=== PATIENT | male | born 1960 | race Caucasian/White ===

== ENCOUNTER 2017-09-06 12:39 | Emergency (ER) | payer BC, OTHER ==
[2017-09-06 14:57] LABS: Absolute Monocytes 0.6 K/uL (0.1-1.3); Basophils % 0.8 % (0-1.3); Eosinophils % 6.2 % (0-4.4); Hematocrit 47.5 % (39.6-49.0); Lymphocytes % 33.1 % (15.3-44.8); MCH 32.1 pg (27.0-35.0); MCV 94.1 fL (80-100); MPV 7.7 fL (7.6-11.3); Monocytes % 9.6 % (3.3-12.3); RBC Red Blood Cell Count 5.04 M/uL (4.33-5.43)
[2017-09-06 15:31] LABS: Potassium 3.9 mEq/L (3.6-5.0)
--- NOTE | 2017-09-06 16:21 | EKG ---
Test Date: 2017-08-18 Test Time: 14:16:46 Campaign Advisor: TANIYA MEASUREMENT RESULTS: Intervals: Rate: 52 NH: 150 QRSD: 76 QT: 406 QTc: 377 [place]: P: 43 NH: 150 QRS: 6 T: 14 INTERPRETIVE STATEMENTS: Sinus bradycardia Otherwise normal ECG Compared to ECG 02/03/2012 08:52:04 No significant changes Electronically Signed On 09-06-17 16:19:57 CDT by Mohit Carmona
--- NOTE | 2017-09-06 16:49 | EDPHYS ---
Physician Documentation [facility] Name: Chandana Andujar Age: 56 yrs Sex: Male : 1960 Arrival Date: 09/06/2017 Time: 12:45 Bed 30 Private MD: Kenny Clancy ED Physician Dillon Junior HPI: 09/06 16:47 This 56 yrs old Male presents to ER via Ambulatory with complaints of Chest gs Pain, Breathing Difficulty. 16:47 The patient or guardian reports chest pain that is located primarily in the anterior gs chest wall. Onset: 1 week(s) ago. The pain does not radiate. Associated signs and symptoms: Pertinent positives: shortness of breath. The chest pain is described as dull. Duration: The patient or guardian reports multiple episodes, that are intermittent, that wax and wane, the episodes last approximately 5 minute(s). Modifying factors: The symptoms are alleviated by nothing. the symptoms are aggravated by nothing. Severity of pain: At its worst the pain was moderate in the emergency department the pain has resolved. The patient has experienced similar episodes in the past, several times. Historical: - Allergies: 12:56 No Known Allergies; hj - Home Meds: 12:56 Bystolic oral oral [Active]; Synthroid Oral once daily [Active]; hj - PMHx: 12:56 Hypertension; Hypothyroidism; hj - PSHx: 12:56 Knee surgery; Tonsillectomy; neck surgery; hj - Immunization history:: Pneumococcal vaccine is not up to date. - Social history:: Smoking status: Patient/guardian denies using tobacco, never smoked. ROS: 16:47 All other systems are negative. gs Exam: 16:47 Head/Face: Normocephalic, atraumatic. Eyes: Pupils equal round and reactive to light, gs extra-ocular motions intact. Lids and lashes normal. Conjunctiva and sclera are non-icteric and not injected. Cornea within normal limits. Periorbital areas with no swelling, redness, or edema. ENT: Nares patent. No nasal discharge, no septal abnormalities noted. Tympanic membranes are normal and external auditory canals are clear. Oropharynx with no redness, swelling, or masses, exudates, or evidence of obstruction, uvula midline. Mucous membranes moist. Neck: Trachea midline, no thyromegaly or masses palpated, and no cervical lymphadenopathy. Supple, full range of motion without nuchal rigidity, or vertebral point tenderness. No Meningismus. Chest/axilla: Normal chest wall appearance and motion. Nontender with no deformity. No lesions are appreciated. Cardiovascular: Regular rate and rhythm with a normal S1 and S2. No gallops, murmurs, or rubs. Normal PMI, no JVD. No pulse deficits. Respiratory: Lungs have equal breath sounds bilaterally, clear to auscultation and percussion. No rales, rhonchi or wheezes noted. No increased work of breathing, no retractions or nasal flaring. Abdomen/GI: Soft, non-tender, with normal bowel sounds. No distension or tympany. No guarding or rebound. No evidence of tenderness throughout. Back: No spinal tenderness. No costovertebral tenderness. Full range of motion. Skin: Warm, dry with normal turgor. Normal color with no rashes, no lesions, and no evidence of cellulitis. MS/ Extremity: Pulses equal, no cyanosis. Neurovascular intact. Full, normal range of motion. Neuro: Awake and alert, GCS 15, oriented to person, place, time, and situation. Cranial nerves II-XII grossly intact. Motor strength 5/5 in all extremities. Sensory grossly intact. Cerebellar exam normal. Normal gait. 16:47 Constitutional: The patient appears alert, awake. 16:47 ECG was reviewed by the Attending Physician. Vital Signs: 12:57 BP 140 / 91; Pulse 63; Resp 18; Temp 97.4(TE); Pulse Ox 99% on R/A; Weight 99.79 kg; Height 5 ft. 11 in. (180.34 cm); Pain 6/10; 14:04 BP 154 / 98; Pulse 56; Resp 17; Pulse Ox 98% on R/A; rk2 14:30 BP 134 / 92; Pulse 55; Resp 17; Pulse Ox 98% on R/A; rk2 15:33 BP 144 / 95; Pulse 55; Resp 17; Pulse Ox 98% on R/A; rk2 16:30 BP 141 / 95; Pulse 60; Resp 17; Pulse Ox 96% on R/A; rk2 12:57 Body Mass Index 30.68 (99.79 kg, 180.34 cm) MDM: 14:25 Patient medically screened. 16:47 Differential diagnosis: acute myocardial infarction, coronary artery disease chest wall gs pain. Data reviewed: vital signs, nurses notes, and as a result, I will discharge patient. 09/06 14:29 Order name: BNP; Complete Time: 15:42 09/06 14:29 Order name: Basic Metabolic Panel; Complete Time: 15:42 09/06 12:54 Order name: EKG; Complete Time: 12:54 09/06 14:29 Order name: CBC with Diff; Complete Time: 15:42 09/06 14:29 Order name: Troponin (emerg Dept Use Only); Complete Time: 15:42 09/06 14:29 Order name: XRAY Chest Pa And Lat (2 Views) 09/06 14:29 Order name: Cardiac monitoring; Complete Time: 14:49 09/06 14:29 Order name: EKG - Nurse/Tech; Complete Time: 14:48 09/06 14:29 Order name: IV Saline Lock; Complete Time: 14:48 09/06 14:29 Order name: Labs collected and sent; Complete Time: 14:48 09/06 14:29 Order name: O2 Per Protocol; Complete Time: 14:48 09/06 14:29 Order name: O2 Sat Monitoring; Complete Time: 14:48 09/06 14:29 Order name: Urine Dipstick-Ancillary (obtain specimen); Complete Time: 15:40 gs EC:47 Rate is 52 beats/min. Rhythm is regular. PA interval is normal. No Q waves. T waves are gs Normal. No ST changes noted. Clinical impression: Normal ECG. Interpreted by me. Administered Medications: No medications were administered Disposition: 09/06/17 16:49 Discharged to Home. Impression: Chest pain, unspecified. - Condition is Stable. - Discharge Instructions: Nonspecific Chest Pain, Managing Your High Blood Pressure. - Medication Reconciliation Form, Thank You Letter, Antibiotic Education, Prescription Opioid Use form. - Follow up: Kenny Clancy MD; When: 2 - 3 days; Reason: Re-evaluation by your physician. Follow up: Mohit Carmona MD; When: 2 - 3 days; Reason: Re-evaluation by your physician. Signatures: Dispatcher [facility] RN RN Dillon Gonzales MD MD gs Perla Mojica, RN RN rk2
--- NOTE | 2017-09-06 16:49 | ER ---
Nurse's Notes [facility] Name: Chandana Andujar Age: 56 yrs Sex: Male : 1960 Arrival Date: 09/06/2017 Time: 12:45 Bed 30 Private MD: Kenny Clancy Diagnosis: Chest pain, unspecified Presentation: 09/06 12:54 Presenting complaint: Patient states: i had chest pain that started last week, i was hj hort of breath, last Wednesday, i felt a sharp, stabbing pain; denies nausea and vomiting;. Transition of care: patient was not received from another setting of care. Onset of symptoms was September 06, 2017. Care prior to arrival: None. 12:54 Method Of Arrival: Ambulatory 12:54 Acuity: CHELO 3 hj Triage Assessment: 12:56 General: Appears in no apparent distress. uncomfortable, Behavior is calm, cooperative, hj appropriate for age. Pain: Complains of pain in chest. Cardiovascular: Capillary refill < 3 seconds Patient's skin is warm and dry. Historical: - Allergies: 12:56 No Known Allergies; hj - Home Meds: 12:56 Bystolic oral oral [Active]; Synthroid Oral once daily [Active]; hj - PMHx: 12:56 Hypertension; Hypothyroidism; hj - PSHx: 12:56 Knee surgery; Tonsillectomy; neck surgery; hj - Immunization history:: Pneumococcal vaccine is not up to date. - Social history:: Smoking status: Patient/guardian denies using tobacco, never smoked. Screenin:09 Abuse screen: Denies threats or abuse. Nutritional screening: No deficits noted. rk2 Tuberculosis screening: No symptoms or risk factors identified. Fall Risk None identified. Assessment: 12:56 Pain: Pain does not radiate. Pain began 2-3 days ago. hj 14:11 General: Appears in no apparent distress. well groomed, well developed, well nourished, rk2 Behavior is calm, cooperative. Neuro: Level of Consciousness is alert, obeys commands, Oriented to person, place, time, situation. Cardiovascular: Rhythm is sinus rhythm. Respiratory: Airway is patent Respiratory effort is even, unlabored, Respiratory pattern is regular, symmetrical. GI:. Derm: Skin is pink, warm \T\ dry. 15:15 Reassessment: Pt. resting in room, nobody \T\ bedside. Pt. appears to be in no obvious rk2 distress \T\ this time. Pt. voiced no needs. 16:29 Reassessment: Pt. resting in room \T\ this time... repositioned for comfort. Pt. appears rk2 to be in no obvious distress \T\ this time, voiced no other needs. 17:00 Reassessment: Reviewed DC instructions with pt... IV removed. Pt. able to ambulate out rk2 on his own without difficulty. Vital Signs: 12:57 BP 140 / 91; Pulse 63; Resp 18; Temp 97.4(TE); Pulse Ox 99% on R/A; Weight 99.79 kg; hj Height 5 ft. 11 in. (180.34 cm); Pain 6/10; 14:04 BP 154 / 98; Pulse 56; Resp 17; Pulse Ox 98% on R/A; rk2 14:30 BP 134 / 92; Pulse 55; Resp 17; Pulse Ox 98% on R/A; rk2 15:33 BP 144 / 95; Pulse 55; Resp 17; Pulse Ox 98% on R/A; rk2 16:30 BP 141 / 95; Pulse 60; Resp 17; Pulse Ox 96% on R/A; rk2 12:57 Body Mass Index 30.68 (99.79 kg, 180.34 cm) ED Course: 12:45 Patient arrived in ED. mr 12:45 Kenny Clancy MD is Private Physician. mr 12:55 Triage completed. hj 12:56 Arm band placed on right wrist. hj 12:56 Patient maintains SpO2 saturation greater than 95% on room air. hj 12:58 cardiac cath lab technologist on. Pulse ox on. NIBP on. hj 14:02 Perla Mojica, JUAN ALBERTO is Primary Nurse. rk2 14:05 Dillon Junior MD is Attending Physician. gs 14:09 Patient has correct armband on for positive identification. Placed in gown. Bed in low rk2 position. Call light in reach. 15:22 EKG done, by ED staff, reviewed by Dillon Junior MD. mh5 15:40 XRAY Chest Pa And Lat (2 Views) Sent. rk2 15:41 XRAY Chest Pa And Lat (2 Views) In Process Unspecified. EDMS 16:49 Kenny Clancy MD is Referral Physician. 16:49 Mohit Carmona MD is Referral Physician. 17:01 No provider procedures requiring assistance completed. IV discontinued. rk2 Administered Medications: No medications were administered Outcome: 16:49 Discharge ordered by MD. 17:01 Discharged to rk2 17:01 Discharged to home ambulatory. 17:01 Condition: good 17:01 Discharge instructions given to patient. 17:02 Patient left the ED. 2 Signatures: Dispatcher [employer] Gita Joseph Henry, RN RN Gita Wright [facility] Dillon Junior MD MD gs Kidder, Rhonda, RN RN rk2 Corrections: (The following items were deleted from the chart) 12:58 12:57 Pulse 63bpm; Resp 18bpm; Pulse Ox 99% RA; Temp 97.4F Temporal; 99.79 kg; Height 5 hj ft. 11 in.; BMI: 30.6; Pain 6/10; hj
[2017-09-06 17:07] VITALS: TEMP 97.4
[2017-09-06 17:11] VITALS: BP 141/95; O2SAT 96
--- NOTE | 2017-09-06 17:34 | RAD REPORT ---
EXAM DESCRIPTION: Mallory Choudhary (2 Views)09/06/2017 3:41 pm CLINICAL HISTORY: Cough COMPARISON: 2012 FINDINGS: The lungs appear clear of acute infiltrate. The heart is normal size IMPRESSION: No acute abnormalities displayed
== END 2017-09-06 17:02 | disposition home or self-care (01) ==
LOC: ER 12:39
DX: R07.9 Chest pain, unspecified (principal); I10 Essential (primary) hypertension; E03.9 Hypothyroidism, unspecified
CPT/HCPCS: 36415; 71046; 80048; 83880; 84484; 85025; 93005; 99285

== ENCOUNTER 2022-11-17 22:40 | Observation (INO) | payer OTHER ==
--- OUTSIDE RECORDS SUMMARY | 2022-11-17 22:46 | XMS REPORT | Continuity of Care Document ---
:1960 Author Organization [facility] t Address [address] [place] [address] [address] [place] [address] Care Team Providers Name Role Phone Marcy Clancy MD Primary Care Physician Abram Mendiola Attending Clinician Unavailable Kamryn Lozada Attending Clinician Unavailable Tiago Sullivan Attending Clinician Unavailable Aida Martinez Attending Clinician Provider, [facility] Attending Clinician Unavailable Unknown, Attending Attending Clinician Unavailable UNKNOWN, ATTENDING Attending Clinician Unavailable Physician, No Primary or Family Admitting Clinician Unavaila Kamryn Cast Admitting Clinician Unavailable Payers Payer Name Policy Type Policy Number Effective Date Expiration Date S ource Problems Condition Condition Condition Status Onset Resolution Last Treating Co mments Source Name Details Category Date Date Treatment Clinician Date 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 00:00: Hospit a 00 l Scalenus Scalenus Disease Active 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 00:00: Hospit a 00 l No known No known Disease Unive rs active active ity of problems problems [facility] Allergies, Adverse Reactions, Alerts Allergy Allergy Status Severity Reaction(s) Onset Inactive Treating Comm ents Source Name Type Date Date Clinician chicken FA Active [place] NAUSEA [facility] derived 4-10 Clear 00:00: [facility] No Known DA Active U [facility] Allergie 09-17 Clear s 00:00: Damian 00 [facility] NO KNOWN Drug Active Univers ALLERGIE Class ity of S [facility] Social History Social Habit Start Date Stop Date Quantity Comments Source Gender identity [facility] Exposure to Not sure [facility]-CoV-2 (event) [facility] Tobacco use and 2020 2020 Never used Universit y of exposure 00:00:00 00:00:00 [facility] History of Social 2019-02-03 2019-02-[address] function 00:00:00 00:00:00 Hospital Alcohol intake 2018-03-10 2018-03-10 Current [facility] 00:00:00 00:00:00 non-drinker of Hospital alcohol (finding) Sex Assigned At [birth year] [facility] 00:[facility]00 [facility] Smoking Status Start Date Stop Date Source Never smoker [facility] Medications Ordered Filled Start Stop Current Ordering Indication Dosage Frequency Signature Comments Components Source Medication Medication Date Date Medication? Clinician (SIG) Name Name methylPREDN Yes [id number] Take by Univers ISolone 11-11 mouth ity of (MEDROL, 00:00: SEE-INSTRU John Paul as JULISSA,) 4 mg 00 CTIONS. Medica l tablets follow Branch package directions methylPREDN Yes [id number] Take by Univers ISolone 11-11 mouth ity of (MEDROL, 00:00: SEE-INSTRU John Paul as JULISSA,) 4 mg 00 CTIONS. Medica l tablets follow Branch package directions methylPREDN Yes [id number] Take by Univers ISolone 11-11 mouth ity of (MEDROL, 00:00: SEE-INSTRU John Paul as JULISSA,) 4 mg 00 CTIONS. Medica l tablets follow Branch package directions amoxicillin 2020- No [id number] 1{tbl} Take 1 Univers -clavulanat 11-11 tablet by it y of e 875-125 00:00: 04:59 [place] 2 [place] mg per 00 :00 (two) Medical tablet times Branch daily for 7 days. promethazin 2020- No [id number] 10mL Take 10 mL Univers e-codeine 11-11 06-08 by mouth ity o f 6.25-10 00:00: 04:59 every 8 [place] mg/5 mL 00 :00 (eight) Medical syrup hours as Branch needed for Cough or Cold symptoms for up to 7 days. Indication s: acute pain amoxicillin 2020- No [id number] 1{tbl} Take 1 Univers -clavulanat 5- 06-08 tablet by it y of e 875-125 00:00: 04:59 [place] 2 [place] mg per 00 :00 (two) Medical tablet times Branch daily for 7 days. promethazin 2020- No 4647 10mL Take 10 mL Univers e-codeine 11-11-08 by mouth ity o f 6.25-10 00:00: 04:59 every 8 [place] mg/5 mL 00 :00 (eight) Medical syrup hours as Branch needed for Cough or Cold symptoms for up to 7 days. Indication s: acute pain amoxicillin 2020- No [id number] 1{tbl} Take 1 Univers -clavulanat - 06-08 tablet by it y of e 875-125 00:00: 04:59 [place] 2 [place] mg per 00 :00 (two) Medical tablet times Branch daily for 7 days. promethazin 2020- No 4647 10mL Take 10 mL Univers e-codeine 11-11-08 by mouth ity o f 6.25-10 00:00: 04:59 every 8 [place] mg/5 mL 00 :00 (eight) Medical syrup hours as Branch needed for Cough or Cold symptoms for up to 7 days. Indication s: acute pain metoprolol Yes 50mg Take 50 mg U nivers succinate 5-13 by mouth ity of XL 50 mg 24 00:00: daily. [place] hr tablet Medical Branch levothyroxi Yes 75ug Take 75 Uni vers ne 75 mcg 5-13 mcg by ity of tablet 00:00: mouth. [place] [facility] metoprolol Yes 50mg Take 50 mg U nivers succinate 5-13 by mouth ity of XL 50 mg 24 00:00: [place]. [place] hr tablet 00 [place] Branch levothyroxi Yes 75ug Take 75 Uni vers ne 75 mcg 5-13 mcg by ity of tablet 00:00: mouth. [place] [facility] Branch metoprolol Yes 50mg Take 50 mg U nivers succinate 5-13 by mouth ity of XL 50 mg 24 00:00: daily. [place] hr tablet [facility] Branch levothyroxi Yes 75ug Take 75 Uni vers ne 75 mcg 5-13 mcg by ity of tablet 00:00: mouth. [place] [facility] Branch acetaminoph Yes 1{tbl} Q4H Take 1 Me thodi en-codeine 7-[address] (TYLENOL 17:28: mouth Hospita WITH 26 every 4 l CODEINE #3) (four) 300-30 mg hours as per tablet needed for moderate pain. methylPREDN 2017- Yes 4mg Q.5D Take 4 mg M ethodi ISolone 7-[address] (MEDROL 17:28: (two) Hospita DOSEPAK) 4 26 times a l mg tablet day. follow package directions nebivolol 2018-0 Yes 10mg QD Take 10 mg Me thodi (BYSTOLIC) 7-[address] 10 MG 17:28: daily. Hospita tablet 26 l levothyroxi 0 Yes 100ug QD Take 100 M ethodi ne sodium 7-[address] (TIROSINT) 17:28: mouth Hospit a 100 mcg 26 daily. l capsule nebivolol Yes 10mg QD Take 10 mg Me thodi (BYSTOLIC) 7-[address] 10 MG 17:28: daily. Hospita tablet 26 l cyclobenzap 2018-0 Yes 10mg Q.[id number] Take 10 mg Methodi rine 7-11 [id number] mouth [address] (FLEXERIL) 17:28: 3D (three) Hosp eduardo 10 mg 26 times a l tablet day as needed for muscle spasms. acetaminoph Yes 1{tbl} Q4H Take 1 Me thodi en-codeine 7-[address] (TYLENOL 17:28: mouth Hospita WITH 26 every 4 l CODEINE #3) (four) 300-30 mg hours as per tablet needed for moderate pain. methylPREDN 2018-0 Yes 4mg Q.5D Take 4 mg M ethodi ISolone 7-[address] (MEDROL 17:28: (two) Hospita DOSEPAK) 4 26 times a l mg tablet day. follow package directions cyclobenzap 2018-0 Yes 10mg Q.[id number] Take 10 mg Methodi rine 7-[id number] mouth [address] (FLEXERIL) 17:28: 3D (three) Hosp eduardo 10 mg 26 times a l tablet day as needed for muscle spasms. acetaminoph 2018-0 Yes 1{tbl} Q4H Take 1 Me thodi en-codeine 7-[address] (TYLENOL 17:28: mouth Hospita WITH 26 every 4 l CODEINE #3) (four) 300-30 mg hours as per tablet needed for moderate pain. methylPREDN 2018-0 Yes 4mg Q.5D Take 4 mg M ethodi ISolone 7-[address] (MEDROL 17:28: (two) Hospita DOSEPAK) 4 26 times a l mg tablet day. follow package directions nebivolol 2018-0 Yes 10mg QD Take 10 mg Me thodi (BYSTOLIC) 7-[address] 10 MG 17:28: daily. Hospita tablet 26 l levothyroxi 2018-0 Yes 100ug QD Take 100 M ethodi ne sodium 7-[address] (TIROSINT) 17:28: mouth Hospit a 100 mcg 26 daily. l capsule levothyroxi 2018-0 Yes 100ug QD Take 100 M ethodi ne sodium 7-[address] (TIROSINT) 17:28: mouth Hospit a 100 mcg 26 daily. l capsule cyclobenzap 2018-0 Yes 10mg Q.37515624 Take 10 mg Methodi rine 7-[id number] mouth [address] (FLEXERIL) 17:28: 3D (three) Hosp eduardo 10 mg 26 times a l tablet day as needed for muscle spasms. acetaminoph 2018-0 Yes 1{tbl} Q4H Take 1 Me thodi en-codeine 7-[address] (TYLENOL 17:28: mouth Hospita WITH 26 every 4 l CODEINE #3) (four) 300-30 mg hours as per tablet needed for moderate pain. methylPREDN 2018-0 Yes 4mg Q.5D Take 4 mg M ethodi ISolone 7-[address] (MEDROL 17:28: (two) Hospita DOSEPAK) 4 26 times a l mg tablet day. follow package directions nebivolol Yes 10mg QD Take 10 mg Me thodi (BYSTOLIC) 7-[address] 10 MG 17:28: daily. Hospita tablet 26 l levothyroxi Yes 100ug QD Take 100 M ethodi ne sodium 7-[address] (TIROSINT) 17:28: mouth Hospit a 100 mcg 26 daily. l capsule cyclobenzap Yes 10mg Q.[id number] Take 10 mg Methodi rine 7-[id number] mouth [address] (FLEXERIL) 17:28: 3D (three) Hosp eduardo 10 mg 26 times a l tablet day as needed for muscle spasms. Vital Signs Vital Name Observation Time Observation Value Comments Source [facility]stolic blood 2020 17:11:00 142 [facility] 2020 17:11:00 100 mm[Hg] [facility] Heart rate 2020 17:10:00 84 /min [facility] Body temperature 2020 17:10:00 37.28 Annie [facility] Respiratory rate 2020 17:10:00 17 /min [facility] Body height 2020 17:10:00 180.3 cm [facility] Body weight 2020 17:10:00 98.884 kg [facility] BMI 2020 17:10:00 30.40 kg/m2 [facility] Oxygen saturation in 2020 17:10:00 98 /min [facility] Arterial blood by [facility] Pulse oximetry Branch Procedures Procedure Date / Time Performed Performing Clinician Anna philippe [id number] 2022-09-18 00:00:00 CHAAB.01 [facility] [id number] 2022-09-18 00:00:00 CHAAB.01 JOB Mensah [facility] [id number] 2022-09-18 00:00:00 CHAAB.01 [facility] [id number] 2022-09-18 00:00:00 CHAAB.01 [facility] [id number] 2022-09-18 00:00:00 CHAAB.01 [facility] [id number] 2022-09-18 00:00:00 CHAAB.01 [facility] [id number] 2022-09-18 00:00:00 CHAAB.01 [facility] [id number] 2022-09-18 00:00:00 CHAAB.01 [facility] [id number] 2022-09-18 00:00:00 CHAAB.01 [facility] [id number] 2022-09-18 00:00:00 CHAAB.01 [facility] [id number] 2022-09-18 00:00:00 CHAAB.01 [facility] XR CHEST 2 VW 2020 18:13:28 [facility] Plan of Care Planned Activity Planned Date Details Comments Source Future Scheduled 2022-09-16 COVID-19 VACCINE (#1) [facility] Test 22:04:45 [code = COVID-19 VACCINE (#1)] Future Scheduled 2022-09-16 COVID-19 VACCINE (#1) [facility] Test 22:04:45 [code = COVID-19 VACCINE (#1)] Future Scheduled 2022-09-16 Screening for [facility] Test 22:04:45 malignant neoplasm of colon (procedure) [code = 823850614] Future Scheduled 2022-09-16 SHINGLES VACCINES (1 Met [facility] Test 22:04:45 of 2) [code = SHINGLES VACCINES (1 of 2)] Future Scheduled 2022-09-16 INFLUENZA VACCINE [facility] Test 22:04:45 [code = INFLUENZA VACCINE] Future Scheduled 2022-09-16 COLONOSCOPY SCREENING [facility] Test 22:04:45 [code = COLONOSCOPY SCREENING] Future Scheduled 2022-09-16 SHINGLES VACCINES (1 Met [facility] Test 22:04:45 of 2) [code = SHINGLES VACCINES (1 of 2)] Future Scheduled 2022-09-16 INFLUENZA VACCINE Method [facility] Test 22:04:45 [code = INFLUENZA VACCINE] Future Scheduled 2022-09-16 COVID-19 VACCINE (#1) [facility] Test 22:04:45 [code = COVID-19 VACCINE (#1)] Future Scheduled 2022-09-16 COLONOSCOPY SCREENING [facility] Test 22:04:45 [code = COLONOSCOPY SCREENING] Future Scheduled 2022-09-16 SHINGLES VACCINES (1 Met [facility] Test 22:04:45 of 2) [code = SHINGLES VACCINES (1 of 2)] Future Scheduled 2022-09-16 INFLUENZA VACCINE [facility] Test 22:04:45 [code = INFLUENZA VACCINE] Future Scheduled 2022-09-16 COVID-19 VACCINE (#1) [facility] Test 22:04:45 [code = COVID-19 VACCINE (#1)] Future Scheduled 2022-09-16 COLONOSCOPY SCREENING [facility] Test 22:04:45 [code = COLONOSCOPY SCREENING] Future Scheduled 2022-09-16 SHINGLES VACCINES (1 Met [facility] Test 22:04:45 of 2) [code = SHINGLES VACCINES (1 of 2)] Future Scheduled 2022-09-16 INFLUENZA VACCINE Method [facility] Test 22:04:45 [code = INFLUENZA VACCINE] Encounters Start End Encounter Admission Attending Care Care Encounter Source Date/Time Date/Time Type Type Clinicians Facility Department ID 2022-09-30 2022-09-30 Outpatient Abram Gottlieb [facility] RADI [id number] [facility] 15:00:00 15:00:00 90 [facility] 2022-09-17 2022-09-22 Inpatient UR Kierra [facility] INTE [id number] [facility] 18:51:00 18:25:00 Isabel 99 [facility] 2020 2020 [facility] [id number] Univers 12:54:34 23:59:00 Encounter Aida Herbert [id number] itChelsea 4.2.7.2.686 [facility] [id number] [facility] 807 Branch 2020 2020 Urgent Provider, [facility] [id number] Univers 12:04:07 12:58:18 Care Unknown, [facility] [id number] ity [facility] 4.2.7.2.686 [facility] [phone] [address] Office Building One 2020 2020 Outpatient R UNKNOWN, [facility] [id number] Univers 12:20:00 12:20:00 ATTENDING ity [facility] 2020 2020 Telephone Provider, [facility] [id number] [facility] 00:00:00 00:00:[address] [facility] Urgent Health [id number] ity of [facility] [id number] [facility] [phone] [address] Building One Results Test Description Test Time Test Comments Results Result Sour e Comments - XR CHEST 2 V 2022-10-01 00:00:00 [facility] 1960 Sex: M FAX: Abram Mendiola MD Ridge: FRANKO St: DEP Name: CHANDANA ARGUELLES [facility] : 1960 Age/S: 61/M [address] [place] [address] Blvd Unit #: [id number] Loc: [place] [address] Phys: Abram Mendiola MD Acct: [id number] Dis Date: Status: DEP CLI PHONE #: [phone] Exam Date: 09/30/2022 1510 FAX #: [phone] Reason: ANGINA EXAMS: CPT CODE: [id number] XR CHEST 2 V 98116 PROCEDURE INFORMATION: Exam: XR Chest Exam date and time: 09/30/2022 2:53 PM Age: 61 years old Clinical indication: Atherosclerotic heart disease of tangirnaq coronary artery without angina pectoris TECHNIQUE: Imaging protocol: Radiologic exam of the chest. Views: 2 views. PA and Lateral COMPARISON: CR XR CHEST 1V 09/22/2022 6:01 AM FINDINGS: Tubes, catheters and devices: Plate and screws overlie the midline cervical thoracic spine. Surgical clips overlie the mediastinum. Lungs: Linear density identified within left lower lung. Possible atelectasis or scarring. The lungs appear otherwise clear. Improvement of lung opacities is demonstrated. Improved expansion of the lungs. Pleural spaces: Unremarkable. No pleural effusion. No pneumothorax. Heart/Mediastinum: Mediastinum and inez appear unremarkable. Diaphragm: Elevation of the left hemidiaphragm is demonstrated. Bones/joints: Sternotomy wires, hardware is demonstrated. IMPRESSION: Linear left lower chest pulmonary atelectasis or scarring. Mild left lung volume loss. Improvement. at 0820 Reported and signed by: Kristian Edge M.D. CC: Abram Mendiola MD Technologist: Arpita Elias RT(R) Trnscrd Date/Time/By: 10/01/2022 (819) : By: [email or web address] Orig Print D/T: S: 10/01/2022 (819) PAGE 1 Signed Report INFECTION CONTROL PROFILE 2022-09-24 13:12:00 Test Item Value Reference Range Interpretation Comme nts HEPATITIS C RNA BY HCV Not Detected IU/mL See_Comment No evidence of active HCV PCR-QUAL (test code = infect ion. [Automated HCVRNAPCR) message] The sy stem which generated this result transmitted ref erence range: (). The reference range was not u sed to interpret this result as normal/abnormal . 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 [facility] [id number] 13:16:00 Test Item Value Reference Range Interpretation Comments SURGICAL (test code = SR) R UN DATE: 09/22/22 [place] - LAB PAGE 1 RUN TIME: 1316 Specimen Inquiry RUN USER: INTERFACE P ATIENT: CHANDANA ARGUELLES LOC: FernandoCVN1 U #: [id number] AGE/SX: 61/M ROOM: [facility] RE09/17/22REG DR: Kamryn Lozada : [birth year] BED: 1 DIS: STATUS: ADM IN TLOC: SPEC #: [id number] RECD: 09/21/22 STATUS: CATHIE BRADFORD #: [id number] NIDHI: 09/18/22- SUBM DR: Kamryn Lozada MD ENTERED: 09/21/22 SP TYPE: SURGICAL OTHR DR: Krystal Elizabeth MD, Xiao H MD Quaddoura, Amer A MDORDERED: [id number], ANATOMIC SPEC COPIES TO: Krystal Elizabeth MD [address] [place] [address] Kamryn Lozada MD [address] [place] [address] Umu Gross MD [address] [place] [address] Mervat Mcdonald MD [address] [place] [address] PROCEDURES: [id number] (09/21/22) TISSUES: A. ATRIUM - LEFT ATRIAL APPENDAGE CLINICAL HISTORY SAME FINAL DIAGNOSIS Heart, left atrial appendage, submitted: Cardiac muscle with some degenerative changes andattached adipose, consistent with atrial appendage. CONTINUED ON NEXT PAGE R UN DATE: 09/22/22 [facility] PAGE 2 RUN TIME: 1316 Specimen Inquiry RUN USER: INTERFACE S MARIYA #: [id number] PATIENT: CHANDANA ARGUELLES #[id number] (Continued) GROSS DESCRIPTION Received in formalin labeled left atrial appendage is a 2 x 1 x 0.8 cm portion of musculartissue with some attached adipose (A). Technical [place] [address] Unless gross only, the diagnosis is based upon microscopic examination.Immunohistochemistr y: This test was developed and its performance characteristicsdetermined by this laboratory. It has not been approved nor does it need approvalby the [place] FDA. Appropriate positive and negative controls are reviewed and judgedto be acceptable. This laboratory is certified under the Clinical Laboratory ImprovementAmendments (CLIA-88) as qualified to perform high complexity clinical laboratory testing. CLINICAL INFORMATION CAD -- Signed SIGNATURE ON FILE Mikey Brar 09/22/22 1316 END OF REPORT BASIC METABOLIC [id number] 08:26:00 Test Item Value Reference Range Interpretation Comments SODIUM (test code = 137 mEq/L 134-147 N NA) POTASSIUM (test code 3.8 mEq/L 3.4-5.0 N = K) CHLORIDE (test code 98 mEq/L 100-108 L = CL) CARBON DIOXIDE (test 28 mEq/l 21-33 N code = CO2) ANION GAP (test code 15 0-20 N = GAP) GLUCOSE (test code = 142 mg/dL 70-110 H GLU) BLOOD UREA NITROGEN 13 mg/dL 7-18 (test code = BUN) GLOMERULAR 63.3 90-95 L The Glomerular FILTRATION RATE Filtration R ate is a (test code = GFR) calculated parameterbased on serum Creatinine, pat ient age and sex. GFR va luesless than 60 mL/min/ 1.73 square meters a re indicative ofCh ronic Kidney Disease. Values less than 15 mL/min/1.73squa re meters indicate Kidney failure. The calculation forGFR is based on the CKD-EPI (2020) calculat ion. This formulais race indifferent and is the recommended for nery for GFRby the [facility] on for Adults.The GFR will not calculate if th e sex is unknown or if thepatient's ag e is <18 years. 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 [facility] CBC W/AUTO [id number] 06:54:00 Test Item Value Reference Range Interpretation Comments WHITE BLOOD CELL (test code = 8.4 x10 3/uL 4.5-11.0 N WBC) RED BLOOD CELL (test code = 4.46 x10 6/uL 4.00-5.60 N RBC) HEMOGLOBIN (test code = HGB) 14.4 g/dL 12.5-16.9 N HEMATOCRIT (test code = HCT) 41.9 % 37.5-50.7 N MEAN CELL VOLUME (test code = 93.9 fL 81.0-99.0 N MCV) MEAN CELL HGB (test code = MCH) 32.3 pg 27.0-33.0 N MEAN CELL HGB CONCETRATION 34.4 g/dL 33.0-37.0 N (test code = MCHC) RED CELL DISTRIBUTION WIDTH CV 12.2 % 11.5-14.5 N (test code = RDW) RED CELL DISTRIBUTION WIDTH SD 42.5 fL 37.0-54.0 N (test code = RDW-SD) PLATELET COUNT (test code = 261 x10 3/uL 150-400 N PLT) MEAN PLATELET VOLUME (test code 9.8 fL 7.0-9.0 H = MPV) NEUTROPHIL % (test code = NT%) 61.9 % 56.0-77.0 N IMMATURE GRANULOCYTE % (test 0.4 % 0.0-2.0 N code = IG%) LYMPHOCYTE % (test code = LY%) 22.3 % 14.0-32.0 N MONOCYTE % (test code = MO%) 9.5 % 4.8-9.0 H EOSINOPHIL % (test code = EO%) 5.5 % 0.3-3.7 H BASOPHIL % (test code = BA%) 0.4 % 0.0-2.0 N NUCLEATED RBC % (test code = 0.0 % 0-0 N NRBC%) NEUTROPHIL # (test code = NT#) 5.20 x10 3/uL 2.0-7.6 N IMMATURE GRANULOCYTE # (test 0.03 x10 3/uL 0.00-0.03 N code = IG#) LYMPHOCYTE # (test code = LY#) 1.87 x10 3/uL 1.0-3.8 N MONOCYTE # (test code = MO#) 0.80 x10 3/uL 0.1-0.8 N EOSINOPHIL # (test code = EO#) 0.46 x10 3/uL 0.0-0.2 H BASOPHIL # (test code = BA#) 0.03 x10 3/uL 0.0-0.2 N NUCLEATED RBC # (test code = 0.00 x10 3/uL 0.0-0.1 N NRBC#) MANUAL DIFF REQUIRED (test code NO = MDIFF) - XR ABDOMEN 1V (KUB)2022-09-22 00:00:00 [facility] : 1960 Sex: M FAX: Kamryn Blair [phone] Ridge: St: ADM FAX: Krysta Kay y [phone] ----- Name: KINDRACHANDANA [facility] : 1960 Age/S: 61/M [address] [place] [address] Blvd Unit #: [id number] Loc: G.3360 [place] [address] Phys: Krysta Cordero Physic Acct: [id number] Dis Date: Status: ADM IN PHONE #: [phone] Exam Date: 09/22/2022 1151 FAX #: [phone] Reason: Constipation EXAMS: CPT CODE: [id number] XR ABDOMEN 1V (KUB) 38327 PROCEDURE INFORMATION: Exam: XR Abdomen Exam date and time: 09/22/2022 11:27 AM Age: 61 years old Clinical indication: Constipation TECHNIQUE: Imaging protocol: Radiologic exam of the abdomen. Views: Frontal supine view of the abdomen. 1 View. COMPARISON: CR XR CHEST 1V 09/22/2022 6:01 AM FINDINGS: Gastrointestinal tract: No evidence of significant constipation. Organs: No organomegaly. Bones/joints: No significant abnormality. IMPRESSION: No significant abnormality. at 1225 Reported and signed by: Anibal Feliz M.D. CC: Kamryn Lozada MD; Krysta Cordero Technologist: RT [place](Dirk) Trnscrd Date/Time/By: 09/22/2022 (6647) : By: [email or web address] Orig Print D/T: S: 09/22/2022 (8598) PAGE 1 Signed Report- DUP VEIN [id number] 00:00:00 [facility] : 1960 Sex: M Name: CHANDANA ARGUELLES [facility] : 1960 Age/S: 61 / M [address] [place] [address] Unit #: [id number] Loc: [place] [address] Phys: Krysta Cordero Physic Acct: [id number] Dis Date: Status: ADM IN PHONE #: [phone] Exam Date: 09/22/2022 1232 FAX #: [phone] Reason: BLE EXAMS: CPT CODE:[id number] DUP VEIN AZALEA 71618 PROCEDURE INFORMATION: Exam: US Duplex Lower Extremity Veins, Bilateral Exam date and time: 09/22/2022 12:14 PM Age: 61 years old Clinical indication: Screening exam; Post op cabg; Additional info: Ble TECHNIQUE: Imaging protocol: Real-time duplex ultrasound of the bilateral extremities with 2-D caldwell scale, color Doppler flow and spectral waveform analysis including responses to compression and other maneuvers (when performed) with image documentation. Complete exam focused on the lower extremity veins. COMPARISON: US DUP VEIN AZALEA 09/18/2022 6:15 AM FINDINGS: Right deep veins: Unremarkable. The common femoral, femoral, proximal profunda femoral and popliteal veins are pa tent without thrombus. Normal Doppler waveforms. Normal compressibility and/or augmentation response. Right superficial veins: Saphenofemoral junction is patent without thrombus. Left deep veins: Unremarkable. The common femoral, femoral, proximal profunda femoral and popliteal veins are patent without thrombus. Normal Doppler waveforms. Normal compressibility and/or augmentation response. Left superficial veins: Saphenofemoral junction is patent without thrombus. Soft tissues: Unremarkable. IMPRESSION: No evidence of deep vein thrombosis. at 1420 Reported and signed by: David Cuellar M.D. CC: Kamryn Lozada MD; Krysta Cordero Technologist: Angie Lei RDMS(AB)(OB) Trnscb Date/Time: 09/22/2022 (1419) ClaribelTDO Orig Print D/T: S: 09/22/2022 (1419) Probe: PAGE 1 Signed Report- XR CHEST 1 [id number] 00:00:00 [facility] : 1960 Sex: M FAX: Kamryn Blair [phone] Ridge: St: [facility] FAX: Joellen Burris [phone] ----- Name: CHANDANA ARGUELLES HCAHClear Damian : 1960 Age/S: 61/M [address] [place] [address] Unit #: [id number] Loc: G.[address] [place] [address] Phys: Brunilda Parks NP Acct: [id number] Dis Date: Status: ADM IN PHONE #: Exam Date: 09/22/2022 0602 FAX #: [phone] Reason: Cardiac Surgery Post Op EXAMS: CPT CODE: [id number] XR CHEST 1 V 54431 PROCEDURE INFORMATION: Exam: XR Chest Exam date and time: 09/22/2022 6:01 AM Age: 61 years old Clinical indication: Other: Cardiac surgery post op TECHNIQUE: Imaging protocol: Radiologic exam of the chest. Views: 1 view. COMPARISON: CR XR CHEST 1V 09/21/2022 5:31 AM FINDINGS: Lungs: Low lung volumes. Unchanged mild bibasilar airspace disease. Pleural spaces: No pleuraleffusion. No pneumothorax. Heart/Mediastinum: Unchanged cardiomediastinal silhouette. Bones/joints: Median sternotomy changes. Cervical spine fixation hardware in place. IMPRESSION: Unchanged mild bibasilar airspace disease. at 0815 Reported and signed by: Randolph Colón M.D. CC: Kamryn Lozada MD; Brunilda Burris NP Technologist: Nida Ann RT(R) Trnscrd Date/Time/By: 09/22/2022 (0815) : By: ClaribelAM01 Orig Print D/T: S: 09/22/2022 (6243) PAGE 1 Signed ReportGLUCOSE [id number] 21:02:00 Test Item Value Reference Range Interpretation Comments GLUCOSE BEDSIDE (test 130 MG/DL 70-110 H Perfor med by certified code = GLUBED) bliss press operator at [facility] GLUCOSE [id number] 16:49:00 Test Item Value Reference Range Interpretation Comments GLUCOSE BEDSIDE (test 131 MG/DL 70-110 H Perfor med by certified code = GLUBED) bliss press operator at [facility] GLUCOSE [id number] 13:32:00 Test Item Value Reference Range Interpretation Comments GLUCOSE BEDSIDE (test 175 MG/DL 70-110 H Perfor med by certified code = GLUBED) bliss press operator at [facility] GLUCOSE [id number] 08:14:00 Test Item Value Reference Range Interpretation Comments GLUCOSE BEDSIDE (test 181 MG/DL 70-110 H Perfor med by certified code = GLUBED) bliss press operator at [facility] BASIC METABOLIC [id number] 03:02:00 Test Item Value Reference Range Interpretation Comments SODIUM (test code = 135 mEq/L 134-147 N NA) POTASSIUM (test code 4.3 mEq/L 3.4-5.0 N = K) CHLORIDE (test code 100 mEq/L 100-108 N = CL) CARBON DIOXIDE (test 25 mEq/l 21-33 N code = CO2) ANION GAP (test code 14 0-20 N = GAP) GLUCOSE (test code = 190 mg/dL 70-110 H GLU) BLOOD UREA NITROGEN 10 mg/dL 7-18 N (test code = BUN) GLOMERULAR 69.7 90-95 L The Glomerular FILTRATION RATE Filtration R ate is a (test code = GFR) calculated parameterbased on serum Creatinine, pat ient age and sex. GFR va luesless than 60 mL/min/ 1.73 square meters a re indicative ofCh ronic Kidney Disease. Values less than 15 mL/min/1.73squa re meters indicate Kidney failure. The calculation forGFR is based on the CKD-EPI (2020) calculat ion. This formulais race indifferent and is the recommended for nery for GFRby the Natio nal Kidney Foundati on for Adults.The GFR will not calculate if th e sex is unknown or if thepatient's ag e is <18 years. CREATININE (test 1.2 mg/dL 0.6-1.3 N code = CREAT) CALCIUM (test code = 8.8 mg/dL 8.0-10.5 N CA) COMMENTS: POD #1HEPATIC FUNCTION [id number] 03:02:00 Test Item Value Reference Range Interpretation Comments TOTAL PROTEIN (test code = PROT) 6.7 g/dL 6.4-8.2 N ALBUMIN (test code = ALB) 4.00 g/dL 3.4-5.0 N BILIRUBIN TOTAL (test code = BILT) 0.70 mg/dL 0.0-1.0 N BILIRUBIN DIRECT (test code = 0.30 MG/DL 0.0-0.30 BILD) BILIRUBIN INDIRECT (test code = 0.40 MG/DL BILIND) SGOT/AST (test code = AST) 24 IUnit/L 15-37 N SGPT/ALT (test code = ALT) 9 IUnit/L 30-65 L ALKALINE PHOSPHATASE TOTAL (test 45 IUnit/L 20-125 N code = ALKP) COMMENTS: POD #[id number] 03:02:00 Test Item Value Reference Range Interpretation Comments MAGNESIUM (test code = MAG) 1.73 mg/dL 1.80-2.40 L COMMENTS: POD #1CBC W/AUTO [id number] 02:45:00 Test Item Value Reference Range Interpretation Comments WHITE BLOOD CELL (test code = 12.2 x10 3/uL 4.5-11.0 H WBC) RED BLOOD CELL (test code = 4.23 x10 6/uL 4.00-5.60 N RBC) HEMOGLOBIN (test code = HGB) 13.6 g/dL 12.5-16.9 N HEMATOCRIT (test code = HCT) 39.6 % 37.5-50.7 N MEAN CELL VOLUME (test code = 93.6 fL 81.0-99.0 N MCV) MEAN CELL HGB (test code = MCH) 32.2 pg 27.0-33.0 N MEAN CELL HGB CONCETRATION 34.3 g/dL 33.0-37.0 N (test code = MCHC) RED CELL DISTRIBUTION WIDTH CV 12.2 % 11.5-14.5 N (test code = RDW) RED CELL DISTRIBUTION WIDTH SD 42.2 fL 37.0-54.0 N (test code = RDW-SD) PLATELET COUNT (test code = 180 x10 3/uL 150-400 N PLT) MEAN PLATELET VOLUME (test code 9.4 fL 7.0-9.0 H = MPV) NEUTROPHIL % (test code = NT%) 70.8 % 56.0-77.0 N IMMATURE GRANULOCYTE % (test 0.2 % 0.0-2.0 N code = IG%) LYMPHOCYTE % (test code = LY%) 16.2 % 14.0-32.0 N MONOCYTE % (test code = MO%) 10.2 % 4.8-9.0 H EOSINOPHIL % (test code = EO%) 2.1 % 0.3-3.7 N BASOPHIL % (test code = BA%) 0.5 % 0.0-2.0 N NUCLEATED RBC % (test code = 0.0 % 0-0 N NRBC%) NEUTROPHIL # (test code = NT#) 8.63 x10 3/uL 2.0-7.6 H IMMATURE GRANULOCYTE # (test 0.03 x10 3/uL 0.00-0.03 N code = IG#) LYMPHOCYTE # (test code = LY#) 1.97 x10 3/uL 1.0-3.8 N MONOCYTE # (test code = MO#) 1.24 x10 3/uL 0.1-0.8 H EOSINOPHIL # (test code = EO#) 0.25 x10 3/uL 0.0-0.2 H BASOPHIL # (test code = BA#) 0.06 x10 3/uL 0.0-0.2 N NUCLEATED RBC # (test code = 0.00 x10 3/uL 0.0-0.1 N NRBC#) MANUAL DIFF REQUIRED (test code NO = MDIFF) - XR CHEST 1 [id number] 00:00:00 [facility] : 1960 Sex: M FAX: Kamryn Blair [phone] Ridge: St: ADM FAX: Joellen Burris [phone] ------ Name: CHANDANA ARGUELLES [facility] : 1960 Age/S: 61/M [address] [place] [address] Unit #: [id number] Loc: G.[address] [place] [address] 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 Views: 1 view. COMPARISON: CR XR CHEST 1V 09/20/2022 6:07 AM FINDINGS: Tubes, catheters and devices: Mediastinal and left thoracostomy drain have been removed. EKG and epicardial pacer leads overlie the chest. Lungs: Left basilar pulmonary opacities are unchanged. Increased opacity right lung base, oblique lateral margin, obscuring the hemidiaphragm. Pleural spaces:Residual small left apical pneumothorax with separation approximately 1.1 cm slightly diminished. Costophrenic angles are indistinct compatible with small pleural effusions. Heart/Mediastinum: The cardiomediastinal silhouette is stable. Bones/joints: Sternotomy wires are intact. IMPRESSION: 1. New right lower lobe atelectasis versus airspace disease. 2. Stable left basilar pleuroparenchymal disease.3. Small residual left pneumothorax, decreased following thoracostomy drain removal. 4. Stable postoperative cardiomediastinal silhouette. Electronically Signed by Alex Wild on 09/12 at 0851 Reported and signed by: Jeevan Wild M.D. CC: Kamryn Lozada MD; Brunilda Burris NP Technologist: RT Sugey(Dirk) Trnscrd Date/Time/By: 09/21/2022 (850) : By:Ro Orig Print D/T: S: 09/21/2022 (0852) PAGE 1 Signed ReportGLUCOSE [id number] 20:37:00 Test Item Value Reference Range Interpretation Comments GLUCOSE BEDSIDE (test 131 MG/DL 70-110 H Perfor med by certified code = GLUBED) bliss press operator at [facility] GLUCOSE [id number] 18:07:00 Test Item Value Reference Range Interpretation Comments GLUCOSE BEDSIDE (test 218 MG/DL 70-110 H Perfor med by certified code = GLUBED) bliss press operator at [facility] GLUCOSE [id number] 12:25:00 Test Item Value Reference Range Interpretation Comments GLUCOSE BEDSIDE (test 175 MG/DL 70-110 H Perfor med by certified code = GLUBED) bliss press operator at [facility] GLUCOSE [id number] 07:59:00 Test Item Value Reference Range Interpretation Comments GLUCOSE BEDSIDE (test 197 MG/DL 70-110 H Perfor med by certified code = GLUBED) bliss press operator at [facility] BASIC METABOLIC [id number] 02:44:00 Test Item Value Reference Range Interpretation Comments SODIUM (test code = 137 mEq/L 134-147 N NA) POTASSIUM (test code 4.6 mEq/L 3.4-5.0 N = K) CHLORIDE (test code 101 mEq/L 100-108 N = CL) CARBON DIOXIDE (test 29 mEq/l 21-33 N code = CO2) ANION GAP (test code 12 0-20 N = GAP) GLUCOSE (test code = 207 mg/dL 70-110 H GLU) BLOOD UREA NITROGEN 10 mg/dL 7-18 N (test code = BUN) GLOMERULAR 63.3 90-95 L The Glomerular FILTRATION RATE Filtration R ate is a (test code = GFR) calculated parameterbased on serum Creatinine, pat ient age and sex. GFR va luesless than 60 mL/min/ 1.73 square meters a re indicative ofCh ronic Kidney Disease. Values less than 15 mL/min/1.73squa re meters indicate Kidney failure. The calculation forGFR is based on the CKD-EPI (2020) calculat ion. This formulais race indifferent and is the recommended for nery for GFRby the Natio nal Kidney Foundati on for Adults.The GFR will not calculate if th e sex is unknown or if thepatient's ag e is <18 years. CREATININE (test 1.3 mg/dL 0.6-1.3 N code = CREAT) CALCIUM (test code = 8.8 mg/dL 8.0-10.5 N CA) COMMENTS: POD #1HEPATIC FUNCTION [id number] 02:44:00 Test Item Value Reference Range Interpretation Comments TOTAL PROTEIN (test code = PROT) 6.7 g/dL 6.4-8.2 N ALBUMIN (test code = ALB) 4.20 g/dL 3.4-5.0 N BILIRUBIN TOTAL (test code = BILT) 0.60 mg/dL 0.0-1.0 N BILIRUBIN DIRECT (test code = 0.20 MG/DL 0.0-0.30 N BILD) BILIRUBIN INDIRECT (test code = 0.40 MG/DL BILIND) SGOT/AST (test code = AST) 44 IUnit/L 15-37 H SGPT/ALT (test code = ALT) 11 IUnit/L 30-65 L ALKALINE PHOSPHATASE TOTAL (test 39 IUnit/L 20-125 N code = ALKP) COMMENTS: POD #[id number] 02:44:00 Test Item Value Reference Range Interpretation Comments MAGNESIUM (test code = MAG) 1.68 mg/dL 1.80-2.40 L COMMENTS: POD #1CBC W/AUTO [id number] 02:22:00 Test Item Value Reference Range Interpretation Comments WHITE BLOOD CELL (test code = 13.4 x10 3/uL 4.5-11.0 H WBC) RED BLOOD CELL (test code = 4.24 x10 6/uL 4.00-5.60 N RBC) HEMOGLOBIN (test code = HGB) 13.8 g/dL 12.5-16.9 N HEMATOCRIT (test code = HCT) 39.4 % 37.5-50.7 N MEAN CELL VOLUME (test code = 92.9 fL 81.0-99.0 N MCV) MEAN CELL HGB (test code = MCH) 32.5 pg 27.0-33.0 N MEAN CELL HGB CONCETRATION 35.0 g/dL 33.0-37.0 N (test code = MCHC) RED CELL DISTRIBUTION WIDTH CV 12.4 % 11.5-14.5 N (test code = RDW) RED CELL DISTRIBUTION WIDTH SD 42.3 fL 37.0-54.0 N (test code = RDW-SD) PLATELET COUNT (test code = 188 x10 3/uL 150-400 N PLT) MEAN PLATELET VOLUME (test code 9.7 fL 7.0-9.0 H = MPV) NEUTROPHIL % (test code = NT%) 70.0 % 56.0-77.0 N IMMATURE GRANULOCYTE % (test 0.4 % 0.0-2.0 N code = IG%) LYMPHOCYTE % (test code = LY%) 16.4 % 14.0-32.0 N MONOCYTE % (test code = MO%) 11.7 % 4.8-9.0 H EOSINOPHIL % (test code = EO%) 1.3 % 0.3-3.7 N BASOPHIL % (test code = BA%) 0.2 % 0.0-2.0 N NUCLEATED RBC % (test code = 0.0 % 0-0 N NRBC%) NEUTROPHIL # (test code = NT#) 9.37 x10 3/uL 2.0-7.6 H IMMATURE GRANULOCYTE # (test 0.06 x10 3/uL 0.00-0.03 H code = IG#) LYMPHOCYTE # (test code = LY#) 2.20 x10 3/uL 1.0-3.8 N MONOCYTE # (test code = MO#) 1.57 x10 3/uL 0.1-0.8 H EOSINOPHIL # (test code = EO#) 0.17 x10 3/uL 0.0-0.2 N BASOPHIL # (test code = BA#) 0.03 x10 3/uL 0.0-0.2 N NUCLEATED RBC # (test code = 0.00 x10 3/uL 0.0-0.1 N NRBC#) MANUAL DIFF REQUIRED (test code NO = MDIFF) - XR CHEST 1 [id number] 00:00:00 [facility] : 1960 Sex: M FAX: Kamryn Blair [phone] [place]: St: [facility] FAX: Joellen Burris [phone] ------ Name: KINDRA,CHANDANA [facility] : 1960 Age/S: 61/M [address] [place] [address] Unit #: [id number] Loc: G.2208 [place] [address] 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 Views: 1 view. COMPARISON: CR XR CHEST 1V 09/19/2022 6:03 AM FINDINGS: Tubes, catheters and devices: Removal of the right IJ central line. Stable left chest tube. Stable small left pneumothorax. Lungs: The bilateral lung opacities are grossly stable. Low lung volumes.Pleural spaces: See "Tubes, catheters and devices" finding. Heart/Mediastinum: The heart size is stable. Bones/joints: Stable. Partially imaged postoperative change in the cervical spine. Median sternotomy wires. IMPRESSION: 1. Grossly stable left lung opacities. Stable small left pneumothorax with stable left chest tube. 2. Removal of the right IJ central line. at 0833 Reported and signed by: Anuel Mariee M.D. CC: Kamryn Lozada MD; Brunilda Burris NP Technologist: Octavio Bran; RT Laura(R) Trnscrd Date/Time/By:09/20/2022 (0833) : By: ClaribelSW20 Orig Print D/T: S: 09/20/2022 (0833) PAGE 1 Signed ReportGLUCOSE BEDSIDE 2022-09-19 19:54:00 Test Item Value Reference Range Interpretation Comments GLUCOSE BEDSIDE (test 242 MG/DL 70-110 H Perfor med by certified code = GLUBED) bliss press operator at [facility] GLUCOSE [id number] 17:07:00 Test Item Value Reference Range Interpretation Comments GLUCOSE BEDSIDE (test 189 MG/DL 70-110 H Perfor med by certified code = GLUBED) bliss press operator at [facility] GLUCOSE [id number] 12:04:00 Test Item Value Reference Range Interpretation Comments GLUCOSE BEDSIDE (test 189 MG/DL 70-110 H Perfor med by certified code = GLUBED) bliss press operator at [facility] GLUCOSE [id number] 08:13:00 Test Item Value Reference Range Interpretation Comments GLUCOSE BEDSIDE (test 111 MG/DL 70-110 H Perfor med by certified code = GLUBED) bliss press operator at [facility] POC ARTERIAL BLOOD [id number] 04:48:00 Test Item Value Reference Range Interpretation Comments POC ARTERIAL BLOOD GAS PH (test 7.377 7.35-7.45 N code = POCPHA) POC ARTERIAL BLOOD GAS PCO2 (test 39.6 mmHg 35.0-45 N code = [id number]) POC TCO2 ARTERIAL (test code = 24.2 POCTCO2) POC ARTERIAL BLOOD GAS PO2 (test 75.3 mmHg 80-100.0 L code = UIJYQ6S) POC HCO3 ARTERIAL (test code = 23.1 MMOL/L 22.0-26.0 N [id number]) POC BASE EXCESS (test code = -1.9 MMOL/L -4.0-4.0 N POCBEA) POC O2 SATURATION (test code = 94.0 % 90-100 N POCO2S) ABG DELIVERY (test code = RACHID) HFNC ABG TEMPERATURE (test code = 100 F TEMPA) ABG SITE (test code = SITEA) Art Line BASIC METABOLIC [id number] 04:48:00 Test Item Value Reference Range Interpretation Comments SODIUM (test code = NA/ABG) 137 mmol/L 134-147 N POTASSIUM (test code = K/ABG) 4.9 mmol/L 3.4-5.0 N CHLORIDE (test code = CL/ABG) 102 mmol/L 100-108 N CREATININE ABG (test code = 1.1 mg/dL 0.8-1.3 CREAABG) POC IONIZED CALCIUM (test code = 1.11 MMOL/L 1.12-1.32 L POCCA) POC GLUCOSE (test code = POCGLU) 118 MG/DL 70-110 H HEMOGLOBIN [id number] 04:48:00 Test Item Value Reference Range Interpretation Comments HEMOGLOBIN ABG (test code = 11.9 G/DL 12.5-16.9 L HGB/ABG) [id number] 04:48:00 Test Item Value Reference Range Interpretation Comments HEMATOCRIT (test code = HCT/ABG) 35 % 37.5-50.7 L POC LACTIC [id number] 04:48:00 Test Item Value Reference Range Interpretation Comments POC LACTIC ACID (test code = 0.6 mmol/l 0.9-1.7 L POCLAC) BASIC METABOLIC [id number] 02:46:00 Test Item Value Reference Range Interpretation Comments SODIUM (test code = 138 mEq/L 134-147 N NA) POTASSIUM (test code 5.0 mEq/L 3.4-5.0 N = K) CHLORIDE (test code 105 mEq/L 100-108 N = CL) CARBON DIOXIDE (test 26 mEq/l 21-33 N code = CO2) ANION GAP (test code 12 0-20 N = GAP) GLUCOSE (test code = 156 mg/dL 70-110 H GLU) BLOOD UREA NITROGEN 12 mg/dL 7-18 N (test code = BUN) GLOMERULAR 69.7 90-95 L The Glomerular FILTRATION RATE Filtration R ate is a (test code = GFR) calculated parameterbased on serum Creatinine, pat ient age and sex. GFR va luesless than 60 mL/min/ 1.73 square meters a re indicative ofCh ronic Kidney Disease. Values less than 15 mL/min/1.73squa re meters indicate Kidney failure. The calculation forGFR is based on the CKD-EPI (2020) calculat ion. This formulais race indifferent and is the recommended for nery for GFRby the Natunc health Kidney Foundati on for Adults.The GFR will not calculate if th e sex is unknown or if thepatient's ag e is <18 years. CREATININE (test 1.2 mg/dL 0.6-1.3 N code = CREAT) CALCIUM (test code = 8.8 mg/dL 8.0-10.5 N CA) COMMENTS: POD #1HEPATIC FUNCTION [id number] 02:46:00 Test Item Value Reference Range Interpretation Comments TOTAL PROTEIN (test code = PROT) 6.0 g/dL 6.4-8.2 L ALBUMIN (test code = ALB) 4.20 g/dL 3.4-5.0 N BILIRUBIN TOTAL (test code = BILT) 0.50 mg/dL 0.0-1.0 N BILIRUBIN DIRECT (test code = 0.20 MG/DL 0.0-0.30 N BILD) SGOT/AST (test code = AST) 45 IUnit/L 15-37 H SGPT/ALT (test code = ALT) 13 IUnit/L 30-65 L ALKALINE PHOSPHATASE TOTAL (test 36 IUnit/L 20-125 N code = ALKP) BILIRUBIN INDIRECT (test code = 0.30 MG/DL BILIND) COMMENTS: POD #[id number] 02:46:00 Test Item Value Reference Range Interpretation Comments MAGNESIUM (test code = MAG) 1.74 mg/dL 1.80-2.40 L COMMENTS: POD #1CALCIUM [id number] 02:46:00 Test Item Value Reference Range Interpretation Comments CALCIUM IONIZED (test code = TEE) 1.13 MMOL/L 1.09-1.30 N COMMENTS: POD #1CBC W/AUTO [id number] 02:31:00 Test Item Value Reference Range Interpretation Comments WHITE BLOOD CELL (test code = 12.2 x10 3/uL 4.5-11.0 H WBC) RED BLOOD CELL (test code = 4.23 x10 6/uL 4.00-5.60 N RBC) HEMOGLOBIN (test code = HGB) 13.7 g/dL 12.5-16.9 N HEMATOCRIT (test code = HCT) 38.7 % 37.5-50.7 N MEAN CELL VOLUME (test code = 91.5 fL 81.0-99.0 N MCV) MEAN CELL HGB (test code = 32.4 pg 27.0-33.0 N MCH) MEAN CELL HGB CONCETRATION 35.4 g/dL 33.0-37.0 N (test code = MCHC) RED CELL DISTRIBUTION WIDTH CV 12.3 % 11.5-14.5 N (test code = RDW) RED CELL DISTRIBUTION WIDTH SD 40.9 fL 37.0-54.0 N (test code = RDW-SD) PLATELET COUNT (test code = 184 x10 3/uL 150-400 N PLT) MEAN PLATELET VOLUME (test 9.6 fL 7.0-9.0 H code = MPV) NEUTROPHIL % (test code = NT%) 84.8 % 56.0-77.0 H IMMATURE GRANULOCYTE % (test 0.2 % 0.0-2.0 N code = IG%) LYMPHOCYTE % (test code = LY%) 4.7 % 14.0-32.0 L MONOCYTE % (test code = MO%) 10.1 % 4.8-9.0 H EOSINOPHIL % (test code = EO%) 0.1 % 0.3-3.7 L BASOPHIL % (test code = BA%) 0.1 % 0.0-2.0 N NUCLEATED RBC % (test code = 0.0 % 0-0 N NRBC%) NEUTROPHIL # (test code = NT#) 10.39 x10 3/uL 2.0-7.6 H IMMATURE GRANULOCYTE # (test 0.02 x10 3/uL 0.00-0.03 N code = IG#) LYMPHOCYTE # (test code = LY#) 0.57 x10 3/uL 1.0-3.8 L MONOCYTE # (test code = MO#) 1.24 x10 3/uL 0.1-0.8 H EOSINOPHIL # (test code = EO#) 0.01 x10 3/uL 0.0-0.2 N BASOPHIL # (test code = BA#) 0.01 x10 3/uL 0.0-0.2 N NUCLEATED RBC # (test code = 0.00 x10 3/uL 0.0-0.1 N NRBC#) MANUAL DIFF REQUIRED (test NO code = MDIFF) - XR CHEST 1 [id number] 00:00:00 [facility] : 1960 Sex: M FAX: Kamryn Blair [phone] [place]: St: [facility] FAX: Joellen Burris [phone] ----- Name: CHANDANA ARGUELLES [facility] : 1960 Age/S: 61/M [address] [place] [address] Bl Unit #: [id number] Loc: G.2208 [place] [address] Phys: Brunilda Parks NP Acct: [id number] Dis Date: Status: ADM IN PHONE #: Exam Date: 09/19/2022 0604 FAX #: [phone] Reason: Cardiac Surgery Post Op EXAMS: CPT CODE: [id number] XR CHEST 1 V 36396 PROCEDURE INFORMATION: Exam: XR Chest Exam date and time: 09/19/2022 6:03 AM Age: 61 years old Clinical indication: Other: Cardiac surgery post op TECHNIQUE: Imaging protocol: Radiologic exam of the chest. Views: 1 view. COMPARISON: CR XR CHEST 1V 09/18/2022 3:37 PM FINDINGS: Tubes, catheters and devices: Plate and screws overlie the midline cervical spine. Left large bore chest tube is demonstrated. Surgical clips overlie the mediastinum. Right neck dialysis catheter tip is positioned over the SVC-atrial region. Lungs: Lung volumes are decreased. Moderate degree bilateral perihilar and basilar interstitial alveolar pulmonary edema versus infiltrates, pneumonia within the lungs. The pulmonary opacities are most prominent within the lower left lung. Progression of left-sided lower lung opacities is demonstrated. Pleural spaces: Unremarkable. No pleural effusion. No pneumothorax. Heart/Mediastinum: Cardiac silhouette appears mildly enlarged. Bones/joints: Sternotomy wires, hardware is demonstrated. IMPRESSION: 1. Mild enlarged cardiac silhouette. 2. Moderate pulmonary edema versus infiltrates, pneumonia. Electronically Signed by Alex Edge on 0 09/19/2022 at 0827 Reported and signed by: Kristian Edge M.D. CC: Kamryn Lozada MD;Brunilda Burris NP Technologist: Octavio Bran; RT Brandi(R) Trnscrd Date/Time/By: 09/19/2022 (826) : By: [email or web address] Orig Print D/T: S: 09/19/2022 (28) PAGE 1 Signed ReportGLUCOSE BEDSIDE 2022-09-18 23:24:00 Test Item Value Reference Range Interpretation Comments GLUCOSE BEDSIDE (test 122 MG/DL 70-[address] [facility] med by certified code = GLUBED) bliss press operator at [facility] POC ARTERIAL BLOOD [id number] 21:21:00 Test Item Value Reference Range Interpretation Comments POC ARTERIAL BLOOD GAS PH (test 7.356 7.35-7.45 N code = POCPHA) POC ARTERIAL BLOOD GAS PCO2 (test 45.9 mmHg 35.0-45 H code = [id number]) POC TCO2 ARTERIAL (test code = 26.9 POCTCO2) POC ARTERIAL BLOOD GAS PO2 (test 86.2 mmHg 80-100.0 N code = POZGC2S) POC HCO3 ARTERIAL (test code = 25.5 MMOL/L 22.0-26.0 N [id number]) POC BASE EXCESS (test code = 0.2 MMOL/L -4.0-4.0 N POCBEA) POC O2 SATURATION (test code = 95.7 % 90-100 N POCO2S) ABG DELIVERY (test code = RACHID) HFNC ABG TEMPERATURE (test code = 99.7 F TEMPA) ABG SITE (test code = SITEA) Art Line BASIC METABOLIC [id number] 21:21:00 Test Item Value Reference Range Interpretation Comments SODIUM (test code = NA/ABG) 141 mmol/L 134-147 N POTASSIUM (test code = K/ABG) 4.2 mmol/L 3.4-5.0 N CHLORIDE (test code = CL/ABG) 105 mmol/L 100-108 N CREATININE ABG (test code = 0.9 mg/dL 0.8-1.3 N CREAABG) POC IONIZED CALCIUM (test code = 1.26 MMOL/L 1.12-1.32 N POCCA) POC GLUCOSE (test code = POCGLU) 147 MG/DL 70-110 H HEMOGLOBIN [id number] 21:21:00 Test Item Value Reference Range Interpretation Comments HEMOGLOBIN ABG (test code = 13.5 G/DL 12.5-16.9 N HGB/ABG) [id number] 21:21:00 Test Item Value Reference Range Interpretation Comments HEMATOCRIT (test code = HCT/ABG) 40 % 37.5-50.7 N POC LACTIC [id number] 21:21:00 Test Item Value Reference Range Interpretation Comments POC LACTIC ACID (test code = 1.2 mmol/l 0.9-1.7 N POCLAC) POC ARTERIAL BLOOD [id number] 18:01:00 Test Item Value Reference Range Interpretation Comments POC ARTERIAL BLOOD GAS PH (test 7.369 7.35-7.45 N code = POCPHA) POC ARTERIAL BLOOD GAS PCO2 45.5 mmHg 35.0-45 H (test code = TNIYFY4R) POC TCO2 ARTERIAL (test code = 27.8 POCTCO2) POC ARTERIAL BLOOD GAS PO2 (test 78.1 mmHg 80-100.0 L code = BOHXE5S) POC HCO3 ARTERIAL (test code = 26.3 MMOL/L 22.0-26.0 H [id number]) POC BASE EXCESS (test code = 0.9 MMOL/L -4.0-4.0 N POCBEA) POC O2 SATURATION (test code = 95.2 % 90-100 N POCO2S) FIO2 (test code = FIO2A) 40 % PaO2/FiO2 (test code = [id number]) 195.25 mm/Hg ABG DELIVERY (test code = RACHID) CPAP ABG VENT MODE (test code = CPAP/PS MODEA) ABG PEEP (test code = PEEPA) 5 cmH2O ABG TEMPERATURE (test code = 97.8 F TEMPA) ABG SITE (test code = SITEA) Art Line BASIC METABOLIC [id number] 18:01:00 Test Item Value Reference Range Interpretation Comments SODIUM (test code = NA/ABG) 141 mmol/L 134-147 N POTASSIUM (test code = K/ABG) 4.0 mmol/L 3.4-5.0 N CHLORIDE (test code = CL/ABG) 105 mmol/L 100-108 N CREATININE ABG (test code = 1.0 mg/dL 0.8-1.3 N CREAABG) POC IONIZED CALCIUM (test code = 1.27 MMOL/L 1.12-1.32 N POCCA) POC GLUCOSE (test code = POCGLU) 151 MG/DL 70-110 H HEMOGLOBIN [id number] 18:01:00 Test Item Value Reference Range Interpretation Comments HEMOGLOBIN ABG (test code = 12.8 G/DL 12.5-16.9 N HGB/ABG) [id number] 18:01:00 Test Item Value Reference Range Interpretation Comments HEMATOCRIT (test code = HCT/ABG) 38 % 37.5-50.7 N POC ARTERIAL BLOOD [id number] 17:15:00 Test Item Value Reference Range Interpretation Comments POC ARTERIAL BLOOD GAS PH (test 7.337 7.35-7.45 L code = POCPHA) POC ARTERIAL BLOOD GAS PCO2 45.5 mmHg 35.0-45 H (test code = TSMWYF2D) POC TCO2 ARTERIAL (test code = 25.9 POCTCO2) POC ARTERIAL BLOOD GAS PO2 (test 83.6 mmHg 80-100.0 N code = DPFKD1T) POC HCO3 ARTERIAL (test code = 24.5 MMOL/L 22.0-26.0 N [id number]) POC BASE EXCESS (test code = -1.4 MMOL/L -4.0-4.0 N POCBEA) POC O2 SATURATION (test code = 95.6 % 90-100 N POCO2S) FIO2 (test code = FIO2A) 60 % PaO2/FiO2 (test code = [id number]) 139.33 mm/Hg ABG DELIVERY (test code = RACHID) CPAP ABG VENT MODE (test code = CPAP/PS MODEA) ABG PEEP (test code = PEEPA) 5 cmH2O ABG TEMPERATURE (test code = 98 F TEMPA) ABG SITE (test code = SITEA) Art Line BASIC METABOLIC [id number] 17:15:00 Test Item Value Reference Range Interpretation Comments SODIUM (test code = NA/ABG) 143 mmol/L 134-147 N POTASSIUM (test code = K/ABG) 3.7 mmol/L 3.4-5.0 N CHLORIDE (test code = CL/ABG) 107 mmol/L 100-108 N CREATININE ABG (test code = 1.0 mg/dL 0.8-1.3 CREAABG) POC IONIZED CALCIUM (test code = 1.29 MMOL/L 1.12-1.32 N POCCA) POC GLUCOSE (test code = POCGLU) 154 MG/DL 70-110 H HEMOGLOBIN [id number] 17:15:00 Test Item Value Reference Range Interpretation Comments HEMOGLOBIN ABG (test code = 12.6 G/DL 12.5-16.9 N HGB/ABG) [id number] 17:15:00 Test Item Value Reference Range Interpretation Comments HEMATOCRIT (test code = HCT/ABG) 37 % 37.5-50.7 L BASIC METABOLIC [id number] 16:38:00 Test Item Value Reference Range Interpretation Comments SODIUM (test code = 140 mEq/L 134-147 N NA) POTASSIUM (test code 4.2 mEq/L 3.4-5.0 N = K) CHLORIDE (test code 108 mEq/L 100-108 N = CL) CARBON DIOXIDE (test 24 mEq/l 21-33 N code = CO2) ANION GAP (test code 13 0-20 N = GAP) GLUCOSE (test code = 182 mg/dL 70-110 H GLU) BLOOD UREA NITROGEN 10 mg/dL 7-18 (test code = BUN) GLOMERULAR 86.7 90-95 L The Glomerular FILTRATION RATE Filtration R ate is a (test code = GFR) calculated parameterbased on serum Creatinine, pat ient age and sex. GFR va luesless than 60 mL/min/ 1.73 square meters a re indicative ofCh ronic Kidney Disease. Values less than 15 mL/min/1.73squa re meters indicate Kidney failure. The calculation forGFR is based on the CKD-EPI (2020) calculat ion. This formulais race indifferent and is the recommended for nery for GFRby the [facility] on for Adults.The GFR will not calculate if th e sex is unknown or if thepatient's ag e is <18 years. CREATININE (test 1.0 mg/dL 0.6-1.3 N code = CREAT) CALCIUM (test code = 9.7 mg/dL 8.0-10.5 N CA) COMMENTS: On [id number] 16:38:00 Test Item Value Reference Range Interpretation Comments MAGNESIUM (test code = MAG) 2.41 mg/dL 1.80-2.40 H COMMENTS: On arrivalPROTHROMBIN [id number] 16:26:00 Test Item Value Reference Range Interpretation Comments PROTHROMBIN TIME 16.8 SECONDS 9.3-12.9 H PATIENT (test code = PTP) INTERNATIONAL NORMAL 1.5 0.8-1.2 H TARGET INR BY RATIO (test code = INDICATIO N Indication INR) INR1. Prophylax is of venous thrombos is 2.0 - 3.0 (orthoped ic surgery), Proph ylaxis of venous throm bosis (other than hig h-risk surgery), Treat ment of Deep Vein Thrombosis/Pulm onary Embolism, Preve ntion of systemic emb olism - Tissue heart va lves, Acute Myocardia l Infarction (to prevent systemic emboli sm), Valvular heart disease, Atrial Fibrillation, Bileaflet mecha nical valve in aortic position.2. Mec hanical prosthetic valv es (high risk), 2. 5 - 3.5 Presence of Lup us Anticoagulant o r Antiphospholipi d Antibodies, Pre vention of systemic emb olism - Acute Myocardia l Infarction (to prevent recurrent infar ct). COMMENTS: On arrivalTHROMBOPLASTIN TIME [id number] 16:26:00 Test Item Value Reference Range Interpretation Comments THROMBOPLASTIN TIME 29.0 Seconds 25.0-39.5 N Therape utic Range: PARTIAL (test code = 50.4 - 88.3 Seconds PTT) Effective 09/27/2018 COMMENTS: On arrivalCBC W/AUTO [id number] 16:15:00 Test Item Value Reference Range Interpretation Comments WHITE BLOOD CELL (test code = 13.1 x10 3/uL 4.5-11.0 H WBC) RED BLOOD CELL (test code = 3.89 x10 6/uL 4.00-5.60 L RBC) HEMOGLOBIN (test code = HGB) 12.7 g/dL 12.5-16.9 HEMATOCRIT (test code = HCT) 35.7 % 37.5-50.7 L MEAN CELL VOLUME (test code = 91.8 fL 81.0-99.0 N MCV) MEAN CELL HGB (test code = 32.6 pg 27.0-33.0 N MCH) MEAN CELL HGB CONCETRATION 35.6 g/dL 33.0-37.0 N (test code = MCHC) RED CELL DISTRIBUTION WIDTH CV 12.0 % 11.5-14.5 N (test code = RDW) RED CELL DISTRIBUTION WIDTH SD 40.5 fL 37.0-54.0 N (test code = RDW-SD) PLATELET COUNT (test code = 138 x10 3/uL 150-400 L PLT) MEAN PLATELET VOLUME (test 9.5 fL 7.0-9.0 H code = MPV) NEUTROPHIL % (test code = NT%) 77.0 % 56.0-77.0 N IMMATURE GRANULOCYTE % (test 0.5 % 0.0-2.0 N code = IG%) LYMPHOCYTE % (test code = LY%) 13.8 % 14.0-32.0 L MONOCYTE % (test code = MO%) 6.8 % 4.8-9.0 N EOSINOPHIL % (test code = EO%) 1.7 % 0.3-3.7 N BASOPHIL % (test code = BA%) 0.2 % 0.0-2.0 N NUCLEATED RBC % (test code = 0.0 % 0-0 N NRBC%) NEUTROPHIL # (test code = NT#) 10.07 x10 3/uL 2.0-7.6 H IMMATURE GRANULOCYTE # (test 0.06 x10 3/uL 0.00-0.03 H code = IG#) LYMPHOCYTE # (test code = LY#) 1.80 x10 3/uL 1.0-3.8 N MONOCYTE # (test code = MO#) 0.89 x10 3/uL 0.1-0.8 H EOSINOPHIL # (test code = EO#) 0.22 x10 3/uL 0.0-0.2 H BASOPHIL # (test code = BA#) 0.03 x10 3/uL 0.0-0.2 N NUCLEATED RBC # (test code = 0.00 x10 3/uL 0.0-0.1 N NRBC#) MANUAL DIFF REQUIRED (test NO code = MDIFF) [facility] [id number] 15:43:00 Test Item Value Reference Range Interpretation Comments POC ARTERIAL BLOOD GAS PH (test 7.395 7.35-7.45 N code = POCPHA) POC ARTERIAL BLOOD GAS PCO2 41.4 mmHg 35.0-45 N (test code = [id number]) POC TCO2 ARTERIAL (test code = 27.0 POCTCO2) POC ARTERIAL BLOOD GAS PO2 (test 65.6 mmHg 80-100.0 L code = OOMUC9W) POC HCO3 ARTERIAL (test code = 25.7 MMOL/L 22.0-26.0 N [id number]) POC BASE EXCESS (test code = 0.5 MMOL/L -4.0-4.0 N POCBEA) POC O2 SATURATION (test code = 93.6 % 90-100 N POCO2S) FIO2 (test code = FIO2A) 50 % PaO2/FiO2 (test code = [id number]) 131.20 mm/Hg ABG DELIVERY (test code = RACHID) Adult Vent ABG VENT MODE (test code = AC MODEA) ABG VENT RESP RATE (test code = 14 /MIN RRA) ABG TIDAL VOLUME (test code = 500 ml TVA) ABG PEEP (test code = PEEPA) 5 cmH2O ABG TEMPERATURE (test code = 96.4 F TEMPA) ABG SITE (test code = SITEA) Art Line BASIC METABOLIC [id number] 15:43:00 Test Item Value Reference Range Interpretation Comments SODIUM (test code = NA/ABG) 140 mmol/L 134-147 N POTASSIUM (test code = K/ABG) 4.4 mmol/L 3.4-5.0 N CHLORIDE (test code = CL/ABG) 105 mmol/L 100-108 N CREATININE ABG (test code = 0.8 mg/dL 0.8-1.3 N CREAABG) POC IONIZED CALCIUM (test code = 1.34 MMOL/L 1.12-1.32 H POCCA) POC GLUCOSE (test code = POCGLU) 188 MG/DL 70-110 H HEMOGLOBIN [id number] 15:43:00 Test Item Value Reference Range Interpretation Comments HEMOGLOBIN ABG (test code = 11.7 G/DL 12.5-16.9 L HGB/ABG) [id number] 15:43:00 Test Item Value Reference Range Interpretation Comments HEMATOCRIT (test code = HCT/ABG) 35 % 37.5-50.7 L [id number] 15:10:00 Test Item Value Reference Range Interpretation Comments ACT-ISTAT (test code 125 SEC 74-137 N Perform ed by certified = ACTI) bliss press operator at [facility] POC ARTERIAL BLOOD [id number] 15:09:00 Test Item Value Reference Range Interpretation Comments POC ARTERIAL BLOOD GAS PH (test 7.371 7.35-7.45 N code = POCPHA) POC ARTERIAL BLOOD GAS PCO2 (test 43.4 mmHg 35.0-45 N code = QDWAYD7A) POC TCO2 ARTERIAL (test code = 26.5 POCTCO2) POC ARTERIAL BLOOD GAS PO2 (test 103.7 mmHg 80-100.0 H code = HWMDF0F) POC HCO3 ARTERIAL (test code = 25.1 MMOL/L 22.0-26.0 N [id number]) POC BASE EXCESS (test code = -0.3 MMOL/L -4.0-4.0 N POCBEA) POC O2 SATURATION (test code = 97.8 % 90-100 N POCO2S) BASIC METABOLIC [id number] 15:09:00 Test Item Value Reference Range Interpretation Comments SODIUM (test code = NA/ABG) 141 mmol/L 134-147 N POTASSIUM (test code = K/ABG) 4.3 mmol/L 3.4-5.0 N CHLORIDE (test code = CL/ABG) 105 mmol/L 100-108 N CREATININE ABG (test code = 1.0 mg/dL 0.8-1.3 N CREAABG) POC IONIZED CALCIUM (test code = 1.36 MMOL/L 1.12-1.32 H POCCA) POC GLUCOSE (test code = POCGLU) 208 MG/DL 70-110 H HEMOGLOBIN [id number] 15:09:00 Test Item Value Reference Range Interpretation Comments HEMOGLOBIN ABG (test code = HGB/ABG) 9.8 G/DL 12.5-16.9 L [id number] 15:09:00 Test Item Value Reference Range Interpretation Comments HEMATOCRIT (test code = HCT/ABG) 29 % 37.5-50.7 L POC LACTIC [id number] 15:09:00 Test Item Value Reference Range Interpretation Comments POC LACTIC ACID (test code = 1.8 mmol/l 0.9-1.7 H POCLAC) [id number] 14:31:00 Test Item Value Reference Range Interpretation Comments ACT-ISTAT (test code 636 SEC 74-137 H Perform ed by certified = ACTI) bliss press operator at [facility] POC ARTERIAL BLOOD [id number] 14:23:00 Test Item Value Reference Range Interpretation Comments POC ARTERIAL BLOOD GAS PH (test 7.406 7.35-7.45 N code = POCPHA) POC ARTERIAL BLOOD GAS PCO2 (test 44.0 mmHg 35.0-45 N code = ZLGUPY1S) POC TCO2 ARTERIAL (test code = 29.0 POCTCO2) POC ARTERIAL BLOOD GAS PO2 (test 391.1 mmHg 80-100.0 HH code = SJTBR5T) POC HCO3 ARTERIAL (test code = 27.7 MMOL/L 22.0-26.0 H FRRVXO4Y) POC BASE EXCESS (test code = 2.6 MMOL/L -4.0-4.0 N POCBEA) POC O2 SATURATION (test code = 100.0 % 90-100 N POCO2S) BASIC METABOLIC [id number] 14:23:00 Test Item Value Reference Range Interpretation Comments SODIUM (test code = NA/ABG) 135 mmol/L 134-147 N POTASSIUM (test code = K/ABG) 7.0 mmol/L 3.4-5.0 HH CHLORIDE (test code = CL/ABG) 100 mmol/L 100-108 N CREATININE ABG (test code = 1.0 mg/dL 0.8-1.3 N CREAABG) POC IONIZED CALCIUM (test code = 0.92 MMOL/L 1.12-1.32 L POCCA) POC GLUCOSE (test code = POCGLU) 197 MG/DL 70-110 H HEMOGLOBIN [id number] 14:23:00 Test Item Value Reference Range Interpretation Comments HEMOGLOBIN ABG (test code = 10.1 G/DL 12.5-16.9 L HGB/ABG) [id number] 14:23:00 Test Item Value Reference Range Interpretation Comments HEMATOCRIT (test code = HCT/ABG) 30 % 37.5-50.7 L POC LACTIC [id number] 14:23:00 Test Item Value Reference Range Interpretation Comments POC LACTIC ACID (test code = 1.2 mmol/l 0.9-1.7 N POCLAC) [id number] 14:08:00 Test Item Value Reference Range Interpretation Comments ACT-ISTAT (test code 732 SEC 74-137 H Perform ed by certified = ACTI) bliss press operator at [facility] POC ARTERIAL BLOOD [id number] 13:58:00 Test Item Value Reference Range Interpretation Comments POC ARTERIAL BLOOD GAS PH (test 7.417 7.35-7.45 N code = POCPHA) POC ARTERIAL BLOOD GAS PCO2 (test 41.1 mmHg 35.0-45 N code = QALMPR6T) POC TCO2 ARTERIAL (test code = 27.7 POCTCO2) POC ARTERIAL BLOOD GAS PO2 (test 421.1 mmHg 80-100.0 HH code = MGGDR4H) POC HCO3 ARTERIAL (test code = 26.4 MMOL/L 22.0-26.0 H HFNYLG5P) POC BASE EXCESS (test code = 1.7 MMOL/L -4.0-4.0 N POCBEA) POC O2 SATURATION (test code = 100.0 % 90-100 N POCO2S) BASIC METABOLIC [id number] 13:58:00 Test Item Value Reference Range Interpretation Comments SODIUM (test code = NA/ABG) 137 mmol/L 134-147 N POTASSIUM (test code = K/ABG) 6.7 mmol/L 3.4-5.0 HH CHLORIDE (test code = CL/ABG) 101 mmol/L 100-108 N CREATININE ABG (test code = 1.0 mg/dL 0.8-1.3 N CREAABG) POC IONIZED CALCIUM (test code = 0.97 MMOL/L 1.12-1.32 L POCCA) POC GLUCOSE (test code = POCGLU) 192 MG/DL 70-110 H HEMOGLOBIN [id number] 13:58:00 Test Item Value Reference Range Interpretation Comments HEMOGLOBIN ABG (test code = 10.4 G/DL 12.5-16.9 L HGB/ABG) [id number] 13:58:00 Test Item Value Reference Range Interpretation Comments HEMATOCRIT (test code = HCT/ABG) 31 % 37.5-50.7 L POC LACTIC [id number] 13:58:00 Test Item Value Reference Range Interpretation Comments POC LACTIC ACID (test code = 1.0 mmol/l 0.9-1.7 N POCLAC) [id number] 13:41:00 Test Item Value Reference Range Interpretation Comments ACT-ISTAT (test code 913 SEC 74-137 H Perform ed by certified = ACTI) bliss press operator at [facility] POC ARTERIAL BLOOD [id number] 13:33:00 Test Item Value Reference Range Interpretation Comments POC ARTERIAL BLOOD GAS PH (test 7.426 7.35-7.45 N code = POCPHA) POC ARTERIAL BLOOD GAS PCO2 (test 39.8 mmHg 35.0-45 N code = FBDHBW2W) POC TCO2 ARTERIAL (test code = 27.3 POCTCO2) POC ARTERIAL BLOOD GAS PO2 (test 497.6 mmHg 80-100.0 HH code = QOFJX8R) POC HCO3 ARTERIAL (test code = 26.1 MMOL/L 22.0-26.0 H NHMMDE1Z) POC BASE EXCESS (test code = 1.6 MMOL/L -4.0-4.0 N POCBEA) POC O2 SATURATION (test code = 100.0 % 90-100 N POCO2S) BASIC METABOLIC [id number] 13:33:00 Test Item Value Reference Range Interpretation Comments SODIUM (test code = NA/ABG) 138 mmol/L 134-147 N POTASSIUM (test code = K/ABG) 5.9 mmol/L 3.4-5.0 HH CHLORIDE (test code = CL/ABG) 101 mmol/L 100-108 N CREATININE ABG (test code = 1.0 mg/dL 0.8-1.3 CREAABG) POC IONIZED CALCIUM (test code = 0.95 MMOL/L 1.12-1.32 L POCCA) POC GLUCOSE (test code = POCGLU) 164 MG/DL 70-110 H HEMOGLOBIN [id number] 13:33:00 Test Item Value Reference Range Interpretation Comments HEMOGLOBIN ABG (test code = 10.3 G/DL 12.5-16.9 L HGB/ABG) [id number] 13:33:00 Test Item Value Reference Range Interpretation Comments HEMATOCRIT (test code = HCT/ABG) 30 % 37.5-50.7 L POC LACTIC [id number] 13:33:00 Test Item Value Reference Range Interpretation Comments POC LACTIC ACID (test code = 0.6 mmol/l 0.9-1.7 L POCLAC) [id number] 13:15:00 Test Item Value Reference Range Interpretation Comments ACT-ISTAT (test code 859 SEC 74-137 H Perform ed by certified = ACTI) bliss press operator at [facility] POC ARTERIAL BLOOD [id number] 13:08:00 Test Item Value Reference Range Interpretation Comments POC ARTERIAL BLOOD GAS PH (test 7.293 7.35-7.45 LL code = POCPHA) POC ARTERIAL BLOOD GAS PCO2 (test 47.3 mmHg 35.0-45 H code = BQBPHY8Q) POC TCO2 ARTERIAL (test code = 24.3 POCTCO2) POC ARTERIAL BLOOD GAS PO2 (test 186.0 mmHg 80-100.0 H code = FQHOB4Q) POC HCO3 ARTERIAL (test code = 22.9 MMOL/L 22.0-26.0 N RTGXSM1K) POC BASE EXCESS (test code = -3.8 MMOL/L -4.0-4.0 N POCBEA) POC O2 SATURATION (test code = 99.5 % 90-100 N POCO2S) BASIC METABOLIC [id number] 13:08:00 Test Item Value Reference Range Interpretation Comments SODIUM (test code = NA/ABG) 141 mmol/L 134-147 N POTASSIUM (test code = K/ABG) 3.7 mmol/L 3.4-5.0 N CHLORIDE (test code = CL/ABG) 108 mmol/L 100-108 N CREATININE ABG (test code = 0.8 mg/dL 0.8-1.3 N CREAABG) POC IONIZED CALCIUM (test code = 0.98 MMOL/L 1.12-1.32 L POCCA) POC GLUCOSE (test code = POCGLU) 157 MG/DL 70-110 H HEMOGLOBIN [id number] 13:08:00 Test Item Value Reference Range Interpretation Comments HEMOGLOBIN ABG (test code = 11.8 G/DL 12.5-16.9 L HGB/ABG) [id number] 13:08:00 Test Item Value Reference Range Interpretation Comments HEMATOCRIT (test code = HCT/ABG) 35 % 37.5-50.7 L POC LACTIC [id number] 13:08:00 Test Item Value Reference Range Interpretation Comments POC LACTIC ACID (test code = 0.6 mmol/l 0.9-1.7 L POCLAC) [id number] 12:24:00 Test Item Value Reference Range Interpretation Comments ACT-ISTAT (test code 131 SEC 74-137 N Perform ed by certified = ACTI) bliss press operator at [facility] POC ARTERIAL BLOOD [id number] 12:16:00 Test Item Value Reference Range Interpretation Comments POC ARTERIAL BLOOD GAS PH (test 7.375 7.35-7.45 N code = POCPHA) POC ARTERIAL BLOOD GAS PCO2 (test 42.5 mmHg 35.0-45 N code = GBTFEA6V) POC TCO2 ARTERIAL (test code = 26.2 POCTCO2) POC ARTERIAL BLOOD GAS PO2 (test 455.2 mmHg 80-100.0 HH code = ADFDL3L) POC HCO3 ARTERIAL (test code = 24.9 MMOL/L 22.0-26.0 N TGKMSN6T) POC BASE EXCESS (test code = -0.6 MMOL/L -4.0-4.0 N POCBEA) POC O2 SATURATION (test code = 100.0 % 90-100 N POCO2S) BASIC METABOLIC [id number] 12:16:00 Test Item Value Reference Range Interpretation Comments SODIUM (test code = NA/ABG) 141 mmol/L 134-147 N POTASSIUM (test code = K/ABG) 4.3 mmol/L 3.4-5.0 N CHLORIDE (test code = CL/ABG) 104 mmol/L 100-108 N CREATININE ABG (test code = 1.0 mg/dL 0.8-1.3 N CREAABG) POC IONIZED CALCIUM (test code = 1.09 MMOL/L 1.12-1.32 L POCCA) POC GLUCOSE (test code = POCGLU) 160 MG/DL 70-110 H HEMOGLOBIN [id number] 12:16:00 Test Item Value Reference Range Interpretation Comments HEMOGLOBIN ABG (test code = 16.3 G/DL 12.5-16.9 N HGB/ABG) [id number] 12:16:00 Test Item Value Reference Range Interpretation Comments HEMATOCRIT (test code = HCT/ABG) 48 % 37.5-50.7 N POC LACTIC [id number] 12:16:00 Test Item Value Reference Range Interpretation Comments POC LACTIC ACID (test code = 0.7 mmol/l 0.9-1.7 L POCLAC) BASIC METABOLIC [id number] 06:58:00 Test Item Value Reference Range Interpretation Comments SODIUM (test code = 139 mEq/L 134-147 N NA) POTASSIUM (test code 4.6 mEq/L 3.4-5.0 N = K) CHLORIDE (test code 105 mEq/L 100-108 N = CL) CARBON DIOXIDE (test 28 mEq/l 21-33 N code = CO2) ANION GAP (test code 11 0-20 N = GAP) GLUCOSE (test code = 180 mg/dL 70-110 H GLU) BLOOD UREA NITROGEN 16 mg/dL 7-18 N (test code = BUN) GLOMERULAR 63.3 90-95 L The Glomerular FILTRATION RATE Filtration R ate is a (test code = GFR) calculated parameterbased on serum Creatinine, pat ient age and sex. GFR va luesless than 60 mL/min/ 1.73 square meters a re indicative ofCh ronic Kidney Disease. Values less than 15 mL/min/1.73squa re meters indicate Kidney failure. The calculation forGFR is based on the CKD-EPI (2020) calculat ion. This formulais race indifferent and is the recommended for nery for GFRby the [facility] on for Adults.The GFR will not calculate if th e sex is unknown or if thepatient's ag e is <18 years. CREATININE (test 1.3 mg/dL 0.6-1.3 N code = CREAT) CALCIUM (test code = 9.1 mg/dL 8.0-10.5 N CA) [id number] 06:58:00 Test Item Value Reference Range Interpretation Comments MAGNESIUM (test code = MAG) 1.87 mg/dL 1.80-2.40 N CBC W/AUTO [id number] 06:47:00 Test Item Value Reference Range Interpretation Comments WHITE BLOOD CELL (test code = 7.4 x10 3/uL 4.5-11.0 N WBC) RED BLOOD CELL (test code = 5.27 x10 6/uL 4.00-5.60 N RBC) HEMOGLOBIN (test code = HGB) 17.0 g/dL 12.5-16.9 H HEMATOCRIT (test code = HCT) 47.4 % 37.5-50.7 N MEAN CELL VOLUME (test code = 89.9 fL 81.0-99.0 N MCV) MEAN CELL HGB (test code = MCH) 32.3 pg 27.0-33.0 N MEAN CELL HGB CONCETRATION 35.9 g/dL 33.0-37.0 N (test code = MCHC) RED CELL DISTRIBUTION WIDTH CV 11.9 % 11.5-14.5 N (test code = RDW) RED CELL DISTRIBUTION WIDTH SD 39.4 fL 37.0-54.0 N (test code = RDW-SD) PLATELET COUNT (test code = 265 x10 3/uL 150-400 N PLT) MEAN PLATELET VOLUME (test code 9.2 fL 7.0-9.0 H = MPV) NEUTROPHIL % (test code = NT%) 48.7 % 56.0-77.0 L IMMATURE GRANULOCYTE % (test 0.1 % 0.0-2.0 N code = IG%) LYMPHOCYTE % (test code = LY%) 34.2 % 14.0-32.0 H MONOCYTE % (test code = MO%) 7.7 % 4.8-9.0 N EOSINOPHIL % (test code = EO%) 8.2 % 0.3-3.7 H BASOPHIL % (test code = BA%) 1.1 % 0.0-2.0 N NUCLEATED RBC % (test code = 0.0 % 0-0 N NRBC%) NEUTROPHIL # (test code = NT#) 3.62 x10 3/uL 2.0-7.6 N IMMATURE GRANULOCYTE # (test 0.01 x10 3/uL 0.00-0.03 N code = IG#) LYMPHOCYTE # (test code = LY#) 2.54 x10 3/uL 1.0-3.8 N MONOCYTE # (test code = MO#) 0.57 x10 3/uL 0.1-0.8 N EOSINOPHIL # (test code = EO#) 0.61 x10 3/uL 0.0-0.2 H BASOPHIL # (test code = BA#) 0.08 x10 3/uL 0.0-0.2 N NUCLEATED RBC # (test code = 0.00 x10 3/uL 0.0-0.1 N NRBC#) MANUAL DIFF REQUIRED (test code NO = MDIFF) UA RFLX MICR CULT IF [id number] 02:50:00 Test Item Value Reference Range Interpretation Comments UA COLOR (test code = COLU) YELLOW YEL/STRAW UA APPEARANCE (test code = CLEAR CLEAR APPU) UA GLUCOSE DIPSTICK (test code 1+ NEGATIVE A = DGLUU) UA BILIRUBIN DIPSTICK (test NEGATIVE NEGATIVE code = BILU) UA KETONE DIPSTICK (test code NEGATIVE NEGATIVE = KETU) UA SPECIFIC GRAVITY (test code 1.017 1.005-1.030 N = SGU) UA BLOOD DIPSTICK (test code = NEGATIVE NEGATIVE FANNY) UA PH DIPSTICK (test code = 5.0 5.0-7.0 N LUZ) UA PROTEIN DIPSTICK (test code NEGATIVE NEGATIVE = PROU) UA UROBILINIOGEN DIPSTICK 0.2 mg/dL 0.2-1.0 (test code = URO) UA NITRITE DIPSTICK (test code NEGATIVE NEGATIVE = CHARO) UA LEUKOCYTE ESTERASE DIPSTICK NEGATIVE NEGATIVE (test code = LEUU) UA WBC (test code = WBCU) 0-3 WBC/HPF 0-3 UA RBC (test code = RBCU) 0-3 RBC/HPF 0-3 UA WBC NO REFLEX (test code = 0-3 WBC/HPF 0-3 WBCUCL) UA BACTERIA (test code = BACU) NONE SEEN /HPF NONE SEEN UA SQUAMOUS CELLS (test code = NONE SEEN /HPF NONE SEEN SQU) UA HYALINE CAST (test code = 0-2 /LPF NONE SEEN HYALU) UA MUCUS (test code = MUCU) TRACE /LPF NONE SEEN Indication for culture: RiskForSepsis-no oth srcSpecimen Description: CLEAN CATCH- XR CHEST 1 [id number] 00:00:00 [facility] [place] [place] CHAN[facility] [facility]ES : 1960 Sex: M FAX: Kamryn Blair [phone] [place]: St: ADM FAX: Joellen Burris [phone] ------ Name: CHANDANA ARGUELLES [facility] [place] : 1960 Age/S: 61/M [address] [place] [address] Unit #: [id number] Loc: G.2208 [place] [address] Phys: Brunilda Parks 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 Acct: [id number] Dis Date: Status: ADM IN PHONE #: Exam Date: 09/18/2022 1552 FAX #: [phone] Reason: Cardiac Surgery Post Op EXAMS: CPT CODE: [id number] XR CHEST 1 V [id number] PROCEDURE INFORMATION: Exam: XR Chest Exam date and time: 09/18/2022 3:37 PM Age: 61 years old Clinical indication: Screening exam; Other screening; Additional info: Cardiac surgery post op TECHNIQUE: Imaging protocol: Radiologic exam of the chest. Views: 1 view. COMPARISON: DX XR CHEST 2 V 09/18/2022 2:40 AM FINDINGS: Tubes, catheters and devices: An ET tube is present with the tip projected approximately 5.1 cm above the elisa. A right transjugular dialysis catheter isnoted with the tip projected over the superior vena cava just above the level of the azygous arch. Amediastinal drainage tube is noted projected over the left paramediastinal area. A left chest tube is present with the tip projected over the left lower hemithorax. No pneumothorax is identified. Lungs: See "Heart/Mediastinum" finding. Pleural spaces: See "Tubes, catheters and devices" finding. Heart/M ediastinum: The patient has taken a shallow inspiration precluding accurate assessment of the cardiac silhouette size. The pulmonary vascularity is within normal limits. Bones/joints: The patient has had an interval median sternotomy and CABG procedure. Patient has had an anterior cervical fusion of the lower cervical spine and cervicothoracic junction. IMPRESSION: 1. Interval CABG. 2. Hypoventilatory changes. Satisfactory line and tube placement. at 1640 Reported and signed by: Duyen Last M.D. CC: Kamryn Lozada MD; Brunilda Burris NP Technologist: RT Brandi(Dirk) Trnscrd Date/Time/By: 09/18/2022 (1640) : By: [email or web address] Orig Print D/T: S: 09/18/2022 (3765) PAGE 1 Signed Report- CT CHEST W/O [id number] 00:00:00 [facility] 1960 Sex: M Name: CHANDANA ARGUELLES [facility] : 1960 Age/S: 61 / M [address] [place] [address] Unit #: [id number] Loc: [place] [address] Phys: Brunilda Burris NP Acct: [id number] Dis Date: Status: ADM IN PHONE #: [phone] Exam Date: 09/18/2022 0242 FAX #: [phone] Reason: Cardiac Surgery Pre Op EXAMS: CPT CODE: [id number] CT CHEST W/O CONTRAST 94085 PROCEDURE INFORMATION: Exam: CT Chest Without Contrast; Diagnostic Exam date and time: 09/18/2022 2:37 AM Age: 61 years old Clinical indication: Screening exam; Pre-operative exam; Cardiovascular screening; Additional info: Cardiac surgery pre opTECHNIQUE: Imaging protocol: Diagnostic computed tomography of the chest without contrast. Radiationoptimization: All CT scans at this facility use at least one of these dose optimization techniques: automated exposure control; mA and/or kV adjustment per patient size (includes targeted exams where dose is matched to clinical indication); or iterative reconstruction. REPORTING DATA: Count of CT and Cardiac NM exams in prior 12 months: This patient has received 0 known CTs and 0 known cardiac nuclear medicine studies in the 12 months prior to the current study. COMPARISON: No relevant prior studiesavailable. FINDINGS: Lungs: Unremarkable. No consolidation. No masses. Pleural spaces: Unremarkable.No pneumothorax. No pleural effusion. Heart: Severe calcified coronary artery plaque diffusely. No cardiomegaly. No pericardial effusion. Lymph nodes: Unremarkable. No enlarged lymph nodes. Vasculature: No significant aortic root calcification.. No aortic aneurysm. Liver: No acute abnormality. Bones/joints: Unremarkable. No acute fracture. Soft tissues: Unremarkable. IMPRESSION: 1. No acute findings. 2. Severe diffuse coronary artery calcification. No significant aortic root calcified plaque given history. at 0408 Reported and signed by: Tristan Gill M.D. PAGE 1 Signed Report (CONTINUED) Name: [facility] 1960 Age/S: 61 / M [address] [place] [address] Unit #: [id number] Loc: [place] [address] Phys: Brunilda Burris NP Acct: [id number] Dis Date: Status: ADM IN PHONE #: [phone] Exam Date: 09/18/20222 FAX #: [phone] Reason: Cardiac Surgery Pre Op EXAMS: CPT CODE: [id number] CT CHEST W/O CONTRAST 70295 (Continued) CC: Kamryn Lozada MD; Brunilda Evans NP Technologist:RT Kenrick(R)(CT) CTDI: DLP: Trnscb Date/Time: 09/18/2022 (407) Ymaileth Rosales PrintD/T: S: 09/18/2022 (407) PAGE 2 Signed Report- XR CHEST 2 [id number] 00:00:00 [facility] : 1960 Sex: M FAX: Kamryn Blair [phone] [place]: St: [facility] FAX: Joellen Burris [phone] ------ Name: CHANDANA ARGUELLES [facility] [place] : 1960 Age/S: 61/M [address] [place] [address] Unit #: [id number] Loc: G.2208 [place] [address] 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 Views: 2 views. PA and Lateral COMPARISON: CT CHEST W/O CONTRAST 09/18/2022 2:37 AM FINDINGS: Lungs: Mild left basilar subsegmental atelectasis. Remainder of lungs appear radiographically clear. Pleural spaces: Unremarkable. No pleural effusion. No pneumothorax. Heart/M ediastinum: Contours within normal limits. Bones/joints: No acute osseous process. IMPRESSION: Mild left basilar subsegmental atelectasis. at 0529 Reported and signed by: Carmella Lopez M.D. CC: Kamryn Lozada MD; Brunilda Burris NP Technologist: RT Carlyle(Dirk) Trnscrd Date/Time/By: 09/18/2022 (528) : By: [email or web address] Orig Print D/T: S: 09/18/2022 (528) PAGE 1 Signed Report- DUP EXTRACRANIAL [id number] 00:00:00 [facility] : 1960 Sex: M Name: CHANDANA ARGUELLES [facility] : 1960 Age/S: 61 / M [address] [place] [address] Unit #: [id number] Loc: [place] [address] Phys: Brunilda Burris NP Acct: [id number] Dis Date: Status: ADMIN PHONE #: [phone] Exam Date: 09/18/2022813 FAX #: [phone] Reason: Cardiac Surgery Pre Op EXAMS: CPT CODE: [id number] DUP EXTRACRANIAL AZALEA 59666 PROCEDURE INFORMATION: Exam: US Duplex Bilateral Extracranial Arteries, Carotid Arteries Exam date and time: 09/18/2022 6:24 AM Age: 61 years old Clinical indication: Screening exam; Additional info: Cardiac surgery pre op TECHNIQUE: Imaging protocol: Real-time Duplex ultrasound scan of the bilateral carotid and vertebral arteries combining caldwell scale, color Doppler and spectral waveform analysis. Bilateral exam. Exam focused on the carotid arteries. COMPARISON: CT CHEST W/O CONTRAST 09/18/2022 2:37 AM FINDINGS: Extensive atherosclerotic plaques are present along both distal common carotid arteries, carotid bifurcations and proximal internal carotid arteries. Right common carotid artery: No occlusion or stenosis. Waveforms are normal. Right internal carotid artery: No occlusion or stenosis. Waveforms are normal. Right ICA/CCA ratio: Within normal limits. Right external carotid artery: No stenosis in the origin. Right vertebral artery: Antegrade flow. Left common carotid artery: No occlusion or stenosis. Waveforms are normal. Left internal carotid artery: No occlusion or stenosis. Waveforms are normal. Left ICA/CCA ratio: Within normal limits. Left external carotid artery: No stenosis in the origin. Left vertebral artery: Antegrade flow. IMPRESSION: No flow- limiting proximal internal carotid arterial stenosis. REFERENCES: SRU CRITERIA. Thedegree of internal carotid artery stenosis is based on criteria defined by the Society of Radiologists in Ultrasound (SRU). Normal is no stenosis. Mild is less than 50% stenosis. Moderate is 50-69% stenosis. Severe is greater than 69% stenosis to near occlusion. Near occlusion is a markedly narrowed lumen. Total occlusion is no detectable patent lumen. at 0904 Reported and signed by: Will Pérez M.D. PAGE 1 Signed Report (CONTINUED) Name: CHANDANA ARGUELLES [facility] : 1960 Age/S: 61 / M [address] [place] [address] Blvd Unit #: [id number] Loc: [place] [address] Phys: Brunilda Burris NP Acct: [id number] Dis Date: Status: ADM IN PHONE #: [phone] Exam Date: 09/18/2022 08 FAX #: [phone] Reason: Cardiac Surgery Pre Op EXAMS: CPT CODE: [id number] DUP EXTRACRANIAL [place]ALEA 06417 (Continued) CC: Kamryn Lozada MD; Brunilda Evans NP Technologist: Perfecto Leon [facility] Date/Time: 09/18/2022 (0904) [email or web address] Orig Print D/T: S: 09/18/2022 (0905) Probe: PAGE 2 Signed Report- DUP VEIN [id number] 00:00:00 [facility] : 1960 Sex: M Name: CHANDANA ARGUELLES [facility] : 1960 Age/S: 61 / M [address] [place] [address] Bl Unit #: [id number] Loc: [place] [address] Phys: Brunilda Burris 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 Acct: [id number] Dis Date: Status: ADMIN PHONE #: [phone] Exam Date: 09/18/2022813 FAX #: [phone] Reason: Cardiac Surgery Pre Op EXAMS: CPT CODE: [id number] DUP VEIN AZALEA 81612 PROCEDURE INFORMATION: Exam: US Duplex Lower Extremity Veins; Vein mapping Exam date and time: 09/18/2022 6:15 AM Age: 61 years old Clinical indication: Screening exam; Pre op; Additional info: Cardiac surgery pre op TECHNIQUE: Imaging protocol: Real-time duplex ultrasound of the extremities with 2-D caldwell scale, color Doppler flow and spectral waveform rocky lysis including responses to compression and other maneuvers (when performed) with image documentation. Complete exam focused on the bilateral lower extremity veins for vein mapping. COMPARISON: No relevant prior studies available. FINDINGS: Right superficial veins: Imaged portions of the greater saphenous vein are patent, normally compressible with no grayscale luminal echoes. Right greater saphenous vein-upper thigh: 2.8 mm Right greater saphenous vein-mid thigh: 1.9 mm Right greater saphenous vein-lower thigh: 1.8 mm Right greater saphenous vein-upper le.2 mm Right greater saphenous vein-mid le.0 mm Right greater saphenous vein-lower le.7 mm Left superficial veins: Imaged portions of the greater saphenous vein are patent, normally compressible with no grayscale luminal echoes. Left greater saphenous vein-upper thigh: 4.4 mm Left greater saphenous vein-mid thigh: 2.2 mm Left greater saphenous vein-lower thigh: 2.3 mm Left greater saphenous vein-upper le.4 mm Left greater saphe nous vein-mid le.8 mm Left greater saphenous vein-lower le.4 mm Soft tissues: Unremarkable. IMPRESSION: Greater saphenous vein is patent. Vein mapping as described. at 0959 Reported and signed by: Terrell Rosas M.D. PAGE1 Signed Report (CONTINUED) Name: CHANDANA ARGUELLES [facility] : 1960 Age/S: 61 / M [address] [place] [address] Blvd Unit #: [id number] Loc: [place] [address] Phys: Brunilda Burris NP Acct: [id number] Dis Date: Status: ADM IN PHONE #: [phone] Exam Date: 09/18/2022813 FAX #: [phone] Reason: Cardiac Surgery Pre Op EXAMS: CPT CODE: [id number] DUP VEIN AZALEA 69477 (Continued) CC: Kamryn Lozada MD; Brunilda Burris NP Technologist: Perfecto Leon Trnscb Date/Time: 09/18/2022 (958) [email or web address] Orig Print D/T: S: 09/18/2022 (958) Probe: PAGE 2 Signed ReportCOVID 19 Asymptomatic IH [id number] 22:19:00 Test Item Value Reference Range Interpretation Comments COVID 19 Asymptomatic Negative Negative A nega tive result is IH AG (test code = presumpti ve and should COVNONPUIAG) be confirmedwit h an FDA authorized mole cular assay, if neces graciela forpatient gaurav gement.A positive result does not rule out co-inf ections withother patho gens.This test detects bell th viable (live) and non-viable,SARS -CoV, and SARS-CoV-2. [place] t performance dep ends on theamount of vi john (antigen) in th e sample.This [place] t has not been FDA cleare d or approved; the t est hasbeen authori zed by FDA under an Em ergency Use Authorizati on(EUA) for use by labo ratories certified under the CLIA thatmeet the requirements to perform moderate, high or waivedcomplexit y tests. B-TYPE NATRIURETIC [id number] 21:48:00 Test Item Value Reference Range Interpretation Comments B-TYPE NATRIURETIC PEPTIDE (test 22.0 PG/ML 0-100 N code = BNP) HGBA1C%2022-09-17 21:31:00 Test Item Value Reference Range Interpretation Comments HGBA1C% (test code = HGBA1C%) 8.0 %A1C 4.8-6.0 H COMPREHENSIVE METABOLIC [id number] 21:30:00 Test Item Value Reference Range Interpretation Comments SODIUM (test code = 138 mEq/L 134-147 N NA) POTASSIUM (test code 3.9 mEq/L 3.4-5.0 N = K) CHLORIDE (test code 104 mEq/L 100-108 N = CL) CARBON DIOXIDE (test 25 mEq/l 21-33 N code = CO2) ANION GAP (test code 13 0-20 N = GAP) GLUCOSE (test code = 255 mg/dL 70-110 H GLU) BLOOD UREA NITROGEN 18 mg/dL 7-18 N (test code = BUN) GLOMERULAR 63.3 90-95 L The Glomerular FILTRATION RATE Filtration R ate is a (test code = GFR) calculated parameterbased on serum Creatinine, pat ient age and sex. GFR va luesless than 60 mL/min/ 1.73 square meters a re indicative ofCh ronic Kidney Disease. Values less than 15 mL/min/1.73squa re meters indicate Kidney failure. The calculation for GFR is based on the CK D-EPI (2020) calculat ion. This formulais race indifferent and is the recommended for nery for GFRby the Natio nal Kidney Foundati on for Adults.The GFR will not calculate if th e sex is unknown or if thepatient's ag e is <18 years. CREATININE (test 1.3 mg/dL 0.6-1.3 N code = CREAT) TOTAL PROTEIN (test 6.8 g/dL 6.4-8.2 N code = PROT) ALBUMIN (test code = 4.30 g/dL 3.4-5.0 N ALB) CALCIUM (test code = 8.8 mg/dL 8.0-10.5 N CA) BILIRUBIN TOTAL 0.40 mg/dL 0.0-1.0 N (test code = BILT) SGOT/AST (test code 17 IUnit/L 15-37 N = AST) SGPT/ALT (test code 13 IUnit/L 30-65 L = ALT) ALKALINE PHOSPHATASE 51 IUnit/L 20-125 N TOTAL (test code = ALKP) LIPID PROFILE (CORONARY RISK)2022-09-17 21:30:00 Test Item Value Reference Range Interpretation Comments TRIGLYCERIDES (test 169 mg/dL 40-150 H code = TRIG) CHOLESTEROL (test 124 mg/dL <200 code = CHOL) CHOLESTEROL/HDL 3.13 RATIO 3.43-4.97 L RISK ASSOCIA EDWINA WITH RATIO (test code = CHOL/HDL RATIOS: RISK CHOLHDL) MALE FEMALE1/2 AVERAGE 3.43 3.27AVERAG E 4.97 4.442X AVERAGE 9.55 7.053X AVERAGE 23.39 11.04 NOTE THAT THE REFERENCE VALUE IS RELATEDTO RISK LEVELS RECOMMENDED BY THE NATL.HEART, KAYLI G, AND BLOOD INST. HDL CHOLESTEROL 39.6 mg/dL 32-72 N (test code = HDL) LIPOPROTEIN LDL 59.0 mg/dL 0-100 N <100 OPTIMAL 100-129 (test code = LDL) NEAR OPTIM AL/ABOVE [id number] HIGH>QQ=246 BLANCHE Y HIGH*Guidelines provided by the National Choles terol EducationProgra m Adult Treatment Panel III PROTHROMBIN [id number] 21:21:00 Test Item Value Reference Range Interpretation Comments PROTHROMBIN TIME 12.5 SECONDS 9.3-12.9 N PATIENT (test code = PTP) INTERNATIONAL NORMAL 1.1 0.8-1.2 N TARGET INR BY RATIO (test code = INDICATIO N Indication INR) INR1. Prophylax is of venous thrombos is 2.0 - 3.0 (orthoped ic surgery), Proph ylaxis of venous throm bosis (other than hig h-risk surgery), Treat ment of Deep Vein Thrombosis/Pulm onary Embolism, Preve ntion of systemic emb olism - Tissue heart va lves, Acute Myocardia l Infarction (to prevent systemic emboli sm), Valvular heart disease, Atrial Fibrillation, Bileaflet mecha nical valve in aortic position.2. Mec hanical prosthetic valv es (high risk), 2. 5 - 3.5 Presence of Lup us Anticoagulant o r Antiphospholipi d Antibodies, Pre vention of systemic emb olism - Acute Myocardia l Infarction (to prevent recurrent infar ct). THROMBOPLASTIN TIME [id number] 21:21:00 Test Item Value Reference Range Interpretation Comments THROMBOPLASTIN TIME 25.1 Seconds 25.0-39.5 N Therape utic Range: PARTIAL (test code = 50.4 - 88.3 Seconds PTT) Effective 09/27/2018 CBC W/AUTO [id number] 21:11:00 Test Item Value Reference Range Interpretation Comments WHITE BLOOD CELL (test code = 7.1 x10 3/uL 4.5-11.0 N WBC) RED BLOOD CELL (test code = 5.00 x10 6/uL 4.00-5.60 N RBC) HEMOGLOBIN (test code = HGB) 16.1 g/dL 12.5-16.9 N HEMATOCRIT (test code = HCT) 45.3 % 37.5-50.7 N MEAN CELL VOLUME (test code = 90.6 fL 81.0-99.0 N MCV) MEAN CELL HGB (test code = MCH) 32.2 pg 27.0-33.0 N MEAN CELL HGB CONCETRATION 35.5 g/dL 33.0-37.0 N (test code = MCHC) RED CELL DISTRIBUTION WIDTH CV 12.1 % 11.5-14.5 N (test code = RDW) RED CELL DISTRIBUTION WIDTH SD 40.1 fL 37.0-54.0 N (test code = RDW-SD) PLATELET COUNT (test code = 230 x10 3/uL 150-400 N PLT) MEAN PLATELET VOLUME (test code 9.4 fL 7.0-9.0 H = MPV) NEUTROPHIL % (test code = NT%) 48.0 % 56.0-77.0 L IMMATURE GRANULOCYTE % (test 0.3 % 0.0-2.0 N code = IG%) LYMPHOCYTE % (test code = LY%) 34.9 % 14.0-32.0 H MONOCYTE % (test code = MO%) 7.6 % 4.8-9.0 N EOSINOPHIL % (test code = EO%) 8.2 % 0.3-3.7 H BASOPHIL % (test code = BA%) 1.0 % 0.0-2.0 N NUCLEATED RBC % (test code = 0.0 % 0-0 N NRBC%) NEUTROPHIL # (test code = NT#) 3.41 x10 3/uL 2.0-7.6 N IMMATURE GRANULOCYTE # (test 0.02 x10 3/uL 0.00-0.03 N code = IG#) LYMPHOCYTE # (test code = LY#) 2.48 x10 3/uL 1.0-3.8 N MONOCYTE # (test code = MO#) 0.54 x10 3/uL 0.1-0.8 N EOSINOPHIL # (test code = EO#) 0.58 x10 3/uL 0.0-0.2 H BASOPHIL # (test code = BA#) 0.07 x10 3/uL 0.0-0.2 N NUCLEATED RBC # (test code = 0.00 x10 3/uL 0.0-0.1 N NRBC#) MANUAL DIFF REQUIRED (test code NO = MDIFF) XR CHEST 2 [id number] 19:02:15 No acute cardiopulmonary process. Preliminary Report Dictated by Resident: Hudson Pineda MD., have reviewed this study and agree with theabove report.EXAM: XR CHEST 2 VW OSKAR RISON: None HISTORY: worsening cough and sob more than 1 week FINDINGS: Lungs: The lungs are well-expanded. Left lower lung small hyperattenuatingband, likely atelectasis. No pleural effusion or pneumothorax isidentified. Heart/Mediastinum: The cardiomediastinal silhouette is normal in sizeaccounting for technique. Bones: No osseous lesions are detected. The soft tissues appear normal [facility], Radiant Results Inft User - 2020 2:03 PM CDT EXAM: XR CHEST 2 VWCOMPARISON: NoneHISTORY: worsening cough and sob more than 1 week FINDINGS:Lungs:The lungs are well-expanded. Left lower lung small hyperattenuatingband, likely atelectasis. No pleural effusion or pneumothorax isidentified.Heart/Mediastinum: The cardiomediastinal silhouette is normal in sizeaccounting for technique.Bones: No osseous lesions are detected. The soft tissues appear nor malIMPRESSIONNo acute cardiopulmonary process.Preliminary Report Dictated by Resident: Apryl Persaud, Hudson Jones MD., have reviewed this study and agree with theabove report.[facility] Notes Date/Time Note Provider Source 2022-09-25 21:45:00-00:00 [id number] [place] [address] PATIENT NAME: CHANDANA ARGUELLES ADMIT DATE: 3 ACCOUNT NO: [id number] ROOM NO: G.3360 AGE: 61 REPORT TYPE: 360 - QUERY RESPONSE DOCUMENT SEX: M ADMITTING PHYSICIAN:Kamryn Lozada MD ATTENDING PHYSICIAN:Kamryn Lozada MD Provider Query QUERY TEXT: Condition General 360MD Query related questions should be directed to: Carole robledo [facility] Coding Query Help-line Based on your medical judgment and clinical yahaira cators below, please document the diagnosis for which you are evaluating, treating or monitoring for this pat ient (Pneumonia, Abnormal findings, Unspecified, or other more appropriate diagnosis. The patient's Clinical Indicators include: WBC (4.5 - 11.0 x10 3/uL) 7.4 7.1 Acute pulmonary insufficiency following thoracic surgery Status post CABG x 5 (ADKINS-LAD, Seq-D2, SVG-D1, SVG-OM, SVG-PDA) and ALAA Acute blood loss anemia Critical Care Progress Note 09/21/2022 (1) - XR CHEST 1 V 09/19/2022 (2) Lungs: Moderate degree bilateral perihilar and basilar interstitial alveolar pulmonary edema versus in filtrates, pneumonia within the lungs. IMPRESSION: Moderate pulmonary edema versus infiltrates, pne umonia. Cardiothoracic Surgery Prog 09/19/2022 (1) Recent Impressions: Moderate pulmonary edema versus infiltrates, pne umonia. Cardiology Progress Note 09/19/2022 (1) Recent Impressions: Moderate pulmonary edema versus infiltrates, pne umonia. Hospitalist Progress Note 09/19/2022 (1) Recent Impressions: Moderate pulmonary edema versus infiltrates, pne umonia. Options provided: -- Respond - Create new note now -- Dismiss - Not applicable / Not valid -- Dismiss - Clinically unable to determine / Un known -- Assign to another provider QUERY RESPONSE: Pulmonary edema No pneumonia Query created by: Kathy Guidry on 2022 1:16 AM Electronically Signed by Umu Gross MD on at 2145 PATIENT NAME: CHANDANA ARGUELLES 0799 2022-09-22 18:01:00-00:00 [id number] [place] [address] PATIENT NAME: CHANDANA ARGUELLES ADMIT DATE: ACCOUNT NO: [id number] ROOM NO: 3360 AGE: 61 REPORT TYPE: eECHOCARDIOGRAM REPORT SEX: M ADMITTING PHYSICIAN:Kamryn Lozada MD ATTENDING PHYSICIAN:Kamryn Lozada MD *[place] [address] Limited Transthoracic Echocardiogram Patient: Chandana Arguelles Study Date: 09/22/2022 BP: Location: [facility] URN: [id number] 0799 : 1960 Age: 61 Height: 71 in / 180.3 cm Gender: M Weight: 211 lb / 95.9 kg BMI/BSA: 29.5 kg/m 2 / 2.21 m 2 *Ordering Physician: * Krysta Cordero Physic *Interpreting Physician: * Krystal [place] MD *Regional Project Manager: * Solange Piage [facility] Indications: R/O EFFUSION. Study data: Transthoracic echocardiogram, limite d study. Limited 2D and limited spectral Doppler. Location: Bedside. Patient room number: 3360. Findings Left ventricle: The estimated ejection fraction is 50-54%. Pericardium: There is no pericardial effusion. Measurements Left ventricle Value 09/18/2022 Ref PAN, LAX 3.9 cm 4.7 4.2 - PATIENT NAME: CHANDANA ARGUELLES 0799 5.8 ESD, LAX 2.5 cm 3.3 2.5 - 4.0 ESD/bsa, LAX 1.1 cm/m 2 1.3 - 2.1 FS, LAX 35 % 29 25 - 43 PW, ED 1.2 cm 0.9 0.6 - 1.0 IVS/PW, ED 1 1.09 ------ EF 65 % 56 52 - 72 Ventricular septum Value 09/18/2022 Ref IVS, ED 1.3 cm 1.0 0.6 - 1.0 Left atrium Value 09/18/2022 Ref AP dim, ES 3.62 cm 3.80 3.00 - 4.00 Tricuspid valve Value 09/18/2022 Ref TR peak v 1.93 m/sec <=2.8 Peak RV-RA 15 mm Hg ------ grad, S Conclusions Summary: Left ventricle: The estimated ejection fraction is 50-54%. Prepared and electronically signed by Krystal [place] MD 09/22/2022 18:01 Electronically Signed by Krystal [place] MD on 0 09/22/22 at 1801 PATIENT NAME: CHANDANA ARGUELLES 0799 2022-09-22 16:11:00-00:00 [facility] Discharge Summary REPORT#:[id number] REPORT STATUS: Signed DATE:09/22/22 TIME: 1611 PATIENT: CHANDANA ARGUELLES UNIT #: [id number] ROOM/BED: [place] [address] : [birth year] AGE: 61 SEX: M ATTEND: Maryellen Lozada MD ADM AUTHOR: Krysta Cordero Physic * ALL edits or amendments must be made on the [employer]/computer document * General Information Discharge date: 09/22/22 Discharge diagnosis: Coronary artery disease, S/P CABG Hospital course: Very pleasant 61-year-old male with past medical history of hypertension, diabetes for 3 years on oral agents, chews tobacco, has a strong family history of premature coronary artery disease. He has bee n complaining of exertional chest tightness, had abnormal stress test and metzger d high calcium score (greater than 2000) was admitted to [facility] for elective left heart cath. Coronary angiogram showed se wong multivessel coronary artery disease and patient transferred to [facility] for cardiothoracic surgery evaluation. Patient is retired, lives with his , horacio law PLAN [facility] images uploaded in [employer] . Dr. Lozada explained to the patient and his the angiogram findings and recommended s urgical revascularization he explained the surgery, risks involved including risk of st roke, bleeding, infection, prolonged mechanical ventilation, renal dysfunct ion; STS score, benefits, complications and alternativ es. He acknowledged understanding and is willing to proceed Preok work up initiated Plan for CABBG today. Cardiology consulted 09/18/22 CABG x 5 (ADKINS-LAD, Seq-D2, SVG-D1, SVG-OM, SVG- PDA) ALAA EVH (RGSV) Posterior pericardiotomy 09/19/22 POD 1 Patient hemodynamically stable postoperatively, not requiring pressors or inotrope support Labs and chest x-ray reviewed-stable On 2l nasal cannula, wean off as tolerated to ke ep O2 sats > 92%] Encourage incentive spirometer use and deep leona thing Nitroglycerin drip at 5 mcg for 24 hours Keep both chest tubes and monitor outputs NSR, epicardial pacing wires on standby Cardiac diet Monitor renal function, CR 1.2, UOP 1650 overnig ht Strict I Os, daily weights Glycemic control with insulin drip, transition t o SSI Bowel regimen Pain controlled (pain level 2/10) PT/OT-ambulate in hallway DVT prophylaxis with SCDS, GI prophylaxis with P PI Continue supportive care in CVICU Plan of care discussed with Dr. Lozada 09/20 Doing very well today, alert and oriented, pain controlled Respiratory status stable on room air Discontinue chest tubes after ambulation Hemodynamically stable. We will discontinue paci ng wires before discharge No bowel movement yet, milk of magnesia and supp ository as needed Creatinine stable 1.3, good urine output Replace electrolytes Glycemic control. Long-acting insulin added PT/OT Transfer to intermediate care DC plan: Home with family 09/21 POD 3 AAOx3 Respiratory: on room Air 100% Encourage IS CXR reviewed Cardiac: remains sinus rhythm GI: awaiting BM, Suppository, Consider Enema tod ay. Continue Bowel regimen :No hopson- voiding well. UO: 2074 Continue PT/OT Disposition: home- Okay to floor today Patient seen and examined by Dr. Lozada. Plan o f care discussed with multidisciplinary team 09/22/22 POD 4 AAOx3 Respiratory: on room Air 100% Encourage IS CXR reviewed Cardiac: remains sinus rhythm, Pacing wires monisha jeannie today. Obtain echo GI: awaiting BM, Suppository, Enema today, + gas Continue Bowel regimen :No hopson- voiding well. UO: 317 Continue PT/OT Disposition: home DVT studies and echo today. Patient seen and examined by Dr. Lozada. Plan o f care discussed with multidisciplinary team Patient had bowel movement. Okay to dc home once echo completed and r/o effu norman Consultants: cardiology, cardiovascular surgery Med Rec Med Rec Discharge meds: Start taking the following new medications: CLOPIDOGREL (PLAVIX) 75 MG TAB 75 MILLIGRAM ORAL DAILY. Days = 30 Qty = 30 Refills = 1 FERROUS SULFATE (FEOSOL) 325 MG (65 MG IRON) TAB 325 MILLIGRAM ORAL DAILY. Days = 7 Qty = 7 No Refills AMIODARONE (PACERONE) 200 MG TAB 200 MILLIGRAM ORAL TWICE DAILY. Days = 21 Qty = 21 No Refills Instructions: Take 1 tab BID x 1 week, then 1 tab QD x 1 week ATORVASTATIN (LIPITOR) 40 MG TAB 40 MILLIGRAM ORAL 2100 Days = 30 Qty = 30 No Refills METOPROLOL TARTRATE (LOPRESSOR) 25 MG TAB 12.5 MILLIGRAM ORAL EVERY 12 HOURS. Days = 30 Qty = 60 No Refills ASPIRIN (ASPIRIN) 81 MG TAB.CHEW 81 MILLIGRAM ORAL DAILY. Days = 30 Qty = 30 No Refills DOCUSATE SODIUM (COLACE) 100 MG CAP 100 MILLIGRAM ORAL TWICE DAILY. Days = 20 Qty = 20 No Refills CLOPIDOGREL (PLAVIX) 75 MG TAB 75 MILLIGRAM ORAL DAILY. Days = 30 Qty = 30 No Refills AMIODARONE (PACERONE) 200 MG TAB 200 MILLIGRAM ORAL TWICE DAILY. Days = 14 Qty = 21 No Refills Instructions: Take 1 tab BID x 1 week, then 1 tab QD x 1week METOPROLOL TARTRATE (LOPRESSOR) 25 MG TAB 12.5 MILLIGRAM ORAL TWICE DAILY. Days = 30 Qty = 60 No Refills ATORVASTATIN (LIPITOR) 40 MG TAB 40 MILLIGRAM ORAL DAILY. Days = 30 Qty = 30 No Refills ASPIRIN EC (ECOTRIN) 81 MG TAB.EC 81 MILLIGRAM ORAL DAILY. Days = 30 Qty = 30 No Refills Discharge Instructions PCP )( Discharge to: Home/Self Care Discharge Instructions Additional Discharge Routines: Attending Follow- Up )( Diet: Cardiac Follow-up Appointments Attending Physician: Attending Physician: Kamryn Lozada MD Attending physician follow up timeframe: In 1-2 weeks Quality: Discharge Current Medications Current medication review: Current Medications Sig/Renee Start time Last Medication Dose Route Stop Time Status Admin Cefazolin Sodium 2 GM PREOP ONCALL 09/19 0500 C KD IV 09/19 235 Metoprolol Tartrate 6.25 MG ONCE ONE 09/19 0500 AC PO 09/19 0501 Vancomycin HCl 1,500 MG PREOP ONCALL 09/19 050 CKD Sodium Chloride 250 ML IV 09/19 235 Verapamil HCl 16.6 MG .Q24H ONE 09/19 0500 CKD Heparin Sodium 1,660 UNIT IV 09/20 0459 (Porcine) Sodium Bicarbonate 0.7 ML Nitroglycerin/ 8.3 MG Dextrose Lactated Ringer's 949.5 ML Sevoflurane 0 .STK-MED ONE 09/18 1253 DC INH Ephedrine Sulfate 0 .STK-MED ONE 09/18 1232 DC .ROUTE Albumin Human 100 ML .STK-MED ONE 09/18 1227 DC IV Papaverine HCl 0 .STK-MED ONE 09/18 1118 DC IV Cefazolin Sodium 0 .STK-MED ONE 09/18 1105 DC .ROUTE Albumin Human 100 ML .STK-MED ONE 09/18 1059 DC IV Heparin Sodium 0 .STK-MED ONE 09/18 1059 DC .ROUTE Sodium Chloride 100 ML .STK-MED ONE 09/18 1059 DC IV Lidocaine HCl 0 .STK-MED ONE 09/18 1058 DC IV Magnesium Sulfate 0 .STK-MED ONE 09/18 1058 DC IV Phenylephrine HCl 0 .STK-MED ONE 09/18 1058 DC .ROUTE Sodium Bicarbonate 0 .STK-MED ONE 09/18 1058 DC IV Dexamethasone Sodium 0 .STK-MED ONE 09/18 1049 DC Phosphate .ROUTE Esmolol HCl 0 .STK-MED ONE 09/18 104 DC IV Glycopyrrolate 0 .STK-MED ONE 09/18 104 DC .ROUTE Lidocaine HCl 0 .STK-MED ONE 09/18 104 DC .ROUTE Neostigmine 0 .K-MED ONE 09/18 104 DC Methylsulfate .ROUTE Ondansetron HCl 0 .STK-MED ONE 09/18 104 DC .ROUTE Rocuronium [place] 0 .STK-MED ONE 09/18 1049 D C IV Vasopressin 0 .STK-MED ONE 09/18 104 DC .ROUTE Fentanyl Citrate 0 .K-MED ONE 09/18 104 DC IV Midazolam HCl 0 .K-MED ONE 09/18 104 DC .ROUTE Propofol 20 ML .K-MED ONE 09/18 1048 DC IV Aminocaproic Acid 0 .K-MED ONE 09/18 1046 DC IV Epinephrine HCl 250 ML .K-MED ONE 09/18 104 DC IV Heparin Sodium 0 .K-MED ONE 09/18 104 DC .ROUTE Insulin Human Regular 100 ML .K-MED ONE 09/18 104 DC IV Nitroglycerin/ 250 ML .K-MED ONE 09/18 104 D C Dextrose IV Norepinephrine 250 ML .K-MED ONE 09/18 104 D C Bitartrate IV Protamine Sulfate 0 .K-MED ONE 09/18 104 DC IV Calcium Chloride 0 .K-MED ONE 09/18 1045 DC IV Magnesium Sulfate 0 .K-MED ONE 09/18 104 DC .ROUTE Ropivacaine 0 .K-MED ONE 09/18 104 DC .ROUTE Fentanyl Citrate 0 .K-MED ONE 09/18 104 DC .ROUTE Acetaminophen 1,000 MG PREOP ONCALL 09/18 0845 CKD PO 10/19 943 Gabapentin 200 MG PREOP ONCALL 09/18 0845 CKD PO 10/18 2358 Sodium Chloride 20 ML ASDIR 09/18 0845 AC IV 09/19 235 Metoprolol Tartrate 6.25 MG ONCE ONE 09/18 0500 DC PO 09/18 0501 Verapamil HCl 16.6 MG .Q24H ONE 09/18 0500 CKD Heparin Sodium 1,660 UNIT IV 09/19 045 (Porcine) Sodium Bicarbonate 0.7 ML Nitroglycerin/ 8.3 MG Dextrose Lactated Ringer's 949.5 ML Albuterol Sulfate 2.5 MG RTONCE ONE 09/185 DC NEB 09/18 445 Mupirocin 1 APPLIC BID 09/17 2100 AC 09/18 NASAL 09/22 0901 0925 I attest that the foregoing medication list in t he medical record is true, accurate, and complete to the best of my knowled ge. at 1613 at 1009 RPT #:[id number] END OF REPORT 2022-09-22 11:27:00-00:00 [facility] Hospitalist Progress Note REPORT#:[id number] REPORT STATUS: Signed DATE:09/22/22 TIME: 1127 PATIENT: CHADNANA ARGUELLES UNIT #: [id number] ROOM/BED: [place] [address] : 64 AGE: 61 SEX: M ATTEND: Maryellen Lozada MD ADM AUTHOR: Umu Gross MD * ALL edits or amendments must be made on the [employer]/computer document * Subjective Chief complaint: he feel well . he ambulate . no complaint post CABG Review of Systems GI: Reports: constipation. All systems rev neg: except as noted Objective General VS/I O: Vital Signs: Date Time Temp Pulse Resp B/P B/P Pulse O2 O2 F low FiO2 Mean Ox Delivery Rate 09/22 0756 96 Room air 09/23 727 36.7 91 15 153/83 106.3 97 Room air 09/22 424 36.9 74 16 126/85 98.5 92 Room air 09/21 2324 36.7 80 18 130/85 99.6 93 Room air 09/21 2100 Room air 09/21 2026 36.5 84 18 142/87 105.6 96 Room air 09/21 1911 81 25 127/81 99 91 09/21 1615 87 22 116/84 94.4 99 Room air 24 hour I O ending at 0700: 04/11 0700 04 1900 Intake Total 840 Output Total 1575 1600 Balance -1575 -760 Intake, Oral 840 Number 3 Bowel Movements Number Voids 1 Output, Urine 1575 1600 PATIENT WEIGHT: Weight (lb): 211 Weight (oz): 6.77 Weight (kg): 95.900 Medications: Active Meds + DC'd Last 24 Hrs Sodium Biphosphate/Sodium Phosphate (FLEET ENEMA ADULT) 1 ENEMA ONCE ONE RECTAL (DC) Ipratropium [place] (ATROVENT) 500 MCG RTQ2H PRN PRN INH Cyanocobalamin (Vitamin B-12 500 mcg tab) 500 MC G DAILY PO Ferrous Sulfate (FERROUS SULFATE) 325 MG DAILY P O Bisacodyl (DULCOLAX) 10 MG ONCE PRN RECTAL Magnesium Hydroxide (MILK OF MAGNESIA) 30 ML ONC E PRN PO Insulin Glargine (Lantus/Semglee) 10 UNIT DAILY SUBQ Atorvastatin Calcium (LIPITOR) 40 MG 2100 PO Insulin Human Lispro (HUMALOG) 0 AC HS SUBQ Dextrose/Water (DEXTROSE 10% IN WATER) 125 ML DIR PRN IV (CKD) Dextrose/Water (DEXTROSE 10% IN WATER) 250 ML DIR PRN IV (CKD) Glucagon (GLUCAGON) 1 MG ASDIR PRN IM Clopidogrel Bisulfate (Plavix) 75 MG DAILY PO Polyethylene Glycol (MIRALAX) 17 GM DAILY PO Pantoprazole (PROTONIX) 40 MG DAILY@0600 PO Docusate Sodium (COLACE) 100 MG BID PO Gabapentin (NEURONTIN) 200 MG BID PO Metoprolol Tartrate (LOPRESSOR) 12.5 MG Q12HR PO Sennosides (Senna Lax 8.6 MG TABLET) 17.2 MG BED TIME PO Aspirin (ASPIRIN) 81 MG DAILY PO Ipratropium [place] (ATROVENT) 500 MCG RTQ4H INH (DC) Acetaminophen (TYLENOL) 650 MG Q4H PRN PRN PO Acetaminophen (TYLENOL) 650 MG Q4H PRN PRN RECTA L Amiodarone HCl (CORDARONE) 200 MG TID PO Magnesium Sulfate (MAGNESIUM SULFATE 4GM/SWFI 10 0ML) 100 ML ASDIR PRN IV Magnesium Sulfate (MAGNESIUM SULFATE 2GM/SWFI 50 ML) 50 ML ASDIR PRN IV Magnesium Sulfate/Dextrose (MAGNESIUM SULFATE 1G M/D5W 100ML) 100 ML ASDIR PRN IV Morphine Sulfate (morphine SULFATE) 4 MG Q2H PRN PRN IV Ondansetron HCl (ZOFRAN) 4 MG Q6H PRN PRN IV Oxycodone HCl (ROXICODONE) 5 MG Q4H PRN PRN PO Oxycodone HCl (ROXICODONE) 10 MG Q4H PRN PRN PO Potassium Chloride (KCL 20MEQ/SWFI 100ML) 100 ML ASDIR PRN IV Sodium Chloride (SODIUM CHLORIDE 0.9%) 250 ML Q2 4H IV Acetaminophen (TYLENOL EXTRA STRENGTH) 1,000 MG PREOP ONCALL PO (CKD) Gabapentin (NEURONTIN) 200 MG PREOP ONCALL PO (C KD) Mupirocin (BACTROBAN 2% 22 GM OINTMENT) 1 APPLIC BID NASAL (DC) Physical Exam General appearance: alert, awake, oriented Head/Eyes: normal conjunctiva/sclera, normal eye lids/periorb. Cardiovascular: normal heart sounds, regular rat e rhythm Respiratory: aerating well, clear to auscultatio n Abdomen: non-tender, normal bowel sounds, soft, no distention Extremities: moves all, no calf tenderness, no e ana 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, oriented X 3, CNII-XII intact, normal speech, no motor deficits, no sensory deficits Skin: dry, intact Results Findings/Data: Laboratory Tests 09/22 09/22 09/21 09/21 0730 0524 2023 1617 Chemistry Sodium (134 - 147 mEq/L) 137 Potassium (3.4 - 5.0 mEq/L) 3.8 Chloride (100 - 108 mEq/L) 98 L Carbon Dioxide (21 - 33 mEq/l) 28 Anion Gap (0 - 20) 15 BUN (7 - 18 mg/dL) 13 Creatinine (0.6 - 1.3 mg/dL) 1.3 Glomerular Filtr Rate (90 - 95) 63.3 L Glucose (70 - 110 mg/dL) 142 H POC Glucose (70 - 110 MG/DL) 143 H 130 H 131 H Calcium (8.0 - 10.5 mg/dL) 9.0 Magnesium (1.80 - 2.40 mg/dL) 1.85 Laboratory Tests 09/22 0524 Hematology WBC (4.5 - 11.0 x10 3/uL) 8.4 RBC (4.00 - 5.60 x10 6/uL) 4.46 Hgb (12.5 - 16.9 g/dL) 14.4 Hct (37.5 - 50.7 %) 41.9 MCV (81.0 - 99.0 fL) 93.9 MCH (27.0 - 33.0 pg) 32.3 MCHC (33.0 - 37.0 g/dL) 34.4 RDW (11.5 - 14.5 %) 12.2 Plt Count (150 - 400 x10 3/uL) 261 MPV (7.0 - 9.0 fL) 9.8 H Neut % (Auto) (56.0 - 77.0 %) 61.9 Lymph % (Auto) (14.0 - 32.0 %) 22.3 Freestone % (Auto) (4.8 - 9.0 %) 9.5 H Eos % (Auto) (0.3 - 3.7 %) 5.5 H Baso % (Auto) (0.0 - 2.0 %) 0.4 Neut # (Auto) (2.0 - 7.6 x10 3/uL) 5.20 Lymph # (Auto) (1.0 - 3.8 x10 3/uL) 1.87 [place] # (Auto) (0.1 - 0.8 x10 3/uL) 0.80 Eos # (Auto) (0.0 - 0.2 x10 3/uL) 0.46 H Baso # (Auto) (0.0 - 0.2 x10 3/uL) 0.03 Abs Immat Gran (auto) (0.00 - 0.03 x10 3/uL) 0. 03 Add Manual Diff NO Immature Gran % (0.0 - 2.0 %) 0.4 Nucleated RBC % (0 - 0 %) 0.0 Nucleated RBCs # (Man) (0.0 - 0.1 x10 3/uL) 0.0 0 Radiology data: Recent Impressions: RADIOLOGY - XR CHEST 1 V 09/22 0602 Report Impression - Status: SIGNED Entered: 09/22/2022 0816 IMPRESSION: Unchanged mild bibasilar airspace disease. Impression By: Sebas - Randolph Colón M.D. Treatment Prophylaxis Treatment Prophylaxis Drain(s)/tube(s): Drain(s)/tube(s): chest, urinary catheter Diagnosis, Assessment Plan Consultants: cardiology, cardiovascular surgery Free Text DxA P Notes Free text DxA P notes: CAD with multiple vessels disease HTN DM CV surgeon consult cardiology consult CABG-- today HTN- monitor now DM-- sliding scale lipid panel 09/19-- post CABG -- he sit on the chair . he ambulate with PT -- no sob -- monitor in CV ICU -- case is discussed with nurse . 09/20- he sit on the chair -- chest tube in place -- may pull out today as CV surgeon -- continue PT/OT -- monitor in CVICU -- spoke to the nurse 09/21- he is doing well -- transfer out of ICU -- continue monitor in the hospital 09/22- he feel well no bowel movement he may go home today if he has bowel movement a s CV surgeon Quality: Gen Med Crit Care Current Medications Current medication review: Current Medications Sig/Renee Start time Last Medication Dose Route Stop Time Status Admin Cefazolin Sodium 2 GM PREOP ONCALL 09/19 0500 C KD IV 09/19 2358 Metoprolol Tartrate 6.25 MG ONCE ONE 09/19 0500 AC PO 09/19 0501 Vancomycin HCl 1,500 MG PREOP ONCALL 09/19 050 CKD Sodium Chloride 250 ML IV 09/19 2358 Verapamil HCl 16.6 MG .Q24H ONE 09/19 050 CKD Heparin Sodium 1,660 UNIT IV 09/20 0459 (Porcine) Sodium Bicarbonate 0.7 ML Nitroglycerin/ 8.3 MG Dextrose Lactated Ringer's 949.5 ML Sevoflurane 0 .STK-MED ONE 09/18 1253 DC INH Ephedrine Sulfate 0 .STK-MED ONE 09/18 1232 DC .ROUTE Albumin Human 100 ML .STK-MED ONE 09/18 1227 DC IV Papaverine HCl 0 .STK-MED ONE 09/18 1118 DC IV Cefazolin Sodium 0 .STK-MED ONE 09/18 1105 DC .ROUTE Albumin Human 100 ML .STK-MED ONE 09/18 1059 DC IV Heparin Sodium 0 .STK-MED ONE 09/18 1059 DC .ROUTE Sodium Chloride 100 ML .STK-MED ONE 09/18 1059 DC IV Lidocaine HCl 0 .STK-MED ONE 09/18 1058 DC IV Magnesium Sulfate 0 .STK-MED ONE 09/18 1058 DC IV Phenylephrine HCl 0 .STK-MED ONE 09/18 1058 DC .ROUTE Sodium Bicarbonate 0 .STK-MED ONE 09/18 1058 DC IV Dexamethasone Sodium 0 .STK-MED ONE 09/18 1049 DC Phosphate .ROUTE Esmolol HCl 0 .STK-MED ONE 09/18 1049 DC IV Glycopyrrolate 0 .STK-MED ONE 09/18 1049 DC .ROUTE Lidocaine HCl 0 .STK-MED ONE 09/18 1049 DC .ROUTE Neostigmine 0 .STK-MED ONE 09/18 1049 DC Methylsulfate .ROUTE Ondansetron HCl 0 .STK-MED ONE 09/18 1049 DC .ROUTE Rocuronium [place] 0 .STK-MED ONE 09/18 1049 DC IV Vasopressin 0 .STK-MED ONE 09/18 1049 DC .ROUTE Fentanyl Citrate 0 .STK-MED ONE 09/18 1048 DC IV Midazolam HCl 0 .STK-MED ONE 09/18 1048 DC .ROUTE Propofol 20 ML .STK-MED ONE 09/18 1048 DC IV Aminocaproic Acid 0 .STK-MED ONE 09/18 1046 DC IV Epinephrine HCl 250 ML .STK-MED ONE 09/18 1046 DC IV Heparin Sodium 0 .STK-MED ONE 09/18 1046 DC .ROUTE Insulin Human Regular 100 ML .STK-MED ONE 09/18 1046 DC IV Nitroglycerin/ 250 ML .STK-MED ONE 09/18 1046 D C Dextrose IV Norepinephrine 250 ML .STK-MED ONE 09/18 1046 D C Bitartrate IV Protamine Sulfate 0 .STK-MED ONE 09/18 1046 DC IV Calcium Chloride 0 .STK-MED ONE 09/18 1045 DC IV Magnesium Sulfate 0 .STK-MED ONE 09/18 1045 DC .ROUTE Ropivacaine 0 .STK-MED ONE 09/18 104 DC .ROUTE Fentanyl Citrate 0 .STK-MED ONE 09/18 104 DC .ROUTE Acetaminophen 1,000 MG PREOP ONCALL 09/18 0845 CKD PO 10/19 943 Gabapentin 200 MG PREOP ONCALL 09/18 944 CKD PO 10/18 2358 Sodium Chloride 20 ML ASDIR 09/18 0845 AC IV 09/19 2358 Metoprolol Tartrate 6.25 MG ONCE ONE 09/18 499 DC PO 09/18 050 Verapamil HCl 16.6 MG .Q24H ONE 09/18 499 CKD Heparin Sodium 1,660 UNIT IV 09/19 458 (Porcine) Sodium Bicarbonate 0.7 ML Nitroglycerin/ 8.3 MG Dextrose Lactated Ringer's 949.5 ML Albuterol Sulfate 2.5 MG RTONCE ONE 09/18 444 DC NEB 09/18 445 Mupirocin 1 APPLIC BID 09/17 2099 AC 09/18 NASAL 09/22 09 0925 I attest that the foregoing medication list in [facility] medical record is true, accurate, and complete to the best of my knowled ge. Electronically Signed by Umu Gross MD on 3 at 1707 RPT #:[id number] END OF REPORT 2022-09-22 09:49:00-00:00 [facility] Cardiology Progress Note REPORT#:[id number] REPORT STATUS: Signed DATE:09/22/22 TIME: 09 PATIENT: CHANDANA ARGUELLES UNIT #: [id number] ROOM/BED: [place] [address] : 64 AGE: 61 SEX: M ATTEND: Maryellen Lozada MD ADM AUTHOR: Lorraine Gallo CNP * ALL edits or amendments must be made on the [employer]/computer document * Subjective Patient reports: No: complaints. Objective General VS/I O: 24 hour I O ending at 0700: 09/22 0700 09/21 1900 Intake Total 840 Output Total 1575 1600 Balance -1575 -760 Intake, Oral 840 Number 3 Bowel Movements Number Voids 1 Output, Urine 1575 1600 Vital Signs: Date Time Temp Pulse Resp B/P B/P Pulse O2 O2 F low FiO2 Mean Ox Delivery Rate 09/22 0756 96 Room air 09/23 727 36.7 91 15 153/83 106.3 97 Room air 09/22 424 36.9 74 16 126/85 98.5 92 Room air 09/215 36.7 80 18 130/85 99.6 93 Room air 09/21 2100 Room air 09/21 2026 36.5 84 18 142/87 105.6 96 Room air 09/21 1911 81 25 127/81 99 91 09/21 1615 87 22 116/84 94.4 99 Room air 09/21 1049 79 20 95 09/21 1032 36.7 81 16 102/75 84.1 94 Room air 09/21 1015 79 16 136/88 105 94 09/21 0958 80 27 116/81 95 94 PATIENT WEIGHT: Weight (lb): 211 Weight (oz): 6.77 Weight (kg): 95.900 Medications: Active Meds + DC'd Last 24 Hrs Sodium Biphosphate/Sodium Phosphate (FLEET ENEMA ADULT) 1 ENEMA ONCE ONE RECTAL (DC) Ipratropium [place] (ATROVENT) 500 MCG RTQ2H PRN PRN INH Cyanocobalamin (Vitamin B-12 500 mcg tab) 500 MC G DAILY PO Ferrous Sulfate (FERROUS SULFATE) 325 MG DAILY P O Bisacodyl (DULCOLAX) 10 MG ONCE PRN RECTAL Magnesium Hydroxide (MILK OF MAGNESIA) 30 ML ONC E PRN PO Insulin Glargine (Lantus/Semglee) 10 UNIT DAILY SUBQ Atorvastatin Calcium (LIPITOR) 40 MG 2100 PO Insulin Human Lispro (HUMALOG) 0 AC HS SUBQ Dextrose/Water (DEXTROSE 10% IN WATER) 125 ML DIR PRN IV (CKD) Dextrose/Water (DEXTROSE 10% IN WATER) 250 ML DIR PRN IV (CKD) Glucagon (GLUCAGON) 1 MG ASDIR PRN IM Clopidogrel Bisulfate (Plavix) 75 MG DAILY PO Polyethylene Glycol (MIRALAX) 17 GM DAILY PO Pantoprazole (PROTONIX) 40 MG DAILY@0600 PO Docusate Sodium (COLACE) 100 MG BID PO Gabapentin (NEURONTIN) 200 MG BID PO Metoprolol Tartrate (LOPRESSOR) 12.5 MG Q12HR PO Sennosides (Senna Lax 8.6 MG TABLET) 17.2 MG BED TIME PO Aspirin (ASPIRIN) 81 MG DAILY PO Ipratropium [place] (ATROVENT) 500 MCG RTQ4H INH (DC) Acetaminophen (TYLENOL) 650 MG Q4H PRN PRN PO Acetaminophen (TYLENOL) 650 MG Q4H PRN PRN RECTA L Amiodarone HCl (CORDARONE) 200 MG TID PO Magnesium Sulfate (MAGNESIUM SULFATE 4GM/SWFI 10 0ML) 100 ML ASDIR PRN IV Magnesium Sulfate (MAGNESIUM SULFATE 2GM/SWFI 50 ML) 50 ML ASDIR PRN IV Magnesium Sulfate/Dextrose (MAGNESIUM SULFATE 1G M/D5W 100ML) 100 ML ASDIR PRN IV Morphine Sulfate (morphine SULFATE) 4 MG Q2H PRN PRN IV Ondansetron HCl (ZOFRAN) 4 MG Q6H PRN PRN IV Oxycodone HCl (ROXICODONE) 5 MG Q4H PRN PRN PO Oxycodone HCl (ROXICODONE) 10 MG Q4H PRN PRN PO Potassium Chloride (KCL 20MEQ/SWFI 100ML) 100 ML ASDIR PRN IV Sodium Chloride (SODIUM CHLORIDE 0.9%) 250 ML Q2 4H IV Acetaminophen (TYLENOL EXTRA STRENGTH) 1,000 MG PREOP ONCALL PO (CKD) Gabapentin (NEURONTIN) 200 MG PREOP ONCALL PO (C KD) Mupirocin (BACTROBAN 2% 22 GM OINTMENT) 1 APPLIC BID NASAL (DC) Physical Exam General appearance: alert, awake, oriented Neck: non-tender, no JVD Cardiovascular: CV assessment: regular rate and rhythm, BP puls es = bilaterally Respiratory: clear to auscultation, no distress Abdomen: soft, non-tender, normal bowel sounds Genitourinary: no flank pain, no urinary cathete r Lower extremity: LE assessment: normal capillary refill, no buster a Musculoskeletal: normal inspection 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, oriented X 3, normal speech Skin: dry, intact, normal color Psychiatry: normal affect, normal judgment/insig ht, normal mood, no hallucinations Results Findings/Data: Laboratory Tests 09/22 09/22 09/21 09/21 09/21 0730 0524 2024 1617 1108 Chemistry Sodium (134 - 147 mEq/L) 137 Potassium (3.4 - 5.0 mEq/L) 3.8 Chloride (100 - 108 mEq/L) 98 L Carbon Dioxide (21 - 33 mEq/l) 28 Anion Gap (0 - 20) 15 BUN (7 - 18 mg/dL) 13 Creatinine (0.6 - 1.3 mg/dL) 1.3 Glomerular Filtr Rate (90 - 95) 63.3 L Glucose (70 - 110 mg/dL) 142 H POC Glucose (70 - 110 MG/DL) 143 H 130 H 131 H 175 H Calcium (8.0 - 10.5 mg/dL) 9.0 Magnesium (1.80 - 2.40 mg/dL) 1.85 Laboratory Tests 09/22 0524 Hematology WBC (4.5 - 11.0 x10 3/uL) 8.4 RBC (4.00 - 5.60 x10 6/uL) 4.46 Hgb (12.5 - 16.9 g/dL) 14.4 Hct (37.5 - 50.7 %) 41.9 MCV (81.0 - 99.0 fL) 93.9 MCH (27.0 - 33.0 pg) 32.3 MCHC (33.0 - 37.0 g/dL) 34.4 RDW (11.5 - 14.5 %) 12.2 Plt Count (150 - 400 x10 3/uL) 261 MPV (7.0 - 9.0 fL) 9.8 H Neut % (Auto) (56.0 - 77.0 %) 61.9 Lymph % (Auto) (14.0 - 32.0 %) 22.3 [place] % (Auto) (4.8 - 9.0 %) 9.5 H Eos % (Auto) (0.3 - 3.7 %) 5.5 H Baso % (Auto) (0.0 - 2.0 %) 0.4 Neut # (Auto) (2.0 - 7.6 x10 3/uL) 5.20 Lymph # (Auto) (1.0 - 3.8 x10 3/uL) 1.87 [place] # (Auto) (0.1 - 0.8 x10 3/uL) 0.80 Eos # (Auto) (0.0 - 0.2 x10 3/uL) 0.46 H Baso # (Auto) (0.0 - 0.2 x10 3/uL) 0.03 Abs Immat Gran (auto) (0.00 - 0.03 x10 3/uL) 0. 03 Add Manual Diff NO Immature Gran % (0.0 - 2.0 %) 0.4 Nucleated RBC % (0 - 0 %) 0.0 Nucleated RBCs # (Man) (0.0 - 0.1 x10 3/uL) 0.0 0 Laboratory Tests 09/22 0524 Chemistry Magnesium (1.80 - 2.40 mg/dL) 1.85 Radiology data: Recent Impressions: RADIOLOGY - XR CHEST 1 V 09/22 601 Report Impression - Status: SIGNED Entered: 09/22/2022 0816 IMPRESSION: Unchanged mild bibasilar airspace disease. Impression By: Sebas - Randolph Colón M.D. Telemetry Interpretation: sinus rhythm Diagnosis, Assessment Plan Plan discussed with: patient, nurse Free Text DxA P Notes Free Text DxA P Notes: 61 YO male with PMHx of HTN, DM, strong family o f CAD. He has been having palpitation, went to see Dr. Cabrera, had abnormal stress test, followed by [facility] that showed multivessel CAD. 1. Multivessel CAD 09/19/22: s/p CABG x 5 (ADKINS-LAD, Seq-D2, SVG-D1, SVG-OM, SVG-PDA) DAPT, BB, statin 2. Hypertension stable blood pressure continue BB 3. Diabetes mellitus manage per IM Doing well ambulating without assistance at 1228 Electronically Signed by Krystal Elizabeth MD on at 2342 RPT #:[id number] END OF REPORT 2022-09-22 09:19:00-00:00 [facility] RE[facility]#:[id number] REPORT STATUS: Signed DATE:09/22/22 TIME: 918 PATIENT: CHANDANA ARGUELLES UNIT #: [id number] ROOM/BED: [place] [id number] : 64 AGE: 61 SEX: M ATTEND: Maryellen Lozada MD ADM AUTHOR: Krysta Cordero Physic * ALL edits or amendments must be made on the el PPT [employer]/computer document * General Post-op: day 4 Status post: 09/18/22 CABG x 5 (ADKINS-LAD, Seq-D2, SVG-D1, SVG-OM, SVG -PDA) ALAA EVH (RGSV) Posterior pericardiotomy Subjective Chief complaint: Abnormal stress test Severe CAD Follow up CABG Review of Systems Constitutional: Denies: fatigue, fever, generalized weakness. Skin: Denies: abrasion, bruising, diaphoresis. Allergy/Immun: Denies: allergic reaction, hives, itching. Eyes: Denies: redness, visual loss/blurred, diplopia. ENT: Denies: ear ringing, nasal congestion, throat sw elling. Respiratory: Denies: SEO (dyspnea on exertion), SOB, wheezing . Cardiovascular: Denies: chest pain, palpitations. GI: Denies: abdominal pain, nausea, vomiting. : Denies: dysuria, flank pain. Heme: Denies: bleeding, bruising. Endocrine: Denies: cold intolerance, polyphagia, weight gai n. Neuro: Denies: confusion, seizure, syncope. All systems rev neg: except as marked Objective General VS/I O Last Documented: Result Date Time Pulse Ox 96 09/22 0756 O2 Delivery Room air 09/22 0756 B/P 153/83 09/22 0728 B/P Mean 106.3 09/22 0728 Temp 98.1 09/22 0728 Pulse 91 09/22 0728 Resp 15 09/22 0728 FiO2 21 09/21 0850 O2 Flow Rate 2 09/21 0350 24 hour I O ending at 0700: 09/22 0700 09/21 1900 Intake Total 840 Output Total 1575 1600 Balance -1575 -760 Intake, Oral 840 Number 3 Bowel Movements Number Voids 1 Output, Urine 1575 1600 PATIENT WEIGHT: Weight (lb): 211 Weight (oz): 6.77 Weight (kg): 95.900 Physical Exam General appearance: alert, awake, oriented Wound/incision: Location: sternal Site condition: dressing clean dry, dressing in tact HEENT: anicteric, mucosal membranes moist, pupil s reactive to light Neck: full range of motion, non-tender Cardiovascular: normal heart sounds, regular rat e rhythm Respiratory: aerating well, clear to auscultatio n, symmetric expansion, no distress Abdomen: soft, non-tender Genitourinary: hopson, urine Extremities: dry, moves all, normal capillary re fill Musculoskeletal: full range of motion 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, oriented X 3 Skin: dry, intact Psychiatry: normal affect, normal mood Treatment Prophylaxis Treatment Prophylaxis Oxygen: nasal cannula Drain(s)/tube(s): Drain(s)/tube(s): chest, urinary catheter Quality: Trauma Gen Surg Current Medications Current medication review: Current Medications Sig/Renee Start time Last Medication Dose Route Stop Time Status Admin Cefazolin Sodium 2 GM PREOP ONCALL 09/19 499 C KD IV 09/19 2358 Metoprolol Tartrate 6.25 MG ONCE ONE 09/19 499 AC PO 09/19 500 Vancomycin HCl 1,500 MG PREOP ONCALL 09/19 499 CKD Sodium Chloride 250 ML IV 09/19 2358 Verapamil HCl 16.6 MG .Q24H ONE 09/19 499 CKD Heparin Sodium 1,660 UNIT IV 09/20 045 (Porcine) Sodium Bicarbonate 0.7 ML Nitroglycerin/ 8.3 MG Dextrose Lactated Ringer's 949.5 ML Sevoflurane 0 .STK-MED ONE 09/18 1253 DC INH Ephedrine Sulfate 0 .STK-MED ONE 09/18 1232 DC .ROUTE Albumin Human 100 ML .STK-MED ONE 09/18 1227 DC IV Papaverine HCl 0 .STK-MED ONE 09/18 1118 DC IV Cefazolin Sodium 0 .STK-MED ONE 09/18 1105 DC .ROUTE Albumin Human 100 ML .STK-MED ONE 09/18 1059 DC IV Heparin Sodium 0 .STK-MED ONE 09/18 1059 DC .ROUTE Sodium Chloride 100 ML .STK-MED ONE 09/18 1059 DC IV Lidocaine HCl 0 .STK-MED ONE 09/18 1058 DC IV Magnesium Sulfate 0 .STK-MED ONE 09/18 1058 DC IV Phenylephrine HCl 0 .STK-MED ONE 09/18 1058 DC .ROUTE Sodium Bicarbonate 0 .STK-MED ONE 09/18 1058 DC IV Dexamethasone Sodium 0 .STK-MED ONE 09/18 1049 DC Phosphate .ROUTE Esmolol HCl 0 .STK-MED ONE 09/18 1049 DC IV Glycopyrrolate 0 .STK-MED ONE 09/18 1049 DC .ROUTE Lidocaine HCl 0 .STK-MED ONE 09/18 1049 DC .ROUTE Neostigmine 0 .STK-MED ONE 09/18 1049 DC Methylsulfate .ROUTE Ondansetron HCl 0 .STK-MED ONE 09/18 104 DC .ROUTE Rocuronium [place] 0 .STK-MED ONE 09/18 1049 DC IV Vasopressin 0 .STK-MED ONE 09/18 104 DC .ROUTE Fentanyl Citrate 0 .STK-MED ONE 09/18 1048 DC IV Midazolam HCl 0 .STK-MED ONE 09/18 1048 DC .ROUTE Propofol 20 ML .STK-MED ONE 09/18 1048 DC IV Aminocaproic Acid 0 .STK-MED ONE 09/18 104 DC IV Epinephrine HCl 250 ML .STK-MED ONE 09/18 104 DC IV Heparin Sodium 0 .STK-MED ONE 09/18 104 DC .ROUTE Insulin Human Regular 100 ML .STK-MED ONE 09/18 104 DC IV Nitroglycerin/ 250 ML .STK-MED ONE 09/18 104 D C Dextrose IV Norepinephrine 250 ML .STK-MED ONE 09/18 104 D C Bitartrate IV Protamine Sulfate 0 .STK-MED ONE 09/18 104 DC IV Calcium Chloride 0 .STK-MED ONE 09/18 104 DC IV Magnesium Sulfate 0 .STK-MED ONE 09/18 104 DC .ROUTE Ropivacaine 0 .STK-MED ONE 09/18 104 DC .ROUTE Fentanyl Citrate 0 .STK-MED ONE 09/18 104 DC .ROUTE Acetaminophen 1,000 MG PREOP ONCALL 09/18 0945 CKD PO 10/18 0944 Gabapentin 200 MG PREOP ONCALL 09/18 0945 CKD PO 10/18 2359 Sodium Chloride 20 ML ASDIR 09/18 0945 AC IV 09/19 235 Metoprolol Tartrate 6.25 MG ONCE ONE 09/18 050 0 DC PO 09/18 0501 Verapamil HCl 16.6 MG .Q24H ONE 09/18 0500 CKD Heparin Sodium 1,660 UNIT IV 09/19 0459 (Porcine) Sodium Bicarbonate 0.7 ML Nitroglycerin/ 8.3 MG Dextrose Lactated Ringer's 949.5 ML Albuterol Sulfate 2.5 MG RTONCE ONE 09/18 0445 DC NEB 09/18 0446 Mupirocin 1 APPLIC BID 09/17 2100 AC 09/18 NASAL 09/22 0901 0925 I attest that the foregoing medication list in t medical record is true, accurate, and complete to the best of my knowled ge. Diagnosis, Assessment Plan Hospital course to date: Very pleasant 61-year-old male with past medical history of hypertension, diabetes for 3 years on oral agents, chews tobacco, has a strong family history of premature coronary artery disease. He has bee n complaining of exertional chest tightness, had abnormal stress test and metzger d high calcium score (greater than 2000) was admitted to [facility] yesterday for elective left heart cath. Coronary angiogram showed se judith multivessel coronary artery disease and patient transferred to [facility] for cardiothoracic surgery evaluation. Patient is retired, lives with his , indepen dent PLAN [facility] images uploaded in [employer] . Dr. Lozada explained to the patient and his the angiogram findings and recommended s urgical revascularization he explained the surgery, risks involved including risk of st roke, bleeding, infection, prolonged mechanical ventilation, renal dysfunct ion; STS score, benefits, complications and alternativ es. He acknowledged understanding and is willing to proceed Preok work up initiated Plan for CABBG today. Cardiology consulted 09/18/22 CABG x 5 (ADKINS-LAD, Seq-D2, SVG-D1, SVG-OM, SVG- PDA) ALAA EVH (RGSV) Posterior pericardiotomy 09/19/22 POD 1 Patient hemodynamically stable postoperatively, not requiring pressors or inotrope support Labs and chest x-ray reviewed-stable On 2l nasal cannula, wean off as tolerated to ke ep O2 sats > 92%] Encourage incentive spirometer use and deep leona thing Nitroglycerin drip at 5 mcg for 24 hours Keep both chest tubes and monitor outputs NSR, epicardial pacing wires on standby Cardiac diet Monitor renal function, CR 1.2, UOP 1650 overnig ht Strict I Os, daily weights Glycemic control with insulin drip, transition t o SSI Bowel regimen Pain controlled (pain level 2/10) PT/OT-ambulate in hallway DVT prophylaxis with SCDS, GI prophylaxis with P PI Continue supportive care in CVICU Plan of care discussed with Dr. Lozada 09/20 Doing very well today, alert and oriented, pain controlled Respiratory status stable on room air Discontinue chest tubes after ambulation Hemodynamically stable. We will discontinue paci ng wires before discharge No bowel movement yet, milk of magnesia and supp ository as needed Creatinine stable 1.3, good urine output Replace electrolytes Glycemic control. Long-acting insulin added PT/OT Transfer to intermediate care DC plan: Home with family 09/21 POD 3 AAOx3 Respiratory: on room Air 100% Encourage IS CXR reviewed Cardiac: remains sinus rhythm GI: awaiting BM, Suppository, Consider Enema tod ay. Continue Bowel regimen :No hopson- voiding well. UO: 2074 Continue PT/OT Disposition: home- Okay to floor today Patient seen and examined by Dr. Lozada. Plan o f care discussed with multidisciplinary team 09/22/22 POD 4 AAOx3 Respiratory: on room Air 100% Encourage IS CXR reviewed Cardiac: remains sinus rhythm, Pacing wires monisha jeannie today. Obtain echo GI: awaiting BM, Suppository, Enema today, + gas Continue Bowel regimen :No hopson- voiding well. UO: 3174 Continue PT/OT Disposition: home if + BM today. DVT studies and echo today. Patient seen and examined by Dr. Lozada. Plan o f care discussed with multidisciplinary team Consultants: cardiology, cardiovascular surgery at 0928 at 1428 RPT #:[id number] END OF REPORT 2022-09-21 13:52:00-00:00 [facility] Hospitalist Progress Note REPORT#:[id number] REPORT STATUS: Signed DATE:09/21/22 TIME: 1352 PATIENT: CHANDANA ARGUELLES UNIT #: [id number] ROOM/BED: [address] : 64 AGE: 61 SEX: M ATTEND: Maryellen Lozada MD ADM AUTHOR: Umu Gross MD * ALL edits or amendments must be made on the el PPT [employer]/computer document * Subjective Chief complaint: he is transferred out of CVICU. he ambulate . he feel well . post CABG Review of Systems All systems rev neg: except as noted Objective General VS/I O: Vital Signs: Date Time Temp Pulse Resp B/P B/P Pulse O2 O2 F low FiO2 Mean Ox Delivery Rate 09/21 1049 79 20 95 04 1032 36.7 81 16 102/75 84.1 94 Room air 09/21 1015 79 16 136/88 105 94 04/10 0958 80 27 116/81 95 94 04/10 0948 79 29 93 04/10 0905 81 26 93 04/10 0900 79 18 115/80 96 94 04/10 0850 94 Room air 21 09/21 0800 36.3 98 Room air 09/21 0800 75 18 119/74 92 92 04/10 0700 80 16 124/78 95 94 04/10 0623 81 16 117/80 94 94 04/10 0500 81 16 142/75 102 92 04/ 0400 85 53 145/100 118 90 04/ 0350 97 Nasal 2 cannula 09/21 0300 80 13 126/75 94 91 04/ 0222 84 22 139/85 107 92 04/ 0100 84 19 139/84 105 94 04/10 0000 82 21 137/85 106 91 09/20 2300 80 13 128/74 95 90 04 2200 85 16 117/78 90 91 04/ 2100 83 21 140/86 108 91 04 2000 37.1 09/20 2000 83 12 123/83 98 96 09/20 1956 94 Room air 09/20 1800 87 139/85 103 94 09/20 1700 85 134/88 103 90 Room air 09/20 1600 90 125/81 95 90 09/20 1500 85 140/85 103 93 Room air 09/20 1500 85 140/85 103 93 Room air 09/20 1400 87 144/48 80 91 24 hour I O ending at 0700: 09/21 0700 09/20 1900 Intake Total 810.00 Output Total 2075 1000 Balance -1265.00 -1000 Intake, IV 90.00 Intake, Oral 720 Number Voids 6 Output, Urine 5 1000 Patient 95.9 kg Weight Weight Standing scale Measurement Method PATIENT WEIGHT: Weight (lb): 211 Weight (oz): 6.77 Weight (kg): 95.900 Medications: Active Meds + DC'd Last 24 Hrs Ipratropium [place] (ATROVENT) 500 MCG RTQ2H PRN PRN INH Cyanocobalamin (Vitamin B-12 500 mcg tab) 500 MC G DAILY PO Ferrous Sulfate (FERROUS SULFATE) 325 MG DAILY P O Bisacodyl (DULCOLAX) 10 MG ONCE PRN RECTAL Magnesium Hydroxide (MILK OF MAGNESIA) 30 ML ONC E PRN PO Insulin Glargine (Lantus/Semglee) 10 UNIT DAILY SUBQ Atorvastatin Calcium (LIPITOR) 40 MG 2100 PO Insulin Human Lispro (HUMALOG) 0 AC HS SUBQ Dextrose/Water (DEXTROSE 10% IN WATER) 125 ML DIR PRN IV (CKD) Dextrose/Water (DEXTROSE 10% IN WATER) 250 ML DIR PRN IV (CKD) Glucagon (GLUCAGON) 1 MG ASDIR PRN IM Clopidogrel Bisulfate (Plavix) 75 MG DAILY PO Polyethylene Glycol (MIRALAX) 17 GM DAILY PO Pantoprazole (PROTONIX) 40 MG DAILY@0600 PO Docusate Sodium (COLACE) 100 MG BID PO Gabapentin (NEURONTIN) 200 MG BID PO Metoprolol Tartrate (LOPRESSOR) 12.5 MG Q12HR PO Sennosides (Senna Lax 8.6 MG TABLET) 17.2 MG BED TIME PO Aspirin (ASPIRIN) 81 MG DAILY PO Ipratropium [place] (ATROVENT) 500 MCG RTQ4H INH (DC) Acetaminophen (TYLENOL) 650 MG Q4H PRN PRN PO Acetaminophen (TYLENOL) 650 MG Q4H PRN PRN RECTA L Amiodarone HCl (CORDARONE) 200 MG TID PO Magnesium Sulfate (MAGNESIUM SULFATE 4GM/SWFI 10 0ML) 100 ML ASDIR PRN IV Magnesium Sulfate (MAGNESIUM SULFATE 2GM/SWFI 50 ML) 50 ML ASDIR PRN IV Magnesium Sulfate/Dextrose (MAGNESIUM SULFATE 1G M/D5W 100ML) 100 ML ASDIR PRN IV Morphine Sulfate (morphine SULFATE) 4 MG Q2H PRN PRN IV Ondansetron HCl (ZOFRAN) 4 MG Q6H PRN PRN IV Oxycodone HCl (ROXICODONE) 5 MG Q4H PRN PRN PO Oxycodone HCl (ROXICODONE) 10 MG Q4H PRN PRN PO Potassium Chloride (KCL 20MEQ/SWFI 100ML) 100 ML ASDIR PRN IV Sodium Chloride (SODIUM CHLORIDE 0.9%) 250 ML Q2 4H IV Acetaminophen (TYLENOL EXTRA STRENGTH) 1,000 MG PREOP ONCALL PO (CKD) Gabapentin (NEURONTIN) 200 MG PREOP ONCALL PO (C KD) Mupirocin (BACTROBAN 2% 22 GM OINTMENT) 1 APPLIC BID NASAL Physical Exam General appearance: alert, awake, oriented Head/Eyes: normal conjunctiva/sclera, normal eye lids/periorb. Cardiovascular: normal heart sounds, regular rat e rhythm Respiratory: aerating well, clear to auscultatio n Abdomen: non-tender, normal bowel sounds, soft, no distention Extremities: moves all, no calf tenderness, no e ana 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, oriented X 3, CNII-XII intact, normal speech, no motor deficits, no sensory deficits Skin: dry, intact Results Findings/Data: Laboratory Tests 09/21 09/21 09/21 09/20 09/20 1108 0802 [id number] 175 Chemistry Sodium (134 - 147 mEq/L) 135 Potassium (3.4 - 5.0 mEq/L) 4.3 Chloride (100 - 108 mEq/L) 100 Carbon Dioxide (21 - 33 mEq/l) 25 Anion Gap (0 - 20) 14 BUN (7 - 18 mg/dL) 10 Creatinine (0.6 - 1.3 mg/dL) 1.2 Glomerular Filtr Rate (90 - 95) 69.7 L Glucose (70 - 110 mg/dL) 190 H POC Glucose (70 - 110 MG/DL) 175 H 181 H 131 H 218 H Calcium (8.0 - 10.5 mg/dL) 8.8 Magnesium (1.80 - 2.40 mg/dL) 1.73 L Total Bilirubin (0.0 - 1.0 mg/dL) 0.70 Direct Bilirubin (0.0 - 0.30 MG/DL) 0.30 Indirect Bilirubin (MG/DL) 0.40 AST (15 - 37 IUnit/L) 24 ALT (30 - 65 IUnit/L) 9 L Total Alk Phosphatase (20 - 125 45 IUnit/L) Total Protein (6.4 - 8.2 g/dL) 6.7 Albumin (3.4 - 5.0 g/dL) 4.00 Laboratory Tests 09/21 0235 Hematology WBC (4.5 - 11.0 x10 3/uL) 12.2 H RBC (4.00 - 5.60 x10 6/uL) 4.23 Hgb (12.5 - 16.9 g/dL) 13.6 Hct (37.5 - 50.7 %) 39.6 MCV (81.0 - 99.0 fL) 93.6 MCH (27.0 - 33.0 pg) 32.2 MCHC (33.0 - 37.0 g/dL) 34.3 RDW (11.5 - 14.5 %) 12.2 Plt Count (150 - 400 x10 3/uL) 180 MPV (7.0 - 9.0 fL) 9.4 H Neut % (Auto) (56.0 - 77.0 %) 70.8 Lymph % (Auto) (14.0 - 32.0 %) 16.2 Freestone % (Auto) (4.8 - 9.0 %) 10.2 H Eos % (Auto) (0.3 - 3.7 %) 2.1 Baso % (Auto) (0.0 - 2.0 %) 0.5 Neut # (Auto) (2.0 - 7.6 x10 3/uL) 8.63 H Lymph # (Auto) (1.0 - 3.8 x10 3/uL) 1.97 [place] # (Auto) (0.1 - 0.8 x10 3/uL) 1.24 H Eos # (Auto) (0.0 - 0.2 x10 3/uL) 0.25 H Baso # (Auto) (0.0 - 0.2 x10 3/uL) 0.06 Abs Immat Gran (auto) (0.00 - 0.03 x10 3/uL) 0. 03 Add Manual Diff NO Immature Gran % (0.0 - 2.0 %) 0.2 Nucleated RBC % (0 - 0 %) 0.0 Nucleated RBCs # (Man) (0.0 - 0.1 x10 3/uL) 0.0 0 Radiology data: Recent Impressions: RADIOLOGY - XR CHEST 1 V 09/21 0706 Report Impression - Status: SIGNED Entered: 09/21/2022 0852 IMPRESSION: 1. New right lower lobe atelectasis versus airsp arslan disease. 2. Stable left basilar pleuroparenchymal disease . 3. Small residual left pneumothorax, decreased f ollowing thoracostomy drain removal. 4. Stable postoperative cardiomediastinal silhou ette. Impression By: Ro Wild M.D. Treatment Prophylaxis Treatment Prophylaxis Drain(s)/tube(s): Drain(s)/tube(s): chest, urinary catheter Diagnosis, Assessment Plan Consultants: cardiology, cardiovascular surgery Free Text DxA P Notes Free text DxA P notes: CAD with multiple vessels disease HTN DM CV surgeon consult cardiology consult CABG-- today HTN- monitor now DM-- sliding scale lipid panel 09/19-- post CABG -- he sit on the chair . he ambulate with PT -- no sob -- monitor in CV ICU -- case is discussed with nurse . 09/20- he sit on the chair -- chest tube in place -- may pull out today as CV surgeon -- continue PT/OT -- monitor in CVICU -- spoke to the nurse 09/21- he is doing well -- transfer out of ICU -- continue monitor in the hospital Quality: Gen Med Crit Care Current Medications Current medication review: Current Medications Sig/Renee Start time Last Medication Dose Route Stop Time Status Admin Cefazolin Sodium 2 GM PREOP ONCALL 09/19 0500 C KD IV 09/19 2358 Metoprolol Tartrate 6.25 MG ONCE ONE 09/19 0500 AC PO 09/19 0501 Vancomycin HCl 1,500 MG PREOP ONCALL 09/19 0500 CKD Sodium Chloride 250 ML IV 09/19 2358 Verapamil HCl 16.6 MG .Q24H ONE 09/19 0500 CKD Heparin Sodium 1,660 UNIT IV 09/20 0459 (Porcine) Sodium Bicarbonate 0.7 ML Nitroglycerin/ 8.3 MG Dextrose Lactated Ringer's 949.5 ML Sevoflurane 0 .STK-MED ONE 09/18 1253 DC INH Ephedrine Sulfate 0 .STK-MED ONE 09/18 1232 DC .ROUTE Albumin Human 100 ML .STK-MED ONE 09/18 1227 DC IV Papaverine HCl 0 .STK-MED ONE 09/18 1118 DC IV Cefazolin Sodium 0 .STK-MED ONE 09/18 1105 DC .ROUTE Albumin Human 100 ML .STK-MED ONE 09/18 1059 D C IV Heparin Sodium 0 .STK-MED ONE 09/18 1059 DC .ROUTE Sodium Chloride 100 ML .STK-MED ONE 09/18 1059 DC IV Lidocaine HCl 0 .STK-MED ONE 09/18 1058 DC IV Magnesium Sulfate 0 .STK-MED ONE 09/18 1058 DC IV Phenylephrine HCl 0 .STK-MED ONE 09/18 1058 DC .ROUTE Sodium Bicarbonate 0 .STK-MED ONE 09/18 1058 DC IV Dexamethasone Sodium 0 .STK-MED ONE 09/18 1049 DC Phosphate .ROUTE Esmolol HCl 0 .STK-MED ONE 09/18 1049 DC IV Glycopyrrolate 0 .STK-MED ONE 09/18 1049 DC .ROUTE Lidocaine HCl 0 .STK-MED ONE 09/18 1049 DC .ROUTE Neostigmine 0 .STK-MED ONE 09/18 1049 DC Methylsulfate .ROUTE Ondansetron HCl 0 .STK-MED ONE 09/18 1049 DC .ROUTE Rocuronium [place] 0 .STK-MED ONE 09/18 1049 DC IV Vasopressin 0 .STK-MED ONE 09/18 1049 DC .ROUTE Fentanyl Citrate 0 .STK-MED ONE 09/18 1048 DC IV Midazolam HCl 0 .STK-MED ONE 09/18 1048 DC .ROUTE Propofol 20 ML .STK-MED ONE 09/18 1048 DC IV Aminocaproic Acid 0 .STK-MED ONE 09/18 1046 DC IV Epinephrine HCl 250 ML .STK-MED ONE 09/18 1046 DC IV Heparin Sodium 0 .STK-MED ONE 09/18 1046 DC .ROUTE Insulin Human Regular 100 ML .STK-MED ONE 09/18 1046 DC IV Nitroglycerin/ 250 ML .STK-MED ONE 09/18 1046 D C Dextrose IV Norepinephrine 250 ML .STK-MED ONE 09/18 1046 D C Bitartrate IV Protamine Sulfate 0 .STK-MED ONE 09/18 1046 DC IV Calcium Chloride 0 .STK-MED ONE 09/18 1045 DC IV Magnesium Sulfate 0 .STK-MED ONE 09/18 1045 DC .ROUTE Ropivacaine 0 .STK-MED ONE 09/18 1045 DC .ROUTE Fentanyl Citrate 0 .STK-MED ONE 09/18 1041 DC .ROUTE Acetaminophen 1,000 MG PREOP ONCALL 09/18 0845 CKD PO 10/18 0844 Gabapentin 200 MG PREOP ONCALL 09/18 0845 CKD PO 10/18 2359 Sodium Chloride 20 ML ASDIR 09/18 0945 AC IV 09/19 235 Metoprolol Tartrate 6.25 MG ONCE ONE 09/18 0500 DC PO 09/18 0501 Verapamil HCl 16.6 MG .Q24H ONE 09/18 050 CKD Heparin Sodium 1,660 UNIT IV 09/19 045 (Porcine) Sodium Bicarbonate 0.7 ML Nitroglycerin/ 8.3 MG Dextrose Lactated Ringer's 949.5 ML Albuterol Sulfate 2.5 MG RTONCE ONE 09/18 0445 DC NEB 09/18 445 Mupirocin 1 APPLIC BID 09/17 2099 AC 09/18 NASAL 09/22 0901 0925 I attest that the foregoing medication list in [facility] medical record is true, accurate, and complete to the best of my knowled ge. Electronically Signed by Umu Gross MD on 3 at 1814 RPT #:[id number] END OF REPORT 2022-09-21 09:15:00-00:00 [facility] Cardiology Progress Note REPORT#:[id number] REPORT STATUS: Signed DATE:09/21/22 TIME: 914 PATIENT: CHANDANA ARGUELLES UNIT #: [id number] ROOM/BED: [place] [address] : 64 AGE: 61 SEX: M ATTEND: Maryellen Lozada MD ADM AUTHOR: Lorraine Gallo ADMISSIONS REPRESENTATIVE * ALL edits or amendments must be made on the [employer]/computer document * Subjective Patient reports: No: complaints. Objective General VS/I O: 24 hour I O ending at 0700: 09/21 0700 09/20 1900 Intake Total 810.00 Output Total 2075 1000 Balance -1265.00 -1000 Intake, IV 90.00 Intake, Oral 720 Number Voids 6 Output, Urine 2075 1000 Patient 95.9 kg Weight Weight Standing scale Measurement Method Vital Signs: Date Time Temp Pulse Resp B/P B/P Pulse O2 O2 F low FiO2 Mean Ox Delivery Rate 09/21 904 81 26 93 09/21 899 79 18 115/80 96 94 09/21 0850 94 Room air 21 04/10 0800 36.3 98 Room air 09/21 0800 75 18 119/74 92 92 04/ 0700 80 16 124/78 95 94 04/10 0623 81 16 117/80 94 94 04/ 0500 81 16 142/75 102 92 04/ 0400 85 53 145/100 118 90 04/ 0350 97 Nasal 2 cannula 09/21 0300 80 13 126/75 94 91 04/ 0222 84 22 139/85 107 92 04/ 0100 84 19 139/84 105 94 04/ 0000 82 21 137/85 106 91 04/ 2300 80 13 128/74 95 90 04/ 2200 85 16 117/78 90 91 04/ 2100 83 21 140/86 108 91 04 2000 37.1 09/21 1999 83 12 123/83 98 96 04 1956 94 Room air 04/ 1800 87 139/85 103 94 04/ 1700 85 134/88 103 90 Room air 04/ 1600 90 125/81 95 90 04/ 1500 85 140/85 103 93 Room air 04/ 1500 85 140/85 103 93 Room air 04/ 1400 87 144/48 80 91 04/ 1300 77 129/88 101 94 04/09 1200 81 133/88 103 92 04/09 1100 83 136/84 101 89 04/09 1000 80 111/80 90 89 / 0941 97 Room air PATIENT WEIGHT: Weight (lb): 211 Weight (oz): 6.77 Weight (kg): 95.900 Medications: Active Meds + DC'd Last 24 Hrs Ipratropium [place] (ATROVENT) 500 MCG RTQ2H PRN PRN INH Cyanocobalamin (Vitamin B-12 500 mcg tab) 500 MC G DAILY PO Ferrous Sulfate (FERROUS SULFATE) 325 MG DAILY P O Bisacodyl (DULCOLAX) 10 MG ONCE PRN RECTAL Magnesium Hydroxide (MILK OF MAGNESIA) 30 ML ONC E PRN PO Insulin Glargine (Lantus/Semglee) 10 UNIT DAILY SUBQ Atorvastatin Calcium (LIPITOR) 40 MG 2100 PO Insulin Human Lispro (HUMALOG) 0 AC HS SUBQ Dextrose/Water (DEXTROSE 10% IN WATER) 125 ML DIR PRN IV (CKD) Dextrose/Water (DEXTROSE 10% IN WATER) 250 ML DIR PRN IV (CKD) Glucagon (GLUCAGON) 1 MG ASDIR PRN IM Clopidogrel Bisulfate (Plavix) 75 MG DAILY PO Polyethylene Glycol (MIRALAX) 17 GM DAILY PO Pantoprazole (PROTONIX) 40 MG DAILY@0600 PO Docusate Sodium (COLACE) 100 MG BID PO Gabapentin (NEURONTIN) 200 MG BID PO Metoprolol Tartrate (LOPRESSOR) 12.5 MG Q12HR PO Sennosides (Senna Lax 8.6 MG TABLET) 17.2 MG BED TIME PO Aspirin (ASPIRIN) 81 MG DAILY PO Ipratropium [place] (ATROVENT) 500 MCG RTQ4H INH Acetaminophen (TYLENOL) 650 MG Q4H PRN PRN PO Acetaminophen (TYLENOL) 650 MG Q4H PRN PRN RECTA L Amiodarone HCl (CORDARONE) 200 MG TID PO Magnesium Sulfate (MAGNESIUM SULFATE 4GM/SWFI 10 0ML) 100 ML ASDIR PRN IV Magnesium Sulfate (MAGNESIUM SULFATE 2GM/SWFI 50 ML) 50 ML ASDIR PRN IV Magnesium Sulfate/Dextrose (MAGNESIUM SULFATE 1G M/D5W 100ML) 100 ML ASDIR PRN IV Morphine Sulfate (morphine SULFATE) 4 MG Q2H PRN PRN IV Ondansetron HCl (ZOFRAN) 4 MG Q6H PRN PRN IV Oxycodone HCl (ROXICODONE) 5 MG Q4H PRN PRN PO Oxycodone HCl (ROXICODONE) 10 MG Q4H PRN PRN PO Potassium Chloride (KCL 20MEQ/SWFI 100ML) 100 ML ASDIR PRN IV Sodium Chloride (SODIUM CHLORIDE 0.9%) 250 ML Q2 4H IV Acetaminophen (TYLENOL EXTRA STRENGTH) 1,000 MG PREOP ONCALL PO (CKD) Gabapentin (NEURONTIN) 200 MG PREOP ONCALL PO (C KD) Mupirocin (BACTROBAN 2% 22 GM OINTMENT) 1 APPLIC BID NASAL Physical Exam General appearance: alert, awake Neck: non-tender, no JVD Cardiovascular: CV assessment: regular rate and rhythm, BP puls es = bilaterally Respiratory: clear to auscultation, no distress Abdomen: soft, non-tender, normal bowel sounds Genitourinary: no flank pain, no urinary cathete r Lower extremity: LE assessment: normal capillary refill, no buster a Musculoskeletal: normal inspection 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, oriented X 3, normal speech Skin: dry, intact, normal color Psychiatry: normal affect, normal judgment/insig ht, normal mood, no hallucinations Results Findings/Data: Laboratory Tests 09/21 09/21 09/20 09/20 09/20 0802 0235 6 1757 1214 Chemistry Sodium (134 - 147 mEq/L) 135 Potassium (3.4 - 5.0 mEq/L) 4.3 Chloride (100 - 108 mEq/L) 100 Carbon Dioxide (21 - 33 mEq/l) 25 Anion Gap (0 - 20) 14 BUN (7 - 18 mg/dL) 10 Creatinine (0.6 - 1.3 mg/dL) 1.2 Glomerular Filtr Rate (90 - 95) 69.7 L Glucose (70 - 110 mg/dL) 190 H POC Glucose (70 - 110 MG/DL) 181 H 131 H 218 H 175 H Calcium (8.0 - 10.5 mg/dL) 8.8 Magnesium (1.80 - 2.40 mg/dL) 1.73 L Total Bilirubin (0.0 - 1.0 mg/dL) 0.70 Direct Bilirubin (0.0 - 0.30 MG/DL) 0.30 Indirect Bilirubin (MG/DL) 0.40 AST (15 - 37 IUnit/L) 24 ALT (30 - 65 IUnit/L) 9 L Total Alk Phosphatase (20 - 125 45 IUnit/L) Total Protein (6.4 - 8.2 g/dL) 6.7 Albumin (3.4 - 5.0 g/dL) 4.00 Laboratory Tests 09/21 0235 Hematology WBC (4.5 - 11.0 x10 3/uL) 12.2 H RBC (4.00 - 5.60 x10 6/uL) 4.23 Hgb (12.5 - 16.9 g/dL) 13.6 Hct (37.5 - 50.7 %) 39.6 MCV (81.0 - 99.0 fL) 93.6 MCH (27.0 - 33.0 pg) 32.2 MCHC (33.0 - 37.0 g/dL) 34.3 RDW (11.5 - 14.5 %) 12.2 Plt Count (150 - 400 x10 3/uL) 180 MPV (7.0 - 9.0 fL) 9.4 H Neut % (Auto) (56.0 - 77.0 %) 70.8 Lymph % (Auto) (14.0 - 32.0 %) 16.2 [place] % (Auto) (4.8 - 9.0 %) 10.2 H Eos % (Auto) (0.3 - 3.7 %) 2.1 Baso % (Auto) (0.0 - 2.0 %) 0.5 Neut # (Auto) (2.0 - 7.6 x10 3/uL) 8.63 H Lymph # (Auto) (1.0 - 3.8 x10 3/uL) 1.97 [place] # (Auto) (0.1 - 0.8 x10 3/uL) 1.24 H Eos # (Auto) (0.0 - 0.2 x10 3/uL) 0.25 H Baso # (Auto) (0.0 - 0.2 x10 3/uL) 0.06 Abs Immat Gran (auto) (0.00 - 0.03 x10 3/uL) 0. 03 Add Manual Diff NO Immature Gran % (0.0 - 2.0 %) 0.2 Nucleated RBC % (0 - 0 %) 0.0 Nucleated RBCs # (Man) (0.0 - 0.1 x10 3/uL) 0.0 0 Laboratory Tests 09/21 0235 Chemistry Magnesium (1.80 - 2.40 mg/dL) 1.73 L Radiology data: Recent Impressions: RADIOLOGY - XR CHEST 1 V 09/21 0706 Report Impression - Status: SIGNED Entered: 09/21/2022 0852 IMPRESSION: 1. New right lower lobe atelectasis versus airsp arslan disease. 2. Stable left basilar pleuroparenchymal disease . 3. Small residual left pneumothorax, decreased f ollowing thoracostomy drain removal. 4. Stable postoperative cardiomediastinal silhou ette. Impression By: Ro Wild M.D. Results: labs reviewed, vital signs reviewed, [facility] personally rev'd Telemetry Interpretation: sinus rhythm Diagnosis, Assessment Plan Plan discussed with: patient, spouse/partner, nu rse Free Text DxA P Notes Free Text DxA P Notes: 61 YO male with PMHx of HTN, DM, strong family o f CAD. He has been having palpitation, went to see Dr. Cabrera, had abnormal stress test, followed by [facility] that showed multivessel CAD. 1. Multivessel CAD 09/19/22: s/p CABG x 5 (ADKINS-LAD, Seq-D2, SVG-D1, SVG-OM, SVG-PDA) DAPT, BB, statin 2. Hypertension stable blood pressure continue BB 3. Diabetes mellitus manage per IM Doing well no pressors ambulating without assistance at 1643 Electronically Signed by Krystal Elizabeth MD on at 2342 RPT #:[id number] END OF REPORT 2022-09-21 08:45:00-00:00 [facility] Cardiothoracic Surgery Prog REPORT#:[id number] REPORT STATUS: Signed DATE:09/21/22 TIME: 0845 PATIENT: CHANDANA ARGUELLES UNIT #: [id number] ROOM/BED: [place] [id number] : [birth year] AGE: 61 SEX: M ATTEND: Maryellen Lozada MD ADM AUTHOR: Krysta Cordero Physic * ALL edits or amendments must be made on the [employer] Medical/computer document * General Post-op: day 3 Status post: 09/18/22 CABG x 5 (ADKINS-LAD, Seq-D2, SVG-D1, SVG-OM, SVG -PDA) ELIEZER JENKINS (RGSV) Posterior pericardiotomy Subjective Chief complaint: Abnormal stress test Severe CAD Follow up CABG Review of Systems Constitutional: Denies: fatigue, fever, generalized weakness. Skin: Denies: abrasion, bruising, diaphoresis. Allergy/Immun: Denies: allergic reaction, hives, itching. Eyes: Denies: redness, visual loss/blurred, diplopia. ENT: Denies: ear ringing, nasal congestion, throat sw elling. Respiratory: Denies: SEO (dyspnea on exertion), SOB, wheezing . Cardiovascular: Denies: chest pain, palpitations. GI: Denies: abdominal pain, nausea, vomiting. : Denies: dysuria, flank pain. Heme: Denies: bleeding, bruising. Endocrine: Denies: cold intolerance, polyphagia, weight gai n. Neuro: Denies: confusion, seizure, syncope. All systems rev neg: except as marked Objective General VS/I O Last Documented: Result Date Time Pulse Ox 94 09/21 622 B/P 117/80 09/21 622 B/P Mean 94 09/21 622 Pulse 81 09/21 622 Resp 16 09/21 622 O2 Delivery Nasal cannula 09/21 035 O2 Flow Rate 2 09/21 349 Temp 98.7 09/21 1999 FiO2 60 09/18 1540 24 hour I O ending at 0700: 09/21 0700 09/20 1900 Intake Total 810.00 Output Total 2075 1000 Balance -1265.00 -1000 Intake, IV 90.00 Intake, Oral 720 Number Voids 6 Output, Urine 2074 1000 Patient 95.9 kg Weight Weight Standing scale Measurement Method PATIENT WEIGHT: Weight (lb): 211 Weight (oz): 6.77 Weight (kg): 95.900 Physical Exam General appearance: alert, awake, oriented Wound/incision: Location: sternal Site condition: dressing clean dry, dressing in tact HEENT: anicteric, mucosal membranes moist, pupil s reactive to light Neck: full range of motion, non-tender Cardiovascular: normal heart sounds, regular rat e rhythm Respiratory: aerating well, clear to auscultatio n, symmetric expansion, no distress Abdomen: soft, non-tender Genitourinary: hopson, urine Extremities: dry, moves all, normal capillary re fill Musculoskeletal: full range of motion 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, oriented X 3 Skin: dry, intact Psychiatry: normal affect, normal mood Treatment Prophylaxis Treatment Prophylaxis Oxygen: nasal cannula Drain(s)/tube(s): Drain(s)/tube(s): chest, urinary catheter Quality: Trauma Gen Surg Current Medications Current medication review: Current Medications Sig/Renee Start time Last Medication Dose Route Stop Time Status Admin Cefazolin Sodium 2 GM PREOP ONCALL 09/19 499 C KD IV 09/19 2358 Metoprolol Tartrate 6.25 MG ONCE ONE 09/19 499 AC PO 09/19 500 Vancomycin HCl 1,500 MG PREOP ONCALL 09/19 499 CKD Sodium Chloride 250 ML IV 04/08 2359 Verapamil HCl 16.6 MG .Q24H ONE 09/19 0500 CKD Heparin Sodium 1,660 UNIT IV 09/20 0459 (Porcine) Sodium Bicarbonate 0.7 ML Nitroglycerin/ 8.3 MG Dextrose Lactated Ringer's 949.5 ML Sevoflurane 0 .STK-MED ONE 09/18 1253 DC INH Ephedrine Sulfate 0 .STK-MED ONE 09/18 1232 DC .ROUTE Albumin Human 100 ML .STK-MED ONE 09/18 1227 DC IV Papaverine HCl 0 .STK-MED ONE 09/18 1118 DC IV Cefazolin Sodium 0 .STK-MED ONE 09/18 1105 DC .ROUTE Albumin Human 100 ML .STK-MED ONE 09/18 1059 D C IV Heparin Sodium 0 .STK-MED ONE 09/18 1059 DC .ROUTE Sodium Chloride 100 ML .STK-MED ONE 09/18 1059 DC IV Lidocaine HCl 0 .STK-MED ONE 09/18 1058 DC IV Magnesium Sulfate 0 .STK-MED ONE 09/18 1058 DC IV Phenylephrine HCl 0 .STK-MED ONE 09/18 1058 DC .ROUTE Sodium Bicarbonate 0 .STK-MED ONE 09/18 1058 DC IV Dexamethasone Sodium 0 .STK-MED ONE 09/18 1049 DC Phosphate .ROUTE Esmolol HCl 0 .STK-MED ONE 09/18 1049 DC IV Glycopyrrolate 0 .STK-MED ONE 09/18 1049 DC .ROUTE Lidocaine HCl 0 .STK-MED ONE 09/18 1049 DC .ROUTE Neostigmine 0 .STK-MED ONE 09/18 1049 DC Methylsulfate .ROUTE Ondansetron HCl 0 .STK-MED ONE 09/18 1049 DC .ROUTE Rocuronium [place] 0 .STK-MED ONE 09/18 1049 DC IV Vasopressin 0 .STK-MED ONE 09/18 1049 DC .ROUTE Fentanyl Citrate 0 .STK-MED ONE 09/18 1048 DC IV Midazolam HCl 0 .STK-MED ONE 09/18 1048 DC .ROUTE Propofol 20 ML .STK-MED ONE 09/18 1048 DC IV Aminocaproic Acid 0 .STK-MED ONE 09/18 1046 DC IV Epinephrine HCl 250 ML .STK-MED ONE 09/18 1046 DC IV Heparin Sodium 0 .STK-MED ONE 09/18 104 DC .ROUTE Insulin Human Regular 100 ML .STK-MED ONE 09/18 1046 DC IV Nitroglycerin/ 250 ML .STK-MED ONE 09/18 1046 D C Dextrose IV Norepinephrine 250 ML .STK-MED ONE 09/18 1046 D C Bitartrate IV Protamine Sulfate 0 .STK-MED ONE 09/18 1046 DC IV Calcium Chloride 0 .STK-MED ONE 09/18 1045 DC IV Magnesium Sulfate 0 .STK-MED ONE 09/18 1045 DC .ROUTE Ropivacaine 0 .STK-MED ONE 09/18 104 DC .ROUTE Fentanyl Citrate 0 .STK-MED ONE 09/18 1041 DC .ROUTE Acetaminophen 1,000 MG PREOP ONCALL 09/18 944 CKD PO 10/18 0844 Gabapentin 200 MG PREOP ONCALL 09/18 0845 CKD PO 10/18 2359 Sodium Chloride 20 ML ASDIR 09/18 0945 AC IV 09/19 2359 Metoprolol Tartrate 6.25 MG ONCE ONE 09/18 0500 DC PO 09/18 0501 Verapamil HCl 16.6 MG .Q24H ONE 09/18 0500 CKD Heparin Sodium 1,660 UNIT IV 09/19 0459 (Porcine) Sodium Bicarbonate 0.7 ML Nitroglycerin/ 8.3 MG Dextrose Lactated Ringer's 949.5 ML Albuterol Sulfate 2.5 MG RTONCE ONE 09/18 0445 DC NEB 09/18 0446 Mupirocin 1 APPLIC BID 09/17 2100 AC 09/18 NASAL 09/22 0901 0925 I attest that the foregoing medication list in [facility] medical record is true, accurate, and complete to the best of my knowled ge. Diagnosis, Assessment Plan Hospital course to date: Very pleasant 61-year-old male with past medical history of hypertension, diabetes for 3 years on oral agents, chews tobacco, has a strong family history of premature coronary artery disease. He has bee n complaining of exertional chest tightness, had abnormal stress test and metzger d high calcium score (greater than 2000) was admitted to [facility] yesterday for elective left heart cath. Coronary angiogram showed se judith multivessel coronary artery disease and patient transferred to [facility] for cardiothoracic surgery evaluation. Patient is retired, lives with his , indepen dent PLAN [facility] images uploaded in [employer] . Dr. Lozada explained to the patient and his the angiogram findings and recommended s urgical revascularization he explained the surgery, risks involved including risk of st ro[facility], bleeding, infection, prolonged mechanical ventilation, renal dysfunct ion; STS score, benefits, complications and alternativ es. He acknowledged understanding and is willing to proceed Preok work up initiated Plan for CABBG today. Cardiology consulted 09/18/22 CABG x 5 (ADKINS-LAD, Seq-D2, SVG-D1, SVG-OM, SVG- PDA) ALAA EVH (RGSV) Posterior pericardiotomy 09/19/22 POD 1 Patient hemodynamically stable postoperatively, not requiring pressors or inotrope support Labs and chest x-ray reviewed-stable On 2l nasal cannula, wean off as tolerated to ke ep O2 sats > 92%] Encourage incentive spirometer use and deep leona thing Nitroglycerin drip at 5 mcg for 24 hours Keep both chest tubes and monitor outputs NSR, epicardial pacing wires on standby Cardiac diet Monitor renal function, CR 1.2, UOP 1650 overnig ht Strict I Os, daily weights Glycemic control with insulin drip, transition t o SSI Bowel regimen Pain controlled (pain level 07/24) PT/OT-ambulate in hallway DVT prophylaxis with SCDS, GI prophylaxis with P PI Continue supportive care in CVICU Plan of care discussed with Dr. Lozada 09/20 Doing very well today, alert and oriented, pain controlled Respiratory status stable on room air Discontinue chest tubes after ambulation Hemodynamically stable. We will discontinue paci ng wires before discharge No bowel movement yet, milk of magnesia and supp ository as needed Creatinine stable 1.3, good urine output Replace electrolytes Glycemic control. Long-acting insulin added PT/OT Transfer to intermediate care DC plan: Home with family 09/21 POD 3 AAOx3 Respiratory: on room Air 100% Encourage IS CXR reviewed Cardiac: remains sinus rhythm GI: awaiting BM, Suppository, Consider Enema tod ay. Continue Bowel regimen :No hopson- voiding well. UO: 2074 Continue PT/OT Disposition: home- Okay to floor today Patient seen and examined by Dr. Lozada. Plan o f care discussed with multidisciplinary team Consultants: cardiology, cardiovascular surgery Plan discussed with: patient, admitting physicia n at [phone] at [phone] [facility] #:[id number] END OF REPORT 2022-09-21 07:24:00-00:00 [facility] ([facility]) Critical Care Progress Note REPORT#:[id number] REPORT STATUS: Signed DATE:09/21/22 TIME: 723 PATIENT: CHANDANA ARGUELLES UNIT #: [id number] ROOM/BED: [place] [address] : [birth year] AGE: 61 SEX: M ATTEND: Maryellen Lozada MD ADM AUTHOR: Mervat Mcdonald MD * ALL edits or amendments must be made on the [employer] Medical/computer document * Subjective Chief complaint: Palpitations HPI: This is a 61 years old male with medical history significant for hypertension, diabetes mellitus, strong fa tammi history of CAD, who has been having increasing palpitations so he went to see his cardi ologist who ordered a stress test that came out abnormal. 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 The patient was admitted to our hospital for cardiovascular evaluation for possible CABG. Earlier today the patient un derwent CABG x 5 (ADKINS-LAD, Seq-D2, SVG-D1, SVG-OM, SVG-PDA) and ALAA. His intraoperative course was without significant ocurrence. He received 1.8 L of crystalloids, 700 cc o f autologous blood transfusion and 725 cc of Cell Saver. He arrived to CVICU intubated and ventilated and on no pressors. He was started on nitroglycerin drip s econdary to sequential graft. He will be weaned to be extubated per protocol. Comments: The patient offers no new complaints No SOB, on RA Chest x-ray shows stable small left pneumothorax Adequate urine output Still with no bowel movement Afebrile Review of Systems Free Text ROS Notes Free Text ROS Notes: 12 point Review of Systems was performed to the extent possible including discussion with the nursing staff and review of vital signs and all data. All systems negative other than pertinent negative/p ositive findings mentioned in the interval history section. Objective General VS/I O Last Documented: Result Date Time Pulse Ox 99 09/21 161 B/P 116/84 09/21 161 B/P Mean 94.4 09/21 1615 O2 Delivery Room air 09/21 161 Pulse 87 09/21 1615 Resp 22 09/21 1615 Temp 36.7 09/21 1032 FiO2 21 09/21 0850 O2 Flow Rate 2 09/21 0350 24 hour I O ending at 0700: 09/21 0700 09/20 1900 Intake Total 810.00 Output Total 2075 1000 Balance -1265.00 -1000 Intake, IV 90.00 Intake, Oral 720 Number Voids 6 Output, Urine 2074 1000 Patient 95.9 kg Weight Weight Standing scale Measurement Method PATIENT WEIGHT: Weight (lb): 211 Weight (oz): 6.77 Weight (kg): 95.900 Medications: Active Meds + DC'd Last 24 Hrs Ipratropium [place] (ATROVENT) 500 MCG RTQ2H PRN PRN INH Cyanocobalamin (Vitamin B-12 500 mcg tab) 500 MC G DAILY PO Ferrous Sulfate (FERROUS SULFATE) 325 MG DAILY P O Bisacodyl (DULCOLAX) 10 MG ONCE PRN RECTAL Magnesium Hydroxide (MILK OF MAGNESIA) 30 ML ONC E PRN PO Insulin Glargine (Lantus/Semglee) 10 UNIT DAILY SUBQ Atorvastatin Calcium (LIPITOR) 40 MG 2100 PO Insulin Human Lispro (HUMALOG) 0 AC HS SUBQ Dextrose/Water (DEXTROSE 10% IN WATER) 125 ML DIR PRN IV (CKD) Dextrose/Water (DEXTROSE 10% IN WATER) 250 ML DIR PRN IV (CKD) Glucagon (GLUCAGON) 1 MG ASDIR PRN IM Clopidogrel Bisulfate (Plavix) 75 MG DAILY PO Polyethylene Glycol (MIRALAX) 17 GM DAILY PO Pantoprazole (PROTONIX) 40 MG DAILY@0600 PO Docusate Sodium (COLACE) 100 MG BID PO Gabapentin (NEURONTIN) 200 MG BID PO Metoprolol Tartrate (LOPRESSOR) 12.5 MG Q12HR PO Sennosides (Senna Lax 8.6 MG TABLET) 17.2 MG BED TIME PO Aspirin (ASPIRIN) 81 MG DAILY PO Ipratropium [place] (ATROVENT) 500 MCG RTQ4H INH Acetaminophen (TYLENOL) 650 MG Q4H PRN PRN PO Acetaminophen (TYLENOL) 650 MG Q4H PRN PRN RECTA L Amiodarone HCl (CORDARONE) 200 MG TID PO Magnesium Sulfate (MAGNESIUM SULFATE 4GM/SWFI 10 0ML) 100 ML ASDIR PRN IV Magnesium Sulfate (MAGNESIUM SULFATE 2GM/SWFI 50 ML) 50 ML ASDIR PRN IV Magnesium Sulfate/Dextrose (MAGNESIUM SULFATE 1G M/D5W 100ML) 100 ML ASDIR PRN IV Morphine Sulfate (morphine SULFATE) 4 MG Q2H PRN PRN IV Ondansetron HCl (ZOFRAN) 4 MG Q6H PRN PRN IV Oxycodone HCl (ROXICODONE) 5 MG Q4H PRN PRN PO Oxycodone HCl (ROXICODONE) 10 MG Q4H PRN PRN PO Potassium Chloride (KCL 20MEQ/SWFI 100ML) 100 ML ASDIR PRN IV Sodium Chloride (SODIUM CHLORIDE 0.9%) 250 ML Q2 4H IV Acetaminophen (TYLENOL EXTRA STRENGTH) 1,000 MG PREOP ONCALL PO (CKD) Gabapentin (NEURONTIN) 200 MG PREOP ONCALL PO (C KD) Mupirocin (BACTROBAN 2% 22 GM OINTMENT) 1 APPLIC BID NASAL Results Findings/data: Laboratory Tests 09/21 09/20 09/20 09/20 09/20 0235 2026 1757 1214 0748 Chemistry Sodium (134 - 147 mEq/L) 135 Potassium (3.4 - 5.0 mEq/L) 4.3 Chloride (100 - 108 mEq/L) 100 Carbon Dioxide (21 - 33 mEq/l) 25 Anion Gap (0 - 20) 14 BUN (7 - 18 mg/dL) 10 Creatinine (0.6 - 1.3 mg/dL) 1.2 Glomerular Filtr Rate (90 - 95) 69.7 L Glucose (70 - 110 mg/dL) 190 H POC Glucose (70 - 110 MG/DL) 131 H 218 H 175 H 197 H Calcium (8.0 - 10.5 mg/dL) 8.8 Magnesium (1.80 - 2.40 mg/dL) 1.73 L Total Bilirubin (0.0 - 1.0 mg/dL) 0.70 Direct Bilirubin (0.0 - 0.30 MG/DL) 0.30 Indirect Bilirubin (MG/DL) 0.40 AST (15 - 37 IUnit/L) 24 ALT (30 - 65 IUnit/L) 9 L Total Alk Phosphatase (20 - 125 IUnit/L) 45 Total Protein (6.4 - 8.2 g/dL) 6.7 Albumin (3.4 - 5.0 g/dL) 4.00 Laboratory Tests 09/21 0235 Hematology WBC (4.5 - 11.0 x10 3/uL) 12.2 H RBC (4.00 - 5.60 x10 6/uL) 4.23 Hgb (12.5 - 16.9 g/dL) 13.6 Hct (37.5 - 50.7 %) 39.6 MCV (81.0 - 99.0 fL) 93.6 MCH (27.0 - 33.0 pg) 32.2 MCHC (33.0 - 37.0 g/dL) 34.3 RDW (11.5 - 14.5 %) 12.2 Plt Count (150 - 400 x10 3/uL) 180 MPV (7.0 - 9.0 fL) 9.4 H Neut % (Auto) (56.0 - 77.0 %) 70.8 Lymph % (Auto) (14.0 - 32.0 %) 16.2 [place] % (Auto) (4.8 - 9.0 %) 10.2 H Eos % (Auto) (0.3 - 3.7 %) 2.1 Baso % (Auto) (0.0 - 2.0 %) 0.5 Neut # (Auto) (2.0 - 7.6 x10 3/uL) 8.63 H Lymph # (Auto) (1.0 - 3.8 x10 3/uL) 1.97 [place] # (Auto) (0.1 - 0.8 x10 3/uL) 1.24 H Eos # (Auto) (0.0 - 0.2 x10 3/uL) 0.25 H Baso # (Auto) (0.0 - 0.2 x10 3/uL) 0.06 Abs Immat Gran (auto) (0.00 - 0.03 x10 3/uL) 0. 03 Add Manual Diff NO Immature Gran % (0.0 - 2.0 %) 0.2 Nucleated RBC % (0 - 0 %) 0.0 Nucleated RBCs # (Man) (0.0 - 0.1 x10 3/uL) 0.0 0 Laboratory Tests 09/21/22 0235: [Embedded Image Not Available] Microbiology: 09/18 942 NASAL: MSSA Surveillance Screen - ORD 09/18 942 NASAL: MRSA DNA Surveillance Screen - ORD Radiology data Recent Impressions: RADIOLOGY - XR CHEST 1 V 09/21 705 Report Impression - Status: SIGNED Entered: 09/21/2022 0852 IMPRESSION: 1. New right lower lobe atelectasis versus airsp arslan disease. 2. Stable left basilar pleuroparenchymal disease . 3. Small residual left pneumothorax, decreased f ollowing thoracostomy drain removal. 4. Stable postoperative cardiomediastinal silhou ette. Impression By: Ro Wild M.D. Free Text Obj Notes Free Text Obj Notes: GEN: Patient is calm and in no distress. NECK: Supple, no JVD or thrush. No adenopathy. LUNGS: Clear lungs, no wheezes, no rales or crac kles. CV: S1, S2 regular, no murmurs are heard. No S3 or rubs. GI: Abdomen is soft, not tender. Bowel sounds ar e present. EXT/Musc: No edema. No clubbing or cyanosis note d. Skin is warm. NEURO: Awake and oriented x 3. No focal findings . Diagnosis, Assessment Plan Free text A P: Acute pulmonary insufficiency following thoracic surgery Status post CABG x 5 (ADKINS-LAD, Seq-D2, SVG-D1, SVG-OM, SVG-PDA) and ALAA Acute blood loss anemia Diabetes mellitus History of hypertension Continue mechanical ventilation, vent settings r eviewed Titrate FiO2 to keep saturation more than 90%. Spontaneous breathing trial as soon as possible Wean to extubate Extubated to nasal cannula and doing well Keep off sedation Follow ABGs and CXRs Judicious pain control Nitroglycerin drip for 24 hours secondary to seq uential graft Aspirin and Plavix Atorvastatin Amiodarone Metoprolol Monitor chest tube output Monitor urine output and kidney function Monitor and replete electrolytes Perioperative antibiotics Cardiac diet with bowel regimen once extubated BG control with insulin gtt per protocol Out of bed to chair PT/OT VTE prophylaxis, SCDs and DAPT Stress ulcer prophylaxis, PPI Discussed with CV surgery and ICU team Critical care time 64 minutes 09/19 Titrate FiO2 to keep saturation more than 90%. Follow ABGs and CXRs Judicious pain control Off Nitroglycerin drip Aspirin and Plavix Atorvastatin Amiodarone Metoprolol Monitor chest tubes output DC lines per CV surgery Monitor urine output and kidney function Monitor and replete electrolytes Cardiac diet with bowel regime BG control with insulin gtt per protocol, transi tion to sliding scale insulin Out of bed to chair PT/OT VTE prophylaxis, SCDs and DAPT Stress ulcer prophylaxis, PPI Discussed with CV surgery and ICU team Critical care time 33 minutes 09/20 On room air Follow ABGs and CXRs Judicious pain control Off Nitroglycerin drip Aspirin and Plavix Atorvastatin Amiodarone Metoprolol DC chest tube per CV surgery Monitor urine output and kidney function Monitor and replete electrolytes Cardiac diet with bowel regime. Add milk of mag and MiraLAX. Might need a suppository or an enema if he does not respond. BG control with sliding scale insulin Out of bed to chair PT/OT VTE prophylaxis, SCDs and DAPT Stress ulcer prophylaxis, PPI Discussed with CV surgery and ICU team Critical care time 31 minutes 09/21 On room air Follow ABGs and CXRs Judicious pain control Off Nitroglycerin drip Aspirin and Plavix Atorvastatin Amiodarone Metoprolol Monitor urine output and kidney function Monitor and replete electrolytes Cardiac diet with bowel xochilt me. Needs an enema if still with no bowel movement. BG control with sliding scale insulin Out of bed to chair PT/OT VTE prophylaxis, SCDs and DAPT Stress ulcer prophylaxis, PPI Discussed with CV surgery and ICU team Can be transferred per CV surgery Consultants: cardiology, cardiovascular surgery at 1650 RPT #:[id number] END OF REPORT 2022-09-20 11:33:00-00:00 [facility] Hospitalist Progress Note REPORT#:[id number] REPORT STATUS: Signed DATE:09/20/22 TIME: 1133 PATIENT: CHANDANA ARGUELLES UNIT #: [id number] ROOM/BED: [place] [address] : 64 AGE: 61 SEX: M ATTEND: Maryellen Lozada MD ADM AUTHOR: Umu Gross MD * ALL edits or amendments must be made on the [employer]/computer document * Subjective Chief complaint: he sit on the chair . chest tube are in place . no sob post CABG Review of Systems All systems rev neg: except as noted Objective General VS/I O: Vital Signs: Date Time Temp Pulse Resp B/P B/P Pulse O2 O2 F low FiO2 Mean Ox Delivery Rate 09/20 0941 97 Room air 09/20 0600 93 121/84 96 09/20 0500 78 18 117/72 87 93 09/20 0400 75 21 128/76 93 93 09/20 0300 81 16 126/71 89 92 09/20 0200 82 22 130/79 96 92 09/20 0100 80 17 122/79 93 91 / 0000 80 19 127/82 97 91 04 2300 79 17 124/82 96 92 09/19 2200 78 133/82 99 93 / 2100 80 17 133/82 99 93 04/ 2000 36.9 04/ 2000 81 23 141/89 106 04/08 1943 93 Room air 09/19 1900 83 128/81 96 90 04/08 1800 36.7 85 153/58 89 94 / 1700 85 145/50 81 90 Room air / 1600 81 131/83 99 94 Nasal 2 cannula 09/19 1500 79 144/55 84 90 08 1400 80 110/67 81 93 Nasal 2 cannula 09/19 1300 79 133/85 101 88 04/08 1200 79 123/91 101 Nasal 2 cannula 24 hour I O ending at 0700: 09/20 0700 09/19 1900 Intake Total 800.00 Output Total 2615 1710 Balance -1815.00 -1710 Intake, IV 80.00 Intake, Oral 720 Number Voids 6 Output, Chest 190 210 Tube Drainage Output, Urine 2425 1500 Patient 96.3 kg 97.522 kg Weight Weight Standing scale Measurement Method PATIENT WEIGHT: Weight (lb): 212 Weight (oz): 4.88 Weight (kg): 96.300 Medications: Active Meds + DC'd Last 24 Hrs Ipratropium [place] (ATROVENT) 500 MCG RTQ2H PRN PRN INH Cyanocobalamin (Vitamin B-12 500 mcg tab) 500 MC G DAILY PO Ferrous Sulfate (FERROUS SULFATE) 325 MG DAILY P O Bisacodyl (DULCOLAX) 10 MG ONCE PRN RECTAL Magnesium Hydroxide (MILK OF MAGNESIA) 30 ML ONC E PRN PO Insulin Glargine (Lantus/Semglee) 10 UNIT DAILY SUBQ Atorvastatin Calcium (LIPITOR) 40 MG 2100 PO Insulin Human Lispro (HUMALOG) 0 AC HS SUBQ Dextrose/Water (DEXTROSE 10% IN WATER) 125 ML DIR PRN IV (CKD) Dextrose/Water (DEXTROSE 10% IN WATER) 250 ML DIR PRN IV (CKD) Glucagon (GLUCAGON) 1 MG ASDIR PRN IM Clopidogrel Bisulfate (Plavix) 75 MG DAILY PO Polyethylene Glycol (MIRALAX) 17 GM DAILY PO Pantoprazole (PROTONIX) 40 MG DAILY@0600 PO Cefazolin Sodium (KEFZOL OR ANCEF) 2 GM 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 IV (DC) Vancomycin HCl (VANCOMYCIN HCL) 1,500 MG PREOP O NCALL IV (DC) Sodium Chloride (SODIUM CHLORIDE 0.9%) 250 ML Verapamil HCl (ISOPTIN) 16.6 MG .Q24H ONE IV (D C) Heparin Sodium (Porcine) (HEPARIN SODIUM) 1,660 UNIT Sodium Bicarbonate (SODIUM BICARBONATE) 0.7 ML Nitroglycerin/Dextrose (NITROGLYCERIN 50MG/D5W 250ML) 8.3 MG Lactated Ringer's (LACTATED RINGERS) 949.5 ML Docusate Sodium (COLACE) 100 MG BID PO Gabapentin (NEURONTIN) 200 MG BID PO Insulin Human Lispro (HUMALOG) 0 AC HS SUBQ (DC) Metoprolol Tartrate (LOPRESSOR) 12.5 MG Q12HR PO Sennosides (Senna Lax 8.6 MG TABLET) 17.2 MG BED TIME PO Aspirin (ASPIRIN) 81 MG DAILY PO Dextrose/Water (DEXTROSE 10% IN WATER) 125 ML DIR PRN IV (DC) Dextrose/Water (DEXTROSE 10% IN WATER) 250 ML DIR PRN IV (DC) Glucagon (GLUCAGON) 1 MG ASDIR PRN IM (DC) Cefazolin Sodium (KEFZOL OR ANCEF) 6 GM ONCE ONE IV (DC) Sodium Chloride (SODIUM CHLORIDE 0.9%) 500 ML Ipratropium [place] (ATROVENT) 500 MCG RTQ4H INH Acetaminophen (TYLENOL) 650 MG Q4H PRN PRN PO Acetaminophen (TYLENOL) 650 MG Q4H PRN PRN RECTA L Albumin Human (ALBUMINAR 25%) 25 GM ASDIR PRN IV (DC) Amiodarone HCl (CORDARONE) 200 MG TID PO Calcium Chloride (CALCIUM CHLORIDE) 1 GM ASDIR P RN IV (DC) Dextrose/Water (DEXTROSE 10% IN WATER) 125 ML DIR PRN IV (DC) Dextrose/Water (DEXTROSE 10% IN WATER) 250 ML DIR PRN IV (DC) Epinephrine (ADRENALIN CHLORIDE) 4 MG ASDIR IV ( DC) Dextrose/Water (DEXTROSE 5% WATER) 246 ML Glucagon (GLUCAGON) 1 MG ASDIR PRN IM (DC) Insulin Human Regular (HumuLIN R) 100 UNIT ASDIR IV (DC) Sodium Chloride (SODIUM CHLORIDE 0.9%) 99 ML Magnesium Sulfate (MAGNESIUM SULFATE 4GM/SWFI 10 0ML) 100 ML ASDIR PRN IV Magnesium Sulfate (MAGNESIUM SULFATE 2GM/SWFI 50 ML) 50 ML ASDIR PRN IV Magnesium Sulfate/Dextrose (MAGNESIUM SULFATE 1G M/D5W 100ML) 100 ML ASDIR PRN IV Morphine Sulfate (morphine SULFATE) 4 MG Q2H PRN PRN IV Nitroglycerin/Dextrose (NITROGLYCERIN 50,000MCG/ D5W 250ML) 250 ML ASDIR IV (DC) Norepinephrine Bitartrate (NOREPINEPHRINE 8 MG/N S 250 ML) 250 ML TITRATE IV (DC) Ondansetron HCl (ZOFRAN) 4 MG Q6H PRN PRN IV Oxycodone HCl (ROXICODONE) 5 MG Q4H PRN PRN PO Oxycodone HCl (ROXICODONE) 10 MG Q4H PRN PRN PO Potassium Chloride (KCL 20MEQ/SWFI 100ML) 100 ML ASDIR PRN IV Sodium Bicarbonate (SODIUM BICARBONATE) 50 MEQ A SDIR PRN IV (DC) Sodium Chloride (SODIUM CHLORIDE 0.9%) 1,000 ML .Q20H IV (DC) Sodium Chloride (SODIUM CHLORIDE 0.9%) 250 ML Q2 4H IV Acetaminophen (TYLENOL EXTRA STRENGTH) 1,000 MG PREOP ONCALL PO (CKD) Gabapentin (NEURONTIN) 200 MG PREOP ONCALL PO ( CKD) Sodium Chloride (SODIUM CHLORIDE) 20 ML ASDIR IV (DC) Mupirocin (BACTROBAN 2% 22 GM OINTMENT) 1 APPLIC BID NASAL Physical Exam General appearance: alert, awake, oriented Head/Eyes: normal conjunctiva/sclera, normal eye lids/periorb. Cardiovascular: normal heart sounds, regular rat e rhythm Respiratory: aerating well, clear to auscultatio n Abdomen: non-tender, normal bowel sounds, soft, no distention Extremities: moves all, no calf tenderness, no e ana 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, oriented X 3, CNII-XII intact, normal speech, no motor deficits, no sensory deficits Skin: dry, intact Results Findings/Data: Laboratory Tests 09/20 09/20 09/19 09/19 09/19 0748 0205 1943 1656 1153 Chemistry Sodium (134 - 147 mEq/L) 137 Potassium (3.4 - 5.0 mEq/L) 4.6 Chloride (100 - 108 mEq/L) 101 Carbon Dioxide (21 - 33 mEq/l) 29 Anion Gap (0 - 20) 12 BUN (7 - 18 mg/dL) 10 Creatinine (0.6 - 1.3 mg/dL) 1.3 Glomerular Filtr Rate (90 - 95) 63.3 L Glucose (70 - 110 mg/dL) 207 H POC Glucose (70 - 110 MG/DL) 197 H 242 H 189 H 189 H Calcium (8.0 - 10.5 mg/dL) 8.8 Magnesium (1.80 - 2.40 mg/dL) 1.68 L Total Bilirubin (0.0 - 1.0 mg/dL) 0.60 Direct Bilirubin (0.0 - 0.30 MG/DL) 0.20 Indirect Bilirubin (MG/DL) 0.40 AST (15 - 37 IUnit/L) 44 H ALT (30 - 65 IUnit/L) 11 L Total Alk Phosphatase (20 - 125 IUnit/L) 39 Total Protein (6.4 - 8.2 g/dL) 6.7 Albumin (3.4 - 5.0 g/dL) 4.20 Laboratory Tests 09/20 0205 Hematology WBC (4.5 - 11.0 x10 3/uL) 13.4 H RBC (4.00 - 5.60 x10 6/uL) 4.24 Hgb (12.5 - 16.9 g/dL) 13.8 Hct (37.5 - 50.7 %) 39.4 MCV (81.0 - 99.0 fL) 92.9 MCH (27.0 - 33.0 pg) 32.5 MCHC (33.0 - 37.0 g/dL) 35.0 RDW (11.5 - 14.5 %) 12.4 Plt Count (150 - 400 x10 3/uL) 188 MPV (7.0 - 9.0 fL) 9.7 H Neut % (Auto) (56.0 - 77.0 %) 70.0 Lymph % (Auto) (14.0 - 32.0 %) 16.4 Freestone % (Auto) (4.8 - 9.0 %) 11.7 H Eos % (Auto) (0.3 - 3.7 %) 1.3 Baso % (Auto) (0.0 - 2.0 %) 0.2 Neut # (Auto) (2.0 - 7.6 x10 3/uL) 9.37 H Lymph # (Auto) (1.0 - 3.8 x10 3/uL) 2.20 [place] # (Auto) (0.1 - 0.8 x10 3/uL) 1.57 H Eos # (Auto) (0.0 - 0.2 x10 3/uL) 0.17 Baso # (Auto) (0.0 - 0.2 x10 3/uL) 0.03 Abs Immat Gran (auto) (0.00 - 0.03 x10 3/uL) 0. 06 H Add Manual Diff NO Immature Gran % (0.0 - 2.0 %) 0.4 Nucleated RBC % (0 - 0 %) 0.0 Nucleated RBCs # (Man) (0.0 - 0.1 x10 3/uL) 0.0 0 Radiology data: Recent Impressions: RADIOLOGY - XR CHEST 1 V 09/20 0705 Report Impression - Status: SIGNED Entered: 09/20/2022 0637 IMPRESSION: 1. Grossly stable left lung opacities. Stable sm all left pneumothorax with stable left chest tube. 2. Removal of the right IJ central line. Impression By: [email or web address] - Anuel Mariee M.D. Treatment Prophylaxis Treatment Prophylaxis Drain(s)/tube(s): Drain(s)/tube(s): chest, urinary catheter Diagnosis, Assessment Plan Consultants: cardiology, cardiovascular surgery Free Text DxA P Notes Free text DxA P notes: CAD with multiple vessels disease HTN DM CV surgeon consult cardiology consult CABG-- today HTN- monitor now DM-- sliding scale lipid panel 09/19-- post CABG -- he sit on the chair . he ambulate with PT -- no sob -- monitor in CV ICU -- case is discussed with nurse . 09/20- he sit on the chair -- chest tube in place -- may pull out today as CV surgeon -- continue PT/OT -- monitor in CVICU -- spoke to the nurse Quality: [facility] Crit Care Current Medications Current medication review: Current Medications Sig/Renee Start time Last Medication Dose Route Stop Time Status Admin Cefazolin Sodium 2 GM PREOP ONCALL 09/19 050 CKD IV 09/19 2358 Metoprolol Tartrate 6.25 MG ONCE ONE 09/19 499 AC PO 09/19 050 Vancomycin HCl 1,500 MG PREOP ONCALL 09/19 499 CKD Sodium Chloride 250 ML IV 09/19 2358 Verapamil HCl 16.6 MG .Q24H ONE 09/19 050 CKD Heparin Sodium 1,660 UNIT IV 09/20 0459 (Porcine) Sodium Bicarbonate 0.7 ML Nitroglycerin/ 8.3 MG Dextrose Lactated Ringer's 949.5 ML Sevoflurane 0 .STK-MED ONE 09/18 1253 DC INH Ephedrine Sulfate 0 .STK-MED ONE 09/18 1232 DC .ROUTE Albumin Human 100 ML .STK-MED ONE 09/18 1227 DC IV Papaverine HCl 0 .STK-MED ONE 09/18 1118 DC IV Cefazolin Sodium 0 .STK-MED ONE 09/18 1105 DC .ROUTE Albumin Human 100 ML .STK-MED ONE 09/18 1059 DC IV Heparin Sodium 0 .STK-MED ONE 09/18 1059 DC .ROUTE Sodium Chloride 100 ML .STK-MED ONE 09/18 1059 DC IV Lidocaine HCl 0 .STK-MED ONE 09/18 1058 DC IV Magnesium Sulfate 0 .STK-MED ONE 09/18 1058 DC IV Phenylephrine HCl 0 .STK-MED ONE 09/18 1058 DC .ROUTE Sodium Bicarbonate 0 .STK-MED ONE 09/18 1058 DC IV Dexamethasone Sodium 0 .STK-MED ONE 09/18 1049 DC Phosphate .ROUTE Esmolol HCl 0 .STK-MED ONE 09/18 1049 DC IV Glycopyrrolate 0 .STK-MED ONE 09/18 104 DC .ROUTE Lidocaine HCl 0 .STK-MED ONE 09/18 104 DC .ROUTE Neostigmine 0 .K-MED ONE 09/18 1049 DC Methylsulfate .ROUTE Ondansetron HCl 0 .STK-MED ONE 09/18 104 DC .ROUTE Rocuronium [place] 0 .STK-MED ONE 09/18 104 DC IV Vasopressin 0 .STK-MED ONE 09/18 104 DC .ROUTE Fentanyl Citrate 0 .K-MED ONE 09/18 104 DC IV Midazolam HCl 0 .K-MED ONE 09/18 104 DC .ROUTE Propofol 20 ML .K-MED ONE 09/18 1048 DC IV Aminocaproic Acid 0 .K-MED ONE 09/18 1046 DC IV Epinephrine HCl 250 ML .K-MED ONE 09/18 104 DC IV Heparin Sodium 0 .STK-MED ONE 09/18 104 DC .ROUTE Insulin Human Regular 100 ML .STK-MED ONE 09/18 1046 DC IV Nitroglycerin/ 250 ML .STK-MED ONE 09/18 104 DC Dextrose IV Norepinephrine 250 ML .K-MED ONE 09/18 1046 D C Bitartrate IV Protamine Sulfate 0 .K-MED ONE 09/18 1046 DC IV Calcium Chloride 0 .K-MED ONE 09/18 1045 DC IV Magnesium Sulfate 0 .K-MED ONE 09/18 104 DC .ROUTE Ropivacaine 0 .STK-MED ONE 09/18 104 DC .ROUTE Fentanyl Citrate 0 .STK-MED ONE 09/18 1041 DC .ROUTE Acetaminophen 1,000 MG PREOP ONCALL 09/18 0845 CKD PO 10/19 943 Gabapentin 200 MG PREOP ONCALL 09/18 0845 CKD PO 10/18 2358 Sodium Chloride 20 ML ASDIR 09/18 0845 AC IV 09/19 235 Metoprolol Tartrate 6.25 MG ONCE ONE 09/18 0500 DC PO 09/18 0501 Verapamil HCl 16.6 MG .Q24H ONE 09/18 0500 CKD Heparin Sodium 1,660 UNIT IV 04/08 0459 (Porcine) Sodium Bicarbonate 0.7 ML Nitroglycerin/ 8.3 MG Dextrose Lactated Ringer's 949.5 ML Albuterol Sulfate 2.5 MG RTONCE ONE 09/18 444 DC NEB 09/18 445 Mupirocin 1 APPLIC BID 09/17 2099 AC 09/18 NASAL 09/22 0901 0925 I attest that the foregoing medication list in t he medical record is true, accurate, and complete to the best of my knowled ge. Electronically Signed by Umu Gross MD on 3 at 1348 RPT #:[id number] END OF REPORT 2022-09-20 10:32:00-00:00 [facility]L [facility] Cardiology Progress Note REPORT#:[id number] REPORT STATUS: Signed DATE:09/20/22 TIME: 1032 PATIENT: CHANDANA ARGUELLES UNIT #: [id number] ROOM/BED: [place] [address] : 64 AGE: 61 SEX: M ATTEND: Maryellen Lozada MD ADM AUTHOR: Lobito Ngo MD * ALL edits or amendments must be made on the [employer]/computer document * Subjective Chief complaint: Palpitation HPI: 61 YO male with PMHx of HTN, DM, strong family o f CAD. He has been having palpitation, went to see Dr. Cabrera, had abnormal stress test, followed by [facility] that showed multivessel CAD. [facility]. Objective General VS/I O: 24 hour I O ending at 0700: 09/20 0700 09/19 1900 Intake Total 800.00 Output Total 2615 1710 Balance -1815.00 -1710 Intake, IV 80.00 Intake, Oral 720 Number Voids 6 Output, Chest 190 210 Tube Drainage Output, Urine 2425 1500 Patient 96.3 kg 97.522 kg Weight Weight Standing scale Measurement Method Vital Signs: Date Time Temp Pulse Resp B/P B/P Pulse O2 O2 F low FiO2 Mean Ox Delivery Rate 09/20 0841 97 Room air 09/20 599 93 121/84 96 09/20 0500 78 18 117/72 87 93 04/09 0400 75 21 128/76 93 93 04/ 0300 81 16 126/71 89 92 04/ 0200 82 22 130/79 96 92 04/ 0100 80 17 122/79 93 91 04/ 0000 80 19 127/82 97 91 04/08 2300 79 17 124/82 96 92 04/08 2200 78 133/82 99 93 04/08 2100 80 17 133/82 99 93 04/08 2000 36.9 04/08 2000 81 23 141/89 106 04/08 1943 93 Room air 04/08 1900 83 128/81 96 90 04/08 1800 36.7 85 153/58 89 94 04/08 1700 85 145/50 81 90 Room air 04/08 1600 81 131/83 99 94 Nasal 2 cannula 04/08 1500 79 144/55 84 90 04/08 1400 80 110/67 81 93 Nasal 2 cannula 04/08 1300 79 133/85 101 88 04/08 1200 79 123/91 101 Nasal 2 cannula 04/08 1100 84 134/82 99 95 Nasal 2 cannula PATIENT WEIGHT: Weight (lb): 212 Weight (oz): 4.88 Weight (kg): 96.300 Medications: Active Meds + DC'd Last 24 Hrs Ipratropium [place] (ATROVENT) 500 MCG RTQ2H PRN PRN INH Cyanocobalamin (Vitamin B-12 500 mcg tab) 500 MC G DAILY PO Ferrous Sulfate (FERROUS SULFATE) 325 MG DAILY P O Bisacodyl (DULCOLAX) 10 MG ONCE PRN RECTAL Magnesium Hydroxide (MILK OF MAGNESIA) 30 ML ONC E PRN PO Insulin Glargine (Lantus/Semglee) 10 UNIT DAILY SUBQ Atorvastatin Calcium (LIPITOR) 40 MG 2100 PO Insulin Human Lispro (HUMALOG) 0 AC HS SUBQ Dextrose/Water (DEXTROSE 10% IN WATER) 125 ML DIR PRN IV (CKD) Dextrose/Water (DEXTROSE 10% IN WATER) 250 ML DIR PRN IV (CKD) Glucagon (GLUCAGON) 1 MG ASDIR PRN IM Clopidogrel Bisulfate (Plavix) 75 MG DAILY PO Polyethylene Glycol (MIRALAX) 17 GM DAILY PO Pantoprazole (PROTONIX) 40 MG DAILY@0600 PO Cefazolin Sodium (KEFZOL OR ANCEF) 2 GM 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 IV (DC) Vancomycin HCl (VANCOMYCIN HCL) 1,500 MG PREOP O NCALL IV (DC) Sodium Chloride (SODIUM CHLORIDE 0.9%) 250 ML Verapamil HCl (ISOPTIN) 16.6 MG .Q24H ONE IV (DC ) Heparin Sodium (Porcine) (HEPARIN SODIUM) 1,660 UNIT Sodium Bicarbonate (SODIUM BICARBONATE) 0.7 ML Nitroglycerin/Dextrose (NITROGLYCERIN 50MG/D5W 250ML) 8.3 MG Lactated Ringer's (LACTATED RINGERS) 949.5 ML Docusate Sodium (COLACE) 100 MG BID PO Gabapentin (NEURONTIN) 200 MG BID PO Insulin Human Lispro (HUMALOG) 0 AC HS SUBQ (DC) Metoprolol Tartrate (LOPRESSOR) 12.5 MG Q12HR PO Sennosides (Senna Lax 8.6 MG TABLET) 17.2 MG BED TIME PO Aspirin (ASPIRIN) 81 MG DAILY PO Dextrose/Water (DEXTROSE 10% IN WATER) 125 ML DIR PRN IV (DC) Dextrose/Water (DEXTROSE 10% IN WATER) 250 ML DIR PRN IV (DC) Glucagon (GLUCAGON) 1 MG ASDIR PRN IM (DC) Cefazolin Sodium (KEFZOL OR ANCEF) 6 GM ONCE ONE IV (DC) Sodium Chloride (SODIUM CHLORIDE 0.9%) 500 ML Ipratropium [place] (ATROVENT) 500 MCG RTQ4H INH Acetaminophen (TYLENOL) 650 MG Q4H PRN PRN PO Acetaminophen (TYLENOL) 650 MG Q4H PRN PRN RECTA L Albumin Human (ALBUMINAR 25%) 25 GM ASDIR PRN IV (DC) Amiodarone HCl (CORDARONE) 200 MG TID PO Calcium Chloride (CALCIUM CHLORIDE) 1 GM ASDIR P RN IV (DC) Dextrose/Water (DEXTROSE 10% IN WATER) 125 ML DIR PRN IV (DC) Dextrose/Water (DEXTROSE 10% IN WATER) 250 ML DIR PRN IV (DC) Epinephrine (ADRENALIN CHLORIDE) 4 MG ASDIR IV ( DC) Dextrose/Water (DEXTROSE 5% WATER) 246 ML Glucagon (GLUCAGON) 1 MG ASDIR PRN IM (DC) Insulin Human Regular (HumuLIN R) 100 UNIT ASDIR IV (DC) Sodium Chloride (SODIUM CHLORIDE 0.9%) 99 ML Magnesium Sulfate (MAGNESIUM SULFATE 4GM/SWFI 10 0ML) 100 ML ASDIR PRN IV Magnesium Sulfate (MAGNESIUM SULFATE 2GM/SWFI 50 ML) 50 ML ASDIR PRN IV Magnesium Sulfate/Dextrose (MAGNESIUM SULFATE 1G M/D5W 100ML) 100 ML ASDIR PRN IV Morphine Sulfate (morphine SULFATE) 4 MG Q2H PRN PRN IV Nitroglycerin/Dextrose (NITROGLYCERIN 50,000MCG/ D5W 250ML) 250 ML ASDIR IV (DC) Norepinephrine Bitartrate (NOREPINEPHRINE 8 MG/N S 250 ML) 250 ML TITRATE IV (DC) Ondansetron HCl (ZOFRAN) 4 MG Q6H PRN PRN IV Oxycodone HCl (ROXICODONE) 5 MG Q4H PRN PRN PO Oxycodone HCl (ROXICODONE) 10 MG Q4H PRN PRN PO Potassium Chloride (KCL 20MEQ/SWFI 100ML) 100 ML ASDIR PRN IV Sodium Bicarbonate (SODIUM BICARBONATE) 50 MEQ A SDIR PRN IV (DC) Sodium Chloride (SODIUM CHLORIDE 0.9%) 1,000 ML .Q20H IV (DC) Sodium Chloride (SODIUM CHLORIDE 0.9%) 250 ML Q2 4H IV Acetaminophen (TYLENOL EXTRA STRENGTH) 1,000 MG PREOP ONCALL PO (CKD) Gabapentin (NEURONTIN) 200 MG PREOP ONCALL PO (C KD) Sodium Chloride (SODIUM CHLORIDE) 20 ML ASDIR IV (DC) Mupirocin (BACTROBAN 2% 22 GM OINTMENT) 1 APPLIC BID NASAL Physical Exam General appearance: alert, awake Neck: non-tender, no JVD Cardiovascular: CV assessment: regular rate and rhythm, BP puls es = bilaterally Respiratory: clear to auscultation, no distress Abdomen: soft, non-tender, normal bowel sounds Genitourinary: no flank pain, no urinary cathete r Lower extremity: LE assessment: normal capillary refill, no buster a Musculoskeletal: normal inspection 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, oriented X 3, normal speech Skin: dry, intact, normal color Psychiatry: normal affect, normal judgment/insig ht, normal mood, no hallucinations Results Findings/Data: Laboratory Tests 09/20 09/20 09/19 09/19 09/19 0748 0205 1943 1656 1153 Chemistry Sodium (134 - 147 mEq/L) 137 Potassium (3.4 - 5.0 mEq/L) 4.6 Chloride (100 - 108 mEq/L) 101 Carbon Dioxide (21 - 33 mEq/l) 29 Anion Gap (0 - 20) 12 BUN (7 - 18 mg/dL) 10 Creatinine (0.6 - 1.3 mg/dL) 1.3 Glomerular Filtr Rate (90 - 95) 63.3 L Glucose (70 - 110 mg/dL) 207 H POC Glucose (70 - 110 MG/DL) 197 H 242 H 189 H 189 H Calcium (8.0 - 10.5 mg/dL) 8.8 Magnesium (1.80 - 2.40 mg/dL) 1.68 L Total Bilirubin (0.0 - 1.0 mg/dL) 0.60 Direct Bilirubin (0.0 - 0.30 MG/DL) 0.20 Indirect Bilirubin (MG/DL) 0.40 AST (15 - 37 IUnit/L) 44 H ALT (30 - 65 IUnit/L) 11 L Total Alk Phosphatase (20 - 125 39 IUnit/L) Total Protein (6.4 - 8.2 g/dL) 6.7 Albumin (3.4 - 5.0 g/dL) 4.20 Laboratory Tests 09/20 0205 Hematology WBC (4.5 - 11.0 x10 3/uL) 13.4 H RBC (4.00 - 5.60 x10 6/uL) 4.24 Hgb (12.5 - 16.9 g/dL) 13.8 Hct (37.5 - 50.7 %) 39.4 MCV (81.0 - 99.0 fL) 92.9 MCH (27.0 - 33.0 pg) 32.5 MCHC (33.0 - 37.0 g/dL) 35.0 RDW (11.5 - 14.5 %) 12.4 Plt Count (150 - 400 x10 3/uL) 188 MPV (7.0 - 9.0 fL) 9.7 H Neut % (Auto) (56.0 - 77.0 %) 70.0 Lymph % (Auto) (14.0 - 32.0 %) 16.4 Freestone % (Auto) (4.8 - 9.0 %) 11.7 H Eos % (Auto) (0.3 - 3.7 %) 1.3 Baso % (Auto) (0.0 - 2.0 %) 0.2 Neut # (Auto) (2.0 - 7.6 x10 3/uL) 9.37 H Lymph # (Auto) (1.0 - 3.8 x10 3/uL) 2.20 [place] # (Auto) (0.1 - 0.8 x10 3/uL) 1.57 H Eos # (Auto) (0.0 - 0.2 x10 3/uL) 0.17 Baso # (Auto) (0.0 - 0.2 x10 3/uL) 0.03 Abs Immat Gran (auto) (0.00 - 0.03 x10 3/uL) 0. 06 H Add Manual Diff NO Immature Gran % (0.0 - 2.0 %) 0.4 Nucleated RBC % (0 - 0 %) 0.0 Nucleated RBCs # (Man) (0.0 - 0.1 x10 3/uL) 0.0 0 Laboratory Tests 09/20 0205 Chemistry Magnesium (1.80 - 2.40 mg/dL) 1.68 L Radiology data: Recent Impressions: RADIOLOGY - XR CHEST 1 V 09/20 07 Report Impression - Status: SIGNED Entered: 09/20/2022 0875 IMPRESSION: 1. Grossly stable left lung opacities. Stable sm all left pneumothorax with stable left chest tube. 2. Removal of the right IJ central line. Impression By: [email or web address] - Anuel Mariee M.D. Diagnosis, Assessment Plan Free Text DxA P Notes Free Text DxA P Notes: 61 YO male with PMHx of HTN, DM, strong family o f CAD. He has been having palpitation, went to see Dr. Cabrera, had abnormal stress test, followed by [facility] that showed multivessel CAD. [facility]. 1. Multivessel CAD CABG today 2. Hypertension resume BP meds 3. Diabetes mellitus manage per IM 09/19 post cabg pt doing well sitting in chair vitals are stable discussed with pt an d nurse 09/20 stable sitting in chair pain better stable hemodynamics chest tubes still in place discussed with icu nurs e discussed with family continue current care Electronically Signed by Lobito Ngo MD on 03/06 at 1035 RPT #:[id number] END OF REPORT 2022-09-20 09:25:00-00:00 HCACL [facility] Cardiothoracic Surgery Prog REPORT#:[id number] REPORT STATUS: Signed DATE:09/20/22 TIME: 924 PATIENT: CHANDANA ARGUELLES UNIT #: [id number] ROOM/BED: 3360-1 : 64 AGE: 61 SEX: M ATTEND: Maryellen Lozada MD ADM AUTHOR: Brunilda Burris * ALL edits or amendments must be made on the [employer]/computer document * General Post-op: day 2 Status post: 09/18/22 CABG x 5 (ADKINS-LAD, Seq-D2, SVG-D1, SVG-OM, SVG- PDA) ALAA EVH (RGSV) Posterior pericardiotomy Subjective Chief complaint: Abnormal stress test Severe CAD Follow up CABG Review of Systems Constitutional: Denies: fatigue, fever, generalized weakness. Skin: Denies: abrasion, bruising, diaphoresis. Allergy/Immun: Denies: allergic reaction, hives, itching. Eyes: Denies: redness, visual loss/blurred, diplopia. ENT: Denies: ear ringing, nasal congestion, throat sw elling. Respiratory: Denies: SEO (dyspnea on exertion), SOB, wheezing . Cardiovascular: Denies: chest pain, palpitations. GI: Denies: abdominal pain, nausea, vomiting. : Denies: dysuria, flank pain. Heme: Denies: bleeding, bruising. Endocrine: Denies: cold intolerance, polyphagia, weight gai n. Neuro: Denies: confusion, seizure, syncope. All systems rev neg: except as marked Objective General VS/I O Last Documented: Result Date Time B/P 121/84 09/20 599 B/P Mean 96 09/20 0600 Pulse 93 09/20 0600 Pulse Ox 93 09/20 0500 Resp 18 09/20 0500 Temp 98.4 09/20 1999 O2 Delivery Room air 09/19 194 O2 Flow Rate 2 09/19 1600 FiO2 60 09/18 1540 24 hour I O ending at 0700: 09/20 0700 09/19 1900 Intake Total 800.00 Output Total 2615 1710 Balance -1815.00 -1710 Intake, IV 80.00 Intake, Oral 720 Number Voids 6 Output, Chest 190 210 Tube Drainage Output, Urine 2425 1500 Patient 212 lb 215 lb Weight Weight Standing scale Measurement Method PATIENT WEIGHT: Weight (lb): 212 Weight (oz): 4.88 Weight (kg): 96.300 Physical Exam General appearance: alert, oriented, mental stat us normal, no respiratory distress Wound/incision: Location: sternal Site condition: dressing clean dry, dressing in tact HEENT: anicteric, mucosal membranes moist, pupil s reactive to light Neck: full range of motion, non-tender Cardiovascular: normal heart sounds, regular rat e rhythm Respiratory: aerating well, clear to auscultatio n, symmetric expansion, no distress Abdomen: soft, non-tender Genitourinary: hopson, urine Extremities: dry, moves all, normal capillary re fill Musculoskeletal: full range of motion 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, oriented X 3 Skin: dry, intact Psychiatry: normal affect, normal mood Current Medications Medications: Active Meds + DC'd Last 24 Hrs Ipratropium [place] (ATROVENT) 500 MCG RTQ2H PRN PRN INH Cyanocobalamin (Vitamin B-12 500 mcg tab) 500 MC G DAILY PO Ferrous Sulfate (FERROUS SULFATE) 325 MG DAILY P O Bisacodyl (DULCOLAX) 10 MG ONCE PRN RECTAL Magnesium Hydroxide (MILK OF MAGNESIA) 30 ML ONC E PRN PO Atorvastatin Calcium (LIPITOR) 40 MG 2100 PO Insulin Human Lispro (HUMALOG) 0 AC HS SUBQ Dextrose/Water (DEXTROSE 10% IN WATER) 125 ML DIR PRN IV (CKD) Dextrose/Water (DEXTROSE 10% IN WATER) 250 ML DIR PRN IV (CKD) Glucagon (GLUCAGON) 1 MG ASDIR PRN IM Clopidogrel Bisulfate (Plavix) 75 MG DAILY PO Polyethylene Glycol (MIRALAX) 17 GM DAILY PO Pantoprazole (PROTONIX) 40 MG DAILY@0600 PO Cefazolin Sodium (KEFZOL OR ANCEF) 2 GM 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 IV (DC) Vancomycin HCl (VANCOMYCIN HCL) 1,500 MG PREOP O NCALL IV (DC) Sodium Chloride (SODIUM CHLORIDE 0.9%) 250 ML Verapamil HCl (ISOPTIN) 16.6 MG .Q24H ONE IV (DC ) Heparin Sodium (Porcine) (HEPARIN SODIUM) 1,660 UNIT Sodium Bicarbonate (SODIUM BICARBONATE) 0.7 ML Nitroglycerin/Dextrose (NITROGLYCERIN 50MG/D5W 250ML) 8.3 MG Lactated Ringer's (LACTATED RINGERS) 949.5 ML Docusate Sodium (COLACE) 100 MG BID PO Gabapentin (NEURONTIN) 200 MG BID PO Insulin Human Lispro (HUMALOG) 0 AC HS SUBQ (DC) Metoprolol Tartrate (LOPRESSOR) 12.5 MG Q12HR PO Sennosides (Senna Lax 8.6 MG TABLET) 17.2 MG BED TIME PO Aspirin (ASPIRIN) 81 MG DAILY PO Dextrose/Water (DEXTROSE 10% IN WATER) 125 ML DIR PRN IV (DC) Dextrose/Water (DEXTROSE 10% IN WATER) 250 ML DIR PRN IV (DC) Glucagon (GLUCAGON) 1 MG ASDIR PRN IM (DC) Cefazolin Sodium (KEFZOL OR ANCEF) 6 GM ONCE ONE IV (DC) Sodium Chloride (SODIUM CHLORIDE 0.9%) 500 ML Ipratropium [place] (ATROVENT) 500 MCG RTQ4H INH Acetaminophen (TYLENOL) 650 MG Q4H PRN PRN PO Acetaminophen (TYLENOL) 650 MG Q4H PRN PRN RECTA L Albumin Human (ALBUMINAR 25%) 25 GM ASDIR PRN IV (DC) Amiodarone HCl (CORDARONE) 200 MG TID PO Calcium Chloride (CALCIUM CHLORIDE) 1 GM ASDIR P RN IV (DC) Dextrose/Water (DEXTROSE 10% IN WATER) 125 ML DIR PRN IV (DC) Dextrose/Water (DEXTROSE 10% IN WATER) 250 ML DIR PRN IV (DC) Epinephrine (ADRENALIN CHLORIDE) 4 MG ASDIR IV ( DC) Dextrose/Water (DEXTROSE 5% WATER) 246 ML Glucagon (GLUCAGON) 1 MG ASDIR PRN IM (DC) Insulin Human Regular (HumuLIN R) 100 UNIT ASDIR IV (DC) Sodium Chloride (SODIUM CHLORIDE 0.9%) 99 ML Magnesium Sulfate (MAGNESIUM SULFATE 4GM/SWFI 10 0ML) 100 ML ASDIR PRN IV Magnesium Sulfate (MAGNESIUM SULFATE 2GM/SWFI 50 ML) 50 ML ASDIR PRN IV Magnesium Sulfate/Dextrose (MAGNESIUM SULFATE 1G M/D5W 100ML) 100 ML ASDIR PRN IV Morphine Sulfate (morphine SULFATE) 4 MG Q2H PRN PRN IV Nitroglycerin/Dextrose (NITROGLYCERIN 50,000MCG/ D5W 250ML) 250 ML ASDIR IV (DC) Norepinephrine Bitartrate (NOREPINEPHRINE 8 MG/N S 250 ML) 250 ML TITRATE IV (DC) Ondansetron HCl (ZOFRAN) 4 MG Q6H PRN PRN IV Oxycodone HCl (ROXICODONE) 5 MG Q4H PRN PRN PO Oxycodone HCl (ROXICODONE) 10 MG Q4H PRN PRN PO Potassium Chloride (KCL 20MEQ/SWFI 100ML) 100 ML ASDIR PRN IV Sodium Bicarbonate (SODIUM BICARBONATE) 50 MEQ A SDIR PRN IV (DC) Sodium Chloride (SODIUM CHLORIDE 0.9%) 1,000 ML .Q20H IV (DC) Sodium Chloride (SODIUM CHLORIDE 0.9%) 250 ML Q2 4H IV Acetaminophen (TYLENOL EXTRA STRENGTH) 1,000 MG PREOP ONCALL PO (CKD) Gabapentin (NEURONTIN) 200 MG PREOP ONCALL PO (C KD) Sodium Chloride (SODIUM CHLORIDE) 20 ML ASDIR IV (DC) Mupirocin (BACTROBAN 2% 22 GM OINTMENT) 1 APPLIC BID NASAL Results Findings/Data: Laboratory Tests 09/20 09/20 09/19 09/19 09/19 0748 0205 1943 1656 1153 Chemistry Sodium (134 - 147 mEq/L) 137 Potassium (3.4 - 5.0 mEq/L) 4.6 Chloride (100 - 108 mEq/L) 101 Carbon Dioxide (21 - 33 mEq/l) 29 Anion Gap (0 - 20) 12 BUN (7 - 18 mg/dL) 10 Creatinine (0.6 - 1.3 mg/dL) 1.3 Glomerular Filtr Rate (90 - 95) 63.3 L Glucose (70 - 110 mg/dL) 207 H POC Glucose (70 - 110 MG/DL) 197 H 242 H 189 H 189 H Calcium (8.0 - 10.5 mg/dL) 8.8 Magnesium (1.80 - 2.40 mg/dL) 1.68 L Total Bilirubin (0.0 - 1.0 mg/dL) 0.60 Direct Bilirubin (0.0 - 0.30 MG/DL) 0.20 Indirect Bilirubin (MG/DL) 0.40 AST (15 - 37 IUnit/L) 44 H ALT (30 - 65 IUnit/L) 11 L Total Alk Phosphatase (20 - 125 IUnit/L) 39 Total Protein (6.4 - 8.2 g/dL) 6.7 Albumin (3.4 - 5.0 g/dL) 4.20 Laboratory Tests 09/20 0205 Hematology WBC (4.5 - 11.0 x10 3/uL) 13.4 H RBC (4.00 - 5.60 x10 6/uL) 4.24 Hgb (12.5 - 16.9 g/dL) 13.8 Hct (37.5 - 50.7 %) 39.4 MCV (81.0 - 99.0 fL) 92.9 MCH (27.0 - 33.0 pg) 32.5 MCHC (33.0 - 37.0 g/dL) 35.0 RDW (11.5 - 14.5 %) 12.4 Plt Count (150 - 400 x10 3/uL) 188 MPV (7.0 - 9.0 fL) 9.7 H Neut % (Auto) (56.0 - 77.0 %) 70.0 Lymph % (Auto) (14.0 - 32.0 %) 16.4 [place] % (Auto) (4.8 - 9.0 %) 11.7 H Eos % (Auto) (0.3 - 3.7 %) 1.3 Baso % (Auto) (0.0 - 2.0 %) 0.2 Neut # (Auto) (2.0 - 7.6 x10 3/uL) 9.37 H Lymph # (Auto) (1.0 - 3.8 x10 3/uL) 2.20 [place] # (Auto) (0.1 - 0.8 x10 3/uL) 1.57 H Eos # (Auto) (0.0 - 0.2 x10 3/uL) 0.17 Baso # (Auto) (0.0 - 0.2 x10 3/uL) 0.03 Abs Immat Gran (auto) (0.00 - 0.03 x10 3/uL) 0. 06 H Add Manual Diff NO Immature Gran % (0.0 - 2.0 %) 0.4 Nucleated RBC % (0 - 0 %) 0.0 Nucleated RBCs # (Man) (0.0 - 0.1 x10 3/uL) 0.0 0 Radiology data: Recent Impressions: RADIOLOGY - XR CHEST 1 V 09/20 704 Report Impression - Status: SIGNED Entered: 09/20/2022 0833 IMPRESSION: 1. Grossly stable left lung opacities. Stable sm all left pneumothorax with stable left chest tube. 2. Removal of the right IJ central line. Impression By: [email or web address] - Anuel Mariee M.D. Treatment Prophylaxis Treatment Prophylaxis Oxygen: nasal cannula Drain(s)/tube(s): Drain(s)/tube(s): chest, urinary catheter Quality: Trauma Gen Surg Current Medications Current medication review: Current Medications Sig/Renee Start time Last Medication Dose Route Stop Time Status Admin Cefazolin Sodium 2 GM PREOP ONCALL 09/19 050 CKD IV 09/19 2358 Metoprolol Tartrate 6.25 MG ONCE ONE 09/19 050 AC PO 09/19 050 Vancomycin HCl 1,500 MG PREOP ONCALL 09/19 499 CKD Sodium Chloride 250 ML IV 09/19 2358 Verapamil HCl 16.6 MG .Q24H ONE 09/19 050 CKD Heparin Sodium 1,660 UNIT IV 09/20 045 (Porcine) Sodium Bicarbonate 0.7 ML Nitroglycerin/ 8.3 MG Dextrose Lactated Ringer's 949.5 ML Sevoflurane 0 .STK-MED ONE 09/18 1253 DC INH Ephedrine Sulfate 0 .STK-MED ONE 09/18 1232 DC .ROUTE Albumin Human 100 ML .STK-MED ONE 09/18 1227 DC IV Papaverine HCl 0 .STK-MED ONE 09/18 1118 DC IV Cefazolin Sodium 0 .STK-MED ONE 09/18 1105 DC .ROUTE Albumin Human 100 ML .STK-MED ONE 09/18 1059 DC IV Heparin Sodium 0 .STK-MED ONE 09/18 1059 DC .ROUTE Sodium Chloride 100 ML .STK-MED ONE 09/18 1059 DC IV Lidocaine HCl 0 .STK-MED ONE 09/18 1058 DC IV Magnesium Sulfate 0 .STK-MED ONE 09/18 1058 DC IV Phenylephrine HCl 0 .STK-MED ONE 09/18 1058 DC .ROUTE Sodium Bicarbonate 0 .STK-MED ONE 09/18 1058 DC IV Dexamethasone Sodium 0 .STK-MED ONE 09/18 1049 DC Phosphate .ROUTE Esmolol HCl 0 .K-MED ONE 09/18 1049 DC IV Glycopyrrolate 0 .K-MED ONE 09/18 104 DC .ROUTE Lidocaine HCl 0 .K-MED ONE 09/18 104 DC .ROUTE Neostigmine 0 .K-MED ONE 09/18 1049 DC Methylsulfate .ROUTE Ondansetron HCl 0 .K-MED ONE 09/18 104 DC .ROUTE Rocuronium [place] 0 .K-MED ONE 09/18 104 DC IV Vasopressin 0 .K-MED ONE 09/18 104 DC .ROUTE Fentanyl Citrate 0 .K-MED ONE 09/18 1048 DC IV Midazolam HCl 0 .[facility] [facility] 09/18 104 DC .ROUTE Propofol 20 ML .[facility] 09/18 1048 DC IV Aminocaproic Acid 0 .[facility] 09/18 1046 DC IV Epinephrine HCl 250 ML .[facility] 09/18 104 DC IV Heparin Sodium 0 .[facility] 09/18 104 DC .ROUTE Insulin Human Regular 100 ML .[facility] 09/18 104 DC IV Nitroglycerin/ 250 ML .[facility] 09/18 104 D C Dextrose IV Norepinephrine 250 ML .[facility] 09/18 104 D C Bitartrate IV Protamine Sulfate 0 .[facility] 09/18 1046 DC IV Calcium Chloride 0 .[facility] 09/18 1045 DC IV Magnesium Sulfate 0 .[facility] 09/18 104 DC .ROUTE Ropivacaine 0 .[facility] 09/18 1045 DC .ROUTE Fentanyl Citrate 0 .[facility] 09/18 104 DC .ROUTE Acetaminophen 1,000 MG PREOP ONCALL 09/18 0845 CKD PO 10/19 943 Gabapentin 200 MG PREOP ONCALL 09/18 0845 CKD PO 10/18 2358 Sodium Chloride 20 ML ASDIR 09/18 0845 AC IV 09/19 2358 Metoprolol Tartrate 6.25 MG ONCE ONE 09/18 0500 DC PO 09/18 050 Verapamil HCl 16.6 MG .Q24H ONE 09/18 0500 CKD Heparin Sodium 1,660 UNIT IV 09/19 045 (Porcine) Sodium Bicarbonate 0.7 ML Nitroglycerin/ 8.3 MG Dextrose Lactated Ringer's 949.5 ML Albuterol Sulfate 2.5 MG RTONCE ONE 09/185 DC NEB 09/18 445 Mupirocin 1 APPLIC BID 09/17 2100 AC 09/18 NASAL 09/22 0901 0900 I attest that the foregoing medication list in [facility] medical record is true, accurate, and complete to the best of my knowled ge. Diagnosis, Assessment Plan Hospital course to date: Very pleasant 61-year-old male with past medical history of hypertension, diabetes for 3 years on oral agents, chews tobacco, has a strong family history of premature coronary artery disease. He has bee n complaining of exertional chest tightness, had abnormal stress test and metzger d high calcium score (greater than 2000) was admitted to [facility] yesterday for elective left heart cath. Coronary angiogram showed se judith multivessel coronary artery disease and patient transferred to [facility] for cardiothoracic surgery evaluation. Patient is retired, lives with his , indepen dent PLAN [facility] images uploaded in [employer] . Dr. Lozada explained to the patient and his the angiogram findings and recommended s urgical revascularization he explained the surgery, risks involved including risk of st roke, bleeding, infection, prolonged mechanical ventilation, renal dysfunct ion; STS score, benefits, complications and alternativ es. He acknowledged understanding and is willing to proceed Preok work up initiated Plan for CABBG today. Cardiology consulted 09/18/22 CABG x 5 (ADKINS-LAD, Seq-D2, SVG-D1, SVG-OM, SVG- PDA) ALAA EVH (RGSV) Posterior pericardiotomy 09/19/22 POD 1 Patient hemodynamically stable postoperatively, not requiring pressors or inotrope support Labs and chest x-ray reviewed-stable On 2l nasal cannula, wean off as tolerated to ke ep O2 sats > 92%] Encourage incentive spirometer use and deep leona thing Nitroglycerin drip at 5 mcg for 24 hours Keep both chest tubes and monitor outputs NSR, epicardial pacing wires on standby Cardiac diet Monitor renal function, CR 1.2, UOP 1650 overnig ht Strict I Os, daily weights Glycemic control with insulin drip, transition t o SSI Bowel regimen Pain controlled (pain level 2/10) PT/OT-ambulate in hallway DVT prophylaxis with SCDS, GI prophylaxis with P PI Continue supportive care in CVICU Plan of care discussed with Dr. Lozada 09/20 Doing very well today, alert and oriented, pain controlled Respiratory status stable on room air Discontinue chest tubes after ambulation Hemodynamically stable. We will discontinue paci ng wires before discharge No bowel movement yet, milk of magnesia and supp ository as needed Creatinine stable 1.3, good urine output Replace electrolytes Glycemic control. Long-acting insulin added PT/OT Transfer to intermediate care DC plan: Home with family Consultants: cardiology, cardiovascular surgery at 2204 at 1428 RPT #:[id number] END OF REPORT 2022-09-20 07:34:00-00:00 [facility]) Critical Care Progress Note REPORT#:[id number] REPORT STATUS: Signed DATE:09/20/22 TIME: 733 PATIENT: CHANDANA ARGUELLES UNIT #: [id number] ROOM/BED: [place] [address] : 64 AGE: 61 SEX: M ATTEND: Maryellen Lozada MD ADM AUTHOR: Mervat Mcdonald MD * ALL edits or amendments must be made on the [employer]/computer document * Subjective Chief complaint: Palpitations HPI: This is a 61 years old male with medical history significant for hypertension, diabetes mellitus, strong [facility] history of CAD, who has been having increasing palpitations so he went to see his cardi ologist who ordered a stress test that came out abnormal. 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 The patient was admitted to our hospital for cardiovascular evaluation for possible CABG. Earlier today the patient un derwent CABG x 5 (ADKINS-LAD, Seq-D2, SVG-D1, SVG-OM, SVG-PDA) and ALAA. His intraoperative course was without significant ocurrence. He received 1.8 L of crystalloids, 700 cc o f autologous blood transfusion and 725 cc of Cell Saver. He arrived to CVICU intubated and ventilated and on no pressors. He was started on nitroglycerin drip s econdary to sequential graft. He will be weaned to be extubated per protocol. Comments: The patient offers no new complaints No SOB, on nasal cannula Minimum chest tube output Chest x-ray shows stable small left pneumothorax Adequate urine output Still with no bowel movement Afebrile Review of Systems Free Text ROS Notes Free Text ROS Notes: 12 point Review of Systems was performed to the extent possible including discussion with the nursing staff and review of vital signs and all data. All systems negative other than pertinent negative/p ositive findings mentioned in the interval history section. Objective General VS/I O Last Documented: Result Date Time Pulse Ox 97 09/20 940 O2 Delivery Room air 09/20 940 B/P 121/84 09/20 599 B/P Mean 96 09/20 599 Pulse 93 09/20 599 Resp 18 09/20 0500 Temp 36.9 09/20 1999 O2 Flow Rate 2 09/19 1600 FiO2 60 09/18 1540 24 hour I O ending at 0700: 09/20 0700 09/19 1900 Intake Total 800.00 Output Total 2615 1710 Balance -1815.00 -1710 Intake, IV 80.00 Intake, Oral 720 Number Voids 6 Output, Chest 190 210 Tube Drainage Output, Urine 2425 1500 Patient 96.3 kg 97.522 kg Weight Weight Standing scale Measurement Method PATIENT WEIGHT: Weight (lb): 212 Weight (oz): 4.88 Weight (kg): 96.300 Medications: Active Meds + DC'd Last 24 Hrs Ipratropium [place] (ATROVENT) 500 MCG RTQ2H PRN PRN INH Cyanocobalamin (Vitamin B-12 500 mcg tab) 500 MC G DAILY PO Ferrous Sulfate (FERROUS SULFATE) 325 MG DAILY P O Bisacodyl (DULCOLAX) 10 MG ONCE PRN RECTAL Magnesium Hydroxide (MILK OF MAGNESIA) 30 ML ONC E PRN PO Atorvastatin Calcium (LIPITOR) 40 MG 2100 PO Insulin Human Lispro (HUMALOG) 0 AC HS SUBQ Dextrose/Water (DEXTROSE 10% IN WATER) 125 ML DIR PRN IV (CKD) Dextrose/Water (DEXTROSE 10% IN WATER) 250 ML DIR PRN IV (CKD) Glucagon (GLUCAGON) 1 MG ASDIR PRN IM Clopidogrel Bisulfate (Plavix) 75 MG DAILY PO Polyethylene Glycol (MIRALAX) 17 GM DAILY PO Pantoprazole (PROTONIX) 40 MG DAILY@0600 PO Cefazolin Sodium (KEFZOL OR ANCEF) 2 GM 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 IV (DC) Vancomycin HCl (VANCOMYCIN HCL) 1,500 MG PREOP O NCALL IV (DC) Sodium Chloride (SODIUM CHLORIDE 0.9%) 250 ML Verapamil HCl (ISOPTIN) 16.6 MG .Q24H ONE IV (DC ) Heparin Sodium (Porcine) (HEPARIN SODIUM) 1,66 0 UNIT Sodium Bicarbonate (SODIUM BICARBONATE) 0.7 ML Nitroglycerin/Dextrose (NITROGLYCERIN 50MG/D5W 250ML) 8.3 MG Lactated Ringer's (LACTATED RINGERS) 949.5 ML Docusate Sodium (COLACE) 100 MG BID PO Gabapentin (NEURONTIN) 200 MG BID PO Insulin Human Lispro (HUMALOG) 0 AC HS SUBQ (DC) Metoprolol Tartrate (LOPRESSOR) 12.5 MG Q12HR PO Sennosides (Senna Lax 8.6 MG TABLET) 17.2 MG BED TIME PO Aspirin (ASPIRIN) 81 MG DAILY PO Dextrose/Water (DEXTROSE 10% IN WATER) 125 ML DIR PRN IV (DC) Dextrose/Water (DEXTROSE 10% IN WATER) 250 ML DIR PRN IV (DC) Glucagon (GLUCAGON) 1 MG ASDIR PRN IM (DC) Cefazolin Sodium (KEFZOL OR ANCEF) 6 GM ONCE ONE IV (DC) Sodium Chloride (SODIUM CHLORIDE 0.9%) 500 ML Ipratropium [place] (ATROVENT) 500 MCG RTQ4H INH Acetaminophen (TYLENOL) 650 MG Q4H PRN PRN PO Acetaminophen (TYLENOL) 650 MG Q4H PRN PRN RECTA L Albumin Human (ALBUMINAR 25%) 25 GM ASDIR PRN IV (DC) Amiodarone HCl (CORDARONE) 200 MG TID PO Calcium Chloride (CALCIUM CHLORIDE) 1 GM ASDIR P RN IV (DC) Dextrose/Water (DEXTROSE 10% IN WATER) 125 ML DIR PRN IV (DC) Dextrose/Water (DEXTROSE 10% IN WATER) 250 ML DIR PRN IV (DC) Epinephrine (ADRENALIN CHLORIDE) 4 MG ASDIR IV ( DC) Dextrose/Water (DEXTROSE 5% WATER) 246 ML Glucagon (GLUCAGON) 1 MG ASDIR PRN IM (DC) Insulin Human Regular (HumuLIN R) 100 UNIT ASDIR IV (DC) Sodium Chloride (SODIUM CHLORIDE 0.9%) 99 ML Magnesium Sulfate (MAGNESIUM SULFATE 4GM/SWFI 10 0ML) 100 ML ASDIR PRN IV Magnesium Sulfate (MAGNESIUM SULFATE 2GM/SWFI 50 ML) 50 ML ASDIR PRN IV Magnesium Sulfate/Dextrose (MAGNESIUM SULFATE 1G M/D5W 100ML) 100 ML ASDIR PRN IV Morphine Sulfate (morphine SULFATE) 4 MG Q2H PRN PRN IV Nitroglycerin/Dextrose (NITROGLYCERIN 50,000MCG/ D5W 250ML) 250 ML ASDIR IV (DC) Norepinephrine Bitartrate (NOREPINEPHRINE 8 MG/N S 250 ML) 250 ML TITRATE IV (DC) Ondansetron HCl (ZOFRAN) 4 MG Q6H PRN PRN IV Oxycodone HCl (ROXICODONE) 5 MG Q4H PRN PRN PO Oxycodone HCl (ROXICODONE) 10 MG Q4H PRN PRN PO Potassium Chloride (KCL 20MEQ/SWFI 100ML) 100 ML ASDIR PRN IV Sodium Bicarbonate (SODIUM BICARBONATE) 50 MEQ A SDIR PRN IV (DC) Sodium Chloride (SODIUM CHLORIDE 0.9%) 1,000 ML .Q20H IV (DC) Sodium Chloride (SODIUM CHLORIDE 0.9%) 250 ML Q2 4H IV Acetaminophen (TYLENOL EXTRA STRENGTH) 1,000 MG PREOP ONCALL PO (CKD) Gabapentin (NEURONTIN) 200 MG PREOP ONCALL PO (C KD) Sodium Chloride (SODIUM CHLORIDE) 20 ML ASDIR IV (DC) Mupirocin (BACTROBAN 2% 22 GM OINTMENT) 1 APPLIC BID NASAL Results Findings/data: Laboratory Tests 09/20 09/19 09/19 09/19 09/19 0205 1943 1656 1153 0801 Chemistry Sodium (134 - 147 mEq/L) 137 Potassium (3.4 - 5.0 mEq/L) 4.6 Chloride (100 - 108 mEq/L) 101 Carbon Dioxide (21 - 33 mEq/l) 29 Anion Gap (0 - 20) 12 BUN (7 - 18 mg/dL) 10 Creatinine (0.6 - 1.3 mg/dL) 1.3 Glomerular Filtr Rate (90 - 95) 63.3 L Glucose (70 - 110 mg/dL) 207 H POC Glucose (70 - 110 MG/DL) 242 H 189 H 189 H 111 H Calcium (8.0 - 10.5 mg/dL) 8.8 Magnesium (1.80 - 2.40 mg/dL) 1.68 L Total Bilirubin (0.0 - 1.0 mg/dL) 0.60 Direct Bilirubin (0.0 - 0.30 MG/DL) 0.20 Indirect Bilirubin (MG/DL) 0.40 AST (15 - 37 IUnit/L) 44 H ALT (30 - 65 IUnit/L) 11 L Total Alk Phosphatase (20 - 125 IUnit/L) 39 Total Protein (6.4 - 8.2 g/dL) 6.7 Albumin (3.4 - 5.0 g/dL) 4.20 Laboratory Tests 09/20 0205 Hematology WBC (4.5 - 11.0 x10 3/uL) 13.4 H RBC (4.00 - 5.60 x10 6/uL) 4.24 Hgb (12.5 - 16.9 g/dL) 13.8 Hct (37.5 - 50.7 %) 39.4 MCV (81.0 - 99.0 fL) 92.9 MCH (27.0 - 33.0 pg) 32.5 MCHC (33.0 - 37.0 g/dL) 35.0 RDW (11.5 - 14.5 %) 12.4 Plt Count (150 - 400 x10 3/uL) 188 MPV (7.0 - 9.0 fL) 9.7 H Neut % (Auto) (56.0 - 77.0 %) 70.0 Lymph % (Auto) (14.0 - 32.0 %) 16.4 [place] % (Auto) (4.8 - 9.0 %) 11.7 H Eos % (Auto) (0.3 - 3.7 %) 1.3 Baso % (Auto) (0.0 - 2.0 %) 0.2 Neut # (Auto) (2.0 - 7.6 x10 3/uL) 9.37 H Lymph # (Auto) (1.0 - 3.8 x10 3/uL) 2.20 [place] # (Auto) (0.1 - 0.8 x10 3/uL) 1.57 H Eos # (Auto) (0.0 - 0.2 x10 3/uL) 0.17 Baso # (Auto) (0.0 - 0.2 x10 3/uL) 0.03 Abs Immat Gran (auto) (0.00 - 0.03 x10 3/uL) 0. 06 H Add Manual Diff NO Immature Gran % (0.0 - 2.0 %) 0.4 Nucleated RBC % (0 - 0 %) 0.0 Nucleated RBCs # (Man) (0.0 - 0.1 x10 3/uL) 0.0 0 Laboratory Tests 09/20/22 0205: [Embedded Image Not Available] Microbiology: 09/18 942 NASAL: MSSA Surveillance Screen - ORD 09/18 942 NASAL: MRSA DNA Surveillance Screen - ORD 09/17 2144 NASAL: MSSA Surveillance Screen - COM P 09/17 2144 NASAL: MRSA DNA Surveillance Screen - COMP Radiology data Recent Impressions: RADIOLOGY - XR CHEST 1 V 09/20 704 Report Impression - Status: SIGNED Entered: 09/20/2022 0833 IMPRESSION: 1. Grossly stable left lung opacities. Stable sm all left pneumothorax with stable left chest tube. 2. Removal of the right IJ central line. Impression By: ClaribelSWJennifer - Anuel Mariee M.D. Free Text Obj Notes Free Text Obj Notes: GEN: Patient is calm and in no distress. NECK: Supple, no JVD or thrush. No adenopathy. LUNGS: Clear lungs, no wheezes, no rales or crac kles. CV: S1, S2 regular, no murmurs are heard. No S3 or rubs. GI: Abdomen is soft, not tender. Bowel sounds ar e present. EXT/Musc: No edema. No clubbing or cyanosis note d. Skin is warm. NEURO: Awake and oriented x 3. No focal findings . Treatment Prophylaxis Treatment Prophylaxis Drain(s)/tube(s): Drain(s)/tube(s): chest, urinary catheter Diagnosis, Assessment Plan Free text A P: Acute pulmonary insufficiency following thoracic surgery Status post CABG x 5 (ADKINS-LAD, Seq-D2, SVG-D1, SVG-OM, SVG-PDA) and ALAA Acute blood loss anemia Diabetes mellitus History of hypertension Continue mechanical ventilation, vent settings r eviewed Titrate FiO2 to keep saturation more than 90%. Spontaneous breathing trial as soon as possible Wean to extubate Extubated to nasal cannula and doing well Keep off sedation Follow ABGs and CXRs Judicious pain control Nitroglycerin drip for 24 hours secondary to seq uential graft Aspirin and Plavix Atorvastatin Amiodarone Metoprolol Monitor chest tube output Monitor urine output and kidney function Monitor and replete electrolytes Perioperative antibiotics Cardiac diet with bowel regimen once extubated BG control with insulin gtt per protocol Out of bed to chair PT/OT VTE prophylaxis, SCDs and DAPT Stress ulcer prophylaxis, PPI Discussed with CV surgery and ICU team Critical care time 64 minutes 09/19 Titrate FiO2 to keep saturation more than 90%. Follow ABGs and CXRs Judicious pain control Off Nitroglycerin drip Aspirin and Plavix Atorvastatin Amiodarone Metoprolol Monitor chest tubes output DC lines per CV surgery Monitor urine output and kidney function Monitor and replete electrolytes Cardiac diet with bowel regime BG control with insulin gtt per protocol, transi tion to sliding scale insulin Out of bed to chair PT/OT VTE prophylaxis, SCDs and DAPT Stress ulcer prophylaxis, PPI Discussed with CV surgery and ICU team Critical care time 33 minutes 09/20 On room air Follow ABGs and CXRs Judicious pain control Off Nitroglycerin drip Aspirin and Plavix Atorvastatin Amiodarone Metoprolol DC chest tube per CV surgery Monitor urine output and kidney function Monitor and replete electrolytes Cardiac diet with bowel regime. Add milk of mag and MiraLAX. Might need a suppository or an enema if he does not respond. BG control with sliding scale insulin Out of bed to chair PT/OT VTE prophylaxis, SCDs and DAPT Stress ulcer prophylaxis, PPI Discussed with CV surgery and ICU team Critical care time 31 minutes Consultants: cardiology, cardiovascular surgery at 1506 RPT #:[id number] END OF REPORT 2022-09-20 05:38:00-00:00 [id number] [place] [address] PATIENT NAME: CHANDANA ARGUELLES ADMIT DATE: ACCOUNT NO: [id number] [place] [facility] [place] 61 REPORT TYPE: eELECTROCARDIOGRAM REPORT SEX: M ADMITTING PHYSICIAN:Kamryn Lozada MD ATTENDING PHYSICIAN:Kamryn Lozada MD Order: [id number] Test Reason : S/P CAB X 5 Test Date/Time Stamp: [place] Sep 20 2022 05:38:46 Blood Pressure : / mmHG Vent. Rate : 077 BPM Atrial Rate : 077 BPM P-R Int : 142 ms QRS Dur : 076 ms QT Int : 362 ms P-R-T Axes : 049 -16 013 degree s QTc Int : 409 ms Normal sinus rhythm Inferior infarct (cited on or before 18-SEP-2022 ) Abnormal ECG Confirmed by MARCY ROSADO MD ([id number]) on 10:49:20 AM Referred By: Isabel Lozada Confirmed by:MARCY CARRANZA MD at 1049 PATIENT NAME: CHANDANA ARGUELLES 0799 2022-09-19 15:24:00-00:00 [facility] Hospitalist Progress Note REPORT#:[id number] REPORT STATUS: Signed DATE:09/19/22 TIME: 1524 PATIENT: CHANDANA ARGUELLES UNIT #: [id number] ROOM/BED: [place] [address] : 64 AGE: 61 SEX: M ATTEND: Maryellen Lozada MD ADM AUTHOR: Umu Gross MD * ALL edits or amendments must be made on the [employer]/computer document * Subjective Chief complaint: he sit on the chair . chest tube are in place . no sob post CABG Review of Systems All systems rev neg: except as noted Objective General VS/I O: Vital Signs: Date Time Temp Pulse Resp B/P B/P Pulse O2 O2 Flow FiO2 Mean Ox Delivery Rate 09/19 910 94 Nasal 4 cannula 09/20 799 Nasal 2 cannula 09/19 699 37.4 77 14 121/62 81 93 04/08 0600 37.8 78 15 113/65 81 04/08 0500 81 118/73 88 04/08 0400 37.7 76 16 123/77 92 93 04/08 0300 37.9 79 13 113/63 79 94 04/08 0200 38.0 80 16 110/68 82 94 04/08 0100 38.1 85 15 105/65 78 95 04/08 0000 38.0 77 15 117/73 87 97 04/07 2300 38.0 76 18 106/63 77 97 04/07 2200 37.9 81 15 114/67 82 97 04/ 2100 37.7 72 17 106/66 79 96 04/ 2002 95 Nasal 4 cannula 09/18 2000 37.6 66 14 103/59 73 98 09/18 1910 High flow 5 nasal cannula 09/18 1900 37.3 66 105/56 72 95 Ventilator 04/ 1800 66 109/58 75 95 Ventilator 09/18 1700 36.1 52 113/60 77 98 Ventilator 09/18 1600 54 113/58 76 99 Ventilator 09/18 1540 95 Ventilator 60 / 1540 69 95 50 04/07 1540 80 20 106/58 99 24 hour I O ending at 0700: 09/19 0700 09/18 1900 Intake Total 3342.00 31.40 Output Total 2070 825 Balance 1272.00 -793.60 Intake, IV 1642.00 31.40 Intake, Oral 1700 Output, Chest 420 150 Tube Drainage Output, Urine 1650 675 Patient 97.6 kg Weight Weight Standing scale Measurement Method PATIENT WEIGHT: Weight (lb): 215 Weight (oz): 2.74 Weight (kg): 97.522 Medications: Active Meds + DC'd Last 24 Hrs Ipratropium [place] (ATROVENT) 500 MCG RTQ2H PRN PRN INH Cyanocobalamin (Vitamin B-12 500 mcg tab) 500 MC G DAILY PO Ferrous Sulfate (FERROUS SULFATE) 325 MG DAILY P O Bisacodyl (DULCOLAX) 10 MG ONCE PRN RECTAL Magnesium Hydroxide (MILK OF MAGNESIA) 30 ML ONC E PRN PO Atorvastatin Calcium (LIPITOR) 40 MG 2100 PO Insulin Human Lispro (HUMALOG) 0 AC HS SUBQ Dextrose/Water (DEXTROSE 10% IN WATER) 125 ML DIR PRN IV (CKD) Dextrose/Water (DEXTROSE 10% IN WATER) 250 ML DIR PRN IV (CKD) Glucagon (GLUCAGON) 1 MG ASDIR PRN IM Clopidogrel Bisulfate (Plavix) 75 MG DAILY PO Polyethylene Glycol (MIRALAX) 17 GM DAILY PO Pantoprazole (PROTONIX) 40 MG DAILY@0600 PO Cefazolin Sodium (KEFZOL OR ANCEF) 2 GM 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 IV (CKD) Metoprolol Tartrate (LOPRESSOR) 6.25 MG ONCE ONE PO (DC) Vancomycin HCl (VANCOMYCIN HCL) 1,500 MG PREOP O NCALL IV (CKD) Sodium Chloride (SODIUM CHLORIDE 0.9%) 250 ML Verapamil HCl (ISOPTIN) 16.6 MG .Q24H ONE IV (CK D) Heparin Sodium (Porcine) (HEPARIN SODIUM) 1,660 UNIT Sodium Bicarbonate (SODIUM BICARBONATE) 0.7 ML Nitroglycerin/Dextrose (NITROGLYCERIN 50MG/D5W 250ML) 8.3 MG Lactated Ringer's (LACTATED RINGERS) 949.5 ML Calcium Gluconate/Sodium Chloride (Calcium Gluco saadia 1 GM/NS 50 mL) 50 ML ONCE ONE IV (DC) Docusate Sodium (COLACE) 100 MG BID PO Gabapentin (NEURONTIN) 200 MG BID PO Insulin Human Lispro (HUMALOG) 0 AC HS SUBQ (DC) Metoprolol Tartrate (LOPRESSOR) 12.5 MG Q12HR PO Sennosides (Senna Lax 8.6 MG TABLET) 17.2 MG BED TIME PO Aspirin (ASPIRIN) 81 MG DAILY PO Dextrose/Water (DEXTROSE 10% IN WATER) 125 ML DIR PRN IV (DC) Dextrose/Water (DEXTROSE 10% IN WATER) 250 ML DIR PRN IV (DC) Glucagon (GLUCAGON) 1 MG ASDIR PRN IM (DC) Cefazolin Sodium (KEFZOL OR ANCEF) 6 GM ONCE ONE IV (DC) Sodium Chloride (SODIUM CHLORIDE 0.9%) 500 ML Ipratropium [place] (ATROVENT) 500 MCG RTQ4H INH Acetaminophen (TYLENOL) 650 MG Q4H PRN PRN PO Acetaminophen (TYLENOL) 650 MG Q4H PRN PRN RECTA L Albumin Human (ALBUMINAR 25%) 25 GM ASDIR PRN IV (DC) Amiodarone HCl (CORDARONE) 200 MG TID PO Calcium Chloride (CALCIUM CHLORIDE) 1 GM ASDIR P RN IV (DC) Chlorhexidine Gluconate (PERIDEX) 15 ML Q2H MM ( DC) Dextrose/Water (DEXTROSE 10% IN WATER) 125 ML DIR PRN IV (DC) Dextrose/Water (DEXTROSE 10% IN WATER) 250 ML DIR PRN IV (DC) Epinephrine (ADRENALIN CHLORIDE) 4 MG ASDIR IV ( DC) Dextrose/Water (DEXTROSE 5% WATER) 246 ML Glucagon (GLUCAGON) 1 MG ASDIR PRN IM (DC) Insulin Human Regular (HumuLIN R) 100 UNIT ASDIR IV (DC) Sodium Chloride (SODIUM CHLORIDE 0.9%) 99 ML Magnesium Sulfate (MAGNESIUM SULFATE 4GM/SWFI 10 0ML) 100 ML ASDIR PRN IV Magnesium Sulfate (MAGNESIUM SULFATE 2GM/SWFI 50 ML) 50 ML ASDIR PRN IV Magnesium Sulfate/Dextrose (MAGNESIUM SULFATE 1G M/D5W 100ML) 100 ML ASDIR PRN IV Morphine Sulfate (morphine SULFATE) 4 MG Q2H PRN PRN IV Nitroglycerin/Dextrose (NITROGLYCERIN 50,000MCG/ D5W 250ML) 250 ML ASDIR IV (DC) Norepinephrine Bitartrate (NOREPINEPHRINE 8 MG/N S 250 ML) 250 ML TITRATE IV (DC) Ondansetron HCl (ZOFRAN) 4 MG Q6H PRN PRN IV Oxycodone HCl (ROXICODONE) 5 MG Q4H PRN PRN PO Oxycodone HCl (ROXICODONE) 10 MG Q4H PRN PRN PO Potassium Chloride (KCL 20MEQ/SWFI 100ML) 100 ML ASDIR PRN IV Sodium Bicarbonate (SODIUM BICARBONATE) 50 MEQ A SDIR PRN IV (DC) Sodium Chloride (SODIUM CHLORIDE 0.9%) 1,000 ML .Q20H IV (DC) Sodium Chloride (SODIUM CHLORIDE 0.9%) 250 ML Q2 4H IV Acetaminophen (TYLENOL EXTRA STRENGTH) 1,000 MG PREOP ONCALL PO (CKD) Gabapentin (NEURONTIN) 200 MG PREOP ONCALL PO (C KD) Sodium Chloride (SODIUM CHLORIDE) 20 ML ASDIR IV Verapamil HCl (ISOPTIN) 16.6 MG .Q24H ONE IV (D C) Heparin Sodium (Porcine) (HEPARIN SODIUM) 1,660 UNIT Sodium Bicarbonate (SODIUM BICARBONATE) 0.7 ML Nitroglycerin/Dextrose (NITROGLYCERIN 50MG/D5W 250ML) 8.3 MG Lactated Ringer's (LACTATED RINGERS) 949.5 ML Mupirocin (BACTROBAN 2% 22 GM OINTMENT) 1 APPLIC BID NASAL Physical Exam General appearance: alert, awake, oriented Head/Eyes: normal conjunctiva/sclera, normal eye lids/periorb. Cardiovascular: normal heart sounds, regular rat e rhythm Respiratory: aerating well, clear to auscultatio n Abdomen: non-tender, normal bowel sounds, soft, no distention Extremities: moves all, no calf tenderness, no e ana 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, oriented X 3, CNII-XII intact, normal speech, no motor deficits, no sensory deficits Skin: dry, intact Results Findings/Data: Laboratory Tests 09/19 09/18 0440 2045 Blood Gas Puncture Site Art Line Art Line O2 Saturation (90 - 100 %) 94.0 95.7 ABG pH (7.35 - 7.45) 7.377 7.356 ABG pCO2 (35.0 - 45 mmHg) 39.6 45.9 H ABG pO2 (80 - 100.0 mmHg) 75.3 L 86.2 ABG HCO3 (22.0 - 26.0 MMOL/L) 23.1 25.5 ABG Total CO2 24.2 26.9 ABG Base Excess (-4.0 - 4.0 MMOL/L) -1.9 0.2 ABG Hematocrit (37.5 - 50.7 %) 35 L 40 ABG Hemoglobin (12.5 - 16.9 G/DL) 11.9 L 13.5 Sodium (134 - 147 mmol/L) 137 141 Potassium (3.4 - 5.0 mmol/L) 4.9 4.2 Chloride (100 - 108 mmol/L) 102 105 Ionized Calcium (1.12 - 1.32 MMOL/L) 1.11 L 1.2 6 Lactic Acid (0.9 - 1.7 mmol/l) 0.6 L 1.2 Temperature (F) 100 99.7 O2 Delivery Device [facility] Laboratory Tests 09/19 09/19 09/19 09/19 09/19 1656 1153 0801 0440 0205 Chemistry Sodium (134 - 147 mEq/L) 138 Potassium (3.4 - 5.0 mEq/L) 5.0 Chloride (100 - 108 mEq/L) 105 Carbon Dioxide (21 - 33 mEq/l) 26 Anion Gap (0 - 20) 12 BUN (7 - 18 mg/dL) 12 Creatinine (0.6 - 1.3 mg/dL) 1.2 POC Creatinine (0.8 - 1.3 mg/dL) 1.1 Glomerular Filtr Rate (90 - 95) 69.7 L Glucose (70 - 110 mg/dL) 156 H POC Glucose (70 - 110 MG/DL) 189 H 189 H 111 H POC Glucose (mg/dL) (70 - 110 MG/DL) 118 H Calcium (8.0 - 10.5 mg/dL) 8.8 Ionized Calcium Abelardo (1.09 - 1.30 1.13 MMOL/L) Magnesium (1.80 - 2.40 mg/dL) 1.74 L Total Bilirubin (0.0 - 1.0 mg/dL) 0.50 Direct Bilirubin (0.0 - 0.30 MG/DL) 0.20 Indirect Bilirubin (MG/DL) 0.30 AST (15 - 37 IUnit/L) 45 H ALT (30 - 65 IUnit/L) 13 L Total Alk Phosphatase (20 - 125 36 IUnit/L) Total Protein (6.4 - 8.2 g/dL) 6.0 L Albumin (3.4 - 5.0 g/dL) 4.20 09/18 09/18 2313 2045 Chemistry POC Creatinine (0.8 - 1.3 mg/dL) 0.9 POC Glucose (70 - 110 MG/DL) 122 H POC Glucose (mg/dL) (70 - 110 MG/DL) 147 H Laboratory Tests 09/19 0205 Hematology WBC (4.5 - 11.0 x10 3/uL) 12.2 H RBC (4.00 - 5.60 x10 6/uL) 4.23 Hgb (12.5 - 16.9 g/dL) 13.7 Hct (37.5 - 50.7 %) 38.7 MCV (81.0 - 99.0 fL) 91.5 MCH (27.0 - 33.0 pg) 32.4 MCHC (33.0 - 37.0 g/dL) 35.4 RDW (11.5 - 14.5 %) 12.3 Plt Count (150 - 400 x10 3/uL) 184 MPV (7.0 - 9.0 fL) 9.6 H Neut % (Auto) (56.0 - 77.0 %) 84.8 H Lymph % (Auto) (14.0 - 32.0 %) 4.7 L Freestone % (Auto) (4.8 - 9.0 %) 10.1 H Eos % (Auto) (0.3 - 3.7 %) 0.1 L Baso % (Auto) (0.0 - 2.0 %) 0.1 Neut # (Auto) (2.0 - 7.6 x10 3/uL) 10.39 H Lymph # (Auto) (1.0 - 3.8 x10 3/uL) 0.57 L Freestone # (Auto) (0.1 - 0.8 x10 3/uL) 1.24 H Eos # (Auto) (0.0 - 0.2 x10 3/uL) 0.01 Baso # (Auto) (0.0 - 0.2 x10 3/uL) 0.01 Abs Immat Gran (auto) (0.00 - 0.03 x10 3/uL) 0. 02 Add Manual Diff NO Immature Gran % (0.0 - 2.0 %) 0.2 Nucleated RBC % (0 - 0 %) 0.0 Nucleated RBCs # (Man) (0.0 - 0.1 x10 3/uL) 0.0 0 Radiology data: Recent Impressions: RADIOLOGY - XR CHEST 1 V 09/19 0604 Report Impression - Status: SIGNED Entered: 09/19/2022 0828 IMPRESSION: 1. Mild enlarged cardiac silhouette. 2. Moderate pulmonary edema versus infiltrates, pneumonia. Impression By: [email or web address] - Kristian Edge M.D. Treatment Prophylaxis Treatment Prophylaxis Drain(s)/tube(s): Drain(s)/tube(s): chest, urinary catheter Diagnosis, Assessment Plan Consultants: cardiology, cardiovascular surgery Free Text DxA P Notes Free text DxA P notes: CAD with multiple vessels disease HTN DM CV surgeon consult cardiology consult CABG-- today HTN- monitor now DM-- sliding scale lipid panel 8-- post CABG -- he sit on the chair . he ambulate with PT -- no sob -- monitor in CV ICU -- case is discussed with nurse . Quality: Gen Med Crit Care Current Medications Current medication review: Current Medications Sig/Renee Start time Last Medication Dose Route Stop Time Status Admin Cefazolin Sodium 2 GM PREOP ONCALL 09/19 0500 C KD IV 09/19 2358 Metoprolol Tartrate 6.25 MG ONCE ONE 09/19 050 0 AC PO 09/19 0501 Vancomycin HCl 1,500 MG PREOP ONCALL 09/19 050 CKD Sodium Chloride 250 ML IV 09/19 2358 Verapamil HCl 16.6 MG .Q24H ONE 09/19 050 CKD Heparin Sodium 1,660 UNIT IV 09/20 0459 (Porcine) Sodium Bicarbonate 0.7 ML Nitroglycerin/ 8.3 MG Dextrose Lactated Ringer's 949.5 ML Sevoflurane 0 .STK-MED ONE 09/18 1253 DC INH Ephedrine Sulfate 0 .STK-MED ONE 09/18 1232 DC .ROUTE Albumin Human 100 ML .STK-MED ONE 09/18 1227 DC IV Papaverine HCl 0 .STK-MED ONE 09/18 1118 DC IV Cefazolin Sodium 0 .STK-MED ONE 09/18 1105 DC .ROUTE Albumin Human 100 ML .STK-MED ONE 09/18 1059 DC IV Heparin Sodium 0 .STK-MED ONE 09/18 1059 DC .ROUTE Sodium Chloride 100 ML .STK-MED ONE 09/18 1059 DC IV Lidocaine HCl 0 .STK-MED ONE 09/18 1058 DC IV Magnesium Sulfate 0 .STK-MED ONE 09/18 1058 DC IV Phenylephrine HCl 0 .STK-MED ONE 09/18 1058 DC .ROUTE Sodium Bicarbonate 0 .STK-MED ONE 09/18 1058 DC IV Dexamethasone Sodium 0 .STK-MED ONE 09/18 1049 DC Phosphate .ROUTE Esmolol HCl 0 .STK-MED ONE 09/18 1049 DC IV Glycopyrrolate 0 .STK-MED ONE 09/18 1049 DC .ROUTE Lidocaine HCl 0 .STK-MED ONE 09/18 1049 DC .ROUTE Neostigmine 0 .STK-MED ONE 09/18 1049 DC Methylsulfate .ROUTE Ondansetron HCl 0 .STK-MED ONE 09/18 1049 DC .ROUTE Rocuronium [place] 0 .STK-MED ONE 09/18 1049 DC IV Vasopressin 0 .STK-MED ONE 09/18 1049 DC .ROUTE Fentanyl Citrate 0 .STK-MED ONE 09/18 1048 DC IV Midazolam HCl 0 .STK-MED ONE 09/18 1048 DC .ROUTE Propofol 20 ML .STK-MED ONE 09/18 1048 DC IV Aminocaproic Acid 0 .STK-MED ONE 09/18 1046 DC IV Epinephrine HCl 250 ML .STK-MED ONE 09/18 104 DC IV Heparin Sodium 0 .STK-MED ONE 09/18 104 DC .ROUTE Insulin Human Regular 100 ML .STK-MED ONE 09/18 104 DC IV Nitroglycerin/ 250 ML .STK-MED ONE 09/18 1046 D C Dextrose IV Norepinephrine 250 ML .STK-MED ONE 09/18 104 D C Bitartrate IV Protamine Sulfate 0 .STK-MED ONE 09/18 104 DC IV Calcium Chloride 0 .STK-MED ONE 09/18 1045 DC IV Magnesium Sulfate 0 .STK-MED ONE 09/18 104 DC .ROUTE Ropivacaine 0 .STK-MED ONE 09/18 104 DC .ROUTE Fentanyl Citrate 0 .STK-MED ONE 09/18 104 DC .ROUTE Acetaminophen 1,000 MG PREOP ONCALL 09/18 0945 CKD PO 10/18 0944 Gabapentin 200 MG PREOP ONCALL 09/18 0945 CKD PO 10/18 2359 Sodium Chloride 20 ML ASDIR 09/18 0945 AC IV 09/19 2359 Metoprolol Tartrate 6.25 MG ONCE ONE 09/18 0500 DC PO 09/18 0501 Verapamil HCl 16.6 MG .Q24H ONE 09/18 0500 CKD Heparin Sodium 1,660 UNIT IV 09/19 0459 (Porcine) Sodium Bicarbonate 0.7 ML Nitroglycerin/ 8.3 MG Dextrose Lactated Ringer's 949.5 ML Albuterol Sulfate 2.5 MG RTONCE ONE 09/18 0445 DC NEB 09/18 0446 Mupirocin 1 APPLIC BID 09/17 2100 AC 09/18 NASAL 09/22 0901 0925 I attest that the foregoing medication list in t he medical record is true, accurate, and complete to the best of my knowled ge. Electronically Signed by Umu Gross MD on 3 at [address] [facility] #:[id number] END OF REPORT 2022-09-19 10:54:00-00:00 [facility]L [facility] Card[facility] Progress Note REPORT#:[id number] REPORT STATUS: Signed DATE:09/19/22 TIME: 1054 PATIENT: CHANDANA ARGUELLES UNIT #: [id number] ROOM/BED: [place] [address] : 64 AGE: 61 SEX: M ATTEND: Maryellen Lozada MD ADM AUTHOR: Lobito Ngo MD * ALL edits or amendments must be made on the [employer]/computer document * Subjective HPI: 61 YO male with PMHx of HTN, DM, strong family o f CAD. He has been having palpitation, went to see Dr. Cabrera, had abnormal stress test, followed by [facility] that showed multivessel CAD. [facility] Objective General VS/I O: 24 hour I O ending at 0700: 09/19 0700 09/18 1900 Intake Total 3342.00 31.40 Output Total 2070 825 Balance 1272.00 -793.60 Intake, IV 1642.00 31.40 Intake, Oral 1700 Output, Chest 420 150 Tube Drainage Output, Urine 1650 675 Patient 97.6 kg Weight Weight Standing scale Measurement Method Vital Signs: Date Time Temp Pulse Resp B/P B/P Pulse O2 O2 F low FiO2 Mean Ox Delivery Rate 09/19 0911 94 Nasal 4 cannula 09/19 0700 37.4 77 14 121/62 81 93 09/19 0600 37.8 78 15 113/65 81 04/08 0500 81 118/73 88 /08 0400 37.7 76 16 123/77 92 93 /08 0300 37.9 79 13 113/63 79 94 /08 0200 38.0 80 16 110/68 82 94 04/08 0100 38.1 85 15 105/65 78 95 04/08 0000 38.0 77 15 117/73 87 97 / 2300 38.0 76 18 106/63 77 97 09/18 2200 37.9 81 15 114/67 82 97 09/18 2100 37.7 72 17 106/66 79 96 09/18 2002 95 Nasal 4 cannula 09/19 1999 37.6 66 14 103/59 73 98 09/18 1910 High flow 5 nasal cannula 09/18 1900 37.3 66 105/56 72 95 Ventilator 09/18 1800 66 109/58 75 95 Ventilator 09/18 1700 36.1 52 113/60 77 98 Ventilator 09/18 1600 54 113/58 76 99 Ventilator 09/18 1540 95 Ventilator 60 09/18 1540 69 95 50 09/18 1540 80 20 106/58 99 04 1200 56 148/52 84 100 09/18 1100 55 167/55 92 100 PATIENT WEIGHT: Weight (lb): 215 Weight (oz): 2.74 Weight (kg): 97.600 Medications: Active Meds + DC'd Last 24 Hrs Ipratropium [place] (ATROVENT) 500 MCG RTQ2H NC N PRN INH Cyanocobalamin (Vitamin B-12 500 mcg tab) 500 MC G DAILY PO Ferrous Sulfate (FERROUS SULFATE) 325 MG DAILY P O Bisacodyl (DULCOLAX) 10 MG ONCE PRN RECTAL Magnesium Hydroxide (MILK OF MAGNESIA) 30 ML ONC E PRN PO Atorvastatin Calcium (LIPITOR) 40 MG 2100 PO Clopidogrel Bisulfate (Plavix) 75 MG DAILY PO Polyethylene Glycol (MIRALAX) 17 GM DAILY PO Pantoprazole (PROTONIX) 40 MG DAILY@0600 PO Cefazolin Sodium (KEFZOL OR ANCEF) 2 GM 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 IV (CKD) Metoprolol Tartrate (LOPRESSOR) 6.25 MG ONCE ONE PO (DC) Vancomycin HCl (VANCOMYCIN HCL) 1,500 MG PREOP O NCALL IV (CKD) Sodium Chloride (SODIUM CHLORIDE 0.9%) 250 ML Verapamil HCl (ISOPTIN) 16.6 MG .Q24H ONE IV (CK D) Heparin Sodium (Porcine) (HEPARIN SODIUM) 1,660 UNIT Sodium Bicarbonate (SODIUM BICARBONATE) 0.7 ML Nitroglycerin/Dextrose (NITROGLYCERIN 50MG/D5W 250ML) 8.3 MG Lactated Ringer's (LACTATED RINGERS) 949.5 ML Calcium Gluconate/Sodium Chloride (Calcium Gluco saadia 1 GM/NS 50 mL) 50 ML ONCE ONE IV (DC) Docusate Sodium (COLACE) 100 MG BID PO Gabapentin (NEURONTIN) 200 MG BID PO Insulin Human Lispro (HUMALOG) 0 AC HS SUBQ Metoprolol Tartrate (LOPRESSOR) 12.5 MG Q12HR PO Sennosides (Senna Lax 8.6 MG TABLET) 17.2 MG BED TIME PO Aspirin (ASPIRIN) 81 MG DAILY PO Dextrose/Water (DEXTROSE 10% IN WATER) 125 ML DIR PRN IV (CKD) Dextrose/Water (DEXTROSE 10% IN WATER) 250 ML DIR PRN IV (CKD) Glucagon (GLUCAGON) 1 MG ASDIR PRN IM Cefazolin Sodium (KEFZOL OR ANCEF) 6 GM ONCE ONE IV (CKD) Sodium Chloride (SODIUM CHLORIDE 0.9%) 500 ML Ipratropium [place] (ATROVENT) 500 MCG RTQ4H INH Acetaminophen (TYLENOL) 650 MG Q4H PRN PRN PO Acetaminophen (TYLENOL) 650 MG Q4H PRN PRN RECTA L Albumin Human (ALBUMINAR 25%) 25 GM ASDIR PRN IV Amiodarone HCl (CORDARONE) 200 MG TID PO Calcium Chloride (CALCIUM CHLORIDE) 1 GM ASDIR P RN IV Chlorhexidine Gluconate (PERIDEX) 15 ML Q2H MM ( DC) Dextrose/Water (DEXTROSE 10% IN WATER) 125 ML DIR PRN IV (CKD) Dextrose/Water (DEXTROSE 10% IN WATER) 250 ML DIR PRN IV (CKD) Epinephrine (ADRENALIN CHLORIDE) 4 MG ASDIR IV Dextrose/Water (DEXTROSE 5% WATER) 246 ML Glucagon (GLUCAGON) 1 MG ASDIR PRN IM Insulin Human Regular (HumuLIN R) 100 UNIT ASDIR IV (CKD) Sodium Chloride (SODIUM CHLORIDE 0.9%) 99 ML Magnesium Sulfate (MAGNESIUM SULFATE 4GM/SWFI 10 0ML) 100 ML ASDIR PRN IV Magnesium Sulfate (MAGNESIUM SULFATE 2GM/SWFI 50 ML) 50 ML ASDIR PRN IV Magnesium Sulfate/Dextrose (MAGNESIUM SULFATE 1G M/D5W 100ML) 100 ML ASDIR PRN IV Morphine Sulfate (morphine SULFATE) 4 MG Q2H PRN PRN IV Nitroglycerin/Dextrose (NITROGLYCERIN 50,000MCG/ D5W 250ML) 250 ML ASDIR IV Norepinephrine Bitartrate (NOREPINEPHRINE 8 MG/N S 250 ML) 250 ML TITRATE IV Ondansetron HCl (ZOFRAN) 4 MG Q6H PRN PRN IV Oxycodone HCl (ROXICODONE) 5 MG Q4H PRN PRN PO Oxycodone HCl (ROXICODONE) 10 MG Q4H PRN PRN PO Potassium Chloride (KCL 20MEQ/SWFI 100ML) 100 ML ASDIR PRN IV Sodium Bicarbonate (SODIUM BICARBONATE) 50 MEQ A SDIR PRN IV Sodium Chloride (SODIUM CHLORIDE 0.9%) 1,000 ML .Q20H IV Sodium Chloride (SODIUM CHLORIDE 0.9%) 250 ML Q2 4H IV Glycopyrrolate (GLYCOPYRROLATE) 0 .STK-MED ONE . ROUTE (DC) Neostigmine Methylsulfate (PROSTIGMIN) 0 .STK-ME D ONE .ROUTE (DC) Sevoflurane (ULTANE) 0 .STK-MED ONE INH (DC) Ephedrine Sulfate (ePHEDrine sulfate) 0 .STK-MED ONE .ROUTE (DC) Albumin Human (ALBUMINAR-25%) 100 ML .STK-MED ON E IV (DC) Papaverine HCl (PAPAVERINE HCL) 0 .STK-MED ONE I V (DC) Cefazolin Sodium (KEFZOL OR ANCEF) 0 .STK-MED O NE .ROUTE (DC) Albumin Human (ALBUMINAR-25%) 100 ML .STK-MED ON E IV (DC) Heparin Sodium (HEPARIN SODIUM) 0 .STK-MED ONE . ROUTE (DC) Sodium Chloride (SODIUM CHLORIDE 0.9%) 100 ML .S TK-MED ONE IV (DC) Lidocaine HCl (XYLOCAINE IV) 0 .STK-MED ONE IV ( DC) Magnesium Sulfate (MAGNESIUM SULFATE) 0 .STK-MED ONE IV (DC) Phenylephrine HCl (ALIZE-SYNEPHRINE 10MG/ML AMP) 0 .STK-MED ONE .ROUTE (DC ) Sodium Bicarbonate (SODIUM BICARBONATE) 0 .STK-M ED ONE IV (DC) Acetaminophen (TYLENOL EXTRA STRENGTH) 1,000 MG PREOP ONCALL PO (CKD) Gabapentin (NEURONTIN) 200 MG PREOP ONCALL PO (C KD) Sodium Chloride (SODIUM CHLORIDE) 20 ML ASDIR IV Verapamil HCl (ISOPTIN) 16.6 MG .Q24H ONE IV (DC ) Heparin Sodium (Porcine) (HEPARIN SODIUM) 1,660 UNIT Sodium Bicarbonate (SODIUM BICARBONATE) 0.7 ML Nitroglycerin/Dextrose (NITROGLYCERIN 50MG/D5W 250ML) 8.3 MG Lactated Ringer's (LACTATED RINGERS) 949.5 ML Mupirocin (BACTROBAN 2% 22 GM OINTMENT) 1 APPLIC BID NASAL Physical Exam General appearance: awake Neck: non-tender, no JVD Cardiovascular: CV assessment: regular rate and rhythm, BP puls es = bilaterally Respiratory: clear to auscultation, no distress Abdomen: soft, non-tender, normal bowel sounds Genitourinary: no flank pain, no urinary cathete r Lower extremity: LE assessment: normal capillary refill, no buster a Musculoskeletal: normal inspection 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, oriented X 3, normal speech Skin: dry, intact, normal color Psychiatry: normal affect, normal judgment/insig ht, normal mood, no hallucinations Results Findings/Data: Laboratory Tests 09/19 09/18 09/18 09/18 0440 2045 1754 1707 Blood Gas Puncture Site Art Line Art Line Art Line Art Li ne O2 Saturation (90 - 100 %) 94.0 95.7 95.2 95.6 ABG pH (7.35 - 7.45) 7.377 7.356 7.369 7.337 L ABG pCO2 (35.0 - 45 mmHg) 39.6 45.9 H 45.5 H 45 .5 H ABG pO2 (80 - 100.0 mmHg) 75.3 L 86.2 78.1 L 83 .6 ABG PO2/FiO2 Ratio (mm/Hg) 195.25 139.33 ABG HCO3 (22.0 - 26.0 MMOL/L) 23.1 25.5 26.3 H 24.5 ABG Total CO2 24.2 26.9 27.8 25.9 ABG Base Excess (-4.0 - 4.0 MMOL/L) -1.9 0.2 0 .9 -1.4 ABG Hematocrit (37.5 - 50.7 %) 35 L 40 38 37 L ABG Hemoglobin (12.5 - 16.9 G/DL) 11.9 L 13.5 1 2.8 12.6 Sodium (134 - 147 mmol/L) 137 141 141 143 Potassium (3.4 - 5.0 mmol/L) 4.9 4.2 4.0 3.7 Chloride (100 - 108 mmol/L) 102 105 105 107 Ionized Calcium (1.12 - 1.32 MMOL/L) 1.11 L 1.2 6 1.27 1.29 Lactic Acid (0.9 - 1.7 mmol/l) 0.6 L 1.2 Temperature (F) 100 99.7 97.8 98 O2 Delivery Device HFNC HFNC CPAP CPAP Vent Mode CPAP/PS CPAP/PS FiO2 (%) 40 60 PEEP (cmH2O) 5 5 09/18 09/18 09/18 09/18 1541 1505 1419 1354 Blood Gas Puncture Site Art Line O2 Saturation (90 - 100 %) 93.6 97.8 100.0 100. 0 ABG pH (7.35 - 7.45) 7.395 7.371 7.406 7.417 ABG pCO2 (35.0 - 45 mmHg) 41.4 43.4 44.0 41.1 ABG pO2 (80 - 100.0 mmHg) 65.6 L 103.7 H 391.1 *H 421.1 *H ABG PO2/FiO2 Ratio (mm/Hg) 131.20 ABG HCO3 (22.0 - 26.0 MMOL/L) 25.7 25.1 27.7 H 26.4 H ABG Total CO2 27.0 26.5 29.0 27.7 ABG Base Excess (-4.0 - 4.0 MMOL/L) 0.5 -0.3 2. 6 1.7 ABG Hematocrit (37.5 - 50.7 %) 35 L 29 L 30 L 3 1 L ABG Hemoglobin (12.5 - 16.9 G/DL) 11.7 L 9.8 L 10.1 L 10.4 L Sodium (134 - 147 mmol/L) 140 141 135 137 Potassium (3.4 - 5.0 mmol/L) 4.4 4.3 7.0 *H 6. 7 *H Chloride (100 - 108 mmol/L) 105 105 100 101 Ionized Calcium (1.12 - 1.32 MMOL/L) 1.34 H 1.3 6 H 0.92 L 0.97 L Lactic Acid (0.9 - 1.7 mmol/l) 1.8 H 1.2 1.0 Temperature (F) 96.4 O2 Delivery Device Adult Vent Vent Mode AC Vent Rate (/MIN) 14 FiO2 (%) 50 Tidal Volume (ml) 500 PEEP (cmH2O) 5 04/07 04/07 04/07 1331 1303 1212 Blood Gas O2 Saturation (90 - 100 %) 100.0 99.5 100.0 ABG pH (7.35 - 7.45) 7.426 7.293 *L 7.375 ABG pCO2 (35.0 - 45 mmHg) 39.8 47.3 H 42.5 ABG pO2 (80 - 100.0 mmHg) 497.6 *H 186.0 H 455. 2 *H ABG HCO3 (22.0 - 26.0 MMOL/L) 26.1 H 22.9 24.9 ABG Total CO2 27.3 24.3 26.2 ABG Base Excess (-4.0 - 4.0 MMOL/L) 1.6 -3.8 -0 .6 ABG Hematocrit (37.5 - 50.7 %) 30 L 35 L 48 ABG Hemoglobin (12.5 - 16.9 G/DL) 10.3 L 11.8 L 16.3 Sodium (134 - 147 mmol/L) 138 141 141 Potassium (3.4 - 5.0 mmol/L) 5.9 *H 3.7 4.3 Chloride (100 - 108 mmol/L) 101 108 104 Ionized Calcium (1.12 - 1.32 MMOL/L) 0.95 L 0. 98 L 1.09 L Lactic Acid (0.9 - 1.7 mmol/l) 0.6 L 0.6 L 0.7 L Laboratory Tests 09/19 09/19 09/19 09/18 09/18 0801 0440 0205 2313 2045 Chemistry Sodium (134 - 147 mEq/L) 138 Potassium (3.4 - 5.0 mEq/L) 5.0 Chloride (100 - 108 mEq/L) 105 Carbon Dioxide (21 - 33 mEq/l) 26 Anion Gap (0 - 20) 12 BUN (7 - 18 mg/dL) 12 Creatinine (0.6 - 1.3 mg/dL) 1.2 POC Creatinine (0.8 - 1.3 mg/dL) 1.1 0.9 Glomerular Filtr Rate (90 - 95) 69.7 L Glucose (70 - 110 mg/dL) 156 H POC Glucose (70 - 110 MG/DL) 111 H 122 H POC Glucose (mg/dL) (70 - 110 MG/DL) 118 H 147 H Calcium (8.0 - 10.5 mg/dL) 8.8 Ionized Calcium Abelardo (1.09 - 1.30 MMOL/L) 1.13 Magnesium (1.80 - 2.40 mg/dL) 1.74 L Total Bilirubin (0.0 - 1.0 mg/dL) 0.50 Direct Bilirubin (0.0 - 0.30 MG/DL) 0.20 Indirect Bilirubin (MG/DL) 0.30 AST (15 - 37 IUnit/L) 45 H ALT (30 - 65 IUnit/L) 13 L Total Alk Phosphatase (20 - 125 IUnit/L) 36 Total Protein (6.4 - 8.2 g/dL) 6.0 L Albumin (3.4 - 5.0 g/dL) 4.20 09/18 09/18 09/18 09/18 09/18 1754 1707 1541 1538 1505 Chemistry Sodium (134 - 147 mEq/L) 140 Potassium (3.4 - 5.0 mEq/L) 4.2 Chloride (100 - 108 mEq/L) 108 Carbon Dioxide (21 - 33 mEq/l) 24 Anion Gap (0 - 20) 13 BUN (7 - 18 mg/dL) 10 Creatinine (0.6 - 1.3 mg/dL) 1.0 POC Creatinine (0.8 - 1.3 mg/dL) 1.0 1.0 0.8 1. 0 Glomerular Filtr Rate (90 - 95) 86.7 L Glucose (70 - 110 mg/dL) 182 H POC Glucose (mg/dL) (70 - 110 MG/DL) 151 H 154 H 188 H 208 H Calcium (8.0 - 10.5 mg/dL) 9.7 Magnesium (1.80 - 2.40 mg/dL) 2.41 H 09/18 09/18 09/18 09/18 09/18 1419 1354 1331 1303 1212 Chemistry POC Creatinine (0.8 - 1.3 mg/dL) 1.0 1.0 1.0 0. 8 1.0 POC Glucose (mg/dL) (70 - 110 MG/DL) 197 H 192 H 164 H 157 H 160 H Laboratory Tests 09/18 09/18 09/18 09/18 09/18 1538 1506 1420 1356 1328 Coagulation INR (0.8 - 1.2) 1.5 H PTT (Georgie) (25.0 - 39.5 Seconds) 29.0 PT Patient/Control Mix (9.3 - 12.9 16.8 H SECONDS) Activated Coag Time (74 - 137 SEC) 125 636 H 73 2 H 913 H 09/18 09/18 1302 1214 Coagulation Activated Coag Time (74 - 137 SEC) 859 H 131 Laboratory Tests 09/19 09/18 0205 1538 Hematology WBC (4.5 - 11.0 x10 3/uL) 12.2 H 13.1 H RBC (4.00 - 5.60 x10 6/uL) 4.23 3.89 L Hgb (12.5 - 16.9 g/dL) 13.7 12.7 Hct (37.5 - 50.7 %) 38.7 35.7 L MCV (81.0 - 99.0 fL) 91.5 91.8 MCH (27.0 - 33.0 pg) 32.4 32.6 MCHC (33.0 - 37.0 g/dL) 35.4 35.6 RDW (11.5 - 14.5 %) 12.3 12.0 Plt Count (150 - 400 x10 3/uL) 184 138 L MPV (7.0 - 9.0 fL) 9.6 H 9.5 H Neut % (Auto) (56.0 - 77.0 %) 84.8 H 77.0 Lymph % (Auto) (14.0 - 32.0 %) 4.7 L 13.8 L [place] % (Auto) (4.8 - 9.0 %) 10.1 H 6.8 Eos % (Auto) (0.3 - 3.7 %) 0.1 L 1.7 Baso % (Auto) (0.0 - 2.0 %) 0.1 0.2 Neut # (Auto) (2.0 - 7.6 x10 3/uL) 10.39 H 10.0 7 H Lymph # (Auto) (1.0 - 3.8 x10 3/uL) 0.57 L 1.80 [place] # (Auto) (0.1 - 0.8 x10 3/uL) 1.24 H 0.89 H Eos # (Auto) (0.0 - 0.2 x10 3/uL) 0.01 0.22 H Baso # (Auto) (0.0 - 0.2 x10 3/uL) 0.01 0.03 Abs Immat Gran (auto) (0.00 - 0.03 x10 3/uL) 0. 02 0.06 H Add Manual Diff NO NO Immature Gran % (0.0 - 2.0 %) 0.2 0.5 Nucleated RBC % (0 - 0 %) 0.0 0.0 Nucleated RBCs # (Man) (0.0 - 0.1 x10 3/uL) 0.0 0 0.00 Laboratory Tests 09/19 09/18 0205 1538 Chemistry Magnesium (1.80 - 2.40 mg/dL) 1.74 L 2.41 H Radiology data: Recent Impressions: RADIOLOGY - XR CHEST 1 V 09/18 1558 Report Impression - Status: SIGNED Entered: 09/18/2022 1641 IMPRESSION: 1. Interval CABG. 2. Hypoventilatory changes. Satisfactory line an d tube placement. Impression By: [email or web address] - Susan Pope. RADIOLOGY - XR CHEST 1 V 09/19 0604 Report Impression - Status: SIGNED Entered: 09/19/2022 0828 IMPRESSION: 1. Mild enlarged cardiac silhouette. 2. Moderate pulmonary edema versus infiltrates, pneumonia. Impression By: [email or web address] - Kristian Edge M.D. Diagnosis, Assessment Plan Free Text DxA P Notes Free Text DxA P Notes: 61 YO male with PMHx of HTN, DM, strong family o f CAD. He has been having palpitation, went to see Dr. Cabrera, had abnormal stress test, followed by [facility] that showed multivessel CAD. [facility] 1. Multivessel CAD CABG today 2. Hypertension resume BP meds 3. Diabetes mellitus manage per IM 09/19 post cabg pt doing well sitting in chair vitals are stable discussed with pt an d nurse Electronically Signed by Lobito Ngo MD on 02/03 at 1056 RPT #:[id number] END OF REPORT 2022-09-19 09:24:00-00:00 [facility] ([facility] Cardiothoracic Surgery Prog REPORT#:[id number] REPORT STATUS: Signed DATE:09/19/22 TIME: 923 PATIENT: CHANDANA ARGUELLES UNIT #: [id number] ROOM/BED: [place] [address] : 64 AGE: 61 SEX: M ATTEND: Maryellen Lozada MD ADM AUTHOR: Brunilda Burris * ALL edits or amendments must be made on the [employer]/computer document * General Post-op: day 1 Status post: 09/18/22 CABG x 5 (ADKINS-LAD, Seq-D2, SVG-D1, SVG-OM, SVG- PDA) ALAA EVH (RGSV) Posterior pericardiotomy Subjective Chief complaint: Abnormal stress test Severe CAD Follow up CABG Review of Systems Constitutional: Denies: fatigue, fever, generalized weakness. Skin: Denies: abrasion, bruising, diaphoresis. Allergy/Immun: Denies: allergic reaction, hives, itching. Eyes: Denies: redness, visual loss/blurred, diplopia. ENT: Denies: ear ringing, nasal congestion, throat sw elling. Respiratory: Denies: SEO (dyspnea on exertion), SOB, wheezing . Cardiovascular: Denies: chest pain, palpitations. GI: Denies: abdominal pain, nausea, vomiting. : Denies: dysuria, flank pain. Heme: Denies: bleeding, bruising. Endocrine: Denies: cold intolerance, polyphagia, weight gai n. Neuro: Denies: confusion, seizure, syncope. All systems rev neg: except as marked Objective General VS/I O Last Documented: Result Date Time Pulse Ox 94 09/19 910 O2 Delivery Nasal cannula 09/19 910 O2 Flow Rate 4 09/19 910 B/P 121/62 09/19 699 B/P Mean 81 09/19 699 Temp 99.3 09/19 699 Pulse 77 09/19 699 Resp 14 09/19 699 FiO2 60 09/18 1540 24 hour I O ending at 0700: 09/19 0600 09/18 1900 Intake Total 3342.00 31.40 Output Total 2070 825 Balance 1272.00 -793.60 Intake, IV 1642.00 31.40 Intake, Oral 1700 Output, Chest 420 150 Tube Drainage Output, Urine 1650 675 Patient 215 lb Weight Weight Standing scale Measurement Method PATIENT WEIGHT: Weight (lb): 215 Weight (oz): 2.74 Weight (kg): 97.600 Dietitian Nutrition assessment The data set between the solid lines has been im ported from the dietitian's assessment. BMI Calculated: 30.0 Nutrition related diagnosis: Nutrition diagnosis details: Nutrition problem: Nutrition etiology: Nutrition signs and symptoms: Nutrition prescription: Dietitian name: Assessment completed: Physical Exam General appearance: alert, awake, oriented Wound/incision: Location: sternal Site condition: dressing clean dry, dressing in tact HEENT: anicteric, mucosal membranes moist, pupil s reactive to light Neck: full range of motion, non-tender Cardiovascular: normal heart sounds, regular rat e rhythm Respiratory: aerating well, clear to auscultatio n, symmetric expansion, no distress Abdomen: soft, non-tender Genitourinary: hopson, urine Extremities: dry, moves all, normal capillary re fill Musculoskeletal: full range of motion 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, oriented X 3 Skin: dry, intact Psychiatry: normal affect, normal mood Current Medications Medications: Active Meds + DC'd Last 24 Hrs Ipratropium [place] (ATROVENT) 500 MCG RTQ2H PRN PRN INH Cyanocobalamin (Vitamin B-12 500 mcg tab) 500 MC G DAILY PO Ferrous Sulfate (FERROUS SULFATE) 325 MG DAILY P O Bisacodyl (DULCOLAX) 10 MG ONCE PRN RECTAL Magnesium Hydroxide (MILK OF MAGNESIA) 30 ML ONC E PRN PO Atorvastatin Calcium (LIPITOR) 40 MG 2100 PO Clopidogrel Bisulfate (Plavix) 75 MG DAILY PO Polyethylene Glycol (MIRALAX) 17 GM DAILY PO Pantoprazole (PROTONIX) 40 MG DAILY@0600 PO Cefazolin Sodium (KEFZOL OR ANCEF) 2 GM 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 IV (CKD) Metoprolol Tartrate (LOPRESSOR) 6.25 MG ONCE ONE PO (DC) Vancomycin HCl (VANCOMYCIN HCL) 1,500 MG PREOP O NCALL IV (CKD) Sodium Chloride (SODIUM CHLORIDE 0.9%) 250 ML Verapamil HCl (ISOPTIN) 16.6 MG .Q24H ONE IV (CK D) Heparin Sodium (Porcine) (HEPARIN SODIUM) 1,660 UNIT Sodium Bicarbonate (SODIUM BICARBONATE) 0.7 ML Nitroglycerin/Dextrose (NITROGLYCERIN 50MG/D5W 250ML) 8.3 MG Lactated Ringer's (LACTATED RINGERS) 949.5 ML Calcium Gluconate/Sodium Chloride (Calcium Gluco saadia 1 GM/NS 50 mL) 50 ML ONCE ONE IV (DC) Docusate Sodium (COLACE) 100 MG BID PO Gabapentin (NEURONTIN) 200 MG BID PO Insulin Human Lispro (HUMALOG) 0 AC HS SUBQ Metoprolol Tartrate (LOPRESSOR) 12.5 MG Q12HR PO Sennosides (Senna Lax 8.6 MG TABLET) 17.2 MG BED TIME PO Aspirin (ASPIRIN) 81 MG DAILY PO Dextrose/Water (DEXTROSE 10% IN WATER) 125 ML DIR PRN IV (CKD) Dextrose/Water (DEXTROSE 10% IN WATER) 250 ML DIR PRN IV (CKD) Glucagon (GLUCAGON) 1 MG ASDIR PRN IM Cefazolin Sodium (KEFZOL OR ANCEF) 6 GM ONCE ONE IV (CKD) Sodium Chloride (SODIUM CHLORIDE 0.9%) 500 ML Ipratropium [place] (ATROVENT) 500 MCG RTQ4H INH Acetaminophen (TYLENOL) 650 MG Q4H PRN PRN PO Acetaminophen (TYLENOL) 650 MG Q4H PRN PRN RECTA L Albumin Human (ALBUMINAR 25%) 25 GM ASDIR PRN I V Amiodarone HCl (CORDARONE) 200 MG TID PO Calcium Chloride (CALCIUM CHLORIDE) 1 GM ASDIR P RN IV Chlorhexidine Gluconate (PERIDEX) 15 ML Q2H MM ( DC) Dextrose/Water (DEXTROSE 10% IN WATER) 125 ML DIR PRN IV (CKD) Dextrose/Water (DEXTROSE 10% IN WATER) 250 ML DIR PRN IV (CKD) Epinephrine (ADRENALIN CHLORIDE) 4 MG ASDIR IV Dextrose/Water (DEXTROSE 5% WATER) 246 ML Glucagon (GLUCAGON) 1 MG ASDIR PRN IM Insulin Human Regular (HumuLIN R) 100 UNIT ASDIR IV (CKD) Sodium Chloride (SODIUM CHLORIDE 0.9%) 99 ML Magnesium Sulfate (MAGNESIUM SULFATE 4GM/SWFI 10 0ML) 100 ML ASDIR PRN IV Magnesium Sulfate (MAGNESIUM SULFATE 2GM/SWFI 50 ML) 50 ML ASDIR PRN IV Magnesium Sulfate/Dextrose (MAGNESIUM SULFATE 1G M/D5W 100ML) 100 ML ASDIR PRN IV Morphine Sulfate (morphine SULFATE) 4 MG Q2H PRN PRN IV Nitroglycerin/Dextrose (NITROGLYCERIN 50,000MCG/ D5W 250ML) 250 ML ASDIR IV Norepinephrine Bitartrate (NOREPINEPHRINE 8 MG/N S 250 ML) 250 ML TITRATE IV Ondansetron HCl (ZOFRAN) 4 MG Q6H PRN PRN IV Oxycodone HCl (ROXICODONE) 5 MG Q4H PRN PRN PO Oxycodone HCl (ROXICODONE) 10 MG Q4H PRN PRN PO Potassium Chloride (KCL 20MEQ/SWFI 100ML) 100 ML ASDIR PRN IV Sodium Bicarbonate (SODIUM BICARBONATE) 50 MEQ A SDIR PRN IV Sodium Chloride (SODIUM CHLORIDE 0.9%) 1,000 ML .Q20H IV Sodium Chloride (SODIUM CHLORIDE 0.9%) 250 ML Q2 4H IV Glycopyrrolate (GLYCOPYRROLATE) 0 .STK-MED ONE . ROUTE (DC) Neostigmine Methylsulfate (PROSTIGMIN) 0 .STK-ME D ONE .ROUTE (DC) Sevoflurane (ULTANE) 0 .STK-MED ONE INH (DC) Ephedrine Sulfate (ePHEDrine sulfate) 0 .STK-MED ONE .ROUTE (DC) Albumin Human (ALBUMINAR-25%) 100 ML .STK-MED ON E IV (DC) Papaverine HCl (PAPAVERINE HCL) 0 .STK-MED ONE I V (DC) Cefazolin Sodium (KEFZOL OR ANCEF) 0 .STK-MED ON E .ROUTE (DC) Albumin Human (ALBUMINAR-25%) 100 ML .STK-MED ON E IV (DC) Heparin Sodium (HEPARIN SODIUM) 0 .STK-MED ONE . ROUTE (DC) Sodium Chloride (SODIUM CHLORIDE 0.9%) 100 ML .S TK-MED ONE IV (DC) Lidocaine HCl (XYLOCAINE IV) 0 .STK-MED ONE IV ( DC) Magnesium Sulfate (MAGNESIUM SULFATE) 0 .STK-MED ONE IV (DC) Phenylephrine HCl (ALIZE-SYNEPHRINE 10MG/ML AMP) 0 .STK-MED ONE .ROUTE (DC ) Sodium Bicarbonate (SODIUM BICARBONATE) 0 .STK-M ED ONE IV (DC) Dexamethasone Sodium Phosphate (DECADRON) 0 .STK -MED ONE .ROUTE (DC) Esmolol HCl (BREVIBLOC) 0 .STK-MED ONE IV (DC) Glycopyrrolate (GLYCOPYRROLATE) 0 .STK-MED ONE . ROUTE (DC) Lidocaine HCl (XYLOCAINE) 0 .STK-MED ONE .ROUTE (DC) Neostigmine Methylsulfate (PROSTIGMIN) 0 .STK-ME D ONE .ROUTE (DC) Ondansetron HCl (ZOFRAN) 0 .STK-MED ONE .ROUTE ( DC) Rocuronium [place] (ZEMURON) 0 .STK-MED ONE IV ( DC) Vasopressin (VASOSTRICT) 0 .STK-MED ONE .ROUTE ( DC) Fentanyl Citrate (SUBLIMAZE) 0 .STK-MED ONE IV ( DC) Midazolam HCl (VERSED) 0 .STK-MED ONE .ROUTE (DC ) Propofol (DIPRIVAN 200MG/20ML INJECTION) 20 ML . STK-MED ONE IV (DC) Aminocaproic Acid (AMICAR) 0 .STK-MED ONE IV (D C) Epinephrine HCl (EPINEPHrine 4 mg/D5W 250 mL) 25 0 ML .STK-MED ONE IV (DC ) Heparin Sodium (HEPARIN SODIUM) 0 .STK-MED ONE . ROUTE (DC) Insulin Human Regular (HumuLIN R 100 UNITS/NS 10 0ML) 100 ML .STK-MED ONE IV (DC) Nitroglycerin/Dextrose (NITROGLYCERIN 50,000MCG/ D5W 250ML) 250 ML .STK-MED ONE IV (DC) Norepinephrine Bitartrate (NOREPINEPHRINE 8 MG/N S 250 ML) 250 ML .STK-MED ONE IV (DC) Protamine Sulfate (PROTAMINE SULFATE) 0 .STK-MED ONE IV (DC) Calcium Chloride (CALCIUM CHLORIDE) 0 .STK-MED O NE IV (DC) Magnesium Sulfate (MAGNESIUM SULFATE) 0 .STK-MED ONE .ROUTE (DC) Ropivacaine (NAROPIN 0.5% 150 MG/30mL) 0 .STK-ME D ONE .ROUTE (DC) Fentanyl Citrate (SUBLIMAZE) 0 .STK-MED ONE .ROU TE (DC) Acetaminophen (TYLENOL EXTRA STRENGTH) 1,000 MG PREOP ONCALL PO (CKD) Gabapentin (NEURONTIN) 200 MG PREOP ONCALL PO (C KD) Sodium Chloride (SODIUM CHLORIDE) 20 ML ASDIR IV Verapamil HCl (ISOPTIN) 16.6 MG .Q24H ONE IV (DC ) Heparin Sodium (Porcine) (HEPARIN SODIUM) 1,660 UNIT Sodium Bicarbonate (SODIUM BICARBONATE) 0.7 ML Nitroglycerin/Dextrose (NITROGLYCERIN 50MG/D5W 250ML) 8.3 MG Lactated Ringer's (LACTATED RINGERS) 949.5 ML Mupirocin (BACTROBAN 2% 22 GM OINTMENT) 1 APPLIC BID NASAL Results Findings/Data: Laboratory Tests 09/19 09/18 09/18 09/18 0440 6666 9847 1707 Blood Gas Puncture Site Art Line Art Line Art Line Art L ine O2 Saturation (90 - 100 %) 94.0 95.7 95.2 95.6 ABG pH (7.35 - 7.45) 7.377 7.356 7.369 7.337 L ABG pCO2 (35.0 - 45 mmHg) 39.6 45.9 H 45.5 H 45 .5 H ABG pO2 (80 - 100.0 mmHg) 75.3 L 86.2 78.1 L 83 .6 ABG PO2/FiO2 Ratio (mm/Hg) 195.25 139.33 ABG HCO3 (22.0 - 26.0 MMOL/L) 23.1 25.5 26.3 H 24.5 ABG Total CO2 24.2 26.9 27.8 25.9 ABG Base Excess (-4.0 - 4.0 MMOL/L) -1.9 0.2 0. 9 -1.4 ABG Hematocrit (37.5 - 50.7 %) 35 L 40 38 37 L ABG Hemoglobin (12.5 - 16.9 G/DL) 11.9 L 13.5 1 2.8 12.6 Sodium (134 - 147 mmol/L) 137 141 141 143 Potassium (3.4 - 5.0 mmol/L) 4.9 4.2 4.0 3.7 Chloride (100 - 108 mmol/L) 102 105 105 107 Ionized Calcium (1.12 - 1.32 MMOL/L) 1.11 L 1.2 6 1.27 1.29 Lactic Acid (0.9 - 1.7 mmol/l) 0.6 L 1.2 Temperature (F) 100 99.7 97.8 98 O2 Delivery Device HFNC HFNC CPAP CPAP Vent Mode CPAP/PS CPAP/PS FiO2 (%) 40 60 PEEP (cmH2O) 5 5 09/18 09/18 09/18 09/18 1541 1505 1419 1354 Blood Gas Puncture Site Art Line O2 Saturation (90 - 100 %) 93.6 97.8 100.0 100. 0 ABG pH (7.35 - 7.45) 7.395 7.371 7.406 7.417 ABG pCO2 (35.0 - 45 mmHg) 41.4 43.4 44.0 41.1 ABG pO2 (80 - 100.0 mmHg) 65.6 L 103.7 H 391.1 *H 421.1 *H ABG PO2/FiO2 Ratio (mm/Hg) 131.20 ABG HCO3 (22.0 - 26.0 MMOL/L) 25.7 25.1 27.7 H 26.4 H ABG Total CO2 27.0 26.5 29.0 27.7 ABG Base Excess (-4.0 - 4.0 MMOL/L) 0.5 -0.3 2. 6 1.7 ABG Hematocrit (37.5 - 50.7 %) 35 L 29 L 30 L 3 1 L ABG Hemoglobin (12.5 - 16.9 G/DL) 11.7 L 9.8 L 10.1 L 10.4 L Sodium (134 - 147 mmol/L) 140 141 135 137 Potassium (3.4 - 5.0 mmol/L) 4.4 4.3 7.0 *H 6.7 *H Chloride (100 - 108 mmol/L) 105 105 100 101 Ionized Calcium (1.12 - 1.32 MMOL/L) 1.34 H 1.3 6 H 0.92 L 0.97 L Lactic Acid (0.9 - 1.7 mmol/l) 1.8 H 1.2 1.0 Temperature (F) 96.4 O2 Delivery Device Adult Vent Vent Mode AC Vent Rate (/MIN) 14 FiO2 (%) 50 Tidal Volume (ml) 500 PEEP (cmH2O) 5 09/18 09/18 09/18 1331 1303 1212 Blood Gas O2 Saturation (90 - 100 %) 100.0 99.5 100.0 ABG pH (7.35 - 7.45) 7.426 7.293 *L 7.375 ABG pCO2 (35.0 - 45 mmHg) 39.8 47.3 H 42.5 ABG pO2 (80 - 100.0 mmHg) 497.6 *H 186.0 H 455. 2 *H ABG HCO3 (22.0 - 26.0 MMOL/L) 26.1 H 22.9 24.9 ABG Total CO2 27.3 24.3 26.2 ABG Base Excess (-4.0 - 4.0 MMOL/L) 1.6 -3.8 -0 .6 ABG Hematocrit (37.5 - 50.7 %) 30 L 35 L 48 ABG Hemoglobin (12.5 - 16.9 G/DL) 10.3 L 11.8 L 16.3 Sodium (134 - 147 mmol/L) 138 141 141 Potassium (3.4 - 5.0 mmol/L) 5.9 *H 3.7 4.3 Chloride (100 - 108 mmol/L) 101 108 104 Ionized Calcium (1.12 - 1.32 MMOL/L) 0.95 L 0.9 8 L 1.09 L Lactic Acid (0.9 - 1.7 mmol/l) 0.6 L 0.6 L 0.7 L Laboratory Tests 09/19 09/19 09/19 09/18 09/18 0801 0440 0205 2313 2045 Chemistry Sodium (134 - 147 mEq/L) 138 Potassium (3.4 - 5.0 mEq/L) 5.0 Chloride (100 - 108 mEq/L) 105 Carbon Dioxide (21 - 33 mEq/l) 26 Anion Gap (0 - 20) 12 BUN (7 - 18 mg/dL) 12 Creatinine (0.6 - 1.3 mg/dL) 1.2 POC Creatinine (0.8 - 1.3 mg/dL) 1.1 0.9 Glomerular Filtr Rate (90 - 95) 69.7 L Glucose (70 - 110 mg/dL) 156 H POC Glucose (70 - 110 MG/DL) 111 H 122 H POC Glucose (mg/dL) (70 - 110 MG/DL) 118 H 147 H Calcium (8.0 - 10.5 mg/dL) 8.8 Ionized Calcium Abelardo (1.09 - 1.30 1.13 MMOL/L) Magnesium (1.80 - 2.40 mg/dL) 1.74 L Total Bilirubin (0.0 - 1.0 mg/dL) 0.50 Direct Bilirubin (0.0 - 0.30 MG/DL) 0.20 Indirect Bilirubin (MG/DL) 0.30 AST (15 - 37 IUnit/L) 45 H ALT (30 - 65 IUnit/L) 13 L Total Alk Phosphatase (20 - 125 36 IUnit/L) Total Protein (6.4 - 8.2 g/dL) 6.0 L Albumin (3.4 - 5.0 g/dL) 4.20 09/18 09/18 09/18 09/18 09/18 1754 1707 1541 1538 1505 Chemistry Sodium (134 - 147 mEq/L) 140 Potassium (3.4 - 5.0 mEq/L) 4.2 Chloride (100 - 108 mEq/L) 108 Carbon Dioxide (21 - 33 mEq/l) 24 Anion Gap (0 - 20) 13 BUN (7 - 18 mg/dL) 10 Creatinine (0.6 - 1.3 mg/dL) 1.0 POC Creatinine (0.8 - 1.3 mg/dL) 1.0 1.0 0.8 1. 0 Glomerular Filtr Rate (90 - 95) 86.7 L Glucose (70 - 110 mg/dL) 182 H POC Glucose (mg/dL) (70 - 110 MG/DL) 151 H 154 H 188 H 208 H Calcium (8.0 - 10.5 mg/dL) 9.7 Magnesium (1.80 - 2.40 mg/dL) 2.41 H 09/18 09/18 09/18 09/18 09/18 1419 1354 1331 1303 1212 Chemistry POC Creatinine (0.8 - 1.3 mg/dL) 1.0 1.0 1.0 0. 8 1.0 POC Glucose (mg/dL) (70 - 110 MG/DL) 197 H 192 H 164 H 157 H 160 H Laboratory Tests 09/18 09/18 09/18 09/18 1538 1506 1420 1356 Coagulation INR (0.8 - 1.2) 1.5 H PTT (Cocke) (25.0 - 39.5 Seconds) 29.0 PT Patient/Control Mix (9.3 - 12.9 SECONDS) 16 .8 H Activated Coag Time (74 - 137 SEC) 125 636 H 73 2 H 09/18 09/18 09/18 1328 1302 1214 Coagulation Activated Coag Time (74 - 137 SEC) 913 H 859 H 131 Laboratory Tests 09/19 09/18 0205 1538 Hematology WBC (4.5 - 11.0 x10 3/uL) 12.2 H 13.1 H RBC (4.00 - 5.60 x10 6/uL) 4.23 3.89 L Hgb (12.5 - 16.9 g/dL) 13.7 12.7 Hct (37.5 - 50.7 %) 38.7 35.7 L MCV (81.0 - 99.0 fL) 91.5 91.8 MCH (27.0 - 33.0 pg) 32.4 32.6 MCHC (33.0 - 37.0 g/dL) 35.4 35.6 RDW (11.5 - 14.5 %) 12.3 12.0 Plt Count (150 - 400 x10 3/uL) 184 138 L MPV (7.0 - 9.0 fL) 9.6 H 9.5 H Neut % (Auto) (56.0 - 77.0 %) 84.8 H 77.0 Lymph % (Auto) (14.0 - 32.0 %) 4.7 L 13.8 L [place] % (Auto) (4.8 - 9.0 %) 10.1 H 6.8 Eos % (Auto) (0.3 - 3.7 %) 0.1 L 1.7 Baso % (Auto) (0.0 - 2.0 %) 0.1 0.2 Neut # (Auto) (2.0 - 7.6 x10 3/uL) 10.39 H 10.0 7 H Lymph # (Auto) (1.0 - 3.8 x10 3/uL) 0.57 L 1.80 [place] # (Auto) (0.1 - 0.8 x10 3/uL) 1.24 H 0.89 H Eos # (Auto) (0.0 - 0.2 x10 3/uL) 0.01 0.22 H Baso # (Auto) (0.0 - 0.2 x10 3/uL) 0.01 0.03 Abs Immat Gran (auto) (0.00 - 0.03 x10 3/uL) 0. 02 0.06 H Add Manual Diff NO NO Immature Gran % (0.0 - 2.0 %) 0.2 0.5 Nucleated RBC % (0 - 0 %) 0.0 0.0 Nucleated RBCs # (Man) (0.0 - 0.1 x10 3/uL) 0.0 0 0.00 Radiology data: Recent Impressions: RADIOLOGY - XR CHEST 1 V 09/18 1558 Report Impression - Status: SIGNED Entered: 09/18/2022 1641 IMPRESSION: 1. Interval CABG. 2. Hypoventilatory changes. Satisfactory line an d tube placement. Impression By: [email or web address] - Susan Pope. RADIOLOGY - XR CHEST 1 V 09/19 0604 Report Impression - Status: SIGNED Entered: 09/19/2022 0828 IMPRESSION: 1. Mild enlarged cardiac silhouette. 2. Moderate pulmonary edema versus infiltrates, pneumonia. Impression By: [email or web address] - Kristian Edge M.D. Results: labs reviewed, vital signs stable, leandra medina personally rev'd, x-ray personally reviewed, current med profile rev'd Treatment Prophylaxis Treatment Prophylaxis Oxygen: nasal cannula Drain(s)/tube(s): Drain(s)/tube(s): chest, urinary catheter Quality: Trauma Gen Surg Current Medications Current medication review: Current Medications Sig/Renee Start time Last Medication Dose Route Stop Time Status Admin Cefazolin Sodium 2 GM PREOP ONCALL 09/19 0500 C KD IV 09/19 2359 Metoprolol Tartrate 6.25 MG ONCE ONE 09/19 050 0 AC PO 09/19 0501 Vancomycin HCl 1,500 MG PREOP ONCALL 09/19 0500 CKD Sodium Chloride 250 ML IV 09/19 2359 Verapamil HCl 16.6 MG .Q24H ONE 09/19 0500 CKD Heparin Sodium 1,660 UNIT IV 09/20 0459 (Porcine) Sodium Bicarbonate 0.7 ML Nitroglycerin/ 8.3 MG Dextrose Lactated Ringer's 949.5 ML Sevoflurane 0 .STK-MED ONE 09/18 1253 DC INH Ephedrine Sulfate 0 .STK-MED ONE 09/18 1232 DC .ROUTE Albumin Human 100 ML .STK-MED ONE 09/18 1227 D C IV Papaverine HCl 0 .STK-MED ONE 09/18 1118 DC IV Cefazolin Sodium 0 .STK-MED ONE 09/18 1105 DC .ROUTE Albumin Human 100 ML .STK-MED ONE 09/18 1059 DC IV Heparin Sodium 0 .STK-MED ONE 09/18 1059 DC .ROUTE Sodium Chloride 100 ML .STK-MED ONE 09/18 1059 DC IV Lidocaine HCl 0 .STK-MED ONE 09/18 1058 DC IV Magnesium Sulfate 0 .STK-MED ONE 09/18 1058 DC IV Phenylephrine HCl 0 .STK-MED ONE 09/18 1058 DC .ROUTE Sodium Bicarbonate 0 .STK-MED ONE 09/18 1058 DC IV Dexamethasone Sodium 0 .STK-MED ONE 09/18 1049 DC Phosphate .ROUTE Esmolol HCl 0 .STK-MED ONE 09/18 1049 DC IV Glycopyrrolate 0 .STK-MED ONE 09/18 1049 DC .ROUTE Lidocaine HCl 0 .STK-MED ONE 09/18 1049 DC .ROUTE Neostigmine 0 .STK-MED ONE 09/18 1049 DC Methylsulfate .ROUTE Ondansetron HCl 0 .STK-MED ONE 09/18 1049 DC .ROUTE Rocuronium [place] 0 .STK-MED ONE 09/18 1049 DC IV Vasopressin 0 .STK-MED ONE 09/18 1049 DC .ROUTE Fentanyl Citrate 0 .STK-MED ONE 09/18 1048 DC IV Midazolam HCl 0 .STK-MED ONE 09/18 1048 DC .ROUTE Propofol 20 ML .STK-MED ONE 09/18 1048 DC IV Aminocaproic Acid 0 .STK-MED ONE 09/18 1046 DC IV Epinephrine HCl 250 ML .STK-MED ONE 09/18 1046 DC IV Heparin Sodium 0 .STK-MED ONE 09/18 1046 DC .ROUTE Insulin Human Regular 100 ML .STK-MED ONE 09/18 104 DC IV Nitroglycerin/ 250 ML .STK-MED ONE 09/18 1046 D C Dextrose IV Norepinephrine 250 ML .STK-MED ONE 09/18 1046 D C Bitartrate IV Protamine Sulfate 0 .STK-MED ONE 09/18 104 DC IV Calcium Chloride 0 .STK-MED ONE 09/18 1045 DC IV Magnesium Sulfate 0 .STK-MED ONE 09/18 1045 DC .ROUTE Ropivacaine 0 .STK-MED ONE 09/18 104 DC .ROUTE Fentanyl Citrate 0 .STK-MED ONE 09/18 104 DC .ROUTE Acetaminophen 1,000 MG PREOP ONCALL 09/18 0845 CKD PO 10/18 0944 Gabapentin 200 MG PREOP ONCALL 09/18 0945 CKD PO 10/18 2359 Sodium Chloride 20 ML ASDIR 09/18 0945 AC IV 09/19 2359 Metoprolol Tartrate 6.25 MG ONCE ONE 09/18 0500 DC PO 09/18 0501 Verapamil HCl 16.6 MG .Q24H ONE 09/18 0500 CKD Heparin Sodium 1,660 UNIT IV 09/19 0459 (Porcine) Sodium Bicarbonate 0.7 ML Nitroglycerin/ 8.3 MG Dextrose Lactated Ringer's 949.5 ML Albuterol Sulfate 2.5 MG RTONCE ONE 09/18 0445 DC NEB 09/18 0446 Mupirocin 1 APPLIC BID 09/17 2100 AC 09/18 NASAL 09/22 0901 0925 I attest that the foregoing medication list in [facility] medical record is true, accurate, and complete to the best of my knowled ge. Diagnosis, Assessment Plan Hospital course to date: Very pleasant 61-year-old male with past medical history of hypertension, diabetes for 3 years on oral agents, chews tobacco, has a strong family history of premature coronary artery disease. He has bee n complaining of exertional chest tightness, had abnormal stress test and metzger d high calcium score (greater than 2000) was admitted to [facility] yesterday for elective left heart cath. Coronary angiogram showed se judith multivessel coronary artery disease and patient transferred to [facility] for cardiothoracic surgery evaluation. Patient is retired, lives with his , indepen dent PLAN [facility] images uploaded in [employer] . Dr. Lozada explained to the patient and his the angiogram findings and recommended s urgical revascularization he explained the surgery, risks involved including risk of st roke, bleeding, infection, prolonged mechanical ventilation, renal dysfunct ion; STS score, benefits, complications and alternativ es. He acknowledged understanding and is willing to proceed Preok work up initiated Plan for CABBG today. Cardiology consulted 09/18/22 CABG x 5 (ADKINS-LAD, Seq-D2, SVG-D1, SVG-OM, SVG- PDA) ALAA EVH (RGSV) Posterior pericardiotomy 09/19/22 POD 1 Patient hemodynamically stable postoperatively, not requiring pressors or inotrope support Labs and chest x-ray reviewed-stable On 2l nasal cannula, wean off as tolerated to ke ep O2 sats > 92%] Encourage incentive spirometer use and deep leona thing Nitroglycerin drip at 5 mcg for 24 hours Keep both chest tubes and monitor outputs NSR, epicardial pacing wires on standby Cardiac diet Monitor renal function, CR 1.2, UOP 1650 overnig ht Strict I Os, daily weights Glycemic control with insulin drip, transition t o SSI Bowel regimen Pain controlled (pain level 2/10) PT/OT-ambulate in hallway DVT prophylaxis with SCDS, GI prophylaxis with P PI Continue supportive care in CVICU Plan of care discussed with Dr. Lozada Consultants: cardiology, cardiovascular surgery Plan discussed with: patient, admitting physicia n, consultants, nurse at 0925 at 1212 RPT #:[id number] END OF REPORT 2022-09-19 08:15:00-00:00 [facility]L [facility] ([facility]) Critical Care Progress Note REPORT#:[id number] REPORT STATUS: Signed DATE:09/19/22 TIME: 0815 PATIENT: CHANDANA ARGUELLES UNIT #: [id number] ROOM/BED: [place] [address] : 62 AGE: 61 SEX: M ATTEND: Maryellen Lozada MD ADM AUTHOR: Mervat Mcdonald MD * ALL edits or amendments must be made on the el ectronic/computer document * Subjective Chief complaint: Palpitations HPI: This is a 61 years old male with medical history significant for hypertension, diabetes mellitus, strong fa tammi history of CAD, who has been having increasing palpitations so he went to see his cardi ologist who ordered a stress test that came out abnormal. 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 The patient was admitted to our hospital for cardiovascular evaluation for possible CABG. Earlier today the patient un derwent CABG x 5 (ADKINS-LAD, Seq-D2, SVG-D1, SVG-OM, SVG-PDA) and ALAA. His intraoperative course was without significant ocurrence. He received 1.8 L of crystalloids, 700 cc o f autologous blood transfusion and 725 cc of Cell Saver. He arrived to CVICU intubated and ventilated and on no pressors. He was started on nitroglycerin drip s econdary to sequential graft. He will be weaned to be extubated per protocol. Comments: The patient offers no new complaints No SOB, on nasal cannula Minimum chest tubes output Adequate urine output Afebrile Review of Systems Free Text ROS Notes Free Text ROS Notes: 12 point Review of Systems was performed to the extent possible including discussion with the nursing staff and review of vital signs and all data. All systems negative other than pertinent negative/p ositive findings mentioned in the interval history section. Objective General VS/I O Last Documented: Result Date Time Pulse Ox 94 09/19 0811 O2 Delivery Nasal cannula 09/19 910 O2 Flow Rate 4 09/19 0811 B/P 121/62 09/19 699 B/P Mean 81 09/19 699 Temp 37.4 09/19 699 Pulse 77 09/19 699 Resp 14 09/19 699 FiO2 60 09/18 1540 24 hour I O ending at 0700: 09/19 0700 09/18 1900 Intake Total 3342.00 31.40 Output Total 2070 825 Balance 1272.00 -793.60 Intake, IV 1642.00 31.40 Intake, Oral 1700 Output, Chest 420 150 Tube Drainage Output, Urine 1650 675 Patient 97.6 kg Weight Weight Standing scale Measurement Method PATIENT WEIGHT: Weight (lb): 215 Weight (oz): 2.74 Weight (kg): 97.522 Medications: Active Meds + DC'd Last 24 Hrs Ipratropium [place] (ATROVENT) 500 MCG RTQ2H PRN PRN INH Cyanocobalamin (Vitamin B-12 500 mcg tab) 500 MC G DAILY PO Ferrous Sulfate (FERROUS SULFATE) 325 MG DAILY P O Bisacodyl (DULCOLAX) 10 MG ONCE PRN RECTAL Magnesium Hydroxide (MILK OF MAGNESIA) 30 ML ONC E PRN PO Atorvastatin Calcium (LIPITOR) 40 MG 2100 PO Clopidogrel Bisulfate (Plavix) 75 MG DAILY PO Polyethylene Glycol (MIRALAX) 17 GM DAILY PO Pantoprazole (PROTONIX) 40 MG DAILY@0600 PO Cefazolin Sodium (KEFZOL OR ANCEF) 2 GM 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 IV (CKD) Metoprolol Tartrate (LOPRESSOR) 6.25 MG ONCE ONE PO (DC) Vancomycin HCl (VANCOMYCIN HCL) 1,500 MG PREOP O NCALL IV (CKD) Sodium Chloride (SODIUM CHLORIDE 0.9%) 250 ML Verapamil HCl (ISOPTIN) 16.6 MG .Q24H ONE IV (CK D) Heparin Sodium (Porcine) (HEPARIN SODIUM) 1,660 UNIT Sodium Bicarbonate (SODIUM BICARBONATE) 0.7 ML Nitroglycerin/Dextrose (NITROGLYCERIN 50MG/D5W 250ML) 8.3 MG Lactated Ringer's (LACTATED RINGERS) 949.5 ML Calcium Gluconate/Sodium Chloride (Calcium Gluco saadia 1 GM/NS 50 mL) 50 ML ONCE ONE IV (DC) Docusate Sodium (COLACE) 100 MG BID PO Gabapentin (NEURONTIN) 200 MG BID PO Insulin Human Lispro (HUMALOG) 0 AC HS SUBQ Metoprolol Tartrate (LOPRESSOR) 12.5 MG Q12HR PO Sennosides (Senna Lax 8.6 MG TABLET) 17.2 MG BED TIME PO Aspirin (ASPIRIN) 81 MG DAILY PO Dextrose/Water (DEXTROSE 10% IN WATER) 125 ML DIR PRN IV (CKD) Dextrose/Water (DEXTROSE 10% IN WATER) 250 ML DIR PRN IV (CKD) Glucagon (GLUCAGON) 1 MG ASDIR PRN IM Cefazolin Sodium (KEFZOL OR ANCEF) 6 GM ONCE ONE IV (CKD) Sodium Chloride (SODIUM CHLORIDE 0.9%) 500 ML Ipratropium [place] (ATROVENT) 500 MCG RTQ4H INH Acetaminophen (TYLENOL) 650 MG Q4H PRN PRN PO Acetaminophen (TYLENOL) 650 MG Q4H PRN PRN RECTA L Albumin Human (ALBUMINAR 25%) 25 GM ASDIR PRN IV Amiodarone HCl (CORDARONE) 200 MG TID PO Calcium Chloride (CALCIUM CHLORIDE) 1 GM ASDIR P RN IV Chlorhexidine Gluconate (PERIDEX) 15 ML Q2H MM ( DC) Dextrose/Water (DEXTROSE 10% IN WATER) 125 ML DIR PRN IV (CKD) Dextrose/Water (DEXTROSE 10% IN WATER) 250 ML DIR PRN IV (CKD) Epinephrine (ADRENALIN CHLORIDE) 4 MG ASDIR IV Dextrose/Water (DEXTROSE 5% WATER) 246 ML Glucagon (GLUCAGON) 1 MG ASDIR PRN IM Insulin Human Regular (HumuLIN R) 100 UNIT ASDIR IV (CKD) Sodium Chloride (SODIUM CHLORIDE 0.9%) 99 ML Magnesium Sulfate (MAGNESIUM SULFATE 4GM/SWFI 10 0ML) 100 ML ASDIR PRN IV Magnesium Sulfate (MAGNESIUM SULFATE 2GM/SWFI 50 ML) 50 ML ASDIR PRN IV Magnesium Sulfate/Dextrose (MAGNESIUM SULFATE 1G M/D5W 100ML) 100 ML ASDIR PRN IV Morphine Sulfate (morphine SULFATE) 4 MG Q2H PRN PRN IV Nitroglycerin/Dextrose (NITROGLYCERIN 50,000MCG/ D5W 250ML) 250 ML ASDIR IV Norepinephrine Bitartrate (NOREPINEPHRINE 8 MG/N S 250 ML) 250 ML TITRATE IV Ondansetron HCl (ZOFRAN) 4 MG Q6H PRN PRN IV Oxycodone HCl (ROXICODONE) 5 MG Q4H PRN PRN PO Oxycodone HCl (ROXICODONE) 10 MG Q4H PRN PRN PO Potassium Chloride (KCL 20MEQ/SWFI 100ML) 100 ML ASDIR PRN IV Sodium Bicarbonate (SODIUM BICARBONATE) 50 MEQ A SDIR PRN IV Sodium Chloride (SODIUM CHLORIDE 0.9%) 1,000 ML .Q20H IV Sodium Chloride (SODIUM CHLORIDE 0.9%) 250 ML Q2 4H IV Glycopyrrolate (GLYCOPYRROLATE) 0 .STK-MED ONE . ROUTE (DC) Neostigmine Methylsulfate (PROSTIGMIN) 0 .STK-ME D ONE .ROUTE (DC) Sevoflurane (ULTANE) 0 .STK-MED ONE INH (DC) Ephedrine Sulfate (ePHEDrine sulfate) 0 .STK-MED ONE .ROUTE (DC) Albumin Human (ALBUMINAR-25%) 100 ML .STK-MED O NE IV (DC) Papaverine HCl (PAPAVERINE HCL) 0 .STK-MED ONE I V (DC) Cefazolin Sodium (KEFZOL OR ANCEF) 0 .STK-MED ON E .ROUTE (DC) Albumin Human (ALBUMINAR-25%) 100 ML .STK-MED ON E IV (DC) Heparin Sodium (HEPARIN SODIUM) 0 .STK-MED ONE . ROUTE (DC) Sodium Chloride (SODIUM CHLORIDE 0.9%) 100 ML .S TK-MED ONE IV (DC) Lidocaine HCl (XYLOCAINE IV) 0 .STK-MED ONE IV ( DC) Magnesium Sulfate (MAGNESIUM SULFATE) 0 .STK-MED ONE IV (DC) Phenylephrine HCl (ALIZE-SYNEPHRINE 10MG/ML AMP) 0 .STK-MED ONE .ROUTE (DC ) Sodium Bicarbonate (SODIUM BICARBONATE) 0 .STK-M ED ONE IV (DC) Dexamethasone Sodium Phosphate (DECADRON) 0 .STK -MED ONE .ROUTE (DC) Esmolol HCl (BREVIBLOC) 0 .STK-MED ONE IV (DC) Glycopyrrolate (GLYCOPYRROLATE) 0 .STK-MED ONE . ROUTE (DC) Lidocaine HCl (XYLOCAINE) 0 .STK-MED ONE .ROUTE (DC) Neostigmine Methylsulfate (PROSTIGMIN) 0 .STK-ME D ONE .ROUTE (DC) Ondansetron HCl (ZOFRAN) 0 .STK-MED ONE .ROUTE ( DC) Rocuronium [place] (ZEMURON) 0 .STK-MED ONE IV ( DC) Vasopressin (VASOSTRICT) 0 .STK-MED ONE .ROUTE ( DC) Fentanyl Citrate (SUBLIMAZE) 0 .STK-MED ONE IV ( DC) Midazolam HCl (VERSED) 0 .STK-MED ONE .ROUTE (DC ) Propofol (DIPRIVAN 200MG/20ML INJECTION) 20 ML . STK-MED ONE IV (DC) Aminocaproic Acid (AMICAR) 0 .STK-MED ONE IV (DC ) Epinephrine HCl (EPINEPHrine 4 mg/D5W 250 mL) 25 0 ML .STK-MED ONE IV (DC ) Heparin Sodium (HEPARIN SODIUM) 0 .STK-MED ONE . ROUTE (DC) Insulin Human Regular (HumuLIN R 100 UNITS/NS 10 0ML) 100 ML .STK-MED ONE IV (DC) Nitroglycerin/Dextrose (NITROGLYCERIN 50,000MCG/ D5W 250ML) 250 ML .STK-MED ONE IV (DC) Norepinephrine Bitartrate (NOREPINEPHRINE 8 MG/N S 250 ML) 250 ML .STK-MED ONE IV (DC) Protamine Sulfate (PROTAMINE SULFATE) 0 .STK-MED ONE IV (DC) Calcium Chloride (CALCIUM CHLORIDE) 0 .STK-MED O NE IV (DC) Magnesium Sulfate (MAGNESIUM SULFATE) 0 .STK-MED ONE .ROUTE (DC) Ropivacaine (NAROPIN 0.5% 150 MG/30mL) 0 .STK-ME D ONE .ROUTE (DC) Fentanyl Citrate (SUBLIMAZE) 0 .STK-MED ONE .ROU TE (DC) Acetaminophen (TYLENOL EXTRA STRENGTH) 1,000 MG PREOP ONCALL PO (CKD) Gabapentin (NEURONTIN) 200 MG PREOP ONCALL PO (C KD) Sodium Chloride (SODIUM CHLORIDE) 20 ML ASDIR IV Verapamil HCl (ISOPTIN) 16.6 MG .Q24H ONE IV (DC ) Heparin Sodium (Porcine) (HEPARIN SODIUM) 1,660 UNIT Sodium Bicarbonate (SODIUM BICARBONATE) 0.7 ML Nitroglycerin/Dextrose (NITROGLYCERIN 50MG/D5W 250ML) 8.3 MG Lactated Ringer's (LACTATED RINGERS) 949.5 ML Mupirocin (BACTROBAN 2% 22 GM OINTMENT) 1 APPLIC BID NASAL Results Findings/data: Laboratory Tests 09/19 09/18 09/18 09/18 [id number] Blood Gas Puncture Site Art Line Art Line Art Line Art Li ne O2 Saturation (90 - 100 %) 94.0 95.7 95.2 95.6 ABG pH (7.35 - 7.45) 7.377 7.356 7.369 7.337 L ABG pCO2 (35.0 - 45 mmHg) 39.6 45.9 H 45.5 H 4 5.5 H ABG pO2 (80 - 100.0 mmHg) 75.3 L 86.2 78.1 L 83 .6 ABG PO2/FiO2 Ratio (mm/Hg) 195.25 139.33 ABG HCO3 (22.0 - 26.0 MMOL/L) 23.1 25.5 26.3 H 24.5 ABG Total CO2 24.2 26.9 27.8 25.9 ABG Base Excess (-4.0 - 4.0 MMOL/L) -1.9 0.2 0. 9 -1.4 ABG Hematocrit (37.5 - 50.7 %) 35 L 40 38 37 L ABG Hemoglobin (12.5 - 16.9 G/DL) 11.9 L 13.5 1 2.8 12.6 Sodium (134 - 147 mmol/L) 137 141 141 143 Potassium (3.4 - 5.0 mmol/L) 4.9 4.2 4.0 3.7 Chloride (100 - 108 mmol/L) 102 105 105 107 Ionized Calcium (1.12 - 1.32 MMOL/L) 1.11 L 1.2 6 1.27 1.29 Lactic Acid (0.9 - 1.7 mmol/l) 0.6 L 1.2 Temperature (F) 100 99.7 97.8 98 O2 Delivery Device HFNC HFNC CPAP CPAP Vent Mode CPAP/PS CPAP/PS FiO2 (%) 40 60 PEEP (cmH2O) 5 5 09/18 09/18 09/18 09/18 1541 1505 1419 1354 Blood Gas Puncture Site Art Line O2 Saturation (90 - 100 %) 93.6 97.8 100.0 100. 0 ABG pH (7.35 - 7.45) 7.395 7.371 7.406 7.417 ABG pCO2 (35.0 - 45 mmHg) 41.4 43.4 44.0 41.1 ABG pO2 (80 - 100.0 mmHg) 65.6 L 103.7 H 391.1 *H 421.1 *H ABG PO2/FiO2 Ratio (mm/Hg) 131.20 ABG HCO3 (22.0 - 26.0 MMOL/L) 25.7 25.1 27.7 H 26.4 H ABG Total CO2 27.0 26.5 29.0 27.7 ABG Base Excess (-4.0 - 4.0 MMOL/L) 0.5 -0.3 2. 6 1.7 ABG Hematocrit (37.5 - 50.7 %) 35 L 29 L 30 L 31 L ABG Hemoglobin (12.5 - 16.9 G/DL) 11.7 L 9.8 L 10.1 L 10.4 L Sodium (134 - 147 mmol/L) 140 141 135 137 Potassium (3.4 - 5.0 mmol/L) 4.4 4.3 7.0 *H 6.7 *H Chloride (100 - 108 mmol/L) 105 105 100 101 Ionized Calcium (1.12 - 1.32 MMOL/L) 1.34 H 1.3 6 H 0.92 L 0.97 L Lactic Acid (0.9 - 1.7 mmol/l) 1.8 H 1.2 1.0 Temperature (F) 96.4 O2 Delivery Device Adult Vent Vent Mode AC Vent Rate (/MIN) 14 FiO2 (%) 50 Tidal Volume (ml) 500 PEEP (cmH2O) 5 04/07 04/07 04/07 1331 1303 1212 Blood Gas O2 Saturation (90 - 100 %) 100.0 99.5 100.0 ABG pH (7.35 - 7.45) 7.426 7.293 *L 7.375 ABG pCO2 (35.0 - 45 mmHg) 39.8 47.3 H 42.5 ABG pO2 (80 - 100.0 mmHg) 497.6 *H 186.0 H 455. 2 *H ABG HCO3 (22.0 - 26.0 MMOL/L) 26.1 H 22.9 24.9 ABG Total CO2 27.3 24.3 26.2 ABG Base Excess (-4.0 - 4.0 MMOL/L) 1.6 -3.8 - 0.6 ABG Hematocrit (37.5 - 50.7 %) 30 L 35 L 48 ABG Hemoglobin (12.5 - 16.9 G/DL) 10.3 L 11.8 L 16.3 Sodium (134 - 147 mmol/L) 138 141 141 Potassium (3.4 - 5.0 mmol/L) 5.9 *H 3.7 4.3 Chloride (100 - 108 mmol/L) 101 108 104 Ionized Calcium (1.12 - 1.32 MMOL/L) 0.95 L 0.9 8 L 1.09 L Lactic Acid (0.9 - 1.7 mmol/l) 0.6 L 0.6 L 0.7 L Laboratory Tests 09/19 09/19 09/19 09/18 09/18 0801 0440 0205 2313 2045 Chemistry Sodium (134 - 147 mEq/L) 138 Potassium (3.4 - 5.0 mEq/L) 5.0 Chloride (100 - 108 mEq/L) 105 Carbon Dioxide (21 - 33 mEq/l) 26 Anion Gap (0 - 20) 12 BUN (7 - 18 mg/dL) 12 Creatinine (0.6 - 1.3 mg/dL) 1.2 POC Creatinine (0.8 - 1.3 mg/dL) 1.1 0.9 Glomerular Filtr Rate (90 - 95) 69.7 L Glucose (70 - 110 mg/dL) 156 H POC Glucose (70 - 110 MG/DL) 111 H 122 H POC Glucose (mg/dL) (70 - 110 MG/DL) 118 H 147 H Calcium (8.0 - 10.5 mg/dL) 8.8 Ionized Calcium Abelardo (1.09 - 1.30 MMOL/L) 1.13 Magnesium (1.80 - 2.40 mg/dL) 1.74 L Total Bilirubin (0.0 - 1.0 mg/dL) 0.50 Direct Bilirubin (0.0 - 0.30 MG/DL) 0.20 Indirect Bilirubin (MG/DL) 0.30 AST (15 - 37 IUnit/L) 45 H ALT (30 - 65 IUnit/L) 13 L Total Alk Phosphatase (20 - 125 IUnit/L) 36 Total Protein (6.4 - 8.2 g/dL) 6.0 L Albumin (3.4 - 5.0 g/dL) 4.20 09/18 09/18 09/18 09/18 09/18 1754 1707 1541 1538 1505 Chemistry Sodium (134 - 147 mEq/L) 140 Potassium (3.4 - 5.0 mEq/L) 4.2 Chloride (100 - 108 mEq/L) 108 Carbon Dioxide (21 - 33 mEq/l) 24 Anion Gap (0 - 20) 13 BUN (7 - 18 mg/dL) 10 Creatinine (0.6 - 1.3 mg/dL) 1.0 POC Creatinine (0.8 - 1.3 mg/dL) 1.0 1.0 0.8 1. 0 Glomerular Filtr Rate (90 - 95) 86.7 L Glucose (70 - 110 mg/dL) 182 H POC Glucose (mg/dL) (70 - 110 MG/DL) 151 H 154 H 188 H 208 H Calcium (8.0 - 10.5 mg/dL) 9.7 Magnesium (1.80 - 2.40 mg/dL) 2.41 H 09/18 09/18 09/18 09/18 09/18 1419 1354 1331 1303 1212 Chemistry POC Creatinine (0.8 - 1.3 mg/dL) 1.0 1.0 1.0 0 .8 1.0 POC Glucose (mg/dL) (70 - 110 MG/DL) 197 H 192 H 164 H 157 H 160 H Laboratory Tests 09/18 09/18 09/18 09/18 09/18 1538 1506 1420 1356 1328 Coagulation INR (0.8 - 1.2) 1.5 H PTT (Cocke) (25.0 - 39.5 Seconds) 29.0 PT Patient/Control Mix (9.3 - 12.9 16.8 H SECONDS) Activated Coag Time (74 - 137 SEC) 125 636 H 7 32 H 913 H 09/18 09/18 1302 1214 Coagulation Activated Coag Time (74 - 137 SEC) 859 H 131 Laboratory Tests 09/19 09/18 0205 1538 Hematology WBC (4.5 - 11.0 x10 3/uL) 12.2 H 13.1 H RBC (4.00 - 5.60 x10 6/uL) 4.23 3.89 L Hgb (12.5 - 16.9 g/dL) 13.7 12.7 Hct (37.5 - 50.7 %) 38.7 35.7 L MCV (81.0 - 99.0 fL) 91.5 91.8 MCH (27.0 - 33.0 pg) 32.4 32.6 MCHC (33.0 - 37.0 g/dL) 35.4 35.6 RDW (11.5 - 14.5 %) 12.3 12.0 Plt Count (150 - 400 x10 3/uL) 184 138 L MPV (7.0 - 9.0 fL) 9.6 H 9.5 H Neut % (Auto) (56.0 - 77.0 %) 84.8 H 77.0 Lymph % (Auto) (14.0 - 32.0 %) 4.7 L 13.8 L Fre[place] % (Auto) (4.8 - 9.0 %) 10.1 H 6.8 Eos % (Auto) (0.3 - 3.7 %) 0.1 L 1.7 Baso % (Auto) (0.0 - 2.0 %) 0.1 0.2 Neut # (Auto) (2.0 - 7.6 x10 3/uL) 10.39 H 10.0 7 H Lymph # (Auto) (1.0 - 3.8 x10 3/uL) 0.57 L 1.80 [place] # (Auto) (0.1 - 0.8 x10 3/uL) 1.24 H 0.89 H Eos # (Auto) (0.0 - 0.2 x10 3/uL) 0.01 0.22 H Baso # (Auto) (0.0 - 0.2 x10 3/uL) 0.01 0.03 Abs Immat Gran (auto) (0.00 - 0.03 x10 3/uL) 0. 02 0.06 H Add Manual Diff NO NO Immature Gran % (0.0 - 2.0 %) 0.2 0.5 Nucleated RBC % (0 - 0 %) 0.0 0.0 Nucleated RBCs # (Man) (0.0 - 0.1 x10 3/uL) 0.0 0 0.00 Laboratory Tests 09/19/22 0205: [Embedded Image Not Available] 09/18/22 1538: [Embedded Image Not Available] Microbiology: 09/18 942 NASAL: MSSA Surveillance Screen - ORD 09/18 942 NASAL: MRSA DNA Surveillance Screen - ORD 09/17 2144 NASAL: MSSA Surveillance Screen - COM P 09/17 2144 NASAL: MRSA DNA Surveillance Screen - COMP Radiology data Recent Impressions: RADIOLOGY - XR CHEST 1 V 09/18 1558 Report Impression - Status: SIGNED Entered: 09/18/2022 1641 IMPRESSION: 1. Interval CABG. 2. Hypoventilatory changes. Satisfactory line an d tube placement. Impression By: [email or web address] - Susan Pope Free Text Obj Notes Free Text Obj Notes: GEN: Patient is calm and in no distress. NECK: Supple, no JVD or thrush. No adenopathy. LUNGS: Clear lungs, no wheezes, no rales or crac kles. CV: S1, S2 regular, no murmurs are heard. No S3 or rubs. GI: Abdomen is soft, not tender. Bowel sounds ar e present. EXT/Musc: No edema. No clubbing or cyanosis note d. Skin is warm. NEURO: Awake and oriented x 3. No focal findings . Diagnosis, Assessment Plan Free text A P: Acute pulmonary insufficiency following thoracic surgery Status post CABG x 5 (ADKINS-LAD, Seq-D2, SVG-D1, SVG-OM, SVG-PDA) and ALAA Acute blood loss anemia Diabetes mellitus History of hypertension Continue mechanical ventilation, vent settings r eviewed Titrate FiO2 to keep saturation more than 90%. Spontaneous breathing trial as soon as possible Wean to extubate Extubated to nasal cannula and doing well Keep off sedation Follow ABGs and CXRs Judicious pain control Nitroglycerin drip for 24 hours secondary to seq uential graft Aspirin and Plavix Atorvastatin Amiodarone Metoprolol Monitor chest tube output Monitor urine output and kidney function Monitor and replete electrolytes Perioperative antibiotics Cardiac diet with bowel regimen once extubated BG control with insulin gtt per protocol Out of bed to chair PT/OT VTE prophylaxis, SCDs and DAPT Stress ulcer prophylaxis, PPI Discussed with CV surgery and ICU team Critical care time 64 minutes 09/19 Titrate FiO2 to keep saturation more than 90%. Follow ABGs and CXRs Judicious pain control Off Nitroglycerin drip Aspirin and Plavix Atorvastatin Amiodarone Metoprolol Monitor chest tubes output DC lines per CV surgery Monitor urine output and kidney function Monitor and replete electrolytes Cardiac diet with bowel regime BG control with insulin gtt per protocol, transi tion to sliding scale insulin Out of bed to chair PT/OT VTE prophylaxis, SCDs and DAPT Stress ulcer prophylaxis, PPI Discussed with CV surgery and ICU team Critical care time 33 minutes Consultants: cardiology, cardiovascular surgery Quality: Gen Med Crit Care Current Medications Current medication review: Current Medications Sig/Renee Start time Last Medication Dose Route Stop Time Status Admin Cefazolin Sodium 2 GM PREOP ONCALL 09/19 050 C KD IV 09/19 2358 Metoprolol Tartrate 6.25 MG ONCE ONE 09/19 050 AC PO 09/19 050 Vancomycin HCl 1,500 MG PREOP ONCALL 09/19 050 CKD Sodium Chloride 250 ML IV 09/19 2358 Verapamil HCl 16.6 MG .Q24H ONE 09/19 499 CKD Heparin Sodium 1,660 UNIT IV 09/20 045 (Porcine) Sodium Bicarbonate 0.7 ML Nitroglycerin/ 8.3 MG Dextrose Lactated Ringer's 949.5 ML Sevoflurane 0 .STK-MED ONE 09/18 1253 DC INH Ephedrine Sulfate 0 .STK-MED ONE 09/18 1232 DC .ROUTE Albumin Human 100 ML .STK-MED ONE 09/18 1227 DC IV Papaverine HCl 0 .STK-MED ONE 09/18 1118 DC IV Cefazolin Sodium 0 .STK-MED ONE 09/18 1105 DC .ROUTE Albumin Human 100 ML .STK-MED ONE 09/18 1059 DC IV Heparin Sodium 0 .STK-MED ONE 09/18 1059 DC .ROUTE Sodium Chloride 100 ML .STK-MED ONE 09/18 1059 DC IV Lidocaine HCl 0 .STK-MED ONE 09/18 1058 DC IV Magnesium Sulfate 0 .STK-MED ONE 09/18 1058 DC IV Phenylephrine HCl 0 .STK-MED ONE 09/18 1058 DC .ROUTE Sodium Bicarbonate 0 .STK-MED ONE 09/18 1058 DC IV Dexamethasone Sodium 0 .STK-MED ONE 09/18 1049 DC Phosphate .ROUTE Esmolol HCl 0 .STK-MED ONE 09/18 1049 DC IV Glycopyrrolate 0 .STK-MED ONE 09/18 1049 DC .ROUTE Lidocaine HCl 0 .STK-MED ONE 09/18 1049 DC .ROUTE Neostigmine 0 .STK-MED ONE 09/18 1049 DC Methylsulfate .ROUTE Ondansetron HCl 0 .STK-MED ONE 09/18 1049 DC .ROUTE Rocuronium [place] 0 .STK-MED ONE 09/18 1049 DC IV Vasopressin 0 .STK-MED ONE 09/18 1049 DC .ROUTE Fentanyl Citrate 0 .STK-MED ONE 09/18 1048 DC IV Midazolam HCl 0 .STK-MED ONE 09/18 1048 DC .ROUTE Propofol 20 ML .STK-MED ONE 09/18 1048 DC IV Aminocaproic Acid 0 .STK-MED ONE 09/18 1046 DC IV Epinephrine HCl 250 ML .STK-MED ONE 09/18 1046 DC IV Heparin Sodium 0 .STK-MED ONE 09/18 104 DC .ROUTE Insulin Human Regular 100 ML .STK-MED ONE 09/18 1046 DC IV Nitroglycerin/ 250 ML .STK-MED ONE 09/18 1046 D C Dextrose IV Norepinephrine 250 ML .STK-MED ONE 09/18 104 D C Bitartrate IV Protamine Sulfate 0 .STK-MED ONE 09/18 104 DC IV Calcium Chloride 0 .STK-MED ONE 09/18 1045 DC IV Magnesium Sulfate 0 .STK-MED ONE 09/18 104 DC .ROUTE Ropivacaine 0 .STK-MED ONE 09/18 104 DC .ROUTE Fentanyl Citrate 0 .STK-MED ONE 09/18 104 DC .ROUTE Acetaminophen 1,000 MG PREOP ONCALL 09/18 0945 CKD PO 10/18 0944 Gabapentin 200 MG PREOP ONCALL 09/18 0945 CKD PO 10/18 2359 Sodium Chloride 20 ML ASDIR 09/18 0945 AC IV 09/19 2359 Metoprolol Tartrate 6.25 MG ONCE ONE 09/18 0500 DC PO 09/18 0501 Verapamil HCl 16.6 MG .Q24H ONE 09/18 0500 CKD Heparin Sodium 1,660 UNIT IV 09/19 0459 (Porcine) Sodium Bicarbonate 0.7 ML Nitroglycerin/ 8.3 MG Dextrose Lactated Ringer's 949.5 ML Albuterol Sulfate 2.5 MG RTONCE ONE 09/18 0445 DC NEB 09/18 0446 Mupirocin 1 APPLIC BID 09/17 2100 AC 09/18 NASAL 09/22 0901 0925 I attest that the foregoing medication list in t he medical record is true, accurate, and complete to the best of my knowled ge. at 1635 RPT #:[id number] END OF REPORT 2022-09-19 04:45:00-00:00 [id number] [place] [id number] PATIENT NAME: CHANDANA ARGUELLES ADMIT DATE: 3 ACCOUNT NO: [id number] ROOM NO: [id number] AGE: 61 REPORT TYPE: eELECTROCARDIOGRAM REPORT SEX: M ADMITTING PHYSICIAN:Kamryn Lozada MD ATTENDING PHYSICIAN:Kamryn Lozada MD Order: [id number] Test Reason : S/P CAB X 5 Test Date/Time Stamp: [facility] Sep 19 2022 04:45:14 Blood Pressure : / mmHG Vent. Rate : 082 BPM Atrial Rate : 082 BPM P-R Int : 154 ms QRS Dur : 074 ms QT Int : 348 ms P-R-T Axes : 055 -23 033 degre es QTc Int : 406 ms Normal sinus rhythm Inferior infarct (cited on or before 18-SEP-2022 ) Abnormal ECG When compared with ECG of 18-SEP-2022 15:56, Significant changes have occurred Confirmed by MD ROHAN, VINAYAK ([id number]) on 09/23/19 9:18:35 PM Referred By: Isabel Lozada Confirmed by:VINAYAK SILVERIO MD Electronically Signed by Vinayak Madrigal MD on 0 09/22/22 at 2118 PATIENT NAME: CHANDANA ARGUELLES 0799 2022-09-18 16:13:00-00:00 [id number] [place] [address] PATIENT NAME: CHANDANA ARGUELLES ADMIT DATE: 3 ACCOUNT NO: [id number] ROOM NO: G.[id number] AGE: 61 REPORT TYPE: OPERATIVE REPORT SEX: M ADMITTING PHYSICIAN:Kamryn Lozada MD ATTENDING PHYSICIAN:Kamryn Lozada MD OPERATION DATE: 09/18/2022 PREOPERATIVE DIAGNOSIS: Coronary artery disease. POSTOPERATIVE DIAGNOSIS: Coronary artery disease . PROCEDURES: 1. Coronary artery bypass graft surgery x5 (left internal mammary artery to left anterior descending, se quential to second diagonal, saphenous vein to first diagonal, saphenous vein to marginal, saphenous vein to posterior descending artery). 2. Amputation of left atrial appendage. 3. Endoscopic vein harvest (right greater saphen ous vein). 4. Posterior pericardiotomy. SURGEON: Kamryn Lozada MD CARTOON ARTIST: Christopher Montenegro. ANESTHESIOLOGIST: Dr. Prince Amaro. ANESTHESIA: General endotracheal anesthesia. ESTIMATED BLOOD LOSS: 100 mL. INDICATIONS: Mr. Arguelles i s a 61-year-old diabetic gentleman with very strong family history of coronary artery disease, who r ecently lost his brother with GA. After due preoperative counseling, Mr. Kenney nolan was brought to the operating room today for surgical revascularizat ion. FINDINGS: 1. Vein was harvested from the right leg using e ndoscopic vein harvest technique. Vein was of satisfactory quality, risa suring about 4 mm in size. 2. Normal sternum. 3. Good quality ADKINS measuring 2 mm in size with excellent flow. 4. Normal pericardium without any intrapericardi al adhesion, minimal intrapericardial fluid. 5. Diffuse calcific coronary artery disease. 6. LAD 2 mm diffusely diseased artery. I was abl e to find a soft spot in distal third of the LAD. 7. Diagonal 1.75 mm, slightly diseased artery. 8. First diagonal 2 mm, slightly diseased artery . 9. Marginal 2 mm with significant amount of calc ification on the posterior PATIENT NAME: CHANDANA ARGUELLES 0799 wall. 10. PDA 2 mm, slightly diseased artery. 11. Left atrial appendage was amputated half a cm from the base. This was then repaired with two layers with a running pledgete d 4-0 Prolene suture. 11. Posterior pericardiotomy was performed by making a cruciate incision in the posterior aspect of the pericardium and excising 2 cm x 2 cm of posterior pericardium. DESCRIPTION OF PROCEDURE: Mr. Arguelles was iden tified in the preoperative holding area and brought to the OR and placed guzman pine on the operating table. After induction of general endotracheal anesthes ia, Hopson catheter, radial arterial line, and antibiotics were placed. The patient's anterior torso and both lower extremities were prepped and draped i n standard sterile fashion. Vein was harvested from the right leg us ing endoscopic vein harvest technique. Following harvesting, subcutaneous tissue was cl osed with 2-0 Vicryl and skin with 4-0 Vicryl. Simultaneously, median sternoto my was performed. The left internal mammary artery was harvested. The patie nt was heparinized. Pericardium was opened longitudinally and perica rdial well was created. Cardiopulmonary bypass was i nstituted using ascending aorta and 3-stage cannula in the right atrium. The patient was cooled to 3 4 degrees centigrade. Crossclamp was applied and the heart was arreste d with 1.5 L antegrade cold blood cardioplegia. Cardioplegia was repeated at interval of 10 minutes all throughout duration of crossclamp. We began by e xploring the PDA. This was slightly diseased artery measuring 2 mm. Arteriotomy was performed with [place] blade and extended with Sandhu scissors. A segmen t of previously harvested reverse saphenous vein was anastomosed i n end-to-side manner using 7-0 Prolene suture. Vein graft to PDA was brought along the right side of the heart and sized. Aortotomy was performed on the right aspe ct of the aorta using 4 mm punch. Proximal anastomosis of the PDA graft was then performed using running 6-0 Prolene suture. Next, the left atrial append age was amputated half a centimeter from the base. This was then repaired with two layers of running pledgeted 4-0 Prolene suture. Marginal was explo red next. This was a slightly diseased artery measuring 2 mm. This was disease d artery with significant amount of calcium on the posterior wall of the a rtery, but anteriorly, the artery was soft. Arteriotomy was performed with a [place] blade and extended with Sandhu scissors. A segment of previously crystal vested reverse saphenous vein was anastomosed in end-to-side manner using runn ing 7-0 Prolene suture. Vein graft to marginal was brought along the left jason e of the heart and sized. Aortotomy was performed on the left aspect of th e aorta using 4 mm punch. Proximal anastomosis of marginal graft was then performed using running 6-0 Prolene suture. Next, a cruc iate incision was made in the posterior pericardium using a Bovie cautery and a 2 cm x 2 cm pericard ium was excised. Next, the first diagonal was explored. This was slightly d iseased artery measuring 2 mm in size. Arteriotomy was performed with a [place] blade and extended with Sandhu scissors. A segment of previously harvested reve rse saphenous vein was anastomosed in end-to-side manner using 7-0 Prol jackeline suture. Vein graft to the first diagonal was brought along the left side o f the heart and sized. Aortotomy was performed on the left aspect of th e aorta using 4 mm punch. Proximal anastomosis of the first diagonal graft was then performed using running 6-0 Prolene suture. Rewarming was commen warren at this stage. Next, the second diagonal was explored. This was s lightly diseased artery measuring 1.75 mm in size. Arteriotomy was performed with a [place] blade and extended with Sandhu scissors. ADKINS was sized. Arteriotomy was performed on ADKINS at appropriate site and [id number] anastomosis wa s created between ADKINS and PATIENT NAME: CHANDANA ARGUELLES 0799 second diagonal using running 8-0 Prolene suture . Finally, LAD was explored. This was diseased artery measuring about 2 mm in size. Arteriotomy was performed with a [place] blade and extended with Sandhu scissors. ADKINS was anastomosed in end-to-side manner using running 8-0 Prolene suture. ADKINS pedicle tacked to epicardium using two interrupt ed 6-0 Prolene suture. A slit was made in the pericardium on the left aspect, so as to accommodate the ADKINS. Careful de-aeration was performed and the cross- clamp was released. One ventricular wire was placed. A 28-Albanian chest t ube was placed in the mediastinum and 28-angled ch est tube was placed in the left pleural space. Once the patient was at temperature, he was weaned of f cardiopulmonary bypass with minimal inotropic support. Heparin was reversed with protamine. Decannulation was uneventful. After confirming hemostasis, the chest was closed in layers using stainless steel wires for the sternum, #1 Vicryl for the fascia, 2-0 Vicryl for the subcutaneous tissue and 4-0 Vicryl for the skin. The patient was transferred to intensive care unit, intubated in stable condition. Dictated By: Kamryn Lozada MD Date Dictated: 09/18/2022 16:13:45 Date Transcribed: 09/18/2022 21:06:25 AC/DIV Receipt ID: [id number] Authenticated and Edited by Prakash Lozada MD On 09/20/22 11:56:02 AM at 1157 PATIENT NAME: CHANDANA ARGUELLES 0799 2022-09-18 16:01:00-00:00 [facility] ([facility]) Brief Op Note REPORT#:[id number] REPORT STATUS: Signed DATE:09/18/22 TIME: 1601 PATIENT: CHANDANA ARGUELLES UNIT #: [id number] ROOM/BED: [place] [address] : [birth year] AGE: 61 SEX: M ATTEND: Maryellen Lozada MD ADM AUTHOR: Kamryn Lozada MD * ALL edits or amendments must be made on the [employer]/computer document * Op/Inv Proc Note - Brief Pre-procedure diagnosis: CAD Post-procedure diagnosis: same as pre procedure dx Procedures performed: CABG x 5 (ADKINS-LAD, Seq-D2, SVG-D1, SVG-OM, SVG- PDA) ALAA EVH (RGSV) Posterior pericardiotomy Primary Surgeon: Kierra Supervisor Soldering(s): Christopher Montenegro Findings: LAD-2mm slightly diseased artery Complications: none Estimated blood loss in ml's: 100 cc Specimens removed/altered: TYLER at 1606 RPT #:[id number] END OF REPORT 2022-09-18 15:56:00-00:00 [id number] [address] PATIENT NAME: CHANDANA ARGUELLES ADMIT DATE: 3 ACCOUNT NO: [id number] [place]OM NO: [facility] AGE: 61 REPORT TYPE: eELECTROCARDIOGRAM REPORT SEX: M ADMITTING PHYSICIAN:Kamryn Lozada MD ATTENDING PHYSICIAN:Kamryn Lozada MD Order: [id number] Test Reason : S/P CABG Test Date/Time Stamp: WedSep 18 2022 15:56:01 Blood Pressure : / mmHG Vent. Rate : 061 BPM Atrial Rate : 061 BPM P-R Int : 304 ms QRS Dur : 082 ms QT Int : 414 ms P-R-T Axes : 057 013 057 degree s QTc Int : 416 ms Sinus rhythm with 1st degree AV block Cannot rule out Inferior infarct , age undetermi raiza Abnormal ECG No previous ECGs available Confirmed by MD MADRIGAL GERARD ([id number]) on 09/23/19 9:18:31 PM Referred By: Isabel Lozada Confirmed by:VINAYAK MADRIGAL MD Electronically Signed by Vinayak Madrigal MD on 0 09/22/22 at 2118 PATIENT NAME: CHANDANA ARGUELLES 0799 2022-09-18 15:35:00-00:00 [facility] Critical Care Consult Note REPORT#:[id number] REPORT STATUS: Signed DATE:09/18/22 TIME: 1535 PATIENT: CHANDANA ARGUELLES UNIT #: [id number] ROOM/BED: [place] [address] : 64 AGE: 61 SEX: M ATTEND: Maryellen Lozada MD ADM AUTHOR: Mervat Mcdonald MD * ALL edits or amendments must be made on the [employer]/computer document * History of Present Illness HPI Chief complaint: Palpitations HPI: This is a 61 years old male with medical history significant for hypertension, diabetes mellitus, strong fa tammi history of CAD, who has been having increasing palpitations so he went to see his cardi ologist who ordered a stress test that came out abnormal. 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 The patient was admitted to our hospital for cardiovascular evaluation for possible CABG. Earlier today the patient un derwent CABG x 5 (ADKINS-LAD, Seq-D2, SVG-D1, SVG-OM, SVG-PDA) and ALAA. His intraoperative course was without significant ocurrence. He received 1.8 L of crystalloids, 700 cc o f autologous blood transfusion and 725 cc of Cell Saver. He arrived to CVICU intubated and ventilated and on no pressors. He was started on nitroglycerin drip s econdary to sequential graft. He will be weaned to be extubated per protocol. History - Adult longitudinal Past medical history: Reports: Diabetes mellitus, Hypertension. Additional medical history: Hypertension Diabetes Past surgical history: Reports: Tonsillectomy. Additional surgical history: 2 knee procedures 2 neck surgeries Additional family history: Strong family history of premature coronary nicole ry disease. Brother at age 55 of heart attack Father at age 63 from heart attack Alcohol use: Denies EtOH use Drug use: Denies recreational drugs Smoking status for patients 13 years old or olde r: Light tobacco smoker Allergies: Coded Allergies: No Known Allergies (09/17/22) Ambulatory status: Independent Review of Systems ROS Additional notes: Due to patient condition, the patient is unable to provide subjective data and therefore a comprehensive review of systems was not completed. All data and labs were reviewed and discussed wi yuliya RN. Objective Physical Exam VS/I O: Last Documented: Result Date Time B/P 105/65 09/18 0500 B/P Mean 78 / 0500 Pulse 59 / 0500 Resp 13 / 0500 Pulse Ox 95 09/18 0200 O2 Delivery Room air 09/17 2121 Temp 36.6 09/18 1999 24 hour I O ending at 0700: 09/18 0700 09/17 1900 Intake Total Output Total Balance Patient 95 kg Weight Weight Standing scale Measurement Method Patient Weight and BMI Weight (kg): 95.000 BMI: 29.2 Medications: Active Meds + DC'd Last 24 Hrs Ipratropium [place] (ATROVENT) 500 MCG RTQ2H PRN PRN INH Cyanocobalamin (Vitamin B-12 500 mcg tab) 500 MC G DAILY PO Ferrous Sulfate (FERROUS SULFATE) 325 MG DAILY P O Bisacodyl (DULCOLAX) 10 MG ONCE PRN RECTAL Magnesium Hydroxide (MILK OF MAGNESIA) 30 ML ONC E PRN PO Atorvastatin Calcium (LIPITOR) 40 MG 2100 PO Clopidogrel Bisulfate (Plavix) 75 MG DAILY PO Polyethylene Glycol (MIRALAX) 17 GM DAILY PO Pantoprazole (PROTONIX) 40 MG DAILY@0600 PO Cefazolin Sodium (KEFZOL OR ANCEF) 2 GM 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 IV (CKD) Metoprolol Tartrate (LOPRESSOR) 6.25 MG ONCE ONE PO Vancomycin HCl (VANCOMYCIN HCL) 1,500 MG PREOP O NCALL IV (CKD) Sodium Chloride (SODIUM CHLORIDE 0.9%) 250 ML Verapamil HCl (ISOPTIN) 16.6 MG .Q24H ONE IV (CK D) Heparin Sodium (Porcine) (HEPARIN SODIUM) 1,660 UNIT Sodium Bicarbonate (SODIUM BICARBONATE) 0.7 ML Nitroglycerin/Dextrose (NITROGLYCERIN 50MG/D5W 250ML) 8.3 MG Lactated Ringer's (LACTATED RINGERS) 949.5 ML Docusate Sodium (COLACE) 100 MG BID PO Gabapentin (NEURONTIN) 200 MG BID PO Metoprolol Tartrate (LOPRESSOR) 12.5 MG Q12HR PO Sennosides (Senna Lax 8.6 MG TABLET) 17.2 MG BED TIME PO Aspirin (ASPIRIN) 81 MG DAILY PO Cefazolin Sodium (KEFZOL OR ANCEF) 6 GM ONCE ONE IV (CKD) Sodium Chloride (SODIUM CHLORIDE 0.9%) 500 ML Ipratropium [place] (ATROVENT) 500 MCG RTQ4H INH Acetaminophen (TYLENOL) 650 MG Q4H PRN PRN PO Acetaminophen (TYLENOL) 650 MG Q4H PRN PRN RECTA L Albumin Human (ALBUMINAR 25%) 25 GM ASDIR PRN IV Amiodarone HCl (CORDARONE) 200 MG TID PO Calcium Chloride (CALCIUM CHLORIDE) 1 GM ASDIR P RN IV Chlorhexidine Gluconate (PERIDEX) 15 ML Q2H MM ( CKD) Dextrose/Water (DEXTROSE 10% IN WATER) 125 ML DIR PRN IV (CKD) Dextrose/Water (DEXTROSE 10% IN WATER) 250 ML DIR PRN IV (CKD) Epinephrine (ADRENALIN CHLORIDE) 4 MG ASDIR IV Dextrose/Water (DEXTROSE 5% WATER) 246 ML Glucagon (GLUCAGON) 1 MG ASDIR PRN IM Insulin Human Regular (HumuLIN R) 100 UNIT ASDIR IV (CKD) Sodium Chloride (SODIUM CHLORIDE 0.9%) 99 ML Magnesium Sulfate (MAGNESIUM SULFATE 4GM/SWFI 10 0ML) 100 ML ASDIR PRN IV Magnesium Sulfate (MAGNESIUM SULFATE 2GM/SWFI 50 ML) 50 ML ASDIR PRN IV Magnesium Sulfate/Dextrose (MAGNESIUM SULFATE 1G M/D5W 100ML) 100 ML ASDIR PRN IV Morphine Sulfate (morphine SULFATE) 4 MG Q2H PRN PRN IV Nitroglycerin/Dextrose (NITROGLYCERIN 50,000MCG/ D5W 250ML) 250 ML ASDIR IV Norepinephrine Bitartrate (NOREPINEPHRINE 8 MG/N S 250 ML) 250 ML TITRATE IV Ondansetron HCl (ZOFRAN) 4 MG Q6H PRN PRN IV Oxycodone HCl (ROXICODONE) 5 MG Q4H PRN PRN PO Oxycodone HCl (ROXICODONE) 10 MG Q4H PRN PRN PO Potassium Chloride (KCL 20MEQ/SWFI 100ML) 100 ML ASDIR PRN IV Sodium Bicarbonate (SODIUM BICARBONATE) 50 MEQ A SDIR PRN IV Sodium Chloride (SODIUM CHLORIDE 0.9%) 1,000 ML .Q20H IV Sodium Chloride (SODIUM CHLORIDE 0.9%) 250 ML Q2 4H IV Glycopyrrolate (GLYCOPYRROLATE) 0 .STK-MED ONE . ROUTE (DC) Neostigmine Methylsulfate (PROSTIGMIN) 0 .STK-ME D ONE .ROUTE (DC) Sevoflurane (ULTANE) 0 .STK-MED ONE INH (DC) Ephedrine Sulfate (ePHEDrine sulfate) 0 .STK-ME D ONE .ROUTE (DC) Albumin Human (ALBUMINAR-25%) 100 ML .STK-MED ON E IV (DC) Papaverine HCl (PAPAVERINE HCL) 0 .STK-MED ONE I V (DC) Cefazolin Sodium (KEFZOL OR ANCEF) 0 .STK-MED ON E .ROUTE (DC) Albumin Human (ALBUMINAR-25%) 100 ML .STK-MED ON E IV (DC) Heparin Sodium (HEPARIN SODIUM) 0 .STK-MED ONE . ROUTE (DC) Sodium Chloride (SODIUM CHLORIDE 0.9%) 100 ML .S TK-MED ONE IV (DC) Lidocaine HCl (XYLOCAINE IV) 0 .STK-MED ONE IV ( DC) Magnesium Sulfate (MAGNESIUM SULFATE) 0 .STK-MED ONE IV (DC) Phenylephrine HCl (ALIZE-SYNEPHRINE 10MG/ML AMP) 0 .STK-MED ONE .ROUTE (DC ) Sodium Bicarbonate (SODIUM BICARBONATE) 0 .STK-M ED ONE IV (DC) Dexamethasone Sodium Phosphate (DECADRON) 0 .STK -MED ONE .ROUTE (DC) Esmolol HCl (BREVIBLOC) 0 .STK-MED ONE IV (DC) Glycopyrrolate (GLYCOPYRROLATE) 0 .STK-MED ONE .ROUTE (DC) Lidocaine HCl (XYLOCAINE) 0 .STK-MED ONE .ROUTE (DC) Neostigmine Methylsulfate (PROSTIGMIN) 0 .STK-ME D ONE .ROUTE (DC) Ondansetron HCl (ZOFRAN) 0 .STK-MED ONE .ROUTE (DC) Rocuronium [place] (ZEMURON) 0 .STK-MED ONE IV ( DC) Vasopressin (VASOSTRICT) 0 .STK-MED ONE .ROUTE ( DC) Fentanyl Citrate (SUBLIMAZE) 0 .STK-MED ONE IV ( DC) Midazolam HCl (VERSED) 0 .STK-MED ONE .ROUTE (DC ) Propofol (DIPRIVAN 200MG/20ML INJECTION) 20 ML . STK-MED ONE IV (DC) Aminocaproic Acid (AMICAR) 0 .STK-MED ONE IV (DC ) Epinephrine HCl (EPINEPHrine 4 mg/D5W 250 mL) 25 0 ML .STK-MED ONE IV (DC ) Heparin Sodium (HEPARIN SODIUM) 0 .STK-MED ONE . ROUTE (DC) Insulin Human Regular (HumuLIN R 100 UNITS/NS 10 0ML) 100 ML .STK-MED ONE IV (DC) Nitroglycerin/Dextrose (NITROGLYCERIN 50,000MCG/ D5W 250ML) 250 ML .STK-MED ONE IV (DC) Norepinephrine Bitartrate (NOREPINEPHRINE 8 MG/N S 250 ML) 250 ML .STK-MED ONE IV (DC) Protamine Sulfate (PROTAMINE SULFATE) 0 .STK-MED ONE IV (DC) Calcium Chloride (CALCIUM CHLORIDE) 0 .STK-MED O NE IV (DC) Magnesium Sulfate (MAGNESIUM SULFATE) 0 .STK-MED ONE .ROUTE (DC) Ropivacaine (NAROPIN 0.5% 150 MG/30mL) 0 .STK-ME D ONE .ROUTE (DC) Fentanyl Citrate (SUBLIMAZE) 0 .STK-MED ONE .ROU TE (DC) Acetaminophen (TYLENOL EXTRA STRENGTH) 1,000 MG PREOP ONCALL PO (CKD) Gabapentin (NEURONTIN) 200 MG PREOP ONCALL PO (C KD) Sodium Chloride (SODIUM CHLORIDE) 20 ML ASDIR IV Metoprolol Tartrate (LOPRESSOR) 6.25 MG ONCE ONE PO (DC) Verapamil HCl (ISOPTIN) 16.6 MG .Q24H ONE IV (CK D) Heparin Sodium (Porcine) (HEPARIN SODIUM) 1,660 UNIT Sodium Bicarbonate (SODIUM BICARBONATE) 0.7 ML Nitroglycerin/Dextrose (NITROGLYCERIN 50MG/D5W 250ML) 8.3 MG Lactated Ringer's (LACTATED RINGERS) 949.5 ML Albuterol Sulfate (ALBUTEROL SULFATE) 2.5 MG RTO NCE ONE NEB (DC) Mupirocin (BACTROBAN 2% 22 GM OINTMENT) 1 APPLIC BID NASAL Results Findings/Data: Laboratory Tests 09/18/22 0620: [Embedded Image Not Available] 09/17/225: [Embedded Image Not Available] Laboratory Tests 09/18 09/18 09/18 09/18 1505 1419 1354 1331 Blood Gas O2 Saturation (90 - 100 %) 97.8 100.0 100.0 100 .0 ABG pH (7.35 - 7.45) 7.371 7.406 7.417 7.426 ABG pCO2 (35.0 - 45 mmHg) 43.4 44.0 41.1 39.8 ABG pO2 (80 - 100.0 mmHg) 103.7 H 391.1 *H 421. 1 *H 497.6 *H ABG HCO3 (22.0 - 26.0 MMOL/L) 25.1 27.7 H 26.4 H 26.1 H ABG Total CO2 26.5 29.0 27.7 27.3 ABG Base Excess (-4.0 - 4.0 MMOL/L) -0.3 2.6 1. 7 1.6 ABG Hematocrit (37.5 - 50.7 %) 29 L 30 L 31 L 3 0 L ABG Hemoglobin (12.5 - 16.9 G/DL) 9.8 L 10.1 L 10.4 L 10.3 L Sodium (134 - 147 mmol/L) 141 135 137 138 Potassium (3.4 - 5.0 mmol/L) 4.3 7.0 *H 6.7 *H 5.9 *H Chloride (100 - 108 mmol/L) 105 100 101 101 Ionized Calcium (1.12 - 1.32 MMOL/L) 1.36 H 0.9 2 L 0.97 L 0.95 L Lactic Acid (0.9 - 1.7 mmol/l) 1.8 H 1.2 1.0 0 .6 L 09/18 09/18 1303 1212 Blood Gas O2 Saturation (90 - 100 %) 99.5 100.0 ABG pH (7.35 - 7.45) 7.293 *L 7.375 ABG pCO2 (35.0 - 45 mmHg) 47.3 H 42.5 ABG pO2 (80 - 100.0 mmHg) 186.0 H 455.2 *H ABG HCO3 (22.0 - 26.0 MMOL/L) 22.9 24.9 ABG Total CO2 24.3 26.2 ABG Base Excess (-4.0 - 4.0 MMOL/L) -3.8 -0.6 ABG Hematocrit (37.5 - 50.7 %) 35 L 48 ABG Hemoglobin (12.5 - 16.9 G/DL) 11.8 L 16.3 Sodium (134 - 147 mmol/L) 141 141 Potassium (3.4 - 5.0 mmol/L) 3.7 4.3 Chloride (100 - 108 mmol/L) 108 104 Ionized Calcium (1.12 - 1.32 MMOL/L) 0.98 L 1.0 9 L Lactic Acid (0.9 - 1.7 mmol/l) 0.6 L 0.7 L Laboratory Tests 09/18 09/18 09/18 09/18 09/18 1505 1419 1354 1331 1303 Chemistry POC Creatinine (0.8 - 1.3 mg/dL) 1.0 1.0 1.0 1. 0 0.8 POC Glucose (mg/dL) (70 - 110 MG/DL) 208 H 197 H 192 H 164 H 157 H 09/18 09/18 09/17 09/17 09/17 1212 0620 2044 2044 2044 Chemistry Sodium (134 - 147 mEq/L) 139 138 Potassium (3.4 - 5.0 mEq/L) 4.6 3.9 Chloride (100 - 108 mEq/L) 105 104 Carbon Dioxide (21 - 33 mEq/l) 28 25 Anion Gap (0 - 20) 11 13 BUN (7 - 18 mg/dL) 16 18 Creatinine (0.6 - 1.3 mg/dL) 1.3 1.3 POC Creatinine (0.8 - 1.3 mg/dL) 1.0 Glomerular Filtr Rate (90 - 95) 63.3 L 63.3 L Glucose (70 - 110 mg/dL) 180 H 255 H POC Glucose (mg/dL) (70 - 110 MG/DL) 160 H Hemoglobin A1c (4.8 - 6.0 %A1C) 8.0 H Calcium (8.0 - 10.5 mg/dL) 9.1 8.8 Magnesium (1.80 - 2.40 mg/dL) 1.87 Total Bilirubin (0.0 - 1.0 mg/dL) 0.40 AST (15 - 37 IUnit/L) 17 ALT (30 - 65 IUnit/L) 13 L Total Alk Phosphatase (20 - 125 IUnit/L) 51 B-Natriuretic Peptide (0 - 100 PG/ML) 22.0 Total Protein (6.4 - 8.2 g/dL) 6.8 Albumin (3.4 - 5.0 g/dL) 4.30 Triglycerides (40 - 150 mg/dL) 169 H Cholesterol (<200 mg/dL) 124 LDL Cholesterol Me[place] (0 - 100 mg/dL) 59.0 HDL Cholesterol (32 - 72 mg/dL) 39.6 Cholesterol/HDL Ratio (3.43 - 4.97 RATIO) 3.13 L Laboratory Tests 09/18 09/18 09/18 09/18 09/18 1506 1420 1356 1328 1302 Coagulation Activated Coag Time (74 - 137 SEC) 125 636 H 73 2 H 913 H 859 H 09/18 09/17 1214 2045 Coagulation INR (0.8 - 1.2) 1.1 PTT (Cocke) (25.0 - 39.5 Seconds) 25.1 PT Patient/Control Mix (9.3 - 12.9 SECONDS) 12 .5 Activated Coag Time (74 - 137 SEC) 131 Laboratory Tests 09/18 09/17 0620 2045 Hematology WBC (4.5 - 11.0 x10 3/uL) 7.4 7.1 RBC (4.00 - 5.60 x10 6/uL) 5.27 5.00 Hgb (12.5 - 16.9 g/dL) 17.0 H 16.1 Hct (37.5 - 50.7 %) 47.4 45.3 MCV (81.0 - 99.0 fL) 89.9 90.6 MCH (27.0 - 33.0 pg) 32.3 32.2 MCHC (33.0 - 37.0 g/dL) 35.9 35.5 RDW (11.5 - 14.5 %) 11.9 12.1 Plt Count (150 - 400 x10 3/uL) 265 230 MPV (7.0 - 9.0 fL) 9.2 H 9.4 H Neut % (Auto) (56.0 - 77.0 %) 48.7 L 48.0 L Lymph % (Auto) (14.0 - 32.0 %) 34.2 H 34.9 H [place] % (Auto) (4.8 - 9.0 %) 7.7 7.6 Eos % (Auto) (0.3 - 3.7 %) 8.2 H 8.2 H Baso % (Auto) (0.0 - 2.0 %) 1.1 1.0 Neut # (Auto) (2.0 - 7.6 x10 3/uL) 3.62 3.41 Lymph # (Auto) (1.0 - 3.8 x10 3/uL) 2.54 2.48 [place] # (Auto) (0.1 - 0.8 x10 3/uL) 0.57 0.54 Eos # (Auto) (0.0 - 0.2 x10 3/uL) 0.61 H 0.58 H Baso # (Auto) (0.0 - 0.2 x10 3/uL) 0.08 0.07 Abs Immat Gran (auto) (0.00 - 0.03 x10 3/uL) 0. 01 0.02 Add Manual Diff NO NO Immature Gran % (0.0 - 2.0 %) 0.1 0.3 Nucleated RBC % (0 - 0 %) 0.0 0.0 Nucleated RBCs # (Man) (0.0 - 0.1 x10 3/uL) 0.0 0 0.00 Laboratory Tests 09/17 2144 Serology SARS-CoV-2 Ag (Rapid) (Negative) Negative Laboratory Tests 09/18 221 Urines Urine Color (YEL/STRAW) YELLOW Urine Appearance (CLEAR) CLEAR Urine pH (5.0 - 7.0) 5.0 Ur Specific [place] (1.005 - 1.030) 1.017 Urine Protein (NEGATIVE) NEGATIVE Urine Glucose (UA) (NEGATIVE) 1+ H Urine Ketones (NEGATIVE) NEGATIVE Urine Blood (NEGATIVE) NEGATIVE Urine Nitrite (NEGATIVE) NEGATIVE Urine Bilirubin (NEGATIVE) NEGATIVE Urine Urobilinogen (0.2 - 1.0 mg/dL) 0.2 Ur Leukocyte Esterase (NEGATIVE) NEGATIVE Urine RBC (0 - 3 RBC/HPF) 0-3 Urine WBC (0 - 3 WBC/HPF) 0-3 Ur Squamous Epith Cells (NONE SEEN /HPF) NONE S EEN Urine Bacteria (NONE SEEN /HPF) NONE SEEN Hyaline Casts (NONE SEEN /LPF) 0-2 Urine Mucus (NONE SEEN /LPF) TRACE Microbiology: 09/18 942 NASAL: MSSA Surveillance Screen - ORD 09/18 942 NASAL: MRSA DNA Surveillance Screen - ORD 09/17 2144 NASAL: MSSA Surveillance Screen - COM P 09/17 2144 NASAL: MRSA DNA Surveillance Screen - COMP Radiology data: Recent Impressions: RADIOLOGY - XR CHEST 2 V 09/18 0241 Report Impression - Status: SIGNED Entered: 09/18/2022 0529 IMPRESSION: Mild left basilar subsegmental atelectasis. Impression By: [email or web address] Obdulio Lopez M.D. CAT SCAN - CT CHEST W/O CONTRAST 09/18 0242 Report Impression - Status: SIGNED Entered: 09/18/2022 0408 IMPRESSION: 1. No acute findings. 2. Severe diffuse coronary artery calcification. No significant aortic root calcified plaque given history. Impression By: Tanner Douglas ULTRASOUND - DUP VEIN AZALEA 09/18 0814 Report Impression - Status: SIGNED Entered: 09/18/2022 0959 IMPRESSION: Greater saphenous vein is patent. Vein mapping a s described. Impression By: ClaribelSJEan Rosas M.D. ULTRASOUND - DUP EXTRACRANIAL AZALEA 09/18 0814 Report Impression - Status: SIGNED Entered: 09/18/2022 0905 IMPRESSION: No flow-limiting proximal internal carotid arter ial stenosis. REFERENCES: SRU CRITERIA. The degree of internal carotid art danieliot stenosis is based on criteria defined by the Society of Radi ologists in Ultrasound (SRU). Normal is no stenosis. Mild is less than 50% stenosis. Moderate is 50-69% stenosis. Severe is greater than 69% stenosis to near occlusion. Near occlusion is a markedly narrowed lumen. Total occlusion is no detectable patent l umen. Impression By: Harjit - Will Pérez M.D. Free Text Obj Notes Free Text Obj Notes: GEN: Patient is calm and in no distress NECK: Neck is supple, no JVD or thrush. No adeno silvano. LUNGS: Coarse breath sounds, no wheezes, no rale s or crackles. HEART: S1/S2 regular, no murmurs are heard. No S 3 or rubs. ABDOMEN: Abdomen is soft, not tender. Bowel soun ds are present. EXT: No edema. No clubbing nor cyanosis noted. SKIN: Warm, with no rashes. NEURO: Intubated, sedated, does not follow comma nds Diagnosis, Assessment Plan Diagnosis, Assessment Plan Consultants: cardiology, cardiovascular surgery Free text DxA P: Acute pulmonary insufficiency following thoracic surgery Status post CABG x 5 (ADKINS-LAD, Seq-D2, SVG-D1, SVG-OM, SVG-PDA) and ALAA Acute blood loss anemia Diabetes mellitus History of hypertension Continue mechanical ventilation, vent settings r eviewed Titrate FiO2 to keep saturation more than 90%. Spontaneous breathing trial as soon as possible Wean to extubate Extubated to nasal cannula and doing well Keep off sedation Follow ABGs and CXRs Judicious pain control Nitroglycerin drip for 24 hours secondary to seq uential graft Aspirin and Plavix Atorvastatin Amiodarone Metoprolol Monitor chest tube output Monitor urine output and kidney function Monitor and replete electrolytes Perioperative antibiotics Cardiac diet with bowel regimen once extubated BG control with insulin gtt per protocol Out of bed to chair PT/OT VTE prophylaxis, SCDs and DAPT Stress ulcer prophylaxis, PPI Discussed with CV surgery and ICU team Critical care time 64 minutes at 1817 RPT #:[id number] END OF REPORT 2022-09-18 13:49:00-00:00 [facility] ([facility]) Adult General Consultation REPORT#:[id number] REPORT STATUS: Signed DATE:09/18/22 TIME: 1348 PATIENT: CHANDANA ARGUELLES UNIT #: [id number] ROOM/BED: [place] [address] : [birth year] AGE: 61 SEX: M ATTEND: Maryellen Lozada MD ADM AUTHOR: Umu Gross MD * ALL edits or amendments must be made on the [employer]/computer document * History of Present Illness Reason for consult: medical management Free Text HPI Notes Free Text HPI Notes: 61 years old male with PMH o f HTN , DM and family history of CAD was admitted to the hospital yesterday for CABG. he will have CA BG today . he complaint of palpitation . he went to see physicain . he had abnormal stress test . he had LHC done . it show multiple vessels CAD. he refer to the hospital for CABG. no fever no cough no cp no nausea no vomiting no di arrhea no dizziness History - Adult longitudinal Past medical history: Reports: Diabetes mellitus, Hypertension. Past surgical history: Reports: Tonsillectomy. Additional surgical history: cervical spine fusion Additional family history: Brother of GA last August at the age of 55 Father of GA at the age of 63 Alcohol use: Socially Drug use: Denies recreational drugs Smoking status for patients 13 years old or olde r: Never Smoker Allergies: Coded Allergies: No Known Allergies (09/17/22) Ambulatory status: Independent Review of Systems Constitutional: Denies: fatigue, fever, generalized weakness, le thargy. Respiratory: Denies: pneumonia, productive cough (sputum), SO B, wheezing. Cardiovascular: Denies: chest pain, SEO (dyspnea on exer tion), edema, orthopnea, palpitations. GI: Denies: abdominal pain, nausea, vomiting. : Denies: dysuria, flank pain, frequency, hematuri a, nocturia. Neuro: Denies: confusion, dizziness. Objective VS/I O: Last Documented: Result Date Time B/P 105/65 09/18 0500 B/P Mean 78 09/18 0500 Pulse 59 09/18 0500 Resp 13 09/18 0500 Pulse Ox 95 09/18 0200 O2 Delivery Room air 09/17 2120 Temp 36.6 09/18 1999 24 hour I O ending at 0700: 09/18 0700 09/17 1900 Intake Total Output Total Balance Patient 95 kg Weight Weight Standing scale Measurement Method PATIENT WEIGHT: Weight (lb): 209 Weight (oz): 7.03 Weight (kg): 95.000 General appearance: alert, awake, oriented, no a cute distress Head/Eyes: atraumatic, normal conjunctiva/sclera , normal fundi Neck: full range of motion, non-tender, no JVD Cardiovascular: regular rate rhythm, normal hear t sounds Respiratory: aerating well, clear to auscultatio n Abdomen: soft, non-tender, no distention Extremities: moves all, no edema, no calf tender ness 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, oriented X 3, CNII-XII grossly intact, normal speech Skin: dry, intact Results Findings/Data: Laboratory Tests: 09/18 09/18 09/18 09/18 09/18 1331 1328 1303 1302 1214 Blood Gas O2 Saturation (90 - 100 %) 100.0 99.5 ABG pH (7.35 - 7.45) 7.426 7.293 *L ABG pCO2 (35.0 - 45 mmHg) 39.8 47.3 H ABG pO2 (80 - 100.0 mmHg) 497.6 *H 186.0 H ABG HCO3 (22.0 - 26.0 MMOL/L) 26.1 H 22.9 ABG Total CO2 27.3 24.3 ABG Base Excess (-4.0 - 4.0 MMOL/L) 1.6 -3.8 ABG Hematocrit (37.5 - 50.7 %) 30 L 35 L ABG Hemoglobin (12.5 - 16.9 G/DL) 10.3 L 11.8 L Sodium (134 - 147 mmol/L) 138 141 Potassium (3.4 - 5.0 mmol/L) 5.9 *H 3.7 Chloride (100 - 108 mmol/L) 101 108 Ionized Calcium (1.12 - 1.32 MMOL/L) 0.95 L 0.9 8 L Lactic Acid (0.9 - 1.7 mmol/l) 0.6 L 0.6 L Chemistry POC Creatinine (0.8 - 1.3 mg/dL) 1.0 0.8 POC Glucose (mg/dL) (70 - 110 MG/DL) 164 H 157 H Coagulation Activated Coag Time (74 - 137 SEC) 913 H 859 H 131 07 09/18 09/18 1212 0620 0222 Blood Gas O2 Saturation (90 - 100 %) 100.0 ABG pH (7.35 - 7.45) 7.375 ABG pCO2 (35.0 - 45 mmHg) 42.5 ABG pO2 (80 - 100.0 mmHg) 455.2 *H ABG HCO3 (22.0 - 26.0 MMOL/L) 24.9 ABG Total CO2 26.2 ABG Base Excess (-4.0 - 4.0 MMOL/L) -0.6 ABG Hematocrit (37.5 - 50.7 %) 48 ABG Hemoglobin (12.5 - 16.9 G/DL) 16.3 Sodium (134 - 147 mmol/L) 141 Potassium (3.4 - 5.0 mmol/L) 4.3 Chloride (100 - 108 mmol/L) 104 Ionized Calcium (1.12 - 1.32 MMOL/L) 1.09 L Lactic Acid (0.9 - 1.7 mmol/l) 0.7 L Chemistry Sodium (134 - 147 mEq/L) 139 Potassium (3.4 - 5.0 mEq/L) 4.6 Chloride (100 - 108 mEq/L) 105 Carbon Dioxide (21 - 33 mEq/l) 28 Anion Gap (0 - 20) 11 BUN (7 - 18 mg/dL) 16 Creatinine (0.6 - 1.3 mg/dL) 1.3 POC Creatinine (0.8 - 1.3 mg/dL) 1.0 Glomerular Filtr Rate (90 - 95) 63.3 L Glucose (70 - 110 mg/dL) 180 H POC Glucose (mg/dL) (70 - 110 MG/DL) 160 H Calcium (8.0 - 10.5 mg/dL) 9.1 Magnesium (1.80 - 2.40 mg/dL) 1.87 Hematology WBC (4.5 - 11.0 x10 3/uL) 7.4 RBC (4.00 - 5.60 x10 6/uL) 5.27 Hgb (12.5 - 16.9 g/dL) 17.0 H Hct (37.5 - 50.7 %) 47.4 MCV (81.0 - 99.0 fL) 89.9 MCH (27.0 - 33.0 pg) 32.3 MCHC (33.0 - 37.0 g/dL) 35.9 RDW (11.5 - 14.5 %) 11.9 Plt Count (150 - 400 x10 3/uL) 265 MPV (7.0 - 9.0 fL) 9.2 H Neut % (Auto) (56.0 - 77.0 %) 48.7 L Lymph % (Auto) (14.0 - 32.0 %) 34.2 H [place] % (Auto) (4.8 - 9.0 %) 7.7 Eos % (Auto) (0.3 - 3.7 %) 8.2 H Baso % (Auto) (0.0 - 2.0 %) 1.1 Neut # (Auto) (2.0 - 7.6 x10 3/uL) 3.62 Lymph # (Auto) (1.0 - 3.8 x10 3/uL) 2.54 [place] # (Auto) (0.1 - 0.8 x10 3/uL) 0.57 Eos # (Auto) (0.0 - 0.2 x10 3/uL) 0.61 H Baso # (Auto) (0.0 - 0.2 x10 3/uL) 0.08 Abs Immat Gran (auto) (0.00 - 0.03 x10 3/uL) 0. 01 Add Manual Diff NO Immature Gran % (0.0 - 2.0 %) 0.1 Nucleated RBC % (0 - 0 %) 0.0 Nucleated RBCs # (Man) (0.0 - 0.1 x10 3/uL) 0.0 0 Urines Urine Color (YEL/STRAW) YELLOW Urine Appearance (CLEAR) CLEAR Urine pH (5.0 - 7.0) 5.0 Ur Specific [place] (1.005 - 1.030) 1.017 Urine Protein (NEGATIVE) NEGATIVE Urine Glucose (UA) (NEGATIVE) 1+ H Urine Ketones (NEGATIVE) NEGATIVE Urine Blood (NEGATIVE) NEGATIVE Urine Nitrite (NEGATIVE) NEGATIVE Urine Bilirubin (NEGATIVE) NEGATIVE Urine Urobilinogen (0.2 - 1.0 mg/dL) 0.2 Ur Leukocyte Esterase (NEGATIVE) NEGATIVE Urine RBC (0 - 3 RBC/HPF) 0-3 Urine WBC (0 - 3 WBC/HPF) 0-3 Ur Squamous Epith Cells (NONE SEEN /HPF) NONE S EEN Urine Bacteria (NONE SEEN /HPF) NONE SEEN Hyaline Casts (NONE SEEN /LPF) 0-2 Urine Mucus (NONE SEEN /LPF) TRACE 09/17 Chemistry Sodium (134 - 147 mEq/L) 138 Potassium (3.4 - 5.0 mEq/L) 3.9 Chloride (100 - 108 mEq/L) 104 Carbon Dioxide (21 - 33 mEq/l) 25 Anion Gap (0 - 20) 13 BUN (7 - 18 mg/dL) 18 Creatinine (0.6 - 1.3 mg/dL) 1.3 Glomerular Filtr Rate (90 - 95) 63.3 L Glucose (70 - 110 mg/dL) 255 H Hemoglobin A1c (4.8 - 6.0 %A1C) 8.0 H Calcium (8.0 - 10.5 mg/dL) 8.8 Total Bilirubin (0.0 - 1.0 mg/dL) 0.40 AST (15 - 37 IUnit/L) 17 ALT (30 - 65 IUnit/L) 13 L Total Alk Phosphatase (20 - 125 IUnit/L) 51 B-Natriuretic Peptide (0 - 100 PG/ML) 22.0 Total Protein (6.4 - 8.2 g/dL) 6.8 Albumin (3.4 - 5.0 g/dL) 4.30 Triglycerides (40 - 150 mg/dL) 169 H Cholesterol (<200 mg/dL) 124 LDL Cholesterol Measurd (0 - 100 mg/dL) 59.0 HDL Cholesterol (32 - 72 mg/dL) 39.6 Cholesterol/HDL Ratio (3.43 - 4.97 RATIO) 3.13 L Coagulation INR (0.8 - 1.2) 1.1 PTT (Georgie) (25.0 - 39.5 Seconds) 25.1 PT Patient/Control Mix (9.3 - 12.9 SECONDS) 12. 5 Hematology WBC (4.5 - 11.0 x10 3/uL) 7.1 RBC (4.00 - 5.60 x10 6/uL) 5.00 Hgb (12.5 - 16.9 g/dL) 16.1 Hct (37.5 - 50.7 %) 45.3 MCV (81.0 - 99.0 fL) 90.6 MCH (27.0 - 33.0 pg) 32.2 MCHC (33.0 - 37.0 g/dL) 35.5 RDW (11.5 - 14.5 %) 12.1 Plt Count (150 - 400 x10 3/uL) 230 MPV (7.0 - 9.0 fL) 9.4 H Neut % (Auto) (56.0 - 77.0 %) 48.0 L Lymph % (Auto) (14.0 - 32.0 %) 34.9 H [place] % (Auto) (4.8 - 9.0 %) 7.6 Eos % (Auto) (0.3 - 3.7 %) 8.2 H Baso % (Auto) (0.0 - 2.0 %) 1.0 Neut # (Auto) (2.0 - 7.6 x10 3/uL) 3.41 Lymph # (Auto) (1.0 - 3.8 x10 3/uL) 2.48 [place] # (Auto) (0.1 - 0.8 x10 3/uL) 0.54 Eos # (Auto) (0.0 - 0.2 x10 3/uL) 0.58 H Baso # (Auto) (0.0 - 0.2 x10 3/uL) 0.07 Abs Immat Gran (auto) (0.00 - 0.03 x10 3/uL) 0. 02 Add Manual Diff NO Immature Gran % (0.0 - 2.0 %) 0.3 Nucleated RBC % (0 - 0 %) 0.0 Nucleated RBCs # (Man) (0.0 - 0.1 x10 3/uL) 0. 00 Serology SARS-CoV-2 Ag (Rapid) (Negative) Negative Microbiology: Date/Time Procedure - Status Source Growth 09/18 942 MSSA Surveillance Screen - ORD NASAL 09/18 942 MRSA DNA Surveillance Screen - ORD NASAL 09/17 2144 MSSA Surveillance Screen - COMP NASAL 09/17 2144 MRSA DNA Surveillance Screen - COMP NASAL Recent Impressions: RADIOLOGY - XR CHEST 2 V 09/18 0241 Report Impression - Status: SIGNED Entered: 09/18/2022 0529 IMPRESSION: Mild left basilar subsegmental atelectasis. Impression By: [email or web address] - Carmella Lopez M.D. CAT SCAN - CT CHEST W/O CONTRAST 09/18 0242 Report Impression - Status: SIGNED Entered: 09/18/2022 0408 IMPRESSION: 1. No acute findings. 2. Severe diffuse coronary artery calcification. No significant aortic root calcified plaque given history. Impression By: Tanner Douglas ULTRASOUND - DUP VEIN AZALEA 09/18 813 Report Impression - Status: SIGNED Entered: 09/18/2022 0959 IMPRESSION: Greater saphenous vein is patent. Vein mapping a s described. Impression By: [email or web address] - Terrell Rosas M.D. ULTRASOUND - DUP EXTRACRANIAL AZALEA 09/18 813 Report Impression - Status: SIGNED Entered: 09/18/2022 0905 IMPRESSION: No flow-limiting proximal internal carotid arter ial stenosis. REFERENCES: SRU CRITERIA. The degree of internal carotid art danielito stenosis is based on criteria defined by the Society of [employer]i o[employer] in Ul[employer] (SRU). Normal is no stenosis. Mild is less than 50% stenosis. Moderate is 50-69% stenosis. Severe is greater than 69% stenosis to near occlusion. Near occlusion is a markedly narrowed lumen. Total occlusion is no detectable patent l umen. Impression By: [email or web address] - Will Pérez M.D. Diagnosis, Assessment Plan Consultants: cardiology, cardiovascular surgery Free Text DxA P Notes Free Text DxA P Notes: CAD with multiple vessels disease HTN DM CV surgeon consult cardiology consult CABG-- today HTN- monitor now DM-- sliding scale lipid panel Quality: Gen Med Crit Care Current Medications Current medication review: Current Medications Sig/Renee Start time Last Medication Dose Route Stop Time Status Admin Cefazolin Sodium 2 GM PREOP ONCALL 09/19 050 C KD IV 09/19 2358 Metoprolol Tartrate 6.25 MG ONCE ONE 09/19 050 AC PO 09/19 050 Vancomycin HCl 1,500 MG PREOP ONCALL 09/19 050 CKD Sodium Chloride 250 ML IV 09/19 2358 Verapamil HCl 16.6 MG .Q24H ONE 09/19 0500 CKD Heparin Sodium 1,660 UNIT IV 09/20 0459 (Porcine) Sodium Bicarbonate 0.7 ML Nitroglycerin/ 8.3 MG Dextrose Lactated Ringer's 949.5 ML Sevoflurane 0 .STK-MED ONE 09/18 1253 DC INH Ephedrine Sulfate 0 .STK-MED ONE 09/18 1232 DC .ROUTE Albumin Human 100 ML .STK-MED ONE 09/18 1227 D C IV Papaverine HCl 0 .STK-MED ONE 09/18 1118 DC IV Cefazolin Sodium 0 .STK-MED ONE 09/18 1105 DC .ROUTE Albumin Human 100 ML .STK-MED ONE 09/18 1059 DC IV Heparin Sodium 0 .STK-MED ONE 09/18 1059 DC .ROUTE Sodium Chloride 100 ML .STK-MED ONE 09/18 1059 DC IV Lidocaine HCl 0 .STK-MED ONE 09/18 1058 DC IV Magnesium Sulfate 0 .STK-MED ONE 09/18 1058 DC IV Phenylephrine HCl 0 .STK-MED ONE 09/18 1058 DC .ROUTE Sodium Bicarbonate 0 .STK-MED ONE 09/18 1058 DC IV Dexamethasone Sodium 0 .STK-MED ONE 09/18 1049 DC Phosphate .ROUTE Esmolol HCl 0 .STK-MED ONE 09/18 1049 DC IV Glycopyrrolate 0 .STK-MED ONE 09/18 1049 DC .ROUTE Lidocaine HCl 0 .STK-MED ONE 09/18 1049 DC .ROUTE Neostigmine 0 .STK-MED ONE 09/18 1049 DC Methylsulfate .ROUTE Ondansetron HCl 0 .STK-MED ONE 09/18 1049 DC .ROUTE Rocuronium [place] 0 .STK-MED ONE 09/18 1049 DC IV Vasopressin 0 .STK-MED ONE 09/18 1049 DC .ROUTE Fentanyl Citrate 0 .STK-MED ONE 09/18 1048 DC IV Midazolam HCl 0 .STK-MED ONE 09/18 1048 DC .ROUTE Propofol 20 ML .STK-MED ONE 09/18 1048 DC IV Aminocaproic Acid 0 .STK-MED ONE 09/18 1046 DC IV Epinephrine HCl 250 ML .STK-MED ONE 09/18 1046 DC IV Heparin Sodium 0 .STK-MED ONE 09/18 1046 DC .ROUTE Insulin Human Regular 100 ML .STK-MED ONE 09/18 104 DC IV Nitroglycerin/ 250 ML .STK-MED ONE 09/18 1046 D C Dextrose IV Norepinephrine 250 ML .STK-MED ONE 09/18 104 D C Bitartrate IV Protamine Sulfate 0 .STK-MED ONE 09/18 1046 DC IV Calcium Chloride 0 .STK-MED ONE 09/18 1045 DC IV Magnesium Sulfate 0 .STK-MED ONE 09/18 104 DC .ROUTE Ropivacaine 0 .STK-MED ONE 09/18 104 DC .ROUTE Fentanyl Citrate 0 .STK-MED ONE 09/18 1041 DC .ROUTE Acetaminophen 1,000 MG PREOP ONCALL 09/18 944 CKD PO 10/18 09 Gabapentin 200 MG PREOP ONCALL 09/18 0845 CKD PO 10/18 235 Sodium Chloride 20 ML ASDIR 09/18 0945 AC IV 09/19 235 Metoprolol Tartrate 6.25 MG ONCE ONE 09/18 0500 DC PO 09/18 0501 Verapamil HCl 16.6 MG .Q24H ONE 09/18 0500 CKD Heparin Sodium 1,660 UNIT IV 09/19 0459 (Porcine) Sodium Bicarbonate 0.7 ML Nitroglycerin/ 8.3 MG Dextrose Lactated Ringer's 949.5 ML Albuterol Sulfate 2.5 MG RTONCE ONE 09/18 0445 DC NEB 09/18 0446 Mupirocin 1 APPLIC BID 09/17 2100 AC 09/18 NASAL 09/22 0901 0925 I attest that the foregoing medication list in [facility] medical record is true, accurate, and complete to the best of my knowled ge. Electronically Signed by Umu Gross MD on 3 at 1809 RPT #:[id number] END OF REPORT 2022-09-18 12:46:00-00:00 [facility]L [facility] ([facility] Clinical Note REPORT#:[id number] REPORT STATUS: Signed DATE:09/18/22 TIME: 1246 PATIENT: CHANDANA ARGUELLES UNIT #: [id number] ROOM/BED: [place] [address] : 64 AGE: 61 SEX: M ATTEND: Maryellen Lozada MD ADM AUTHOR: Abram Mendiola MD * ALL edits or amendments must be made on the [employer] document * Clinical Note Note: [facility] Adult Cardiac Surgery Database Version 4.20 RISK SCORES Procedure: Isolated CABG Risk of Mortality: 0.700% Renal Failure: 1.080% Permanent Stroke: 0.936% Prolonged Ventilation: 3.659% DSW Infection: 0.120% Reoperation: 1.911% Morbidity or Mortality: 6.203% Short Length of Stay: 64.209% Long Length of Stay: 1.944% Electronically Signed by Abram Mendiola MD on 01/03 at 1248 RPT #:[id number] END OF REPORT 2022-09-18 11:43:00-00:00 [facility] ([facility]) Cardiology Consultation REPORT#:[id number] REPORT STATUS: Signed DATE:09/18/22 TIME: 1143 PATIENT: CHANDANA ARGUELLES UNIT #: [id number] ROOM/BED: [place] [address] : 64 AGE: 61 SEX: M ATTEND: Maryellen Lozada MD ADM AUTHOR: Lorraine Gallo ADMISSIONS REPRESENTATIVE * ALL edits or amendments must be made on the [employer] document * Lorraine Gallo 09/18/22 1143: History of Present Illness HPI Requesting Clinician: Dr. Lozada Reason for consult: CAD Chief complaint: Palpitation HPI: 61 YO male with PMHx of HTN, DM, strong family o f CAD. He has been having palpitation, went to see Dr. Cabrera, had abnormal stress test, followed by [facility] that showed multivessel CAD. [facility] History - Adult longitudinal Past medical history: Reports: Diabetes mellitus, Hypertension. Past surgical history: Reports: Tonsillectomy. Additional surgical history: cervical spine fusion Additional family history: Brother of GA last August at the age of 55 Father of GA at the age of 63 Alcohol use: Socially Drug use: Denies recreational drugs Smoking status for patients 13 years old or olde r: Never Smoker Allergies: Coded Allergies: No Known Allergies (09/17/22) Ambulatory status: Independent Review of Systems Constitutional: Denies: chills, fever. Respiratory: Denies: hemoptysis, pleuritic pain, SOB. Cardiovascular: Reports: palpitations. Denies: chest pain, dyspn ea on exertion, edema. GI: Denies: abdominal pain, nausea, vomiting. Neuro: Denies: dizziness, syncope, weakness. Psych: Denies: agitation, anxiety. Objective General VS/I O: Vital Signs: Date Time Temp Pulse Resp B/P B/P Pulse O2 O2 F low FiO2 Mean Ox Delivery Rate 09/18 0500 59 13 105/65 78 09/18 0200 52 19 133/84 100 95 09/18 0100 51 10 122/74 90 94 09/17 2300 56 16 128/60 82 94 09/17 2121 94 Room air 09/17 2100 58 18 144/87 106 95 09/17 2000 36.6 09/17 1900 152/92 112 100 24 hour I O ending at 0700: 09/18 0700 09/17 1900 Intake Total Output Total Balance Patient 95 kg Weight Weight Standing scale Measurement Method PATIENT WEIGHT: Weight (lb): 209 Weight (oz): 7.03 Weight (kg): 95.000 Medications: Active Meds + DC'd Last 24 Hrs Cefazolin Sodium (KEFZOL OR ANCEF) 2 GM 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 IV (CKD) Metoprolol Tartrate (LOPRESSOR) 6.25 MG ONCE ONE PO Vancomycin HCl (VANCOMYCIN HCL) 1,500 MG PREOP O NCALL IV (CKD) Sodium Chloride (SODIUM CHLORIDE 0.9%) 250 ML Verapamil HCl (ISOPTIN) 16.6 MG .Q24H ONE IV (CK D) Heparin Sodium (Porcine) (HEPARIN SODIUM) 1,660 UNIT Sodium Bicarbonate (SODIUM BICARBONATE) 0.7 ML Nitroglycerin/Dextrose (NITROGLYCERIN 50MG/D5W 250ML) 8.3 MG Lactated Ringer's (LACTATED RINGERS) 949.5 ML Papaverine HCl (PAPAVERINE HCL) 0 .STK-MED ONE IV (DC) Cefazolin Sodium (KEFZOL OR ANCEF) 0 .STK-MED ON E .ROUTE (DC) Albumin Human (ALBUMINAR-25%) 100 ML .STK-MED ON E IV (DC) Heparin Sodium (HEPARIN SODIUM) 0 .STK-MED ONE . ROUTE (DC) Sodium Chloride (SODIUM CHLORIDE 0.9%) 100 ML .S TK-MED ONE IV (DC) Lidocaine HCl (XYLOCAINE IV) 0 .STK-MED ONE IV ( DC) Magnesium Sulfate (MAGNESIUM SULFATE) 0 .STK-MED ONE IV (DC) Phenylephrine HCl (ALIZE-SYNEPHRINE 10MG/ML AMP) 0 .STK-MED ONE .ROUTE (DC ) Sodium Bicarbonate (SODIUM BICARBONATE) 0 .STK-M ED ONE IV (DC) Dexamethasone Sodium Phosphate (DECADRON) 0 .STK -MED ONE .ROUTE (DC) Esmolol HCl (BREVIBLOC) 0 .STK-MED ONE IV (DC) Glycopyrrolate (GLYCOPYRROLATE) 0 .STK-MED ONE . ROUTE (DC) Lidocaine HCl (XYLOCAINE) 0 .STK-MED ONE .ROUTE (DC) Neostigmine Methylsulfate (PROSTIGMIN) 0 .STK-ME D ONE .ROUTE (DC) Ondansetron HCl (ZOFRAN) 0 .STK-MED ONE .ROUTE ( DC) Rocuronium [place] (ZEMURON) 0 .STK-MED ONE IV ( DC) Vasopressin (VASOSTRICT) 0 .STK-MED ONE .ROUTE ( DC) Fentanyl Citrate (SUBLIMAZE) 0 .STK-MED ONE IV ( DC) Midazolam HCl (VERSED) 0 .STK-MED ONE .ROUTE (DC ) Propofol (DIPRIVAN 200MG/20ML INJECTION) 20 ML . STK-MED ONE IV (DC) Aminocaproic Acid (AMICAR) 0 .STK-MED ONE IV (DC ) Epinephrine HCl (EPINEPHrine 4 mg/D5W 250 mL) 25 0 ML .STK-MED ONE IV (DC ) Heparin Sodium (HEPARIN SODIUM) 0 .STK-MED ONE . ROUTE (DC) Insulin Human Regular (HumuLIN R 100 UNITS/NS 10 0ML) 100 ML .STK-MED ONE IV (DC) Nitroglycerin/Dextrose (NITROGLYCERIN 50,000MCG/ D5W 250ML) 250 ML .STK-MED ONE IV (DC) Norepinephrine Bitartrate (NOREPINEPHRINE 8 MG/N S 250 ML) 250 ML .STK-MED ONE IV (DC) Protamine Sulfate (PROTAMINE SULFATE) 0 .STK-MED ONE IV (DC) Calcium Chloride (CALCIUM CHLORIDE) 0 .STK-MED O NE IV (DC) Magnesium Sulfate (MAGNESIUM SULFATE) 0 .STK-MED ONE .ROUTE (DC) Ropivacaine (NAROPIN 0.5% 150 MG/30mL) 0 .STK-ME D ONE .ROUTE (DC) Fentanyl Citrate (SUBLIMAZE) 0 .STK-MED ONE .ROU TE (DC) Acetaminophen (TYLENOL EXTRA STRENGTH) 1,000 MG PREOP ONCALL PO (CKD) Gabapentin (NEURONTIN) 200 MG PREOP ONCALL PO (C KD) Sodium Chloride (SODIUM CHLORIDE) 20 ML ASDIR IV Metoprolol Tartrate (LOPRESSOR) 6.25 MG ONCE ONE PO (DC) Verapamil HCl (ISOPTIN) 16.6 MG .Q24H ONE IV (CK D) Heparin Sodium (Porcine) (HEPARIN SODIUM) 1,660 UNIT Sodium Bicarbonate (SODIUM BICARBONATE) 0.7 ML Nitroglycerin/Dextrose (NITROGLYCERIN 50MG/D5W 250ML) 8.3 MG Lactated Ringer's (LACTATED RINGERS) 949.5 ML Albuterol Sulfate (ALBUTEROL SULFATE) 2.5 MG RTO NCE ONE NEB (DC) Mupirocin (BACTROBAN 2% 22 GM OINTMENT) 1 APPLIC BID NASAL Physical Exam General appearance: alert, awake, oriented Neck: non-tender, no JVD Cardiovascular: CV assessment: regular rate and rhythm, BP puls es = bilaterally Respiratory: clear to auscultation, no distress Abdomen: soft, non-tender, normal bowel sounds Genitourinary: no flank pain, no urinary cathete r Lower extremity: LE assessment: normal capillary refill, no buster a Musculoskeletal: normal inspection 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, oriented X 3, normal speech Skin: dry, intact, normal color Psychiatry: normal affect, normal judgment/insig ht, normal mood, no hallucinations Results Findings/Data: Laboratory Tests 09/18/11 1720 2044 2044 2044 Chemistry Sodium (134 - 147 mEq/L) 139 138 Potassium (3.4 - 5.0 mEq/L) 4.6 3.9 Chloride (100 - 108 mEq/L) 105 104 Carbon Dioxide (21 - 33 mEq/l) 28 25 Anion Gap (0 - 20) 11 13 BUN (7 - 18 mg/dL) 16 18 Creatinine (0.6 - 1.3 mg/dL) 1.3 1.3 Glomerular Filtr Rate (90 - 95) 63.3 L 63.3 L Glucose (70 - 110 mg/dL) 180 H 255 H Hemoglobin A1c (4.8 - 6.0 %A1C) 8.0 H Calcium (8.0 - 10.5 mg/dL) 9.1 8.8 Magnesium (1.80 - 2.40 mg/dL) 1.87 Total Bilirubin (0.0 - 1.0 mg/dL) 0.40 AST (15 - 37 IUnit/L) 17 ALT (30 - 65 IUnit/L) 13 L Total Alk Phosphatase (20 - 125 IUnit/L) 51 B-Natriuretic Peptide (0 - 100 PG/ML) 22.0 Total Protein (6.4 - 8.2 g/dL) 6.8 Albumin (3.4 - 5.0 g/dL) 4.30 Triglycerides (40 - 150 mg/dL) 169 H Cholesterol (<200 mg/dL) 124 LDL Cholesterol Measurd (0 - 100 mg/dL) 59.0 HDL Cholesterol (32 - 72 mg/dL) 39.6 Cholesterol/HDL Ratio (3.43 - 4.97 RATIO) 3.13 L Laboratory Tests 09/17 2044 Coagulation INR (0.8 - 1.2) 1.1 PTT (Georgie) (25.0 - 39.5 Seconds) 25.1 PT Patient/Control Mix (9.3 - 12.9 SECONDS) 12. 5 Laboratory Tests 09/1820 204 Hematology WBC (4.5 - 11.0 x10 3/uL) 7.4 7.1 RBC (4.00 - 5.60 x10 6/uL) 5.27 5.00 Hgb (12.5 - 16.9 g/dL) 17.0 H 16.1 Hct (37.5 - 50.7 %) 47.4 45.3 MCV (81.0 - 99.0 fL) 89.9 90.6 MCH (27.0 - 33.0 pg) 32.3 32.2 MCHC (33.0 - 37.0 g/dL) 35.9 35.5 RDW (11.5 - 14.5 %) 11.9 12.1 Plt Count (150 - 400 x10 3/uL) 265 230 MPV (7.0 - 9.0 fL) 9.2 H 9.4 H Neut % (Auto) (56.0 - 77.0 %) 48.7 L 48.0 L Lymph % (Auto) (14.0 - 32.0 %) 34.2 H 34.9 H Freestone % (Auto) (4.8 - 9.0 %) 7.7 7.6 Eos % (Auto) (0.3 - 3.7 %) 8.2 H 8.2 H Baso % (Auto) (0.0 - 2.0 %) 1.1 1.0 Neut # (Auto) (2.0 - 7.6 x10 3/uL) 3.62 3.41 Lymph # (Auto) (1.0 - 3.8 x10 3/uL) 2.54 2.48 [place] # (Auto) (0.1 - 0.8 x10 3/uL) 0.57 0.54 Eos # (Auto) (0.0 - 0.2 x10 3/uL) 0.61 H 0.58 H Baso # (Auto) (0.0 - 0.2 x10 3/uL) 0.08 0.07 Abs Immat Gran (auto) (0.00 - 0.03 x10 3/uL) 0. 01 0.02 Add Manual Diff NO NO Immature Gran % (0.0 - 2.0 %) 0.1 0.3 Nucleated RBC % (0 - 0 %) 0.0 0.0 Nucleated RBCs # (Man) (0.0 - 0.1 x10 3/uL) 0.0 0 0.00 Laboratory Tests 09/17 2144 Serology SARS-CoV-2 Ag (Rapid) (Negative) Negative Laboratory Tests 09/18 221 Urines Urine Color (YEL/STRAW) YELLOW Urine Appearance (CLEAR) CLEAR Urine pH (5.0 - 7.0) 5.0 Ur Specific [place] (1.005 - 1.030) 1.017 Urine Protein (NEGATIVE) NEGATIVE Urine Glucose (UA) (NEGATIVE) 1+ H Urine Ketones (NEGATIVE) NEGATIVE Urine Blood (NEGATIVE) NEGATIVE Urine Nitrite (NEGATIVE) NEGATIVE Urine Bilirubin (NEGATIVE) NEGATIVE Urine Urobilinogen (0.2 - 1.0 mg/dL) 0.2 Ur Leukocyte Esterase (NEGATIVE) NEGATIVE Urine RBC (0 - 3 RBC/HPF) 0-3 Urine WBC (0 - 3 WBC/HPF) 0-3 Ur Squamous Epith Cells (NONE SEEN /HPF) NONE S EEN Urine Bacteria (NONE SEEN /HPF) NONE SEEN Hyaline Casts (NONE SEEN /LPF) 0-2 Urine Mucus (NONE SEEN /LPF) TRACE Microbiology Date/Time Procedure - Status Source Growth 09/17 2144 MSSA Surveillance Screen - COMP NASAL 09/17 2144 MRSA DNA Surveillance Screen - COMP NASAL Laboratory Tests 09/18 Chemistry Magnesium (1.80 - 2.40 mg/dL) 1.87 B-Natriuretic Peptide (0 - 100 PG/ML) 22.0 Radiology Data: Recent Impressions: RADIOLOGY - XR CHEST 2 V 09/18 024 Report Impression - Status: SIGNED Entered: 09/18/2022 0529 IMPRESSION: Mild left basilar subsegmental atelectasis. Impression By: [email or web address] Obdulio Lopez M.D. CAT SCAN - CT CHEST W/O CONTRAST 09/18 0242 Report Impression - Status: SIGNED Entered: 09/18/2022 0408 IMPRESSION: 1. No acute findings. 2. Severe diffuse coronary artery calcification. No significant aortic root calcified plaque given history. Impression By: Tanner Douglas ULTRASOUND - DUP VEIN AZALEA 09/18 813 Report Impression - Status: SIGNED Entered: 09/18/2022 0959 IMPRESSION: Greater saphenous vein is patent. Vein mapping a s described. Impression By: [email or web address] - Terrell Rosas M.D. ULTRASOUND - DUP EXTRACRANIAL AZALEA 09/19 0714 Report Impression - Status: SIGNED Entered: 09/18/2022 0905 IMPRESSION: No flow-limiting proximal internal carotid arter ial stenosis. REFERENCES: SRU CRITERIA. The degree of internal carotid art danielito stenosis is based on criteria defined by the Society of Radi ologists in Ultrasound (SRU). Normal is no stenosis. Mild is less than 50% stenosis. Moderate is 50-69% stenosis. Severe is greater than 69% stenosis to near occlusion. Near occlusion is a markedly narrowed lumen. Total occlusion is no detectable patent l umen. Impression By: Harjit - Will Pérez M.D. Results: labs reviewed, vital signs reviewed, [facility] personally rev'd Telemetry Interpretation: sinus rhythm Diagnosis, Assessment Plan Plan discussed with: patient, nurse Free Text DxA P Notes Free Text DxA P Notes: 61 YO male with PMHx of HTN, DM, strong family o f CAD. He has been having palpitation, went to see Dr. Cabrera, had abnormal stress test, followed by [facility] that showed multivessel CAD. [facility]. 1. Multivessel CAD CABG today 2. Hypertension resume BP meds 3. Diabetes mellitus manage per IM Appreciate the referral. Krystal Elizabeth 09/19/22 1318: Attestations Physician Attestation Agree w/findings plan: I Agree with the findings and plan as documented by Lorraine Gallo. at 1153 Electronically Signed by Krystal Elizabeth MD on at 1318 RPT #:[id number] END OF REPORT 2022-09-18 11:34:00-00:00 [id number] [place] [address] PATIENT NAME: CHANDANA ARGUELLES ADMIT DATE: 3 ACCOUNT NO: [id number] ROOM NO: [id number] AGE: 61 REPORT TYPE: eECHOCARDIOGRAM REPORT SEX: M ADMITTING PHYSICIAN:Kamryn Lozada MD ATTENDING PHYSICIAN:Kamryn Lozada MD *[place] [address] Transthoracic Echocardiogram Patient: Chandana Arguelles Study Date: 09/18/2022 BP: Location: [facility] URN: [id number] : 1960 Age: 61 Height: / Gender: M Weight: / BMI/BSA: / *Ordering Physician: * Brunilda Burris *Interpreting Physician: * Krystal Elizabeth MD *Regional Project Manager: * Paige Narvaez [facility] Indications: PRE OP. Study data: Transthoracic echocardiogram. Comple te 2D, complete spectral Doppler, and color Doppler. Location: [facility]. Patient room number: 2208. Findings Left ventricle: The cavity size is normal. Wall thickness is normal. Systolic function is normal. The estimated eject ion fraction is 55-60%. Wall motion is normal; there are no regional wal l motion abnormalities. Left ventricular diastolic function parameters a re normal. Right ventricle: The cavity size is normal. Syst olic function is normal. Left atrium: The atrium is normal in size. Right atrium: The atrium is normal in size. Aorta: Aortic root: The aortic root is normal in size. Aortic valve: The valve is structurally normal. The valve is trileaflet. There is no evidence of stenosis. Th ere is no PATIENT NAME: CHANDANA ARGUELLES 0799 regurgitation. Mitral valve: The valve is structurally normal. There is no evidence of stenosis. There is trivial regurgita tion. Tricuspid valve: The valve is structurally nael l. There is trivial regurgitation. Pulmonic valve: The valve is structurally normal . There is trivial regurgitation. Pericardium: There is no pericardial effusion. Pulmonary arteries: The main pulmonary artery is normal-sized. Systemic veins: Inferior vena cava: The vessel is normal in size . Measurements Left ventricle Value Ref PAN, LAX 4.7 cm 4.2 - 5.8 ESD, LAX 3.3 cm 2.5 - 4.0 FS, LAX 29 % 25 - 43 PAN major ax, A2C 8.3 cm ESD major ax, A2C 6.6 cm PW, ED 0.9 cm 0.6 - 1.0 IVS/PW, ED 1.09 EF 56 % 52 - 72 E', lat brooke, TDI 11.1 cm/sec >=10.0 E/e', lat brooke, TDI 7 E', med brooke, TDI 10.3 cm/sec >=7.0 E/e', med brooke, TDI 8 E', avg, TDI 10.7 cm/sec E/e', avg, TDI 8 <=14 LVOT Value Ref Diam, S 1.96 cm Area 3.0 cm 2 Peak saira, S 1.32 m/sec Mean saira, S 0.81 m/sec VTI, S 25.8 cm Peak grad, S 7 mm Hg Mean grad, S 3 mm Hg SV 78 ml Qs 3.69 L/min Ventricular septum Value Ref IVS, ED 1.0 cm 0.6 - 1.0 Right ventricle Value Ref PAN, LAX 2.6 cm Left atrium Value Ref AP dim, ES 3.80 cm 3.00 - 4.00 Vol, ES, 2-p 38 ml AP dim, ES MM 3.9 cm 3.0 - 4.0 LA/Ao root ratio, MM 1.44 PATIENT NAME: CHANDANA ARGUELLES 0799 Right atrium Value Ref Area, ES 15 cm 2 10 - 18 SI dim, ES, A4C 4.7 cm 3.4 - 5.3 Vol, ES, A/L 42 ml Vol, ES, 1-p A4C 41 ml Aortic valve Value Ref Leaflet sep, MM 1.89 cm Peak v, S 1.23 m/sec Mean v, S 0.78 m/sec VTI, S 24.9 cm Mean grad, S 2.9 mm Hg Peak grad, S 6.1 mm Hg LVOT/AV, VTI ratio 1.04 CASEY, VTI 3.13 cm 2 LVOT/AV, Vpeak ratio 1.07 CASEY, Vmax 3.24 cm 2 Mitral valve Value Ref Peak E 0.11 m/sec Peak A 0.6 m/sec Decel time 184 ms PHT 48 ms Peak E/A ratio 1.35 MVA, PHT 4.6 cm 2 Pulmonic valve Value Ref NC v, ED 0.47 m/sec Aortic root Value Ref Root diam 3.3 cm Root diam, ED MM 2.73 cm Ascending aorta Value Ref AAo AP diam, S 3.0 cm Systemic veins Value Ref Estimated CVP 3 mm Hg Conclusions Summary: Left ventricle: The cavity size is norm al. Wall thickness is normal. Systolic function is normal. The estimat ed ejection fraction is 55-60%. Wall motion is normal; there are no xochilt onal wall motion abnormalities. Left ventricular diastolic functi on parameters are normal. Prepared and electronically signed by Krystal Elizabeth MD 09/18/2022 11:34 PATIENT NAME: CHANDANA ARGUELLES 0799 Electronically Signed by Krystal Elizabeth MD on 0 09/18/22 at 1134 PATIENT NAME: CHANDANA ARGUELLES [id number] 2022-09-18 05:42[facility]00-00:00 [facility] History Physical - Adult REPORT#:[id number] REPORT STATUS: Signed DATE:09/18/22 TIME: 0542 PATIENT: CHANDANA ARGUELLES UNIT #: [id number] ROOM/BED: [place] [address] : 64 AGE: 61 SEX: M ATTEND: Maryellen Lozada MD ADM AUTHOR: Brunilda Burris P * ALL edits or amendments must be made on the [employer]/computer document * Joellen Malone 09/18/22 0542: History of Present Illness HPI Chief complaint: Abnormal stress test Severe CAD PCP: PCP: Kamryn Lozada MD HPI: Very pleasant 61-year-old male with past medical history of hypertension, diabetes for 3 years on oral agents, chews tobacco, has a strong family history of premature coronary artery disease. He has bee n complaining of exertional chest tightness, had abnormal stress test and metzger d high calcium score (greater than 2000) was admitted to [facility] for elective left heart cath. Coronary angiogram showed se judith multivessel coronary artery disease and patient transferred to [facility] for cardiothoracic surgery evaluation. Patient is retired, lives with his , indepen dent History Additional medical history: Hypertension Diabetes Additional surgical history: 2 knee procedures 2 neck surgeries Additional family history: Strong family history of premature coronary nicole ry disease. Brother at age 55 of heart attack Father at age 63 from heart attack Alcohol use: Denies EtOH use Drug use: Denies recreational drugs Smoking status for patients 13 years old or olde r: Light tobacco smoker Medication/Allergy-Vaccine Hx Medications: Current Hospital Medications: Anti-Infective Agents Sig/Renee Start time Last Medication Dose Route Stop Time Status Admin Cefazolin Sodium 2 GM PREOP ONCALL 09/19 0500 C KD (KEFZOL OR ANCEF) IV 09/19 2359 Vancomycin HCl 1,500 MG PREOP ONCALL 09/19 0500 CKD (VANCOMYCIN HCL) IV 09/19 2359 Sodium Chloride 250 ML (SODIUM CHLORIDE 0.9%) Cefazolin Sodium 0 .STK-MED ONE 09/18 1105 DC (KEFZOL OR ANCEF) .ROUTE Autonomic Drugs Sig/Renee Start time Last Medication Dose Route Stop Time Status Admin Ephedrine Sulfate 0 .STK-MED ONE 09/18 1232 DC (ePHEDrine sulfate) .ROUTE Phenylephrine HCl 0 .STK-MED ONE 09/18 1058 DC (ALIZE-SYNEPHRINE 10MG/ .ROUTE ML AMP) Glycopyrrolate 0 .STK-MED ONE 09/18 1049 DC (GLYCOPYRROLATE) .ROUTE Neostigmine 0 .[facility] ONE 09/18 104 DC Methylsulfate .ROUTE (PROSTIGMIN) Rocuronium [place] 0 .[facility] ONE 09/18 104 DC (ZEMURON) IV Epinephrine HCl 250 ML .[facility] ONE 09/18 104 DC (EPINEPHrine 4 mg/ IV D5W 250 mL) Norepinephrine 250 ML .[facility] 09/18 104 D C Bitartrate IV (NOREPINEPHRINE 8 MG/ NS 250 ML) Albuterol Sulfate 2.5 MG RTONCE ONE 09/18 0445 DC (ALBUTEROL SULFATE) NEB 09/18 044 Blood Derivatives Sig/Renee Start time Last Medication Dose Route Stop Time Status Admin Albumin Human 100 ML .[facility] 09/18 1227 DC (ALBUMINAR-25%) IV Albumin Human 100 ML .[facility] 09/18 105 DC (ALBUMINAR-25%) IV Blood Formation,Coagulation Sig/Renee Start time Last Medication Dose Route Stop Time Status Admin Heparin Sodium 0 .[facility] ONE 09/18 105 DC (HEPARIN SODIUM) .ROUTE Aminocaproic Acid 0 .[facility] 09/18 104 DC (AMICAR) IV Heparin Sodium 0 .[facility] ONE 09/18 104 DC (HEPARIN SODIUM) .ROUTE Protamine Sulfate 0 .[facility] ONE 09/18 104 DC (PROTAMINE SULFATE) IV Cardiovascular Drugs Sig/Renee Start time Last Medication Dose Route Stop Time Status Admin Metoprolol Tartrate 6.25 MG ONCE ONE 09/19 0500 AC (LOPRESSOR) PO 09/19 0501 Verapamil HCl 16.6 MG .Q24H ONE 09/19 0500 CKD (ISOPTIN) IV 09/20 0459 Heparin Sodium 1,660 UNIT (Porcine) (HEPARIN SODIUM) Sodium Bicarbonate 0.7 ML (SODIUM BICARBONATE) Nitroglycerin/ 8.3 MG Dextrose (NITROGLYCERIN 50MG/ D5W 250ML) Lactated Ringer's 949.5 ML (LACTATED RINGERS) Papaverine HCl 0 .[facility] ONE 09/18 1118 DC (PAPAVERINE HCL) IV Lidocaine HCl 0 .[facility] 09/18 1058 DC (XYLOCAINE IV) IV Esmolol HCl 0 .[facility] 09/18 1049 DC (BREVIBLOC) IV Lidocaine HCl 0 .[facility] ONE 09/18 1049 DC (XYLOCAINE) .ROUTE Nitroglycerin/ 250 ML .[facility] ONE 09/18 1046 D C Dextrose IV (NITROGLYCERIN 50,000MCG/D5W 250ML) Metoprolol Tartrate 6.25 MG ONCE ONE 09/18 0500 DC (LOPRESSOR) PO 09/18 0501 Verapamil HCl 16.6 MG .Q24H ONE 09/18 0500 CKD (ISOPTIN) IV 09/19 0459 Heparin Sodium 1,660 UNIT (Porcine) (HEPARIN SODIUM) Sodium Bicarbonate 0.7 ML (SODIUM BICARBONATE) Nitroglycerin/ 8.3 MG Dextrose (NITROGLYCERIN 50MG/ D5W 250ML) Lactated Ringer's 949.5 ML (LACTATED RINGERS) Central Nervous System Agents Sig/Renee Start time Last Medication Dose Route Stop Time Status Admin Sevoflurane 0 .[facility] 09/18 1253 DC (ULTANE) INH Magnesium Sulfate 0 .[facility] 09/18 1058 DC (MAGNESIUM SULFATE) IV Fentanyl Citrate 0 .[facility] 09/18 1048 DC (SUBLIMAZE) IV Midazolam HCl 0 .[facility] 09/18 1048 DC (VERSED) .ROUTE Propofol 20 ML .[facility] 09/18 1048 DC (DIPRIVAN 200MG/20ML IV INJECTION) Magnesium Sulfate 0 .[facility] 09/18 1045 DC (MAGNESIUM SULFATE) .ROUTE Fentanyl Citrate 0 .[facility] 09/18 1041 DC (SUBLIMAZE) .ROUTE Acetaminophen 1,000 MG PREOP ONCALL 09/18 0845 CKD (TYLENOL EXTRA PO 10/18 0944 STRENGTH) Gabapentin 200 MG PREOP ONCALL 09/18 944 CKD (NEURONTIN) PO 10/18 2359 Electrolytic, Caloric, And Solo Sig/Renee Start time Last Medication Dose Route Stop Time Status Admin Sodium Chloride 100 ML .[facility] 09/18 1059 DC (SODIUM CHLORIDE IV 0.9%) Sodium Bicarbonate 0 .[facility] 09/18 1058 DC (SODIUM BICARBONATE) IV Calcium Chloride 0 .[facility] 09/18 1045 DC (CALCIUM CHLORIDE) IV Sodium Chloride 20 ML ASDIR 04/07 0945 AC (SODIUM CHLORIDE) IV 09/19 2359 Eye, Ear, Nose And Throat (Een Sig/Renee Start time Last Medication Dose Route Stop Time Status Admin Dexamethasone Sodium 0 .STK-MED ONE 09/18 1049 DC Phosphate .ROUTE (DECADRON) Gastrointestinal Drugs Sig/Renee Start time Last Medication Dose Route Stop Time Status Admin Ondansetron HCl 0 .STK-MED ONE 09/18 1049 DC (ZOFRAN) .ROUTE Hormones And Synthetic Substit Sig/Renee Start time Last Medication Dose Route Stop Time Status Admin Vasopressin 0 .STK-MED ONE 09/18 1049 DC (VASOSTRICT) .ROUTE Insulin Human Regular 100 ML .STK-MED ONE 09/18 1046 DC (HumuLIN R 100 UNITS/ IV NS 100ML) Local Anesthetics (Parenteral) Sig/Renee Start time Last Medication Dose Route Stop Time Status Admin Ropivacaine 0 .STK-MED ONE 09/18 1045 DC (NAROPIN 0.5% 150 MG/ .ROUTE 30mL) Skin And Mucous Membrane Agent Sig/Renee Start time Last Medication Dose Route Stop Time Status Admin Mupirocin 1 APPLIC BID 09/17 2100 AC 09/18 (BACTROBAN 2% 22 GM NASAL 09/22 0901 0925 OINTMENT) Review of Systems Free Text ROS Notes Free Text ROS Notes: Constitutional: Negative for fever, chills, weig ht loss Skin: Negative for rash, negative for swelling n egative for any laceration HEENT: Denies hearing loss denies, any ear ringi ng denies any earache, throat pain Respiratory: Denies dyspnea on exertion denies hemoptysis , cough, shortness of breath Cardiac: Exertional chest pain (tightness) GI: Denies constipation denies diarrhea : Denies hematuria denies dysuria denies flank pain Musculoskeletal: Denies any joint pain denies an y joint swelling denies any myalgia Hematologic: Denies any easy bruising, denies an y bleeding Endocrine: denies any night sweats, denies polyu oralia polydipsia Neurologic: Denies any lightheaded denies any he adache denies any confusion denies any dizziness Physical Exam VS/I O Vital Signs: Date Time Temp Pulse Resp B/P B/P Pulse O2 O2 Flow FiO2 Mean Ox Delivery Rate 09/171 94 Room air 09/18 1999 97.8 24 hour I O ending at 0700: 09/18 0700 09/17 1900 Intake Total Output Total Balance Patient 211 lb Weight Weight Bed scale Measurement Method PATIENT WEIGHT: Weight (lb): 211 Weight (oz): 6.77 Weight (kg): 95.900 Free Text PE Notes Free Text PE Notes: General: well nourished, well groomed, no acute distress. HEENT: conjunctiva clear, ex traocular movement intact, PERRLA, sclera anicteric. normal dentition, gums, normal, oral mucosa with out pallor or cyanosis. Neck: no, JVD, trachea midline, no, lymphadenopa thy, neck supple, normal ROM. Respiratory: Clear to auscultation, no distress. Cardiovascular: regular rate and rhythm, S1, S2, normal, without murmurs, rubs or gallops, pulses, palpable, symetric. Abdomen: Soft, non tender. No rebound. No guardi ng Extremities: dry, moves all. Musculoskeletal: Full range of motion, no CVA te nderness, no muscle spasm Skin: warm, dry, no, lesions, rash. Neurologic: Alert and oriented x3. Psychiatric: affect and demeanor normal, normal speech, appropriate mood and affect. Diagnosis, Assessment Plan Orders: Procedure Date/time Status NOTHING BY MOUTH 09/18 B Active ADULT MARI COMPLETE 09/18 0500 Active _RT: NEBULIZER TREATMENT 09/19 435 Active PULMONARY LAB CONSULT 09/19 435 Active DUP VEIN AZALEA 09/18 0310 Active DUP EXTRACRANIAL AZALEA 09/[address] CHEST W/O CONT 09/18 0242 Complete XR CHEST 2V 09/18 0241 Complete _RT: INCENTIVE SPIROMETER 09/17 1946 Active _RT: EDUCATION 09/17 1946 Active Vital Signs 09/17 1946 Active Telemetry Monitoring 09/17 1946 Active Surgical Prep 09/17 1946 Active Pre-Op Teaching/Instructions 09/17 1946 Active NPO For Procedure 09/17 1946 Active NPO After Midnight 09/17 1946 Active MRSA Protocol 09/17 1946 Active IV Access 09/17 1946 Active Intake Output 09/17 1946 Active Initiate Stop Surg Site Infect 09/17 1946 Activ e Measure Height 09/17 1946 Active Weight: Obtain 09/17 1946 Active COVID-19 Testing 09/17 1946 Active Clip Prep 09/17 1946 Active CARDIAC SURGERY PRE OP 09/17 1946 Active Blood Pressure Mgmt Parameter 09/17 1946 Active Bathe Patient 09/17 1946 Active Blood Glucose Monitoring 09/17 1946 Active MSSA SCREEN 09/17 1946 Complete MRSA SCREEN SURV 09/17 1946 Complete UA WITH CULTURE IF INDICATED 09/17 1946 Complet e THROMBOPLASTIN TIME PARTIAL 09/17 1946 Complete PROTHROMBIN TIME 09/17 1946 Complete LIPID PROFILE (CORONARY RISK) 09/17 1946 Comple te HGBA1C% 09/17 1946 Complete Coronavirus AG Non PUI Rapid 09/17 1946 Comple te COMPREHENSIVE METABOLIC PANEL 09/17 1946 Comple te CBC W/AUTO DIFF 09/17 1946 Complete B TYPE NATRIURETIC PEPT 09/17 1946 Complete ADULT ECHO COMPLETE 09/17 1946 Active Anesthesia Physician Consult 09/17 1946 Active TYPE AND SCREEN 09/17 1946 Active PLATELETS PHERESIS 09/17 1946 Active PACKED CELL PRE-LEUKO REDUCED 09/17 1946 Active FRESH FROZEN PLASMA 09/17 1946 Active Free Text DxA P Notes Free Text DxA P Notes: Very pleasant 61-year-old male with past medical history of hypertension, diabetes for 3 years on oral agents, chews tobacco, has a strong family history of premature coronary artery disease. He has bee n complaining of exertional chest tightness, had abnormal stress test and metzger d high calcium score (greater than 2000) was admitted to [facility] yesterday for elective left heart cath. Coronary angiogram showed se judith multivessel coronary artery disease and patient transferred to [facility] for cardiothoracic surgery evaluation. Patient is retired, lives with his , indepen dent [facility] images uploaded in [employer] . Dr. Lozada explained to the patient and his the angiogram findings and recommended s urgical revascularization he explained the surgery, risks involved including risk of st roke, bleeding, infection, prolonged mechanical ventilation, renal dysfunct ion; STS score, benefits, complications and alternativ es. He acknowledged understanding and is willing to proceed Preok work up initiated Plan for CABBG today. Cardiology consulted Thank you for the kind consu lt. The patient was seen and plan reviewed with Kamryn Luevano 09/22/22 1424: History Medication/Allergy-Vaccine Hx Allergies: Coded Allergies: chicken derived (Intermediate, NAUSEA 09/21/22) Attestations Physician Attestation Agree w/findings plan: I have seen and examined Mr. Arguelles. I agree with the findings and plan as documented by MAXI Leggett. Briefly, 61 gentleman with s evere coronary artery disease. Patient will benefit from surgical revascularization. I had a long di scussion with the patient, explained to him the angiogr am finding and need for surgical revascularization. I have discussed with him the procedure, risk involved, benefit, alternatives, STS risk score, and complications. Patient has a greed for the procedure, I am making arrangement for Mr. Arguelles to have surgical revascularization in the near future. at 1447 at 1427 RPT #:[id number] END OF REPORT
[2022-11-17 23:40] LABS: Absolute Lymphocytes (CBC) 2.3 K/uL (0.7-4.9); Hematocrit 44.4 % (39.6-49.0); Lymphocytes % 34.9 % (15.3-44.8); MCV 94.7 fL (80-100); MPV 7.4 fL (7.6-11.3); RBC Red Blood Cell Count 4.69 M/uL (4.33-5.43)
[2022-11-17 23:50] LABS: ALT/SGPT 25 U/L (16-61); AST/SGOT 14 U/L (15-37); Alkaline Phosphatase 68 U/L (45-117); BUN Blood Urea Nitrogen 17 mg/dL (7-18); Bicarbonate 28 mEq/L (21-32); Bilirubin Total 0.3 mg/dL (0.2-1.0); Glomerular Filtration Rate 71 ml/min (=/>90); Glucose Level 102 mg/dL (74-106); Magnesium 1.8 mg/dL (1.6-2.4); NT PRO-BNP 114 pg/mL (<125); Potassium 4.2 mEq/L (3.5-5.1); Protein, Total 7.3 g/dL (6.4-8.2); Sodium Level 138 mEq/L (136-145)
[2022-11-17 23:52] LABS: Bilirubin Direct < 0.1 mg/dL (0-0.2); Bilirubin Indirect, Calculated ND mg/dL (0.2-0.8)
[2022-11-17 23:53] LABS: Troponin High Sensitivity 262.3 pg/mL (<58.9)
[2022-11-18 00:05] LABS: Protime INR 1.06
--- NOTE | 2022-11-18 00:38 | EDPHYS ---
Physician Documentation [facility] Name: Chandana Andujar Age: 62 yrs Sex: Male : 1960 Arrival Date: 11/17/2022 Time: 22:40 Bed 3 Private MD: ED Physician Fidel Nevarez HPI: 11/17 22:55 This 62 yrs old Male presents to ER via Wheelchair with complaints of 8 WKS sp4 [employer]PASS POST OP, BP 170/111 AT HOME PRIOR TO ARRIVAL, High Blood Pressure, Headache. 23:21 62-year-old male with history of CABG done on 09/18/2022 at [facility] by Dr. Kierra pat , presents with acute blood pressure elevation at home ranging from 125/87 to 137/88 up to 170 systolic. Patient developed headache at home as well, he was at cardiac rehab today and said some chest soreness associated with CABG scar. Patient was advised to come here for blood pressure check and further evaluation. Patient states he took some Tylenol at home with a headache and does not desire any pain medicine at this time.. Historical: - Allergies: 22:55 No Known Allergies; kl - Home Meds: 22:55 clopidogrel 75 mg oral tablet daily [Active]; atorvastatin 40 mg oral tablet every day kl at bedtime [Active]; Lopressor 25mg Oral 0.5 tabs 2 times per day [Active]; Synthroid Oral once daily [Active]; Metformin Oral [Active]; - PMHx: 22:55 Hypertension; Hypothyroidism; NIDDM; kl - PSHx: 22:58 5 vessel bypass; kl - Immunization history:: Adult Immunizations not immunized. - Social history:: Smoking status: Patient denies any tobacco usage or history of. - Family history:: not pertinent. ROS: 23:21 Constitutional: Negative for fever, chills, and weight loss, positive for blood sp4 pressure elevation, positive for headache Eyes: Negative for injury, pain, redness, and discharge, ENT: Negative for injury, pain, and discharge, Neck: Negative for injury, pain, and swelling, Cardiovascular: Negative for chest pain, palpitations, and edema, Respiratory: Negative for shortness of breath, cough, wheezing, and pleuritic chest pain, Abdomen/GI: Negative for abdominal pain, nausea, vomiting, diarrhea, and constipation, Back: Negative for injury and pain, : Negative for injury, bleeding, discharge, and swelling, MS/Extremity: Negative for injury and deformity, Skin: Negative for injury, rash, and discoloration, Neuro: Negative for weakness, numbness, tingling, and seizure, positive for headache Psych: Negative for depression, anxiety, Allergy/Immunology: Negative for hives, rash, and allergies Endocrine: Negative for neck swelling, polydipsia, polyuria, polyphagia, and weight changes Hematologic/Lymphatic: Negative for swollen nodes, abnormal bleeding, and unusual bruising Exam: 23:21 Constitutional: This is a well developed, well nourished patient who is awake, alert, sp4 and in no acute distress. Head/Face: Normocephalic, atraumatic. Eyes: Pupils equal round and reactive to light, extra-ocular motions intact. Lids and lashes normal. Conjunctiva and sclera are not injected. Cornea within normal limits. Periorbital areas with no swelling, redness, or edema. ENT: Nares patent. No nasal discharge, no septal abnormalities noted. Tympanic membranes are normal and external auditory canals are clear. Oropharynx with no redness, swelling, or masses, exudates, or evidence of obstruction, uvula midline. Mucous membranes moist. Neck: Trachea midline, no thyromegaly or masses palpated, and no cervical lymphadenopathy. Supple, full range of motion without nuchal rigidity, or vertebral point tenderness. No Meningismus. Chest/axilla: Normal chest wall appearance and motion. Nontender with no deformity. No lesions are appreciated. Mid sternotomy scar from recent CABG Cardiovascular: Regular rate and rhythm with a normal S1 and S2. No gallops, murmurs, or rubs. Normal PMI, no JVD. No pulse deficits. Respiratory: Lungs have equal breath sounds bilaterally, clear to auscultation and percussion. No rales, rhonchi or wheezes noted. No increased work of breathing, no retractions or nasal flaring. Abdomen/GI: Soft, non-tender, with normal bowel sounds. No distension or tympany. No guarding or rebound. No evidence of tenderness throughout. Back: No spinal tenderness. No costovertebral tenderness. Skin: Warm, dry with normal turgor. Normal color with no rashes, no lesions, and no evidence of cellulitis. MS/ Extremity: Pulses equal, no cyanosis. Neurovascular intact. Full, normal range of motion. Neuro: Awake and alert, GCS 15, oriented to person, place, time, and situation. Cranial nerves II-XII grossly intact. Motor strength 5/5 in all extremities. Sensory grossly intact. Psych: Awake, alert, with orientation to person, place and time. Behavior, mood, and affect are within normal limits 23:21 ECG was reviewed by the Attending Physician. EKG time 2252 normal sinus rhythm at a sp4 rate of [address] elevation or depression, no ectopy, normal EKG Vital Signs: 22:52 BP 175 / 109; Pulse 82; Resp 18; Pulse Ox 99% on R/A; Weight 89.81 kg (M); Height 5 ft. kl 11 in. ; Pain 7/10; 23:53 BP 141 / 98; Pulse 76; Resp 16; Pulse Ox 98% on R/A; jb4 11/18 01:15 BP 141 / 101; Pulse 72; Resp 16; Pulse Ox 96% on R/A; Weight 90.2 kg; jb4 02:21 BP 157 / 100; Pulse 70; Resp 16; Pulse Ox 94% on R/A; jb4 01:15 Body Mass Index 27.73 (90.20 kg, 180.34 cm) 4 11/17 22:52 Pain Scale: Adult kl MDM: 11/17 22:55 Patient medically screened. sp4 11/18 00:12 Differential diagnosis: hypertensive crisis, Malignant HTN, Acute NSTEMI. sp4 00:37 Data reviewed: vital signs, nurses notes, old medical records, lab test result(s), sp4 cardiac enzymes, CBC, electrolytes, hepatic panel, EKG, radiologic studies, plain films. Consideration of Admission/Observation Escalation of care including admission/observation considered. Management of patient was discussed with the following: Hospitalist: Admission team. Fan Runner: Appeals Examiner Dr. Cabrera. ED course: Patient is present with blood pressure elevation at home, some mild chest discomfort, headache, troponin elevated. Patient warrants admission to the hospital, IV heparin, CT head reveals no signs of intracranial hemorrhage. Patient was discussed with chain builder loom control who will see patient in the morning for further assessment.. 11/17 22:55 Order name: Basic Metabolic Panel; Complete Time: 23:59 sp4 11/17 22:55 Order name: CBC with Diff; Complete Time: 23:59 sp4 11/17 22:55 Order name: LFT's; Complete Time: 23:59 sp4 11/17 22:55 Order name: Magnesium; Complete Time: 23:59 sp4 11/17 22:55 Order name: NT PRO-BNP; Complete Time: 23:59 sp4 11/17 22:55 Order name: PT-INR sp4 11/17 22:55 Order name: Troponin HS; Complete Time: 23:59 sp4 11/18 01:26 Order name: Ptt, Activated jb4 11/18 01:49 Order name: PTT, Activated Partial Thromb EDMS 11/17 22:55 Order name: XRAY Chest (1 view) 4 11/18 00:12 Order name: CT Head Brain wo Cont sp4 11/17 22:55 Order name: EKG; Complete Time: 22:56 sp4 11/17 22:55 Order name: Cardiac monitoring; Complete Time: 22:56 sp4 11/17 22:55 Order name: EKG - Nurse/Tech; Complete Time: 22:56 sp4 11/17 22:55 Order name: IV Saline Lock; Complete Time: 23:03 sp4 11/17 22:55 Order name: Labs collected and sent; Complete Time: 23:03 sp4 11/17 22:55 Order name: O2 Per Protocol; Complete Time: 22:56 sp4 11/17 22:55 Order name: O2 Sat Monitoring; Complete Time: 22:56 sp4 EC/06 23:21 Rate is 64 beats/min. Rhythm is regular, Normal Sinus Rhythm. QRS [place] is Normal. NC sp4 interval is normal. QRS interval is normal. QT interval is normal. T waves are Normal. No ST changes noted. Clinical impression: Normal ECG. Interpreted by me. Administered Medications: 11/18 00:12 Not Given (Patient Refused): HEParin IV 4000 units IV at bolus once sp4 00:12 Not Given (Patient Refused): Heparin ([place]) - ([place] [address] units, D5W IV 500 sp4 ml) 12 units/kg/hr IV at calculated rate Per protocol; Max initial rate 1000 units/hr 02:21 Drug: Metoprolol PO 25 mg Route: PO; jb4 02:45 CANCELLED (Other Intervention Used): HEParin IV 4000 units IV at bolus once jb4 02:54 Drug: Heparin (CO Drip) - (D5W IV 500 [place], [place] [address] units) 12 units/kg/hr jb4 {Co-Signature: lg3 (Ericka Adair RN).} Route: IV; Rate: calculated rate; Site: right antecubital; 02:54 Drug: HEParin IV 5000 units {Co-Signature: lg3 (Ercika Adair RN).} Route: IV; Rate: jb4 bolus; Site: right antecubital; Disposition Summary: 11/18/22 00:37 Hospitalization Ordered Hospitalization Status: Inpatient Admission sp4 Provider: Rik Campa sp4 Condition: Stable sp4 Problem: new sp4 Symptoms: are unchanged sp4 Bed/Room Type: Standard sp4 Location: Telemetry/MedSurg (Inpatient)(11/18/22 02:42) Room Assignment: [facility](11/18/22 02:42) Diagnosis - Subsequent non-ST elevation (NSTEMI) myocardial infarction sp4 - Hypertensive urgency, NSTEMI, history of CAD sp4 Forms: - Medication Reconciliation Form sp4 - SBAR form sp4 Signatures: Dispatcher [employer] EDMS Diana Turner RN RN kl Webb, Martha, RN RN mw Attema, Lee, VALERIA-C HUB ASSOCIATE-Cla1 Markel Alejandra RN RN jb4 Potepalov, Sergey, MD MD sp4 Ericka Adair RN lg3 Corrections: (The following items were deleted from the chart) 00:44 00:37 Telemetry/MedSurg (Inpatient) sp4 mw 00:44 00:37 sp4 mw 02:42 00:44 [facility] ER HOLD mw kl 02:42 00:44 ERHOLD- mw kl 02:45 01:09 HEParin IV 4000 units IV at bolus once ordered. sp4 jb4 02:45 02:45 HEParin IV 4000 units IV at bolus once ordered. jb4 jb4
--- NOTE | 2022-11-18 00:38 | ER ---
Nurse's Notes [facility] Name: Chandana Andujar Age: 62 yrs Sex: Male : 1960 Arrival Date: 11/17/2022 Time: 22:40 Bed 3 Private MD: Diagnosis: Subsequent non-ST elevation (NSTEMI) myocardial infarction;Hypertensive urgency, NSTEMI, history of CAD Presentation: 11/17 22:52 Chief complaint: Patient states: chest pressure high blood pressure headache reports 8 kl weeks ago 5 vessel bypass at cardiac rehab today and had problems with high BP. Coronavirus screen: Vaccine status: Patient reports being unvaccinated. Ebola Screen: Patient negative for fever greater than or equal to 101.5 degrees Fahrenheit, and additional compatible Ebola Virus Disease symptoms. Initial Sepsis Screen: Does the patient meet any 2 criteria? No. Patient's initial sepsis screen is negative. Does the patient have a suspected source of infection? No. Patient's initial sepsis screen is negative. Risk Assessment: Do you want to hurt yourself or someone else? Patient reports no desire to harm self or others. 22:52 Method Of Arrival: Wheelchair 22:52 Acuity: CHELO 2 kl Triage Assessment: 22:58 Headache History: Denies prior headaches. General: Appears uncomfortable, Behavior is kl calm, cooperative. Pain: Pain currently is 7 out of 10 on a pain scale. Pain began gradually, Also complains of inability to concentrate. Neuro: No deficits noted. Cardiovascular: Reports chest pain, Capillary refill < 3 seconds Rhythm is sinus rhythm. Historical: - Allergies: 22:55 No Known Allergies; kl - Home Meds: 22:55 clopidogrel 75 mg oral tablet daily [Active]; atorvastatin 40 mg oral tablet every day kl at bedtime [Active]; Lopressor 25mg Oral 0.5 tabs 2 times per day [Active]; Synthroid Oral once daily [Active]; Metformin Oral [Active]; - PMHx: 22:55 Hypertension; Hypothyroidism; NIDDM; kl - PSHx: 22:58 5 vessel bypass; kl - Immunization history:: Adult Immunizations not immunized. - Social history:: Smoking status: Patient denies any tobacco usage or history of. - Family history:: not pertinent. Screenin:53 [facility] ED Fall Risk Assessment (Adult) History of falling in the last 3 months, jb4 including since admission No falls in past 3 months (0 pts) Confusion or Disorientation No (0 pts) Score/Fall Risk Level 0 - 2 = Low Risk Oriented to surroundings, Maintained a safe environment. Abuse screen: Denies threats or abuse. Nutritional screening: No deficits noted. Tuberculosis screening: No symptoms or risk factors identified. Assessment: 23:53 Reassessment: Patient appears in no apparent distress at this time. Patient and/or jb4 family updated on plan of care and expected duration. Pain level reassessed. Patient is alert, oriented x 3, equal unlabored respirations, skin warm/dry/pink. 11/18 01:00 Reassessment: Patient appears in no apparent distress at this time. Patient and/or jb4 family updated on plan of care and expected duration. Pain level reassessed. Patient is alert, oriented x 3, equal unlabored respirations, skin warm/dry/pink. Vital Signs: 11/17 22:52 BP 175 / 109; Pulse 82; Resp 18; Pulse Ox 99% on R/A; Weight 89.81 kg (M); Height 5 ft. kl 11 in. ; Pain 7/10; 23:53 BP 141 / 98; Pulse 76; Resp 16; Pulse Ox 98% on R/A; jb4 11/18 01:15 BP 141 / 101; Pulse 72; Resp 16; Pulse Ox 96% on R/A; Weight 90.2 kg; jb4 02:21 BP 157 / 100; Pulse 70; Resp 16; Pulse Ox 94% on R/A; jb4 01:15 Body Mass Index 27.73 (90.20 kg, 180.34 cm) [facility] 11/17 22:52 Pain Scale: Adult kl ED Course: 11/17 22:46 Patient arrived in ED. jj6 22:54 Triage completed. kl 22:54 Fidel Nevarez MD is Attending Physician. sp4 23:00 Initial lab(s) drawn, by me, sent to lab. Inserted saline lock: 18 gauge in right jb4 antecubital area, using aseptic technique. Blood collected. 23:46 XRAY Chest (1 view) In Process Unspecified. EDMS 11/18 00:36 Rik Campa MD is Hospitalizing Provider. sp4 00:39 CT Head Brain wo Cont In Process Unspecified. EDMS 01:29 Markel Alejandra, RN is Primary Nurse. jb4 02:55 Ptt, Activated Sent. lg3 03:19 No provider procedures requiring assistance completed. Patient admitted, IV remains in jb4 place. 03:19 Patient has correct armband on for positive identification. Placed in gown. Bed in low jb4 position. Call light in reach. Side rails up X 1. Client placed on continuous cardiac and pulse oximetry monitoring. NIBP monitoring applied. clinic md associate on. Administered Medications: 00:12 Not Given (Patient Refused): HEParin IV 4000 units IV at bolus once sp4 00:12 Not Given (Patient Refused): Heparin ([place]) [place] ([place] [address] units, D5W IV 500 sp4 ml) 12 units/kg/hr IV at calculated rate Per protocol; Max initial rate 1000 units/hr 02:21 Drug: Metoprolol PO 25 mg Route: PO; jb4 02:45 CANCELLED (Other Intervention Used): HEParin IV 4000 units IV at bolus once jb4 02:54 Drug: Heparin (RI Drip) - (D5W IV 500 ml, [place] [address] units) 12 units/kg/hr jb4 {Co-Signature: unique (Ericka Adair RN).} Route: IV; Rate: calculated rate; Site: right antecubital; 02:54 Drug: HEParin IV 5000 units {Co-Signature: unique (Ericka Adair RN).} Route: IV; Rate: jb4 bolus; Site: right antecubital; Outcome: 00:37 Decision to Hospitalize by Provider. sp4 03:19 Admitted to Tele accompanied by nurse, via stretcher, room 424, with chart, Report jb4 called to JUAN ALBERTO Martin 03:19 Condition: stable 03:19 Discharge instructions given to patient, Instructed on the need for admit, Demonstrated understanding of instructions. 03:20 Patient left the ED. jb4 Signatures: Dispatcher [employer] EDDiana Shrestha RN RN kl Bryson, James, RN JUAN ALBERTO jbEricka Baca, JUAN ALBERTO AVENDANO lg3 Lorraine Winchester Sergey, MD MD sp4 Ericka Adair RN lg3
[2022-11-18] MEDS ORDERED: METOPROLOL TAR 25 MG TAB ONE (01:44)
--- NOTE | 2022-11-18 02:12 | P.HP ---
Certification for Inpatient Patient admitted to: Inpatient With expected LOS: >2 Midnights Patient will require the following post-hospital care: None Practitioner: I am a practitioner with admitting privileges, knowledge of patient current condition, hospital course, and medical plan of care. Services: Services provided to patient in accordance with Admission requirements found in Title 42 Section 412.3 of the Code of Federal Regulations Patient History Date of Service: 11/18/22 Reason for admission: NSTEMI History of Present Illness: 62-year-old male with history of CAD with 5 vessel CABG approximately 2 months ago, hypertension, hypothyroidism, hyperlipidemia, hyo-lqgoplj-yzayvdewy diabetes presents to the emergency department with chief complaint of elevated blood pressures. He reports that he has been attending cardiac rehab ever since he had his bypass surgery and doing well, they checked his blood pressure today at cardiac rehab and noted that it was elevated, told him to check his blood pressure at home over the next few days and when he came back if it was persistently elevated they were discussed with his wire spooler. At 1 point this evening patient began checking his blood pressure every 3 minutes and Increasing he was concerned as his blood pressure was around 180/100. He denied any chest pain, did have a headache at that time, also denies shortness of breath. He was evaluated in the emergency department his initial high- sensitivity troponin was 262.3. EKG was without STEMI criteria, he has been compliant with his home medications including Plavix. ED physician discussed case with cardiology who recommends admission. After further discussion with patient he had been pushing himself pretty hard at cardiac rehab the day before, had gotten his heart rate into the 140s, also had elevated blood pressures this evening. He could potentially have demand ischemia. He was started on heparin drip in the emergency department, will admit for further evaluation and management of NSTEMI. Allergies Tetanus Toxoid Adsorbed Adverse Reaction (Uncoded 09/16/22 10:06) Rash Home Medications: Aspirin 1 tab PO DAILY 09/17/22 Levothyroxine Sodium [Synthroid] 1 tab PO DAILY 09/17/22 Metformin HCl 1 tab PO BID 09/17/22 Multivitamin/Iron/Folic Acid [Centrum Adults Tablet] 1 tab PO DAILY 09/17/22 Nebivolol HCl [Bystolic*] 1 tab PO DAILY 09/17/22 Rosuvastatin Calcium [Crestor] 1 tab PO BEDTIME 09/17/22 - Past Medical/Surgical History Diabetic: Yes -: Our-veaatta-xpsrnhood diabetes -: Hypertension -: Hyperlipidemia -: Hypothyroidism -: CAD -: Neck Sx x2, -: Knee Sx x2 -: Vasectomy -: 5 vessel bypass 2022 Psychosocial/ Personal History: Patient lives at home with family - Family History Family History: Reviewed- Non-Contributory - Social History Smoking Status: Never smoker Alcohol use: Yes CD- Drugs: No Caffeine use: Yes Place of Residence: Home Review of Systems 10-point ROS is otherwise unremarkable Physical Examination - Physical Exam General: Alert, In no apparent distress, Oriented x3 HEENT: Atraumatic, PERRLA, Mucous membr. moist/pink, EOMI, Sclerae nonicteric Neck: Supple, 2+ carotid pulse no bruit, No LAD, Without JVD or thyroid abnormality Respiratory: Clear to auscultation bilaterally, Normal air movement Cardiovascular: Regular rate/rhythm, Normal S1 S2 Gastrointestinal: Normal bowel sounds, No tenderness Musculoskeletal: No tenderness Integumentary: No rashes Neurological: Normal gait, Normal speech, Normal strength at 5/5 x4 extr, Normal tone, Normal affect Lymphatics: No axilla or inguinal lymphadenopathy - Studies Laboratory Data (last 24 hrs) 11/17/22 23:00: PT 11.7, INR 1.06, APTT 32.2 11/17/22 23:00: WBC 6.50, Hgb 15.2, Hct 44.4, Plt Count 265 11/17/22 23:00: Sodium 138, Potassium 4.2, BUN 17, Creatinine 1.17, Glucose 102, Magnesium 1.8, Total Bilirubin 0.3, AST 14 L, ALT 25, Alkaline Phosphatase 68 Assessment and Plan - Plan Assessment: NSTEMIhistory of CAD with CABG early 2022 Diabetes mellitus type [id number]-lmxnoso-haopjzknz Hypertension Hyperlipidemia Hypothyroidism Plan: NSTEMIhistory of CAD with CABG early 2022 Patient does admit to pushing himself pretty hard at cardiac rehab due to his heart rate into the 140s, also had elevated blood pressures last night, possibly demand ischemia. He denies any chest pain, shortness of breath he is not tachycardic or hypoxic. He has been compliant with his medication since his CABG including Plavix. Will trend troponins, monitor on telemetry, continue heparin drip. Cardiology consult and echocardiogram ordered. Diabetes mellitus type 3xzx-maeobod-acfcthzvw ACHS Accu-Chek, sliding scale insulin. A1c in the morning. Hypertension Hyperlipidemia Hypothyroidism Continue home medications. DVT PPX: Heparin drip Code status: Full Discharge Plan: Home Plan to discharge in: 48 Hours - Advance Directives Does patient have a Living Will: No Does patient have a Durable POA for Healthcare: No - Code Status/Comfort Care Code Status Assessed: Yes (Full code) Critical Care: No Time Spent Managing Pts Care (In Minutes): 70
[2022-11-18] MEDS ORDERED: ONDANSETRON 4 MG/2 ML VIAL IV PRN (02:38)
[2022-11-18] MEDS ORDERED: HEPARIN/D5W 25,000 UNIT/500 ML BAG IV SCH (02:38)
[2022-11-18] MEDS ORDERED: HEPARIN 5000 UNIT/ML 1 ML VIAL ONE (02:54)
[2022-11-18 03:56] VITALS: BMI 27.8
--- NOTE | 2022-11-18 07:14 | EKG ---
Test Date: 2022-11-17 Test Time: 22:52:23 Shaper And Presser: AMANDA MEASUREMENT RESULTS: Intervals: Rate: 64 IA: 156 QRSD: 80 QT: 416 QTc: 429 [place]: P: 68 IA: 156 QRS: 33 T: 80 INTERPRETIVE STATEMENTS: Normal sinus rhythm Possible Anterior infarct, age undetermined Abnormal ECG Compared to ECG 09/06/2017 14:16:46 Myocardial infarct finding now present Sinus bradycardia no longer present Electronically Signed On 11-18-22 07:13:52 CDT by Ilya Duarte
[2022-11-18] MEDS ORDERED: INSULIN -REGULAR HUMAN 50 UNIT/0.5 ML ML SQ SCH (07:30)
[2022-11-18 08:07] LABS: Absolute Lymphocytes (CBC) 2.2 K/uL (0.7-4.9); Hematocrit 46.4 % (39.6-49.0); MCV 95.2 fL (80-100); MPV 7.3 fL (7.6-11.3); RBC Red Blood Cell Count 4.88 M/uL (4.33-5.43)
[2022-11-18 08:30] LABS: Thyroid Stimulating Hormone 8.33 uIU/mL (0.358-3.740)
[2022-11-18 08:34] LABS: Troponin High Sensitivity 273.2 pg/mL (<58.9)
[2022-11-18] MEDS ORDERED: CLOPIDOGREL 75 MG TABLET PO SCH (09:00)
[2022-11-18] MEDS ORDERED: ASPIRIN EC 81 MG TAB PO SCH (09:00)
[2022-11-18] MEDS ORDERED: LOSARTAN POTASSIUM 50 MG TABLET PO SCH (09:41)
[2022-11-18 09:46] VITALS: TEMP 97.2
[2022-11-18 10:41] VITALS: O2SAT 96
--- NOTE | 2022-11-18 11:24 | RAD REPORT ---
EXAM DESCRIPTION: Single view AP chest radiograph(s). CLINICAL HISTORY: CHEST PAIN. COMPARISON: None. TECHNIQUE: Single view AP chest radiograph(s). FINDINGS: No pulmonary infiltrate identified. No pleural effusion. No pneumothorax. Nonenlarged card iomediastinal silhouette. Median sternotomy wires. IMPRESSION: No acute cardiopulmonary abnormality identified by radiograph. Electronically signed by: Frances Doty MD 11/17/2022 11:56 PM CDT Due to temporary technical issues with the PACS/Fluency reporting system, reports are being signed by the in house radiologist without review as a courtesy to ensure prompt reporting. The interpreting r adiologist is fully responsible for the content of the report.
--- NOTE | 2022-11-18 11:38 | RAD REPORT ---
EXAM DESCRIPTION: Head Brain Wo Cont CLINICAL HISTORY: Headache. TECHNIQUE: 5 mm axial images of the intracranial structures were obtained without intravenous contra st. Coronal and sagittal reformatted images were obtained. COMPARISON: None. DOSE OPTIMIZATION: This facility uses dose optimization techniques as appropriate to perform exams, i ncluding at least one of the following techniques: 1. Automated exposure control. 2. Adjustment of the mA and/or kV according to patient size (this includes techniques or standardized protocols for targeted exams where dose is matched to the indication/reason for exam, i.e. extremiti es or head). 3. Use of iterative reconstructive technique. FINDINGS: No abnormal acute extracerebral fluid collections are demonstrated. The cortical sulci, ventricles, and cisterns are within normal limits. There are no areas of altered attenuation to suggest acute hemorrhage, acute infarct, or mass lesio n. The visualized portions of the paranasal sinuses and mastoid air cells are remarkable for moderately severe mucosal thickening throughout the paranasal sinuses. IMPRESSION: 1. No acute intracranial abnormalities. 2. Moderately severe pansinusitis. Electronically signed by: Tito Triplett MD 11/18/2022 12:50 AM CDT Due to temporary technical issues with the PACS/Fluency reporting system, reports are being signed by the in house radiologist without review as a courtesy to ensure prompt reporting. The interpreting r adiologist is fully responsible for the content of the report.
--- NOTE | 2022-11-18 12:08 | CON ---
Date of Consultation: 11/18/2022 Reason For Consultation: Non-STEMI. History Of Present Illness: Mr. Andujar is 62. Just underwent coronary artery bypass graft x5 by Dr. Lozada in [place] in September 2022. He has a history of diabetes, dyslipidemia, hypothyroidism, an d hypertension. Has been going to cardiac rehab. He basically developed blood pressure that was lloyd vated at 170/110 and developed headache, dizziness, got concerned, came to the emergency room. His E KG showed nonspecific changes. His troponin was slightly elevated and admitted him for a non-STEMI. The patient does not have any chest pain. He denied any nausea, vomiting, diaphoresis, PND, orthopn ea, pedal edema, palpitations, or syncope. Past Medical History: As stated above. Allergies: HE IS ALLERGIC TO TETANUS. Review of Systems: Negative. Social History: Negative. Family History: Positive for heart disease. Medications: At home include aspirin, Synthroid, Plavix, Ozempic, metoprolol, Lipitor, and metformin . Physical Examination: General: Very pleasant, no acute distress. Vital Signs: Stable, afebrile. HEENT: Negative. Neck: Supple with no bruit. Chest: Clear. Cardiac: Revealed a regular rhythm and rate. No murmurs, gallops, or rubs. Abdomen: Benign. Extremities: Revealed no clubbing, cyanosis, or edema. Diagnostic Data: EKG is nonspecific. Chest x-ray showed postop surgery. Troponin mildly elevated. Rest of the blood work is normal. Impression: 1.Headache secondary to uncontrolled blood pressure. 2.Elevated troponin secondary to coronary artery disease and recent surgery. 3.Diabetes. 4.Dyslipidemia. 5.Hypertension. 6.Hypothyroidism. There was an echo ordered for Mr. Andujar. After that, he can go home. When papito philippe goes home, I asked him to double his metoprolol to 25 b.i.d. and I think he should be on losartan 5 0 mg daily as well and he will follow up with Dr. Cabrera in the near future. PATRIZIA/JHONY Voice ID: [id number] Report ID: [id number]
--- NOTE | 2022-11-18 14:43 | P.DS ---
Admission Date: 11/18/22 Discharge Date: 11/18/22 Reason for Admission: NSTEMI Consultations: 1. Cardiology Hospital Course: DIAGNOSES: # Hypertensive Urgency with Type II Non-ST Segment Elevation Myocardial Infarction (Demand Ischemia) # Moderately Severe Pansinusitis with Peripheral Eosinophilia # Coronary Artery Disease s/p CABG (early 2022) # Type II Diabetes Mellitus # Hyperlipidemia # Hypothyroidism HOSPITAL COURSE: Mr. Chandana Andujar is a pleasant 62 year old male with a past medical history significant for coronary artery disease s/p CABG x 5, type II diabetes mellitus, hypertension, hyperlipidemia, and hypothyroidism who was admitted to the [facility] on 11/18/2022 for hypertension. He was admitted to the Medicine service. Upon further evaluation, his blood pressure was 175/109. His EKG was without STEMI criteria. His troponin trend was 262.3 -> 273.2 -> 272.5. His chest x-ray revealed, "no acute cardiopulmonary abnormality identified by radiograph." Cardiology was consulted and he was evaluated by Dr. Duarte. A transthoracic echocardiogram was requested and reviewed by Dr. Duarte. He did not feel that there were any significant findings on the images. He has cleared him for discharge home with metoprolol tartrate 25 mg BID and losartan 50 mg daily. Of note, his CT head revealed moderately severe pansinusitis. In addition, he was found to have peripheral eosinophilia. For now, will treat as allergic sinusitis. He was given azithromycin and advised to utilize OTC anti-histamines and intranasal fluticasone. On 11/18/2022, he was seen on rounds and deemed medically stable for discharge. He was discharged with instructions to schedule follow-up appointments with his PCP (Dr. Clancy) and with Cardiology (Dr. Cabrera). He was provided prescripti ons for azithromycin, metoprolol, and losartan. He and his were given the opportunity to ask questions and reported no further questions. Furthermore, all questions were answered to the best of my ability. A copy of this discharge summary will be sent to the above providers to facilitate continuity of care. Today, I personally spent 35 minutes on his case, of which greater than 50% of the time was spent in patient education, counseling, and coordination of care as described above. Vital Signs/Physical Exam: Temp Pulse Resp BP Pulse Ox 97.2 F 66 16 140/90 97 06/07/23 12:00 11/18/22 12:00 11/18/22 12:00 11/18/22 12:00 11/18/22 12:00 General: Alert, In no apparent distress, Oriented x3 HEENT: Atraumatic, Mucous membr. moist/pink, Sclerae nonicteric Neck: JVD not distended Respiratory: Clear to auscultation bilaterally, Normal air movement Cardiovascular: No edema, Regular rate/rhythm, Normal S1 S2, No gallops, No rubs, No murmurs Gastrointestinal: Normal bowel sounds, Soft and benign, Non-distended, No tenderness, No rebound, No guarding Musculoskeletal: No clubbing Integumentary: No rashes Neurological: Normal speech, Normal affect Laboratory Data at Discharge: WBC 5.90 thou/uL (4.3-10.9) 11/18/22 07:31 Hgb 15.8 g/dL (13.6-17.9) 11/18/22 07:31 Hct 46.4 % (39.6-49.0) 11/18/22 07:31 Plt Count 266 thou/uL (152-406) 11/18/22 07:31 PT 11.7 SECONDS (9.5-12.5) 11/17/22 23:00 INR 1.06 11/17/22 23:00 APTT 34.4 SECONDS (24.3-36.9) 11/18/22 12:39 Sodium 140 mEq/L (136-145) 11/18/22 07:31 Potassium 4.0 mEq/L (3.5-5.1) 11/18/22 07:31 BUN 15 mg/dL (7-18) 11/18/22 07:31 Creatinine 1.06 mg/dL (0.70-1.30) 11/18/22 07:31 Glucose 113 mg/dL (74-106) H 11/18/22 07:31 Magnesium 1.8 mg/dL (1.6-2.4) 11/17/22 23:00 Total Bilirubin 0.3 mg/dL (0.2-1.0) 11/17/22 23:00 AST 14 U/L (15-37) L 11/17/22 23:00 ALT 25 U/L (16-61) 11/17/22 23:00 Alkaline Phosphatase 68 U/L (45-117) 11/17/22 23:00 Home Medications: Aspirin 1 tab PO DAILY 09/17/22 Levothyroxine Sodium [Synthroid] 1 tab PO DAILY 09/17/22 Metformin HCl 1 tab PO BID 09/17/22 Multivitamin/Iron/Folic Acid [Centrum Adults Tablet] 1 tab PO DAILY 09/17/22 Atorvastatin Calcium 40 mg PO BEDTIME 11/18/22 Azithromycin Tab [Zithromax*] 250 mg PO ZPAK #6 tab 11/18/22 Clopidogrel Bisulfate [Plavix*] 75 mg PO DAILY 11/18/22 Losartan Potassium [Cozaar*] 50 mg PO DAILY #30 tab 11/18/22 Metoprolol Tartrate [Lopressor*] 25 mg PO BID #60 tab 11/18/22 Semaglutide [Ozempic] 0.5 mg SQ EVERY 7TH DAY 11/18/22 New Medications: Losartan Potassium [Cozaar*] 50 mg PO DAILY #30 tab Metoprolol Tartrate [Lopressor*] 25 mg PO BID #60 tab Azithromycin Tab [Zithromax*] 250 mg PO ZPAK #6 tab Physician Discharge Instructions: 1. Please call and schedule follow-up appointment with your PCP (Dr. Clancy) in 3-5 days You have fairly severe sinusitis, which may be allergic in nature. You have been given a prescription for an antibiotic (azithromycin). You can also use yylr-jpw-ddalcle antihistamines (Claritin or Zyrtec) and nasal Flonase. Please follow this up with your PCP in case further evaluation is required. 2. Please call and schedule a follow-up appointment with your paleology teacher (Dr. Cabrera) in 3-5 days Please monitor your blood pressure and heart rate and keep it in a journal. Please bring this to your appointment, so that he may adjust medications as needed. Diet: AHA Activity: Ad jon Followup: Kenny Clancy MD [Primary Care Provider] - Rajinder Cabrera MD [ACTIVE - CAN ADMIT] - Time spent managing pt's care (in minutes): 35
[2022-11-18 15:48] VITALS: BP 127/91
[2022-11-18] MEDS ORDERED: METOPROLOL TAR 25 MG TAB PO SCH (21:00)
[2022-11-18] MEDS ORDERED: ATORVASTATIN 40 MG TAB PO SCH (21:00)
--- NOTE | 2022-11-19 07:21 | ECHO ---
HEIGHT: 5 ft 11 in WEIGHT: 198 lb 14.4 oz DATE OF STUDY: 11/18/[address]: Aguila Forerst NP 2-DIMENSIONAL: YES M.MODE: YES DOPPLER: YES COLOR FLOW: YES TDS: PORTABLE: YES DEFINITY: BUBBLE STUDY: DIAGNOSIS: NON ST ELEVATION MYOCARDIAL INFARCTION CARDIAC HISTORY: CATHERIZATION: YES SURGERY: YES PROSTHETIC VALVE: NO PACEMAKER: NO MEASUREMENTS (cm) DIASTOLIC (NORMALS) SYSTOLIC (NORMALS) IVSd 1.3 (0.6-1.2) LA Diam 3.5 (1.9-4.0) LVEF 60-65% LVIDd 4.3 (3.5-5.7) LVIDs 2.4 (2.0-3.5) %FS 43% LVPWd 1.4 (0.6-1.2) Ao Diam 2.6 (2.0-3.7) 2 DIMENSIONAL ASSESSMENT: RIGHT ATRIUM: NORMAL LEFT ATRIUM: NORMAL RIGHT VENTRICLE: NORMAL LEFT VENTRICLE: NORMAL TRICUSPID VALVE: NORMAL MITRAL VALVE: NORMAL PULMONIC VALVE: NORMAL AORTIC VALVE: NORMAL PERICARDIAL EFFUSION: NONE AORTIC ROOT: NORMAL LEFT VENTRICULAR WALL MOTION: NORMAL DOPPLER/COLOR FLOW: MILD PULMONIC INSUFFICIENCY COMMENTS: 1. NORMAL LEFT VENTRICULAR EJECTION FRACTION 60-65% 2. NORMAL WALL MOTION 3. NORMAL DIASTOLIC FUNCTION 4. MILD PULMONIC INSUFFICIENCY TECHNOLOGIST: SUSANNE ARAMBULA
== END 2022-11-18 16:00 | disposition home or self-care (01) ==
LOC: ER 22:40 → INTOOBSV 11-18 01:13 → ERHOLD 11-18 01:13 → 4TH 11-18 02:42
PROVIDERS: ADMIT Internal Medicine; ATTEND Internal Medicine
DX: I21.4 Non-ST elevation (NSTEMI) myocardial infarction (principal); J32.4 Chronic pansinusitis; R77.8 Other specified abnormalities of plasma proteins; D72.19 Other eosinophilia; E11.9 Type 2 diabetes mellitus without complications; I10 Essential (primary) hypertension; E78.5 Hyperlipidemia, unspecified; E03.9 Hypothyroidism, unspecified; I25.10 Atherosclerotic heart disease of native coronary artery without angina pectoris; R51.9 Headache, unspecified; I16.0 Hypertensive urgency; Z95.1 Presence of aortocoronary bypass graft
CPT/HCPCS: 93005; 93306; 85025 ×2; 80048 ×2; 36415; 83735; 85610; 82947 ×2; 80076; 85730 ×3; 84443; 83036; 84484 ×3; 84439; 83880; 70450; 71045; 96374; 99285; J1644; G0378